=== PATIENT | female | born 1955 | race Caucasian/White ===

== ENCOUNTER 2018-09-10 16:06 | Inpatient (IN) | payer MEDICARE ==
[~2018-09-10] VITALS: Ht 149.9 cm; Wt 90.3 kg
[~2018-09-10 16:06] MED LIST: AMOXICILLIN250 MG PO; BACTRIM DS TAB1 EACH PO; BUSPIRONE HCL10 MG PO; GABAPENTIN600 MG PO; GLIMEPIRIDE4 MG PO; LEVEMIR100 UNIT/1; LEVETIRACETAM500 MG PO; LEXAPRO10 MG PO; LISINOPRIL10 MG PO; MAGNESIUM500 MG PO; NORCO 10MG-325MG1 EA PO; PANTOPRAZOLE SO20 MG PO; PLAVIX75 MG PO; SINGULAIR10 MG PO; SUCRALFATE1 GM PO; VIIBRYD40 MG PO
--- OUTSIDE RECORDS SUMMARY | 2018-09-10 16:11 | XMS REPORT | Continuity of Care Document ---
Author Author [facility] Interface Address Unknown Phone Unavailable Problems Problem Status Onset Date Classification Date Reported Comments Source ACHALASIA Active 12/30/2017 [facility] Gastro-esophageal reflux disease without esophagitis 12/16/2017 03/09/2018 [facility] BDDC/ GERD K21.9 Active 11/29/2017 [facility] DDC-GERD Active 10/22/2017 [facility] K22.0=ACHALASIA OF CARDIA, R13.14DYSPHAG Active 10/29/2015 [facility] STROKE Active 10/09/2014 [facility] AMS,HYPERGLYCEMIA,LT BINDLE BRANCH BLOCK Active 10/08/2014 [facility] Final: 10/14/2014 [facility] Dysphagia, unspecified 02/23/2018 [facility] Essential hypertension 03/09/2018 [facility] Type 2 diabetes mellitus without complications 03/09/2018 [facility] Sleep apnea, unspecified 02/23/2018 [facility] Personal history of transient ischemic attack , and cerebral infarction without residual deficits 03/09/2018 [facility] [employer]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 02/23/2018 [facility] [employer] 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 02/23/2018 [facility] Acid reflux Resolved Problem 03/09/2018 [facility] Anxiety Active Problem 03/09/2018 [facility] CVA (<span ID="[id number]">Confirmed</span>) Active Problem 03/09/2018 [facility] DM , type 2, uncontrolled(<span ID="[id number]">Confirmed</span>) Active Problem 03/09/2018 [facility] Expressive-receptive aphasia Active Problem 03/09/2018 [facility] HLD (<span ID="[id number]">Confirmed</span>) Active Problem 03/09/2018 [facility] Hypertension Active Problem 03/09/2018 [facility] Morbid obesity Active Problem 03/09/2018 [facility] Motor apraxia Active Problem 03/09/2018 [facility] MRSA Active Problem 03/09/2018 [facility] Peripheral neuropathy Active Problem 03/09/2018 [facility] Seizures Active Problem 03/09/2018 [facility] Sleep apnea Active Problem 03/09/2018 [facility] TIA (<span [id number]">Confirmed</span>) Resolved Problem 03/09/2018 [facility] Total knee replacement Resolved Problem 03/09/2018 [facility] Unspecified osteoarthritis, unspecified site 03/09/2018 [facility] Unspecified convulsions 03/09/2018 [facility] ALTERED MENTAL STATUS Active [facility] CVA Active [facility] CVA Active [facility] [place] ACHALASIA OF CARDIA Active [facility] DYSPHAGIA, PHARYNGOESOPHAGEAL PHASE Active [facility] Medications Medication Details Route Status Patient Instructions Ordering Provider Order Date Source Docusate Sodium 100 MG Oral Capsule 100 mg=1 cap, PO, BID, # 60 cap, 0 Refill(s) Active 01/14/2018 [facility] Acetaminophen 325 MG Oral Tablet [Tylenol] 325 mg=1 tab, PO, Q4H, PRN Pain Score 6-10, PRN pain, X 7 day, # 42 tab, 0 Refill(s) Active 01/14/2018 [facility] Melatonin 3 MG Extended Release Tablet 3 mg=1 tab, PO, Bedtime, PRN for insomnia Active 01/14/2018 [facility] Acetaminophen 325 MG Oral Tablet [Tylenol] 325 mg=1 tab, PO, Daily, PRN pain Inactive 01/14/2018 [facility] Vitamin D2 50,000 intl units oral capsule 50,000 IntlUnit=1 cap, PO, qWeek, (every Wednesday of the week) Active 01/14/2018 [facility] atorvastatin 40 mg oral tablet 40 mg=1 tab, PO, Bedtime, # 90 tab, 0 Refill(s) Active 01/14/2018 [facility] Levetiracetam 500 MG Oral Tablet 500 mg=1 tab, PO, BID, # 60 tab, 0 Refill(s) Active 01/14/2018 [facility] gabapentin 600 MG Oral Tablet 600 mg=1 tab, PO, TID, # 90 tab, 0 Refill(s) Active 01/14/2018 [facility] Enoxaparin 40 mg, 0.4 mL, Route: SUB-Q, Drug form: INJ, [id number], Dosing Weight 88.636, kg, Start date: 01/14/18 9:00:00 CDT, Stop date: 02/11/18 9:00:00 CDTNotes: (Same as: Lovenox) Inactive 01/14/2018 [facility] Lisinopril 5 mg, 1 tab, Route: PO, Drug form: TAB, Daily, Dosing Weight 88.636, kg, Priority: NOW, Start date: 01/14/18 8:12:00 CDT, Duration: 30 day, Stop date: 02/12/18 9:00:00 CDTNotes: (Same as: Maria De Jesus Hurt estrclinton) Inactive 01/14/2018 [facility] Calcium Gluconate 1,000 mg, 10 mL, Route: IVPB, ONCE, Dosing Weight 88.636, kg, Start date: 01/14/18 6:02:00 CDT, Stop date: 01/14/18 6:02:00 CDTNotes: WASTE: F/P - Sink; E - Municipal Trash Bin Inactive 01/14/2018 [facility] Magnesium Sulfate 2 gm, 50 mL, Route: IVPB, Drug form: INJ, ONCE, Dosing Weight 88.636, kg, Total dose=2 gm, Start date: 01/14/18 5:55:00 CDT, Stop date: 01/14/18 5:55:00 CDTNotes: WASTE: F/P - Sink; E - Municipal Trash Bin Inactive 01/14/2018 [facility] Albuterol 0.833 MG/ML / Ipratropium [place] 0.167 MG/ML Inhalant Solution [DuoNeb] 3 ml, Route: NEB, Drug Form: SOLN, Dosing Weight 88.636, kg, PRN, PRN Respiratory Protocol, Start date: 01/13/18 20:34:00 CDT, Duration: 30 day, Stop date: 02/12/18 20:33:00 CDTNotes: (Same as: Duoneb) No Longer Active 01/14/2018 [facility] atorvastatin 40 mg, PO, Bedtime, 0 Refill(s) No Longer Active 01/14/2018 [facility] magnesium oxide 500 mg oral tablet 500 mg=1 tab, PO, BID, 0 Refill(s) Active 01/14/2018 [facility] lisinopril 20 mg oral tablet 20 mg=1 tab, PO, Daily, 0 Refill(s) Active 01/14/2018 [facility] escitalopram 10 mg oral tablet 10 mg=1 tab, PO, Bedtime, 0 Refill(s) Active 01/14/2018 [facility] insulin detemir 100 UNT/ML Injectable Solution [Levemir] 100 unit, SUB-Q, Bedtime, 0 Refill(s) Active 01/14/2018 [facility] Ergocalciferol PO, once a week, 0 Refill(s) No Longer Active 01/14/2018 [facility] gabapentin 600 MG Oral Tablet 600 mg=1 tab, PO, Bedtime, 2 tabs, 0 Refill(s) No Longer Active 01/14/2018 [facility] meloxicam 15 mg oral tablet 15 mg=1 tab, PO, Daily, 0 Refill(s) No Longer Active 01/14/2018 [facility] glimepiride 4 mg oral tablet 4 mg=1 tab, PO, Daily, 0 Refill(s) Active 01/14/2018 [facility] Ofirmev 1,000 mg, 100 mL, Route: IV, Drug form: INJ, Q6H, Dosing Weight 88.636, kg, for > or=50 kg, Start date: 01/13/18 18:00:00 CDT, Duration: 30 day, Stop date: 02/12/18 12:00:00 CDTNotes: Infuse over 15 minutes Do not exceed 4gm/day of acetaminophen MEDICATION WASTE Product Size: 1000 mg Product Wasted: ___ mg No Longer Active 01/13/2018 [facility] Fluconazole 400 mg, 200 mL, Route: IVPB, Drug form: INJ, [id number], Dosing Weight 88.636, kg, Priority: NOW, Start date: 01/13/18 16:58:00 CDT, Duration: 1 day, Stop date: 01/13/18 16:58:00 CDT, ABX Indication: Sofia rgical ProphylaxisNotes: (Same as: Diflucan) Inactive 01/13/2018 [facility] Insulin regular 5 unit, Route: IV, ONCE, Dosing Weight 88.636, kg, Start date: 01/13/18 15:13:00 CDT, Stop date: 01/13/18 15:13:00 CDT Inactive 01/13/2018 [facility] Insulin regular 5 unit, Route: IV, ONCE, Dosing Weight 88.636, kg, Start date: 01/13/18 14:38:00 CDT, Stop date: 01/13/18 14:38:00 CDT Inactive 01/13/2018 [facility] ondansetron (ANES) Route: IV, Drug form: INJ, ONCE, Stop date: 01/13/18 14:10:00 CDT Inactive 01/13/2018 [facility] ketOROLAC (ANES) IV, ONCE Inactive 01/13/2018 [facility] sugammadex (ANES) Route: IV, Drug form: SOLN, ONCE, Stop date: 01/13/18 14:10:00 CDT Inactive 01/13/2018 [facility] furosemide (ANES) Route: IV, Drug form: INJ, ONCE, Stop date: 01/13/18 14:10:00 CDT Inactive 01/13/2018 [facility] NovoLIN R (ANES) Route: SUB-Q, Drug form: INJ, ONCE, Stop date: 01/13/18 14:06:00 CDT Inactive 01/13/2018 [facility] Enoxaparin 40 mg, Route: SUB-Q, Drug form: INJ, [id number], Dosing Weight 88.636, kg, Start date: 01/13/18 14:00:00 CDT, Stop date: 02/11/18 14:00:00 CDT Inactive 01/13/2018 [facility] Insulin regular 2 unit, 0.02 mL, Route: SUB-Q, Drug form: SOLN, Sliding Scale, Dosing Weight 88.636, kg, PRN Blood Glucose Results, Start date: 01/13/18 13:59:00 CDT, Duration: 30 day, Stop date: 02/12/18 13:58:00 C DTNotes: (Same as: Humulin R) Roll in palms of hands gently; Do not shake vigorously. "single patient use only" (Restricted to patients requiring a dose > 60 units) WASTE: F/P - Black; E - Municipal Trash Bin Stable for 28 days at room temperature Expires in days from Date No Longer Active 01/13/2018 [facility] Dextrose 50% Syringe 12.5 gm, 25 mL, Route: IVP, Drug Form: INJ, Dosing Weight 88.636, kg, PRN, PRN Blood Glucose Results, Start date: 01/13/18 13:59:00 CDT, Duration: 30 day, Stop date: 02/12/18 13:58:00 CDT No Longer Active 01/13/2018 [facility] Glucagon 1 mg, Route: IM, Drug form: PDR/INJ, PRN, Dosing Weight 88.636, kg, PRN Blood Glucose Results, Start date: 01/13/18 13:59:00 CDT, Duration: 30 day, Stop date: 02/12/18 13:58:00 CDT No Longer Active 01/13/2018 [facility] sugammadex 500 mg, 5 mL, Route: IV, Drug form: SOLN, ONCE, Start date: 01/13/18 13:52:00 CDT, Stop date: 01/13/18 13:52:00 CDTNotes: (Same as: Bridion) No Longer Active 01/13/2018 [facility] hydromorphone (ANES) Route: IV, Drug form: INJ, ONCE, Stop date: 01/13/18 13:36:00 CDT Inactive 01/13/2018 [facility] Lactated Ringers IV 1,000 mL 1,000 mL, Rate: 75 ml/hr, Infuse over: 13.3 hr, Route: IV, Dosing Weight 88.636 kg, Total Volume: 1,000, Start date: 01/13/18 13:12:00 CDT, Duration: 30 day, Stop date: 02/12/18 13:11:00 CDT, 1.96, m2 No Longer Active 01/13/2018 [facility] Dilaudid 0.5 mg, 0.25 mL, Route: IVP, Drug form: INJ, Q8H, Dosing Weight 88.636, kg, PRN Pain Score 7-10, Start date: 01/13/18 13:10:00 CDT, Duration: 30 day, Stop date: 02/12/18 13:09:00 CDTNotes: Same as Dilaudid No Longer Active 01/13/2018 [facility] fentaNYL (ANES) Route: IV, Drug form: INJ, ONCE, Stop date: 01/13/18 13:06:00 CDT Inactive 01/13/2018 [facility] ketAMINE (ANES) Route: IV, Drug form: INJ, ONCE, Stop date: 01/13/18 13:06:00 CDT Inactive 01/13/2018 [facility] phenylephrine (ANES) Route: IV, Drug form: INJ, ONCE, Stop date: 01/13/18 13:06:00 CDT Inactive 01/13/2018 [facility] Ondansetron 4 mg, 2 mL, Route: IVP, Drug form: INJ, Q6H, Dosing Weight 88.636, kg, PRN Nausea & Vomiting, Start date: 01/13/18 13:03:00 CDT, Duration: 30 day, Stop date: 02/12/18 13:02:00 CDTNotes: (Same as: Zofran) MEDICATION WASTE Product Size: 4 mg Product Wasted: ___ mg No Longer Active 01/13/2018 [facility] ceFAZolin (ANES) Route: IV, Drug form: INJ, ONCE, Stop date: 01/13/18 12:09:00 CDT Inactive 01/13/2018 [facility] sodium bicarbonate (ANES) Route: IV, Drug form: INJ, ONCE, Stop date: 01/13/18 11:53:00 CDT Inactive 01/13/2018 [facility] rocuronium (ANES) Route: IV, Drug form: INJ, ONCE, Stop date: 01/13/18 11:28:00 CDT Inactive 01/13/2018 [facility] propofol (ANES) Route: IV, Drug form: INJ, ONCE, Stop date: 01/13/18 11:28:00 CDT Inactive 01/13/2018 [facility] EPINEPHrine (ANES) 1 mg Route: IV, Drug form: INJ, Start date: 01/13/18 11:05:00 CDT, Stop date: 01/13/18 12:05:00 CDT Inactive 01/13/2018 [facility] albuterol (ANES) Route: INHALATION, Drug form: AERO/A, ONCE, Stop date: 01/13/18 10:46:00 CDT Inactive 01/13/2018 [facility] famotidine (ANES) Route: IV, Drug form: INJ, ONCE, Stop date: 01/13/18 10:38:00 CDT Inactive 01/13/2018 [facility] norepinephrine (ANES) Route: IV, Drug form: INJ, ONCE, Stop date: 01/13/18 10:38:00 CDT Inactive 01/13/2018 [facility] glycopyrrolate ([facility]) Route: IV, Drug form: INJ, ONCE, Stop date: 01/13/18 10:38:00 CDT Inactive 01/13/2018 [facility] acetaminophen (ANES) Route: IV, Drug form: INJ, ONCE, Stop date: 01/13/18 10:18:00 CDT Inactive 01/13/2018 [facility] dexamethasone (ANES) Route: IV, Drug form: INJ, ONCE, Stop date: 01/13/18 10:13:00 CDT Inactive 01/13/2018 [facility] fentaNYL (ANES) Route: IV, Drug form: INJ, ONCE, Stop date: 01/13/18 10:03:00 CDT Inactive 01/13/2018 [facility] succinylcholine (ANES) Route: IV, Drug form: INJ, ONCE, Stop date: 01/13/18 10:03:00 CDT Inactive 01/13/2018 [facility] lidocaine (ANES) Route: IV, Drug form: INJ, ONCE, Stop date: 01/13/18 10:03:00 CDT Inactive 01/13/2018 [facility] propofol (ANES) Route: IV, Drug form: INJ, ONCE, Stop date: 01/13/18 10:03:00 CDT Inactive 01/13/2018 [facility] phenylephrine (ANES) Route: IV, Drug form: INJ, ONCE, Stop date: 01/13/18 9:58:00 CDT Inactive 01/13/2018 [facility] rocuronium (ANES) Route: IV, Drug form: INJ, ONCE, Stop date: 01/13/18 9:48:00 CDT Inactive 01/13/2018 [facility] Oxycodone 5 mg, 1 tab, Route: PO, Drug form: TAB, Q4H, Dosing Weight 88.636, kg, PRN Pain Score 4-6, Start date: 01/13/18 9:46:00 CDT, Duration: 30 day, Stop date: 02/12/18 9:45:00 CDTNotes: (Same as: Roxicodone) Inactive 01/13/2018 [facility] Naloxone 0.4 mg, 1 mL, Route: IVP, Drug form: INJ, Q2MIN, Dosing Weight 88.636, kg, PRN Narcotic Reversal, Start date: 01/13/18 9:46:00 CDT, Duration: 8 doses or times, Stop date: 01/14/18 0:00:00 CDTNotes: Same as Narcan Inactive 01/13/2018 [facility] Flumazenil 0.2 mg, 2 mL, Route: IVP, Drug form: INJ, PRN, Dosing Weight 88.636, kg, PRN Benzodiazepine Reversal, Initial dose, Start date: 01/13/18 9:46:00 CDT, Duration: 30 day, Stop date: 02/12/18 9:45:00 CDT Notes: (Same as: Romazicon) Inactive 01/13/2018 [facility] Hydromorphone 0.5 mg, 0.25 mL, Route: IVP, Drug form: INJ, Q5Min, Dosing Weight 88.636, kg, PRN Pain Score 7-10, Start date: 01/13/18 9:46:00 CDT, Duration: 4 doses or times, Stop date: 01/14/18 0:00:00 CDTNotes: Same as Dilaudid Inactive 01/13/2018 [facility] Hydralazine 10 mg, 0.5 mL, Route: IVP, Drug form: INJ, Q20Min, Dosing Weight 88.636, kg, PRN Elevated BP, Start date: 01/13/18 9:46:00 CDT, Duration: 2 doses or times, Stop date: 01/14/18 0:00:00 CDTNotes: (Same as: Apresoline) Push over 5 minutes Inactive 01/13/2018 [facility] Ondansetron 4 mg, 2 mL, Route: IVP, Drug form: INJ, ONCE, Dosing Weight 88.636, kg, PRN Nausea & Vomiting, Start date: 01/13/18 9:46:00 CDTNotes: (Same as: Zofran) MEDICATION WASTE Product Size: 4 mg Product Wasted: ___ mg Inactive 01/13/2018 [facility] Promethazine 6.25 mg, 0.25 mL, Route: IVPB, Drug form: INJ, ONCE, Dosing Weight 88.636, kg, PRN Nausea & Vomiting, Start date: 01/13/18 9:46:00 CDTNotes: Do not give IV push. (Same as: Phenergan) Inactive 01/13/2018 [facility] ceFAZolin (ANES) Route: IV, Drug form: INJ, ONCE, Stop date: 01/13/18 9:38:00 CDT Inactive 01/13/2018 [facility] ketAMINE (ANES) 100 mg Route: IV, Drug form: INJ, Start date: 01/13/18 9:05:00 CDT, Stop date: 01/13/18 10:05:00 CDT Inactive 01/13/2018 [facility] dexmedetomidine (ANES) 200 microgram Route: IV, Drug form: INJ, Start date: 01/13/18 9:05:00 CDT, Stop date: 01/13/18 10:05:00 CDT Inactive 01/13/2018 [facility] Lactated Ringers Injection IV (ANES) 1000 mL Route: IV, Total Volume: 1,000, Start date: 01/13/18 8:46:00 CDT, Stop date: 01/13/18 9:46:00 CDT Inactive 01/13/2018 [facility] Ofirmev 1,000 mg, 100 mL, Route: IV, Drug form: INJ, PRE OP, Start date: 01/13/18 0:00:00 CDT, Duration: 1 day, Stop date: 01/13/18 23:59:00 CDTNotes: Infuse over 15 minutes Do not exceed 4gm/day of acetaminop hen MEDICATION WASTE Product Size: 1000 mg Product Wasted: ___ mg No Longer Active 01/13/2018 [facility] scopolamine 1 patch, Route: TOP, Drug form: ERFILM, PRE OP, Start date: 01/13/18 0:00:00 CDT, Duration: 1 day, Stop date: 01/13/18 23:59:00 CDTNotes: Change patch every 72 hours (Same as: Transderm-Scop) Inactive 01/13/2018 [facility] heparin 5,000 unit, 1 mL, Route: SUB-Q, Drug form: INJ, PRE OP, Start date: 01/13/18 0:00:00 CDT, Duration: 1 day, Stop date: 01/13/18 23:59:00 CDTNotes: porcine heparin Inactive 01/13/2018 [facility] ceFAZolin + sterile water 20 mL 2 gm, Route: IV, PRE OP, Start date: 01/13/18 0:00:00 CDT, Duration: 1 day, Stop date: 01/13/18 23:59:00 CDT, ABX Indication: Surgical ProphylaxisNotes: (Same As: Margaret Paynezoteodora) MEDICATION WASTE Product Size: 1000 mg Product Wasted: ___ mg No Longer Active 01/13/2018 [facility] glimepiride PO, Daily, 0 Refill(s) No Longer Active 01/05/2018 [facility] lisinopril 20 mg oral tablet 20 mg=1 tab, PO, Daily, 0 Refill(s) No Longer Active 01/05/2018 [facility] lisinopril 20 mg oral tablet 20 mg=1 tab, PO, Daily, # 30 tab, 0 Refill(s) Active 10/19/2014 [facility] Levetiracetam 500 MG Oral Tablet 500 mg=1 tab, PO, BID, # 60 tab, 0 Refill(s) Active 10/19/2014 [facility] glimepiride 4 mg oral tablet 4 mg=1 tab, PO, Daily, # 30 tab, 0 Refill(s) Active 10/19/2014 [facility] gabapentin 600 MG Oral Tablet 600 mg=1 tab, PO, BID, # 60 tab, 0 Refill(s) Active 10/19/2014 [facility] escitalopram 10 mg oral tablet 10 mg=1 tab, PO, Daily, # 30 tab, 0 Refill(s) Active 10/19/2014 [facility] clopidogrel 75 mg oral tablet 75 mg=1 tab, PO, Daily, # 30 tab, 0 Refill(s) Active 10/19/2014 [facility] atorvastatin 40 mg oral tablet 40 mg=1 tab, PO, Bedtime, # 30 tab, 0 Refill(s) Active 10/19/2014 [facility] ergocalciferol 50,000 intl units oral capsule 50,000 IntlUnit=1 cap, PO, qWeek, # 4 caplet, 0 Refill(s) Active 10/19/2014 [facility] 3 ML insulin detemir 100 UNT/ML Prefilled Syringe [Levemir] 15 unit, SUB-Q, Bedtime, rotate injection sites, # 2 pen(s), 0 Refill(s)Special Instructions: rotate injection sites Active 10/19/2014 [facility] magnesium oxide 500 mg oral tablet 500 mg=1 tab, PO, BID, # 60 tab, 0 Refill(s) Active 10/19/2014 [facility] Speech Therapy See Instructions, MISC, ONCALL, Evaluate and Treat 2-3 times per week for 4-6 weeks, # 1 ea, 0 Refill(s)Special Instructions: Evaluate and Treat 2-3 times per week for 4-6 weeks Active 10/18/2014 [facility] Occupational Therapy See Instructions, MISC, ONCALL, Evaluate and Treat 2-3 times per week for2-4 weeks, # 1 unit, 0 Refill(s)Special Instructions: Evaluate and Treat 2-3 times per week for2-4 weeks Active 10/18/2014 [facility] Physical Therapy See Instructions, MISC, ONCALL, Evaluate and Treat 2-3 times per week for 4-6 weeks, # 1 ea, 0 Refill(s)Special Instructions: Evaluate and Treat 2-3 times per week for 4-6 weeks Active 10/18/2014 [facility] Levemir 15 unit, 0.15 mL, Route: SUB-Q, Drug form: INJ, Daily, Dosing Weight 95.318, kg, Start date: 10/16/14 9:00:00, Duration: 30 day, Stop date: 11/14/14 9:00:00Notes: Same as Levemir Do not hold insulin wit hout contacting prescriber "single patient use only" No Longer Active 10/16/2014 [facility] Vitamin D 50,000 IntlUnit, 1 cap, Route: PO, Drug form: CAP, qWeek, Dosing Weight 95.318, kg, Start date: 10/15/14 22:00:00, Duration: 5 doses or times, Stop date: 11/12/14 9:00:00Notes: (Same as: Vitamin D) "Do Not Crush" No Longer Active 10/16/2014 [facility] Insulin, Aspart, Human 1 unit, 0.01 mL, Route: SUB-Q, Drug form: SOLN, Bedtime, Dosing Weight 95.318, kg, PRN Blood Glucose Results, Start date: 10/15/14 21:18:00, Duration: 30 day, Stop date: 11/14/14 21:17:00Notes: Roll in palms of hands gently; Do not shake vigorously. (Same as: NovoLOG) "single patient use only" Stable for 28 days at room temperature. Expires in days from Date No Longer Active 10/16/2014 [facility] Tums 1,000 mg, 2 tab, Route: CHEW, Drug form: CHEWTAB, Q4H, Dosing Weight 95.318, kg, PRN Indigestion, Start date: 10/15/14 12:43:00, Duration: 30 day, Stop date: 11/14/14 12:42:00Notes: (Same As: Tums) Calcium Carbonate 500 us=234 mg elemental calcium Dose= mg calcium carbonate ( mg elemental calcium) No Longer Active 10/15/2014 [facility] Insulin, Aspart, Human 2 unit, 0.02 mL, Route: SUB-Q, Drug form: SOLN, TID-Before Meals, Dosing Weight 95.318, kg, PRN Blood Glucose Results, Start date: 10/14/14 11:44:00, Duration: 30 day, Stop date: 11/13/14 11:43:00Notes: Roll in palms of hands gently; Do not shake vigorously. (Same as: NovoLOG) "single patient use only" Stable for 28 days at room temperature. Expires in days from Date No Longer Active 10/14/2014 [facility] Glucagon 1 mg, Route: IM, Drug form: PDR/INJ, PRN, Dosing Weight 95.318, kg, PRN Blood Glucose Results, Start date: 10/14/14 11:44:00, Duration: 30 day, Stop date: 11/13/14 12:43:00 No Longer Active 10/14/2014 [facility] Dextrose 50% Syringe 12.5 gm, 25 mL, Route: IVP, Drug Form: INJ, Dosing Weight 95.318, kg, PRN, PRN Blood Glucose Results, Start date: 10/14/14 11:44:00, Duration: 30 day, Stop date: 11/13/14 12:43:00 No Longer Active 10/14/2014 [facility] Magnesium Oxide 500 MG Oral Tablet 500 mg, 2 tab, Route: PO, Drug form: TAB, BID, Dosing Weight 95.318, kg, Start date: 10/14/14 9:00:00, Duration: 30 day, Stop date: 11/12/14 17:00:00 No Longer Active 10/14/2014 [facility] pantoprazole 40 mg, 1 tab, Route: PO, Drug form: ECTAB, Before Dinner, Dosing Weight 95.318, kg, Start date: 10/13/14 16:30:00, Duration: 30 day, Stop date: 11/11/14 16:30:00Notes: Tablet should not be chewed or crushed. (Same as: Protonix) No Longer Active 10/13/2014 [facility] Magnesium Sulfate 2 gm, 50 mL, Route: IVPB, Drug form: INJ, Q2H, Dosing Weight 95.318, kg, Total dose=4 gm, Start date: 10/13/14 10:00:00, Duration: 2 doses or times, Stop date: 10/13/14 12:00:00 Inactive 10/13/2014 [facility] Lisinopril 20 mg, 1 tab, Route: PO, Drug form: TAB, Daily, Dosing Weight 95.318, kg, Start date: 10/13/14 9:00:00, Duration: 30 day, Stop date: 11/11/14 9:00:00Notes: (Same as: Prinivil, Zestril) No Longer Active 10/13/2014 [facility] glimepiride 4 mg, 1 tab, Route: PO, Drug form: TAB, Daily, Dosing Weight 95.318, kg, Start date: 10/13/14 9:00:00, Duration: 30 day, Stop date: 11/11/14 9:00:00Notes: (Same as: Amaryl) No Longer Active 10/13/2014 [facility] Escitalopram 10 mg, 1 tab, Route: PO, Drug form: TAB, Daily, Dosing Weight 95.318, kg, Start date: 10/13/14 9:00:00, Duration: 30 day, Stop date: 11/11/14 9:00:00Notes: (Same as: Lexapro) No Longer Active 10/13/2014 [facility] clopidogrel 75 mg, 1 tab, Route: PO, Drug form: TAB, Daily, Dosing Weight 95.318, kg, Start date: 10/13/14 9:00:00, Duration: 30 day, Stop date: 11/11/14 9:00:00Notes: (Same As: Plavix) No Longer Active 10/13/2014 [facility] Levetiracetam 500 MG Oral Tablet 500 mg, 1 tab, Route: PO, Drug form: TAB, BID, Dosing Weight 95.318, kg, Start date: 10/12/14 21:00:00, Duration: 30 day, Stop date: 11/11/14 9:00:00Notes: (Same as:Keppra) No Longer Active 10/13/2014 [facility] gabapentin 600 MG Oral Tablet 600 mg, 2 cap, Route: PO, Drug form: CAP, BID, Dosing Weight 95.318, kg, Start date: 10/12/14 21:00:00, Duration: 30 day, Stop date: 11/11/14 9:00:00Notes: (Same as: Neurontin) No Longer Active 10/13/2014 [facility] atorvastatin 40 mg, 1 tab, Route: PO, Drug form: TAB, Bedtime, Dosing Weight 95.318, kg, Start date: 10/12/14 21:00:00, Duration: 30 day, Stop date: 11/10/14 21:00:00Notes: (Same as: Lipitor) No Longer Active 10/13/2014 [facility] Alprazolam 0.25 MG Oral Tablet [Xanax] 0.25 mg, 1 tab, Route: PO, Drug form: TAB, Q6H, Dosing Weight 95.318, kg, PRN as needed for anxiety, Start date: 10/12/14 17:00:00, Stop date: 11/11/14 16:59:00Notes: With food or milk (Same as: Xanax) No Longer Active 10/12/2014 [facility] Acetaminophen 325 MG Oral Tablet 650 mg, 2 tab, Route: PO, Drug form: TAB, Q6H, Dosing Weight 95.318, kg, PRN Pain 1-3/Temp > 100.4 F, Start date: 10/12/14 16:59:00, Stop date: 11/11/14 16:58:00Notes: Do not exceed 4 gm/day. (Same as: Tylenol) No Longer Active 10/12/2014 [facility] Temazepam 7.5 mg, 1 cap, Route: PO, Drug form: CAP, Bedtime, Dosing Weight 95.318, kg, PRN Insomnia, Start date: 10/12/14 16:56:00, Stop date: 11/11/14 16:55:00Notes: (Same As: Restoril) No Longer Active 10/12/2014 [facility] Nitroglycerin 0.4 MG Sublingual Tablet 0.4 mg, 1 tab, Route: SL, Drug form: TAB, Q5Min, Dosing Weight 95.318, kg, PRN Other -See Comment, chest pain, Start date: 10/12/14 16:55:00, Stop date: 11/11/14 17:54:00Notes: (Same as:Nitroquick, Nitrostat) "Do Not Crush" Sublingual tablet No Longer Active 10/12/2014 [facility] Trazodone 50 mg, 1 tab, Route: PO, Drug form: TAB, Bedtime, Dosing Weight 95.318, kg, PRN Insomnia, Start date: 10/12/14 13:53:00, Duration: 30 day, Stop date: 11/11/14 13:52:00Notes: (Same As: Desyrel) No Longer Active 10/12/2014 [facility] Acetaminophen 650 mg, 2 tab, Route: PO, Drug form: TAB, Q4H, Dosing Weight 95.318, kg, PRN Pain Score 1-3, Start date: 10/12/14 13:53:00, Duration: 30 day, Stop date: 11/11/14 13:52:00Notes: Do not exceed 4 gm/day. (Same as: Tylenol) Inactive 10/12/2014 [facility] pantoprazole 40 mg oral enteric coated tablet 40 mg=1 tab, PO, Before Dinner, # 30 tab, 0 Refill(s) On Hold 10/12/2014 [facility] Nitroglycerin 0.4 MG Sublingual Tablet 0.4 mg=1 tab, SL, Q5Min, Chest Pain, # 15 tab, 0 Refill(s) On Hold 10/12/2014 [facility] lisinopril 20 mg oral tablet 20 mg=1 tab, PO, Daily, # 30 tab, 0 Refill(s) On Hold 10/12/2014 [facility] Levetiracetam 500 MG Oral Tablet 500 mg=1 tab, PO, BID, # 60 tab, 0 Refill(s) On Hold 10/12/2014 [facility] glimepiride 4 mg oral tablet 4 mg=1 tab, PO, Daily, # 30 tab, 0 Refill(s) On Hold 10/12/2014 [facility] gabapentin 600 MG Oral Tablet 600 mg=1 tab, PO, BID, # 60 tab, 0 Refill(s) On Hold 10/12/2014 [facility] escitalopram 10 mg oral tablet 10 mg=1 tab, PO, Daily, # 30 tab, 0 Refill(s) On Hold 10/12/2014 [facility] clopidogrel 75 mg oral tablet 75 mg=1 tab, PO, Daily, # 30 tab, 0 Refill(s) On Hold 10/12/2014 [facility] atorvastatin 40 mg oral tablet 40 mg=1 tab, PO, Bedtime, # 30 tab, 0 Refill(s) On Hold 10/12/2014 [facility] Alprazolam 0.25 MG Oral Tablet [Xanax] 0.25 mg=1 tab, PO, Q6H, Anxiety, # 10 tab, 0 Refill(s) On Hold 10/12/2014 [facility] Acetaminophen 325 MG Oral Tablet 650 mg=2 tab, PO, Q6H, Pain Score 1-3, # 24 tab, 0 Refill(s) On Hold 10/12/2014 [facility] temazepam 7.5 mg oral capsule 7.5 mg=1 cap, PO, Bedtime, Sleep, 0 Refill(s) On Hold 10/12/2014 [facility] pantoprazole 40 mg oral enteric coated tablet 40 mg=1 tab, PO, Before Dinner, 0 Refill(s) Inactive 10/12/2014 [facility] Nitroglycerin 0.4 MG Sublingual Tablet 0.4 mg=1 tab, SL, Q5Min, Chest Pain, 0 Refill(s) Inactive 10/12/2014 [facility] atorvastatin 40 mg oral tablet 40 mg=1 tab, PO, Bedtime, 0 Refill(s) Inactive 10/12/2014 [facility] Alprazolam 0.25 MG Oral Tablet [Xanax] 0.25 mg=1 tab, PO, Q6H, Anxiety, 0 Refill(s) Inactive 10/12/2014 [facility] Acetaminophen 325 MG Oral Tablet 650 mg=2 tab, PO, Q6H, Pain Score 1-3, 0 Refill(s) Inactive 10/12/2014 [facility] Protonix 40 mg, 1 tab, Route: PO, Drug form: ECTAB, Before Dinner, Dosing Weight 95.318, kg, Start date: 10/11/14 16:30:00, Duration: 30 day, Stop date: 11/09/14 16:30:00Notes: Tablet should not be chewed or crushed. (Same as: Protonix) No Longer Active 10/11/2014 [facility] Zofran 4 mg, 2 mL, Route: IV, Drug form: INJ, Q8H, Dosing Weight 95.318, kg, PRN Nausea, Start date: 10/11/14 11:09:00, Duration: 30 day, Stop date: 11/10/14 11:08:00Notes: (Same as: Zofran) No Longer Active 10/11/2014 [facility] Temazepam 7.5 mg, 1 cap, Route: PO, Drug form: CAP, Bedtime, Dosing Weight 95.318, kg, PRN Sleep, Start date: 10/11/14 10:29:00, Duration: 30 day, Stop date: 11/10/14 10:28:00Notes: (Same As: Restoril) No Longer Active 10/11/2014 [facility] Tylenol 650 mg, 2 tab, Route: PO, Drug form: TAB, Q6H, Dosing Weight 95.318, kg, PRN Pain Score 1-3, Start date: 10/11/14 10:29:00, Duration: 30 day, Stop date: 11/10/14 10:28:00Notes: Do not exceed 4 gm/day. (Same as: Tylenol) No Longer Active 10/11/2014 [facility] Escitalopram 10 mg, 1 tab, Route: PO, Drug form: TAB, Bedtime, Dosing Weight 95.318, kg, Start date: 10/10/14 21:00:00, Duration: 30 day, Stop date: 11/08/14 21:00:00Notes: (Same as: Lexapro) No Longer Active 10/11/2014 [facility] atorvastatin 20 mg, Route: PO, Drug form: TAB, Bedtime, Dosing Weight 95.318, kg, Start date: 10/09/14 21:00:00, Duration: 30 day, Stop date: 11/07/14 21:00:00 Inactive 10/10/2014 [facility] Alprazolam 0.25 MG Oral Tablet [Xanax] 0.25 mg, 1 tab, Route: PO, Drug form: TAB, Q6H, Dosing Weight 95.318, kg, PRN Anxiety, Start date: 10/09/14 18:04:00, Duration: 30 day, Stop date: 11/08/14 18:03:00Notes: With food or milk (Same as: Xanax) No Longer Active 10/10/2014 [facility] Lisinopril 20 mg, 1 tab, Route: PO, Drug form: TAB, Daily, Dosing Weight 95.318, kg, Start date: 10/09/14 9:00:00, Duration: 30 day, Stop date: 11/07/14 9:00:00Notes: (Same as: Prinivil, Zestril) No Longer Active 10/09/2014 [facility] Levetiracetam 500 MG Oral Tablet 500 mg, 1 tab, Route: PO, Drug form: TAB, BID, Dosing Weight 95.318, kg, Start date: 10/09/14 9:00:00, Duration: 30 day, Stop date: 11/07/14 21:00:00Notes: (Same as:Keppra) No Longer Active 10/09/2014 [facility] glimepiride 4 mg, 1 tab, Route: PO, Drug form: TAB, Daily, Dosing Weight 95.318, kg, Start date: 10/09/14 9:00:00, Duration: 30 day, Stop date: 11/07/14 9:00:00Notes: (Same as: Amaryl) No Longer Active 10/09/2014 [facility] gabapentin 600 MG Oral Tablet 600 mg, 2 cap, Route: PO, Drug form: CAP, BID, Dosing Weight 95.318, kg, Start date: 10/09/14 9:00:00, Duration: 30 day, Stop date: 11/07/14 17:00:00Notes: (Same as: Neurontin) No Longer Active 10/09/2014 [facility] Escitalopram 10 mg, 1 tab, Route: PO, Drug form: TAB, Daily, Dosing Weight 95.318, kg, Start date: 10/09/14 9:00:00, Duration: 30 day, Stop date: 11/07/14 9:00:00Notes: (Same as: Lexapro) Inactive 10/09/2014 [facility] clopidogrel 75 mg, 1 tab, Route: PO, Drug form: TAB, Daily, Dosing Weight 95.318, kg, Start date: 10/09/14 9:00:00, Duration: 30 day, Stop date: 11/07/14 9:00:00Notes: (Same As: Plavix) No Longer Active 10/09/2014 [facility] Saline Flush 0.9% 10 ml, Route: IVP, Drug Form: INJ, Dosing Weight 95.318, kg, Q12H, Start date: 10/09/14 9:00:00, Duration: 30 day, Stop date: 11/07/14 21:00:00Notes: (Same as: BD Posiflush) No Longer Active 10/09/2014 [facility] Aspirin 325 MG Enteric Coated Tablet 325 mg, 1 tab, Route: PO, Drug form: ECTAB, Daily, Dosing Weight 95.318, kg, Start date: 10/09/14 2:54:00, Duration: 30 day, Stop date: 11/07/14 9:00:00Notes: (Do Not Crush) Do not crush or chew. No Longer Active 10/09/2014 [facility] Ativan 1 mg, 0.5 mL, Route: IVP, Drug form: INJ, ONCE, Dosing Weight 95.318, kg, PRN Anxiety, Start date: 10/09/14 2:46:00Notes: (Same as: Ativan) Inactive 10/09/2014 [facility] Saline Flush 0.9% 10 ml, Route: IVP, Drug Form: INJ, Dosing Weight 95.318, kg, PRN, PRN Line Flush, Start date: 10/09/14 2:40:00, Duration: 30 day, Stop date: 11/08/14 2:39:00Notes: (Same as: BD Posiflush) No Longer Active 10/09/2014 [facility] Labetalol 10 mg, 2 mL, Route: IVP, Drug form: INJ, Q10Min, Dosing Weight 95.318, kg, PRN Hypertension, Start date: 10/09/14 2:40:00, Duration: 30 day, Stop date: 11/08/14 2:39:00, For SBP > 180mmHg and/or DBP > 105mmHgNotes: (Same as: Normodyne, Trandate) Push over 2 minutes Give bolus over 2-3 minutes. No Longer Active 10/09/2014 [facility] Nitroglycerin 0.4 MG Sublingual Tablet 0.4 mg, 1 tab, Route: SL, Drug form: TAB, Q5Min, Dosing Weight 95.318, kg, PRN Chest Pain, Start date: 10/09/14 2:39:00, Duration: 30 day, Stop date: 11/08/14 2:38:00Notes: (Same as:Nitroquick, Nitrostat) "Do Not Crush" Sublingual tablet No Longer Active 10/09/2014 [facility] Atropine 0.5 mg, 5 mL, Route: IVP, Drug form: INJ, PRN, Dosing Weight 95.318, kg, PRN Bradycardia, Start date: 10/09/14 2:39:00, Duration: 30 day, Stop date: 11/08/14 2:38:00 No Longer Active 10/09/2014 [facility] Insulin, Aspart, Human 1 unit, 0.01 mL, Route: SUB-Q, Drug form: SOLN, Bedtime, Dosing Weight 95.318, kg, PRN Blood Glucose Results, Start date: 10/09/14 2:35:00, Duration: 30 day, Stop date: 11/08/14 2:34:00Notes: Roll in palms of hands gently; Do not shake vigorously. (Same as: NovoLOG) "single patient use only" Stable for 28 days at room temperature. Expires in days from Date No Longer Active 10/09/2014 [facility] Glucagon 1 mg, Route: IM, Drug form: PDR/INJ, PRN, Dosing Weight 95.318, kg, PRN Blood Glucose Results, Start date: 10/09/14 2:35:00, Duration: 30 day, Stop date: 11/08/14 2:34:00 No Longer Active 10/09/2014 [facility] Dextrose 50% Syringe 25 gm, 50 mL, Route: IVP, Drug Form: INJ, Dosing Weight 95.318, kg, PRN, PRN Blood Glucose Results, Start date: 10/09/14 2:35:00, Duration: 30 day, Stop date: 11/08/14 2:34:00 No Longer Active 10/09/2014 [facility] glimepiride 4 mg oral tablet 4 mg=1 tab, PO, Daily, # 90 tab, 0 Refill(s) No Longer Active 10/09/2014 [facility] escitalopram 10 mg oral tablet 10 mg=1 tab, PO, Daily, # 90 tab, 0 Refill(s) No Longer Active 10/09/2014 [facility] Levetiracetam 500 MG Oral Tablet 500 mg=1 tab, PO, BID, # 120 tab, 0 Refill(s) No Longer Active 10/09/2014 [facility] lisinopril 20 mg oral tablet 20 mg=1 tab, PO, Daily, # 90 tab, 0 Refill(s) No Longer Active 10/09/2014 [facility] clopidogrel 75 mg oral tablet 75 mg=1 tab, PO, Daily, # 90 tab, 0 Refill(s) No Longer Active 10/09/2014 [facility] gabapentin 600 MG Oral Tablet 600 mg=1 tab, PO, BID, # 90 tab, 0 Refill(s) No Longer Active 10/09/2014 [facility] Allergies, Adverse Reactions, Alerts Substance Category Reaction Severity Reaction type Status Date Reported Comments Source iodine topical Assertion Drug allergy Active [facility] Immunizations Immunization Date Given Site Status Last Updated Comments Source Results Order Name Results Value Reference Range Date Interpretation Comments Source Chest 2 views DX Chest 2 views DX EXAM: XR CHEST 2 VIEWS DATE: 01/14/2018 5:00 AM CDT INDICATION: - followup COMPARISON: 01/13/2018 TECHNIQUE: AP and lateral chest radiographs IMPRESSION: 1. Bibasilar subsegmental platelike atelectatic changes. Otherwise, lungs are clear. Costophrenic recesses are sharp. 2. Cardiomediastinal silhouette within normal limits. 3. Multiple multiple small radiopaque bodies are seen related to the posterior cardiac shadow which may represent coiling material or occlusion device. 4. No acute osseous abnormalities. 01/14/2018 - - Read by: Efrem Dalton MD Dictated Date/time: 01/14/18 10:00 Electronically Signed by: Efrem Dalton MD 01/14/18 10:04 FINAL REPORT [facility] BLOOD BANK RESULTS Antibody Scrn Negative (01/14/18 3:59 AM) 01/14/2018 [facility] BLOOD BANK RESULTS ABO/Rh A NEG 01/14/2018 [facility] CHEM PANEL Lipase Lvl 76 unit/L 73 - 393 01/14/2018 [facility] CHEM PANEL Alk Phos 73 unit/L 39 - 136 01/14/2018 [facility] CHEM PANEL Bili Direct 0.1 mg/dL 0.0 - 0.3 01/14/2018 [facility] CHEM PANEL Bili Total 0.5 mg/dL 0.2 - 1.3 01/14/2018 [facility] CHEM PANEL ALT 24 unit/L 0 - 65 01/14/2018 [facility] CHEM PANEL Bili Indirect 0.4 mg/dL 0.0 - 1.0 01/14/2018 [facility] CHEM PANEL AST 5 unit/L 0 - 37 01/14/2018 [facility] CHEM PANEL Albumin Lvl 2.6 g/dL 3.5 - 5.0 01/14/2018 [facility] CHEM PANEL Total Protein 7.5 g/dL 6.4 - 8.4 01/14/2018 [facility] CHEM PANEL A/G Ratio 0.5 0.7 - 1.6 01/14/2018 [facility] CHEM PANEL Globulin 4.9 g/dL 2.7 - 4.2 01/14/2018 [facility] CHEM PANEL Phosphorus 4.1 mg/dL 2.5 - 4.5 01/14/2018 [facility] CHEM PANEL Magnesium Lvl 1.6 mg/dL 1.8 - 2.4 01/14/2018 [facility] ELECTROLYTES AGAP 17.4 meq/L 10.0 - 20.0 01/14/2018 [facility] ELECTROLYTES eGFR 46 mL/min/1.73m2 01/14/2018 Result Comment: The eGFR is calculated using the CKD-EPI formula. In most young, healthy individuals the eGFR will be >90 mL/min/1.73m2. The eGFR declines with age. An eGFR of 60-89 may be normal in some populations, particularly the elderly, for whom the CKD-EPI formula has not been extensively validated. Use of the eGFR is not recommended in the following populations: Individuals with unstable creatinine concentrations, including patients and those with serious co-morbid conditions. Patients with extremes in muscle mass or diet. The data above are obtained from the National Kid[employer] Disease Education Program (NKDEP) which additionally recommends that when the eGFR is used in patients with extremes of body mass index for purposes of drug dosing, the eGFR should be multiplied by the estimated BMI. [facility] ELECTROLYTES Calcium Lvl 8.6 mg/dL 8.5 - 10.5 01/14/2018 [facility] ELECTROLYTES Potassium Lvl 5.4 meq/L 3.5 - 5.1 01/14/2018 [facility] ELECTROLYTES Creatinine Lvl 1.25 mg/dL 0.50 - 1.40 01/14/2018 [facility] ELECTROLYTES CO2 19 meq/L 24 - 32 01/14/2018 [facility] ELECTROLYTES Chloride Lvl 105 meq/L 95 - 109 01/14/2018 [facility] ELECTROLYTES BUN 32 mg/dL 7 - 22 01/14/2018 [facility] ELECTROLYTES Glucose Lvl 140 mg/dL 70 - 99 01/14/2018 [facility] ELECTROLYTES Sodium Lvl 136 meq/L 135 - 145 01/14/2018 [facility] HEMATOLOGY RDW 15.0 % 11.5 - 14.5 01/14/2018 [facility] HEMATOLOGY MCH 27.5 pg 27.0 - 31.0 01/14/2018 [facility] HEMATOLOGY Platelet 177 K/CMM 133 - 450 01/14/2018 [facility] HEMATOLOGY MCHC 32.6 g/dL 32.0 - 36.0 01/14/2018 [facility] HEMATOLOGY MPV 8.6 fL 7.4 - 10.4 01/14/2018 [facility] HEMATOLOGY Hgb 11.4 g/dL 12.0 - 16.0 01/14/2018 [facility] HEMATOLOGY Hct 35.0 % 36.0 - 48.0 01/14/2018 [facility] HEMATOLOGY RBC 4.15 M/CMM 4.20 - 5.40 01/14/2018 [facility] HEMATOLOGY MCV 84.3 fL 80.0 - 98.0 01/14/2018 [facility] HEMATOLOGY WBC 12.5 K/CMM 3.7 - 10.4 01/14/2018 [facility] HEMATOLOGY Segs 83.2 % 45.0 - 75.0 01/14/2018 [facility] HEMATOLOGY Lymphocytes 11.4 % 20.0 - 40.0 01/14/2018 [facility] HEMATOLOGY Basophils 0.3 % 0.0 - 1.0 01/14/2018 [facility] HEMATOLOGY Monocytes 5.1 % 2.0 - 12.0 01/14/2018 [facility] HEMATOLOGY Lymphocytes # 1.4 K/CMM 1.0 - 5.5 01/14/2018 [facility] HEMATOLOGY Monocytes # 0.6 K/CMM 0.0 - 0.8 01/14/2018 [facility] HEMATOLOGY Segs-Bands # 10.4 K/CMM 1.5 - 8.1 01/14/2018 [facility] PARATHYROID PROFILE Ca Norm WB 1.00 mMol/L 1.05 - 1.25 01/14/2018 [facility] PARATHYROID PROFILE Ca Ion WB 1.02 mMol/L 1.05 - 1.25 01/14/2018 [facility] Esophagram w Water Soluble Contrast DX Esophagram w Water Soluble Contrast DX EXAM: FLUOROSCOPY WATER-SOLUBLE CONTRAST ESOPHAGRAM DATE: 01/14/2018 0839 hours INDICATION: Status post endoscopic myotomy for achalasia. ADDITIONAL INFORMATION: None. COMPARISON: None. TECHNIQUE: Esophagram was performed using water-soluble contrast (Omni 350) technique. FLUOROSCOPY TIME: 1 minute 34 seconds. Skin dose: 101 mGy. DISCUSSION: Preliminary radiograph: Bibasilar subsegmental atelectasis. No definite pleural effusion or pneumothorax. Swallowing: Unremarkable as the water-soluble contrast flows into the stomach without significant delay, obstruction, leak or evidence of stricture. Esophagus: Motility: Mildly dilated corkscrew appearance of distal esophagus during swallowing, suggesting presbyesophagus. Primary and secondary contractions visualized at the proximal to mid esophagus. Anatomy: No filling defects, mucosal irregularities, obstructions or extrinsic compressions identified. Hiatal hernia: None. Gastroesophageal reflux: None. IMPRESSION: 1. Status post endoscopy myotomy for achalasia with no evidence of obstruction, leak or stricture. 2. Presbyesophagus. 3. Bibasilar subsegmental atelectasis of the lung. 01/14/2018 - - This report was dictated by a Underwater Hunter/Fellow. I have personally reviewed the images as well as the Resident's interpretation and agree with the findings. Read by: Donny Leyva DO Resident: Donny Leyva DO Dictated Date/time: 01/14/18 09:44 Electronically Signed by: Royal Cordova MD 01/14/18 14:43 FINAL REPORT [facility] Chest 1view DX Chest 1view DX EXAM: XR CHEST 1 VIEW DATE: 01/13/2018 2:33 PM CDT INDICATION: - IN PACU COMPARISON: 01/13/2018 TECHNIQUE: AP chest FINDINGS: Lines, tubes and hardware: Interval removal of the endotracheal tube is noted. Lungs and pleura: The lung volumes are diminished. Streaky opacities in both lung bases likely represent subsegmental atelectasis. Underlying consolidation cannot be excluded. No definite pleural effusion or pneumothorax is seen. Heart and mediastinum: The cardiomediastinal silhouette is unchanged. Bones: The osseous structures are unchanged. IMPRESSION: 1. Interval removal of the endotracheal tube. 2. Diminished lung volumes with bibasilar streaky opacities, likely representing subsegmental atelectasis. Underlying consolidation cannot be excluded. 01/13/2018 - - Read by: Sung Lazaro MD Dictated Date/time: 01/13/18 17:16 Electronically Signed by: Sung Lazaro MD 01/13/18 17:17 FINAL REPORT [facility] Chest 1view DX Chest 1view DX EXAM: XR CHEST 1 VIEW DATE: 01/13/2018 11:19 AM CDT INDICATION: - SOB COMPARISON: None. TECHNIQUE: AP chest, supine FINDINGS: Pneumoperitoneum is present. The patient is intubated and the ET tube terminates 1.7 cm above the vincent. Lung volumes are diminished and there are patchy opacities throughout the left lung and in the right lung base. These opacities may represent any comminution of subsegmental atelectasis and pneumonia. There also appears to be a small left-sided pneumothorax. Cardiomediastinal silhouette appears enlarged however this may partly be due to low lung volumes. Degenerative changes are seen throughout the visualized spine. IMPRESSION: 1. Pneumoperitoneum. 2. Small left-sided pneumothorax. 3. Opacities throughout the left lung and in the base of the right lung. The primary team was already aware of the findings and had taken the patient to the operating room. 01/13/2018 - - Read by: Joseph Alvarado MD Dictated Date/time: 01/13/18 11:44 Electronically Signed by: Joseph Alvarado MD 01/13/18 12:00 FINAL REPORT [facility] ELECTROLYTES AGAP 13.6 meq/L 10.0 - 20.0 01/05/2018 [facility] ELECTROLYTES eGFR 93 mL/min/1.73m2 01/05/2018 Result Comment: The eGFR is calculated using the CKD-EPI formula. In most young, healthy individuals the eGFR will be >90 mL/min/1.73m2. The eGFR declines with age. An eGFR of 60-89 may be normal in some populations, particularly the elderly, for whom the CKD-EPI formula has not been extensively validated. Use of the eGFR is not recommended in the following populations: Individuals with unstable creatinine concentrations, including patients and those with serious co-morbid conditions. Patients with extremes in muscle mass or diet. The data above are obtained from the National Kidney Disease Education Program (NKDEP) which additionally recommends that when the eGFR is used in patients with extremes of body mass index for purposes of drug dosing, the eGFR should be multiplied by the estimated BMI. [facility] ELECTROLYTES BUN 22 mg/dL 7 - 22 01/05/2018 [facility] ELECTROLYTES Creatinine Lvl 0.69 mg/dL 0.50 - 1.40 01/05/2018 [facility] ELECTROLYTES CO2 27 meq/L 24 - 32 01/05/2018 [facility] ELECTROLYTES Calcium Lvl 8.7 mg/dL 8.5 - 10.5 01/05/2018 [facility] ELECTROLYTES Potassium Lvl 5.6 meq/L 3.5 - 5.1 01/05/2018 [facility] ELECTROLYTES Chloride Lvl 108 meq/L 95 - 109 01/05/2018 [facility] ELECTROLYTES Sodium Lvl 143 meq/L 135 - 145 01/05/2018 [facility] ELECTROLYTES Glucose Lvl 73 mg/dL 70 - 99 01/05/2018 [facility] HEMATOLOGY MPV 8.8 fL 7.4 - 10.4 01/05/2018 [facility] HEMATOLOGY RDW 14.6 % 11.5 - 14.5 01/05/2018 [facility] HEMATOLOGY Platelet 222 K/CMM 133 - 450 01/05/2018 [facility] HEMATOLOGY Hct 38.4 % 36.0 - 48.0 01/05/2018 [facility] HEMATOLOGY Hgb 12.5 g/dL 12.0 - 16.0 01/05/2018 [facility] HEMATOLOGY MCV 83.8 fL 80.0 - 98.0 01/05/2018 [facility] HEMATOLOGY MCH 27.2 pg 27.0 - 31.0 01/05/2018 [facility] HEMATOLOGY MCHC 32.5 g/dL 32.0 - 36.0 01/05/2018 [facility] HEMATOLOGY RBC 4.58 M/CMM 4.20 - 5.40 01/05/2018 [facility] HEMATOLOGY WBC 11.9 K/CMM 3.7 - 10.4 01/05/2018 [facility] HEMATOLOGY Basophils # 0.1 K/CMM 0.0 - 0.2 01/05/2018 [facility] HEMATOLOGY Eosinophils # 0.2 K/CMM 0.0 - 0.5 01/05/2018 [facility] HEMATOLOGY Basophils 0.7 % 0.0 - 1.0 01/05/2018 [facility] HEMATOLOGY Segs-Bands # 8.6 K/CMM 1.5 - 8.1 01/05/2018 [facility] HEMATOLOGY Eosinophils 1.7 % 0.0 - 4.0 01/05/2018 [facility] HEMATOLOGY Lymphocytes 19.0 % 20.0 - 40.0 01/05/2018 [facility] HEMATOLOGY Monocytes 6.4 % 2.0 - 12.0 01/05/2018 [facility] HEMATOLOGY Segs 72.2 % 45.0 - 75.0 01/05/2018 [facility] HEMATOLOGY Lymphocytes # 2.3 K/CMM 1.0 - 5.5 01/05/2018 [facility] HEMATOLOGY Monocytes # 0.8 K/CMM 0.0 - 0.8 01/05/2018 [facility] SPECIAL CHEMISTRY Hgb A1C 7.1 % <=5.6 % 01/05/2018 [facility] CHEM PANEL Vitamin D, 25-OH, Total 18 ng/mL 30 - 100 10/13/2014 3Interpretive Data: Reference range is based on recommendations in the Endocrine Society Clinical Practice Guideline (J Clin Endocrinol Metab 2011;96:8184-7977) [facility] CHEM PANEL Magnesium Lvl 1.6 mg/dL 1.8 - 2.4 10/13/2014 [facility] CHEM PANEL Phosphorus 3.8 mg/dL 2.5 - 4.5 10/13/2014 [facility] CHEM PANEL Albumin Lvl 3.1 g/dL 3.5 - 5.0 10/13/2014 [facility] CHEM PANEL eGFR 61 mL/min/1.73m2 10/13/2014 1Result Comment: The eGFR is calculated using the CKD-EPI formula. In most young, healthy individuals the eGFR will be >90 mL/min/1.73m2. The eGFR declines with age. An eGFR of 60-89 may be normal in some populations, particularly the elderly, for whom the CKD-EPI formula has not been extensively validated. Use of the eGFR is not recommended in the following populations: Individuals with unstable creatinine concentrations, including patients and those with serious co-morbid conditions. Patients with extremes in muscle mass or diet. The data above are obtained from the National Kidney Disease Education Program (NKDEP) which additionally recommends that when the eGFR is used in patients with extremes of body mass index for purposes of drug dosing, the eGFR should be multiplied by the estimated BMI. [facility] CHEM PANEL BUN 22 mg/dL 7 - 22 10/13/2014 [facility] CHEM PANEL Glucose Lvl 149 mg/dL 70 - 99 10/13/2014 2Interpretive Data: Adult reference range values reflect the clinical guidelines of the [place] [employer]. [facility] CHEM PANEL CO2 24 meq/L 24 - 32 10/13/2014 [facility] CHEM PANEL Creatinine Lvl 1.0 mg/dL 0.5 - 1.4 10/13/2014 [facility] CHEM PANEL Calcium Lvl 8.8 mg/dL 8.5 - 10.5 10/13/2014 [facility] CHEM PANEL Chloride Lvl 105 meq/L 95 - 109 10/13/2014 [facility] CHEM PANEL Potassium Lvl 3.9 meq/L 3.5 - 5.1 10/13/2014 [facility] CHEM PANEL Sodium Lvl 137 meq/L 135 - 145 10/13/2014 [facility] CHEM PANEL AGAP 11.9 meq/L 10.0 - 20.0 10/13/2014 [facility] HEMATOLOGY Monocytes # 0.8 K/CMM 0.0 - 0.8 10/13/2014 [facility] HEMATOLOGY Eosinophils # 0.1 K/CMM 0.0 - 0.5 10/13/2014 [facility] HEMATOLOGY Lymphocytes # 2.5 K/CMM 1.0 - 5.5 10/13/2014 [facility] HEMATOLOGY Segs 50.5 % 45.0 - 75.0 10/13/2014 [facility] HEMATOLOGY Segs-Bands # 3.5 K/CMM 1.5 - 8.1 10/13/2014 [facility] HEMATOLOGY Basophils 0.6 % 0.0 - 1.0 10/13/2014 [facility] HEMATOLOGY Eosinophils 2.1 % 0.0 - 4.0 10/13/2014 [facility] HEMATOLOGY Monocytes 11.2 % 2.0 - 12.0 10/13/2014 [facility] HEMATOLOGY Lymphocytes 35.6 % 20.0 - 40.0 10/13/2014 [facility] HEMATOLOGY PTT 25.7 s 22.9 - 35.8 10/13/2014 5Interpretive Data: Heparin Therapeutic Range: 57 - 92 Seconds [facility] PT 13.6 s 12.0 - 14.7 10/13/2014 [facility] INR 1.04 0.85 - 1.17 10/13/2014 4Interpretive Data: RECOMMENDED RANGES FOR PROTIME INR: 2.0-3.0 for most medical and surgical thromboembolic states. 2.5-3.5 for artificial heart valves and recurrent embolism. INR SHOULD BE USED ONLY FOR PATIENTS ON STABLE ANTICOAGULANT THERAPY. [facility] MCV 90.8 fL 80.0 - 98.0 10/13/2014 [facility] RBC 4.59 M/CMM 4.20 - 5.40 10/13/2014 [facility] Hct 41.7 % 36.0 - 48.0 10/13/2014 [facility] WBC 7.0 K/CMM 3.7 - 10.4 10/13/2014 [facility] Hgb 14.6 g/dL 12.0 - 16.0 10/13/2014 [facility] MCHC 34.9 g/dL 32.0 - 36.0 10/13/2014 [facility] Platelet 210 K/CMM 133 - 450 10/13/2014 [facility] MPV 8.6 fL 7.4 - 10.4 10/13/2014 [facility] MCH 31.7 pg 27.0 - 31.0 10/13/2014 [facility] RDW 13.0 % 11.5 - 14.5 10/13/2014 [facility] IMMUNOLOGY Prealbumin 16.0 mg/dL 18.0 - 45.0 10/13/2014 [facility] SPECIAL CHEMISTRY Hgb A1C 10.9 % <=5.6 % 10/13/2014 [facility] THYROID PANEL T4 Free 1.58 ng/dL 0.76 - 1.46 10/13/2014 [facility] THYROID PANEL TSH 0.981 uIU/mL 0.360 - 3.740 10/13/2014 [facility] ELECTROLYTES Chloride Lvl 102 meq/L 95 - 109 10/11/2014 [facility] ELECTROLYTES Sodium Lvl 137 meq/L 135 - 145 10/11/2014 [facility] ELECTROLYTES Potassium Lvl 3.8 meq/L 3.5 - 5.1 10/11/2014 [facility] ELECTROLYTES eGFR 70 mL/min/1.73m2 10/11/2014 1Result Comment: The eGFR is calculated using the CKD-EPI formula. In most young, healthy individuals the eGFR will be >90 mL/min/1.73m2. The eGFR declines with age. An eGFR of 60-89 may be normal in some populations, particularly the elderly, for whom the CKD-EPI formula has not been extensively validated. Use of the eGFR is not recommended in the following populations: Individuals with unstable creatinine concentrations, including patients and those with serious co-morbid conditions. Patients with extremes in muscle mass or diet. The data above are obtained from the National Kidney Disease Education Program (NKDEP) which additionally recommends that when the eGFR is used in patients with extremes of body mass index for purposes of drug dosing, the eGFR should be multiplied by the estimated BMI. [facility] ELECTROLYTES Glucose Lvl 144 mg/dL 70 - 99 10/11/2014 4Interpretive Data: Adult reference range values reflect the clinical guidelines of the [place] [employer]. [facility] ELECTROLYTES Creatinine Lvl 0.9 mg/dL 0.5 - 1.4 10/11/2014 [facility] ELECTROLYTES BUN 19 mg/dL 7 - 22 10/11/2014 [facility] ELECTROLYTES Calcium Lvl 8.7 mg/dL 8.5 - 10.5 10/11/2014 [facility] ELECTROLYTES CO2 28 meq/L 24 - 32 10/11/2014 [facility] ELECTROLYTES AGAP 10.8 meq/L 10.0 - 20.0 10/11/2014 [facility] WBC 6.8 K/CMM 3.7 - 10.4 10/11/2014 [facility] RBC 4.54 M/CMM 4.20 - 5.40 10/11/2014 [facility] Hgb 14.4 g/dL 12.0 - 16.0 10/11/2014 [facility] Hct 41.6 % 36.0 - 48.0 10/11/2014 [facility] MCH 31.7 pg 27.0 - 31.0 10/11/2014 [facility] MCHC 34.5 g/dL 32.0 - 36.0 10/11/2014 [facility] RDW 13.1 % 11.5 - 14.5 10/11/2014 [facility] Platelet 188 K/CMM 133 - 450 10/11/2014 [facility] MPV 8.1 fL 7.4 - 10.4 10/11/2014 [facility] MCV 91.7 fL 80.0 - 98.0 10/11/2014 [facility] HEMATOLOGY Segs-Bands # 3.9 K/CMM 1.5 - 8.1 10/11/2014 [facility] HEMATOLOGY Lymphocytes # 1.9 K/CMM 1.0 - 5.5 10/11/2014 [facility] HEMATOLOGY Lymphocytes 27.6 % 20.0 - 40.0 10/11/2014 [facility] HEMATOLOGY Eosinophils 2.1 % 0.0 - 4.0 10/11/2014 [facility] HEMATOLOGY Monocytes 11.4 % 2.0 - 12.0 10/11/2014 [facility] HEMATOLOGY Basophils 0.9 % 0.0 - 1.0 10/11/2014 [facility] HEMATOLOGY Segs 58.0 % 45.0 - 75.0 10/11/2014 [facility] HEMATOLOGY Monocytes # 0.8 K/CMM 0.0 - 0.8 10/11/2014 [facility] HEMATOLOGY Eosinophils # 0.1 K/CMM 0.0 - 0.5 10/11/2014 [facility] HEMATOLOGY Basophils # 0.1 K/CMM 0.0 - 0.2 10/11/2014 [facility] CHEM PANEL eGFR 80 mL/min/1.73m2 10/10/2014 2Result Comment: The eGFR is calculated using the CKD-EPI formula. In most young, healthy individuals the eGFR will be >90 mL/min/1.73m2. The eGFR declines with age. An eGFR of 60-89 may be normal in some populations, particularly the elderly, for whom the CKD-EPI formula has not been extensively validated. Use of the eGFR is not recommended in the following populations: Individuals with unstable creatinine concentrations, including patients and those with serious co-morbid conditions. Patients with extremes in muscle mass or diet. The data above are obtained from the National Kidney Disease Education Program (NKDEP) which additionally recommends that when the eGFR is used in patients with extremes of body mass index for purposes of drug dosing, the eGFR should be multiplied by the estimated BMI. [facility] CHEM PANEL Total Protein 6.5 g/dL 6.4 - 8.4 10/10/2014 [facility] CHEM PANEL B/C Ratio 16 6 - 25 10/10/2014 [facility] CHEM PANEL Globulin 3.5 g/dL 2.0 - 4.0 10/10/2014 [facility] CHEM PANEL Albumin Lvl 3.0 g/dL 3.5 - 5.0 10/10/2014 [facility] CHEM PANEL Bili Total 1.1 mg/dL 0.2 - 1.3 10/10/2014 [facility] CHEM PANEL AST 41 unit/L 0 - 37 10/10/2014 [facility] CHEM PANEL Alk Phos 63 unit/L 39 - 136 10/10/2014 [facility] CHEM PANEL A/G Ratio 0.9 0.7 - 1.6 10/10/2014 [facility] CHEM PANEL ALT 41 unit/L 0 - 65 10/10/2014 [facility] CHEM PANEL Calcium Lvl 8.4 mg/dL 8.5 - 10.5 10/10/2014 [facility] CHEM PANEL AGAP 14.9 meq/L 10.0 - 20.0 10/10/2014 [facility] CHEM PANEL BUN 13 mg/dL 7 - 22 10/10/2014 [facility] CHEM PANEL Creatinine Lvl 0.8 mg/dL 0.5 - 1.4 10/10/2014 [facility] CHEM PANEL CO2 21 meq/L 24 - 32 10/10/2014 [facility] CHEM PANEL Glucose Lvl 166 mg/dL 70 - 99 10/10/2014 5Interpretive Data: Adult reference range values reflect the clinical guidelines of the [place] [employer]. [facility] CHEM PANEL Sodium Lvl 135 meq/L 135 - 145 10/10/2014 [facility] CHEM PANEL Chloride Lvl 103 meq/L 95 - 109 10/10/2014 [facility] CHEM PANEL Potassium Lvl 3.9 meq/L 3.5 - 5.1 10/10/2014 [facility] HEMATOLOGY Platelet 176 K/CMM 133 - 450 10/10/2014 [facility] HEMATOLOGY MPV 8.3 fL 7.4 - 10.4 10/10/2014 [facility] Hgb 13.4 g/dL 12.0 - 16.0 10/10/2014 [facility] HEMATOLOGY MCV 91.4 fL 80.0 - 98.0 10/10/2014 [facility] HEMATOLOGY Hct 39.4 % 36.0 - 48.0 10/10/2014 [facility] MCH 31.2 pg 27.0 - 31.0 10/10/2014 [facility] MCHC 34.1 g/dL 32.0 - 36.0 10/10/2014 [facility] RDW 13.2 % 11.5 - 14.5 10/10/2014 [facility] WBC 9.0 K/CMM 3.7 - 10.4 10/10/2014 [facility] RBC 4.31 M/CMM 4.20 - 5.40 10/10/2014 [facility] HEMATOLOGY Lymphocytes 22.4 % 20.0 - 40.0 10/10/2014 [facility] HEMATOLOGY Segs 67.0 % 45.0 - 75.0 10/10/2014 [facility] HEMATOLOGY Lymphocytes # 2.0 K/CMM 1.0 - 5.5 10/10/2014 [facility] HEMATOLOGY Basophils 0.6 % 0.0 - 1.0 10/10/2014 [facility] HEMATOLOGY Segs-Bands # 6.1 K/CMM 1.5 - 8.1 10/10/2014 [facility] HEMATOLOGY Eosinophils 0.8 % 0.0 - 4.0 10/10/2014 [facility] HEMATOLOGY Monocytes 9.2 % 2.0 - 12.0 10/10/2014 [facility] HEMATOLOGY Basophils # 0.1 K/CMM 0.0 - 0.2 10/10/2014 [facility] HEMATOLOGY Eosinophils # 0.1 K/CMM 0.0 - 0.5 10/10/2014 [facility] Monocytes # 0.8 K/CMM 0.0 - 0.8 10/10/2014 [facility] CHEM PANEL BUN 15 mg/dL 7 - 22 10/09/2014 [facility] CHEM PANEL eGFR 70 mL/min/1.73m2 10/09/2014 3Result Comment: The eGFR is calculated using the CKD-EPI formula. In most young, healthy individuals the eGFR will be >90 mL/min/1.73m2. The eGFR declines with age. An eGFR of 60-89 may be normal in some populations, particularly the elderly, for whom the CKD-EPI formula has not been extensively validated. Use of the eGFR is not recommended in the following populations: Individuals with unstable creatinine concentrations, including patients and those with serious co-morbid conditions. Patients with extremes in muscle mass or diet. The data above are obtained from the National Kidney Disease Education Program (NKDEP) which additionally recommends that when the eGFR is used in patients with extremes of body mass index for purposes of drug dosing, the eGFR should be multiplied by the estimated BMI. [facility] CHEM PANEL Potassium Lvl 3.9 meq/L 3.5 - 5.1 10/09/2014 [facility] CHEM PANEL Sodium Lvl 136 meq/L 135 - 145 10/09/2014 [facility] CHEM PANEL Creatinine Lvl 0.9 mg/dL 0.5 - 1.4 10/09/2014 [facility] CHEM PANEL CO2 23 meq/L 24 - 32 10/09/2014 [facility] CHEM PANEL Chloride Lvl 105 meq/L 95 - 109 10/09/2014 [facility] CHEM PANEL Calcium Lvl 8.8 mg/dL 8.5 - 10.5 10/09/2014 [facility] CHEM PANEL Glucose Lvl 242 mg/dL 70 - 99 10/09/2014 6Interpretive Data: Adult reference range values reflect the clinical guidelines of the [place] [employer]. [facility] CHEM PANEL AGAP 11.9 meq/L 10.0 - 20.0 10/09/2014 [facility] HEMATOLOGY Monocytes # 0.7 K/CMM 0.0 - 0.8 10/09/2014 [facility] HEMATOLOGY Basophils # 0.1 K/CMM 0.0 - 0.2 10/09/2014 [facility] Basophils 0.9 % 0.0 - 1.0 10/09/2014 [facility] Lymphocytes # 2.0 K/CMM 1.0 - 5.5 10/09/2014 [facility] Segs-Bands # 4.7 K/CMM 1.5 - 8.1 10/09/2014 [facility] Lymphocytes 26.1 % 20.0 - 40.0 10/09/2014 [facility] Segs 63.1 % 45.0 - 75.0 10/09/2014 [facility] Monocytes 9.3 % 2.0 - 12.0 10/09/2014 [facility] Eosinophils 0.6 % 0.0 - 4.0 10/09/2014 [facility] Platelet 198 K/CMM 133 - 450 10/09/2014 [facility] MPV 8.3 fL 7.4 - 10.4 10/09/2014 [facility] RDW 13.1 % 11.5 - 14.5 10/09/2014 [facility] MCHC 34.1 g/dL 32.0 - 36.0 10/09/2014 [facility] MCH 31.1 pg 27.0 - 31.0 10/09/2014 [facility] Hct 39.3 % 36.0 - 48.0 10/09/2014 [facility] MCV 91.4 fL 80.0 - 98.0 10/09/2014 [facility] RBC 4.30 M/CMM 4.20 - 5.40 10/09/2014 [facility] HEMATOLOGY Hgb 13.4 g/dL 12.0 - 16.0 10/09/2014 [facility] HEMATOLOGY WBC 7.5 K/CMM 3.7 - 10.4 10/09/2014 [facility] LIPIDS VLDL 24 10/09/2014 [facility] LIPIDS LDL (Calculated) 141 mg/dL <=99 mg/dL 10/09/2014 [facility] LIPIDS Chol 209 mg/dL <=199 mg/dL 10/09/2014 [facility] LIPIDS Trig 122 mg/dL <=149 mg/dL 10/09/2014 [facility] LIPIDS HDL 44 mg/dL >=61 mg/dL 10/09/2014 [facility] LIPIDS CHD Risk 4.75 3.90 - 5.80 10/09/2014 [facility] SPECIAL CHEMISTRY Hgb A1C 11.3 % <=5.6 % 10/09/2014 [facility] BACTERIAL - SEROLOGY MRSA by PCR Negative 7 (10/09/14 4:39 AM) 10/09/2014 7Interpretive Data: Interpretive Data: The [employer] Light[employer] MRSA assay is a qualitative test for the direct detection of nasal colonization with methicillin-resistant Staphylococcus aureus (MRSA) to aid in the prevention and control of MRSA infections in healthcare settings. A positive result does not indicate an infection or require treatment. A negative result does not exclude colonization or infection. The polymerase chain reaction (PCR) assay detects a proprietary sequence indicative of the integration of the SCCmec cassette into the Staphylococcus aureus chromosome, indicating the presence of MRSA DNA. The assay utilizes FDA cleared IVD reagents. Performance characteristics have been verified by the [facility] within the [facility]. The [facility] Laboratory is authorized under the Clinical Laboratory Improvement Amendment of 1988 (CLIA-88) to perform high complexity testing. [facility] URINE AND STOOL UA RBC 1 /HPF 0 - 2 10/09/2014 [facility] URINE AND STOOL UA WBC 4 /HPF 0 - 5 10/09/2014 [facility] URINE AND STOOL UA Sq Epi Occasional /LPF Few /LPF 10/09/2014 [facility] URINE AND STOOL UA Glucose 500 mg/dL Negative mg/dL 10/09/2014 [facility] URINE AND STOOL UA Blood Negative (10/09/14 4:39 AM) Negative 10/09/2014 [facility] URINE AND STOOL UA Ketones 15 *ABN* (10/09/14 4:39 AM) Negative 10/09/2014 [facility] URINE AND STOOL UA Protein Trace *ABN* (10/09/14 4:39 AM) Negative 10/09/2014 [facility] URINE AND STOOL UA Bili Negative *NA* (10/09/14 4:39 AM) Negative 10/09/2014 [facility] URINE AND STOOL UA pH 7.0 5.0 - 8.0 10/09/2014 [facility] URINE AND STOOL UA Leuk Est Negative (10/09/14 4:39 AM) Negative 10/09/2014 [facility] URINE AND STOOL UA Urobilinogen 1.0 EU/dL 0.1 - 1.0 10/09/2014 [facility] URINE AND STOOL UA Nitrite Negative (10/09/14 4:39 AM) Negative 10/09/2014 [facility] URINE AND STOOL UA Spec Grav 1.020 <=1.030 10/09/2014 [facility] URINE AND STOOL UA Turbidity Clear (10/09/14 4:39 AM) Clear 10/09/2014 [facility] URINE AND STOOL UA Color Yellow *NA* (10/09/14 4:39 AM) Yellow 10/09/2014 [facility] Vital Signs Vital Sign Value Date Comments Source Systolic (mm Hg) 156 01/14/2018 [facility] Diastolic (mm Hg) 64 01/14/2018 [facility] Respitory Rate 20 01/14/2018 [facility] Heart Rate 54 01/14/2018 [facility] Temperature Oral (F) 98.2 F 01/14/2018 [facility] Systolic (mm Hg) 173 01/14/2018 [facility] Diastolic (mm Hg) 66 01/14/2018 [facility] Respitory Rate 20 01/14/2018 [facility] Heart Rate 50 01/14/2018 [facility] Temperature Oral (F) 97.8 F 01/14/2018 [facility] Heart Rate 59 01/14/2018 [facility] Temperature Oral (F) 97.8 F 01/14/2018 [facility] Respitory Rate 20 01/14/2018 [facility] Systolic (mm Hg) 197 01/14/2018 [facility] Diastolic (mm Hg) 96 01/14/2018 [facility] BMI Calculated 39.47 01/13/2018 [facility] Weight 88.636 01/13/2018 [facility] Height 149.86 cm 01/13/2018 [facility] BMI Calculated 40.07 01/05/2018 [facility] Weight 90 01/05/2018 [facility] Height 149.86 cm 01/05/2018 [facility] Temperature Oral (F) 97.8 F 10/19/2014 [facility] Respitory Rate 16 10/19/2014 [facility] Diastolic (mm Hg) 74 10/19/2014 [facility] Systolic (mm Hg) 129 10/19/2014 [facility] Heart Rate 67 10/19/2014 [facility] Diastolic (mm Hg) 61 10/19/2014 [facility] Respitory Rate 18 10/19/2014 [facility] Systolic (mm Hg) 101 10/19/2014 [facility] Heart Rate 76 10/19/2014 [facility] Temperature Oral (F) 97.5 F 10/19/2014 [facility] Diastolic (mm Hg) 77 10/18/2014 [facility] Systolic (mm Hg) 123 10/18/2014 [facility] Respitory Rate 18 10/18/2014 [facility] Heart Rate 81 10/18/2014 [facility] Temperature Oral (F) 97.5 F 10/18/2014 [facility] Weight 95.318 10/12/2014 [facility] BMI Calculated 41.04 10/12/2014 [facility] Height 152.4 cm 10/12/2014 [facility] Height 152.4 cm 10/12/2014 [facility] BMI Calculated 41.04 10/12/2014 [facility] Weight 95.318 10/12/2014 [facility] Temperature Oral (F) 97.8 F 10/12/2014 [facility] Systolic (mm Hg) 123 10/12/2014 [facility] Respitory Rate 14 10/12/2014 [facility] Heart Rate 92 10/12/2014 [facility] Diastolic (mm Hg) 71 10/12/2014 [facility] Heart Rate 83 10/12/2014 [facility] Respitory Rate 16 10/12/2014 [facility] Temperature Oral (F) 97.6 F 10/12/2014 [facility] Systolic (mm Hg) 123 10/12/2014 [facility] Diastolic (mm Hg) 84 10/12/2014 [facility] Systolic (mm Hg) 128 10/12/2014 [facility] Diastolic (mm Hg) 75 10/12/2014 [facility] Respitory Rate 18 10/12/2014 [facility] Heart Rate 82 10/12/2014 [facility] Temperature Oral (F) 98.5 F 10/12/2014 [facility] Weight 95.318 10/09/2014 [facility] BMI Calculated 41.04 10/09/2014 [facility] Height 152.4 cm 10/09/2014 [facility] Encounters Location Location Details Encounter Type Encounter Number Reason For Visit Attending Provider ADM Date DC Date Status Source [facility] Inpatient [id number] Preston Aguilar 10/09/2014 10/12/2014 [facility] Inpatient Rehab [id number] Hollis Martel Jr 10/12/2014 10/19/2014 [facility] Bed[facility] Outpatient [id number] Derrell Botello 11/17/2017 11/17/2017 [facility] Bedded Outpatient [id number] Derrell Botello 12/01/2017 12/01/2017 [facility] Observation [id number] Maria Del Rosario Linder 01/13/2018 01/14/2018 [facility] Procedures Procedure Code Date Perfomer Comments Source Myotomy<sup>1</sup> [id number] 01/13/2018 Laparoscopic Endoscopic Myotomy and EGD [facility] Total knee replacement [id number] [facility] Caesarean section [id number] [facility] Total knee replacement [id number] [facility]
--- OUTSIDE RECORDS SUMMARY | 2018-09-10 16:11 | XMS REPORT | Summary of Care ---
Author Organization Unknown Address Unknown Phone Unavailable Encounter HQ Felixr_benson(CHRISTIN) [id number] Date(s): 10/09/14 - 10/12/14 [facility] [id number] [address] Final: Discharge Disposition: DC/DISC TO REHAB Physician Attending: Preston Sheikh MD Physician Admitting: Preston Sheikh MD Physician_Referring: Preston Sheikh MD Reason for Visit AMS,HYPERGLYCEMIA,LT BINDLE BRANCH BLOCK,POSSIBLE CVA Vital Signs 1 2 3 Most recent to oldest [Reference Range]: 152.4 cm (10/08/14 11:51 PM) Height 97.8 DegF (10/12/14 11:59 AM) 97.6 DegF (10/12/14 8:06 AM) 98.5 DegF (10/12/14 4:25 AM) Temperature Oral [96.4-99.1 DegF] 123 mmHg (10/12/14 11:59 AM) 123 mmHg (10/12/14 8:06 AM) 128 mmHg (10/12/14 4:25 AM) Systolic Blood Pressure [90-140 mmHg] 71 mmHg (10/12/14 11:59 AM) 84 mmHg (10/12/14 8:06 AM) 75 mmHg (10/12/14 4:25 AM) Diastolic Blood Pressure [60-90 mmHg] 14 BRMIN (10/12/14 11:59 AM) 16 BRMIN (10/12/14 8:06 AM) 18 BRMIN (10/12/14 4:25 AM) Respiratory Rate [14-20 BRMIN] 92 bpm (10/12/14 11:59 AM) 83 bpm (10/12/14 8:06 AM) 82 bpm (10/12/14 4:25 AM) Peripheral Pulse Rate [60-100 bpm] 95.318 kg (10/08/14 11:51 PM) Weight 41.04 m2 (10/08/14 11:51 PM) Body Mass Index Problem List Condition Effective Dates Status Health Status Informant Acid Resolved reflux(Confirmed) Anxiety(Confirmed) Active CVA (cerebral Active infarction)(Confirme d) DM (diabetes Active mellitus), type 2, uncontrolled(Confirm ed) Expressive-receptive Active aphasia(Confirmed) HLD Active (hyperlipidemia)(Con firmed) Hypertension(Confirm Active ed) Morbid Active obesity(Confirmed) Motor Active apraxia(Confirmed) MRSA(Confirmed) Active Peripheral Active neuropathy(Confirmed ) Seizures(Confirmed) Active Sleep Active apnea(Confirmed) TIA (transient Resolved ischemic attack)(Confirmed) Total knee Resolved replacement(Confirme d) Allergies, Adverse Reactions, Alerts Substance Reaction Severity Status iodine topical Active Medications acetaminophen 325 mg oral tablet 650 mg=2 tab, PO, Q6H, Pain Score 1-3, 0 Refill(s) Start Date: 10/12/14 Stop Date: 10/12/14 Status: Deleted acetaminophen 325 mg oral tablet 650 mg=2 tab, PO, Q6H, Pain Score 1-3, # 24 tab, 0 Refill(s) Start Date: 10/12/14 Status: Suspended aspirin 325 mg tablet, enteric coated 325 mg, 1 tab, Route: PO, Drug form: ECTAB, Daily, Dosing Weight 95.318, kg, Sta rt date: 10/09/14 2:54:00, Duration: 30 day, Stop date: 11/07/14 9:00:00 Notes: (Do Not Crush) Do not crush or chew. Start Date: 10/09/14 Stop Date: 10/10/14 Status: Discontinued Ativan 1 mg, 0.5 mL, Route: IVP, Drug form: INJ, ONCE, Dosing Weight 95.318, kg, PRN An xiety, Start date: 10/09/14 2:46:00 Notes: (Same as: Ativan) Start Date: 10/09/14 Stop Date: 10/09/14 Status: Completed atorvastatin 20 mg, Route: PO, Drug form: TAB, Bedtime, Dosing Weight 95.318, kg, Start date: 10/09/14 21:00:00, Duration: 30 day, Stop date: 11/07/14 21:00:00 Start Date: 10/09/14 Stop Date: 10/09/14 Status: Deleted atorvastatin 40 mg, 1 tab, Route: PO, Drug form: TAB, Bedtime, Dosing Weight 95.318, kg, Star t date: 10/09/14 21:00:00, Duration: 30 day, Stop date: 11/07/14 21:00:00 Notes: (Same as: Lipitor) Start Date: 10/09/14 Stop Date: 10/12/14 Status: Discontinued atorvastatin 40 mg oral tablet 40 mg=1 tab, PO, Bedtime, 0 Refill(s) Start Date: 10/12/14 Stop Date: 10/12/14 Status: Deleted atorvastatin 40 mg oral tablet 40 mg=1 tab, PO, Bedtime, # 30 tab, 0 Refill(s) Start Date: 10/12/14 Status: Suspended atropine 0.5 mg, 5 mL, Route: IVP, Drug form: INJ, PRN, Dosing Weight 95.318, kg, PRN Bra dycardia, Start date: 10/09/14 2:39:00, Duration: 30 day, Stop date: 11/08/14 2: 38:00 Start Date: 10/09/14 Stop Date: 10/12/14 Status: Discontinued clopidogrel 75 mg, 1 tab, Route: PO, Drug form: TAB, Daily, Dosing Weight 95.318, kg, Start date: 10/09/14 9:00:00, Duration: 30 day, Stop date: 11/07/14 9:00:00 Notes: (Same As: Plavix) Start Date: 10/09/14 Stop Date: 10/12/14 Status: Discontinued clopidogrel 75 mg oral tablet 75 mg=1 tab, PO, Daily, # 90 tab, 0 Refill(s) Start Date: 10/09/14 Stop Date: 10/12/14 Status: Discontinued clopidogrel 75 mg oral tablet 75 mg=1 tab, PO, Daily, # 30 tab, 0 Refill(s) Start Date: 10/12/14 Status: Suspended Dextrose 50% Syringe 25 gm, 50 mL, Route: IVP, Drug Form: INJ, Dosing Weight 95.318, kg, PRN, PRN Blo od Glucose Results, Start date: 10/09/14 2:35:00, Duration: 30 day, Stop date: 0 11/08/14 2:34:00 Start Date: 10/09/14 Stop Date: 10/12/14 Status: Discontinued Dextrose 50% Syringe 12.5 gm, 25 mL, Route: IVP, Drug Form: INJ, Dosing Weight 95.318, kg, PRN, PRN B lood Glucose Results, Start date: 10/09/14 2:35:00, Duration: 30 day, Stop date: 11/08/14 2:34:00 Start Date: 10/09/14 Stop Date: 10/12/14 Status: Discontinued escitalopram 10 mg, 1 tab, Route: PO, Drug form: TAB, Daily, Dosing Weight 95.318, kg, Start date: 10/09/14 9:00:00, Duration: 30 day, Stop date: 11/07/14 9:00:00 Notes: (Same as: Lexapro) Start Date: 10/09/14 Stop Date: 10/09/14 Status: Discontinued escitalopram 10 mg, 1 tab, Route: PO, Drug form: TAB, Bedtime, Dosing Weight 95.318, kg, Star t date: 10/10/14 21:00:00, Duration: 30 day, Stop date: 11/08/14 21:00:00 Notes: (Same as: Lexapro) Start Date: 10/10/14 Stop Date: 10/12/14 Status: Discontinued escitalopram 10 mg oral tablet 10 mg=1 tab, PO, Daily, # 90 tab, 0 Refill(s) Start Date: 10/09/14 Stop Date: 10/12/14 Status: Discontinued escitalopram 10 mg oral tablet 10 mg=1 tab, PO, Daily, # 30 tab, 0 Refill(s) Start Date: 10/12/14 Status: Suspended gabapentin 600 mg oral tablet 600 mg=1 tab, PO, BID, # 90 tab, 0 Refill(s) Start Date: 10/09/14 Stop Date: 10/12/14 Status: Discontinued gabapentin 600 mg oral tablet 600 mg=1 tab, PO, BID, # 60 tab, 0 Refill(s) Start Date: 10/12/14 Status: Suspended gabapentin 600 mg oral tablet 600 mg, 2 cap, Route: PO, Drug form: CAP, BID, Dosing Weight 95.318, kg, Start d ate: 10/09/14 9:00:00, Duration: 30 day, Stop date: 11/07/14 17:00:00 Notes: (Same as: Neurontin) Start Date: 10/09/14 Stop Date: 10/12/14 Status: Discontinued glimepiride 4 mg, 1 tab, Route: PO, Drug form: TAB, Daily, Dosing Weight 95.318, kg, Start d ate: 10/09/14 9:00:00, Duration: 30 day, Stop date: 11/07/14 9:00:00 Notes: (Same as: Amaryl) Start Date: 10/09/14 Stop Date: 10/12/14 Status: Discontinued glimepiride 4 mg oral tablet 4 mg=1 tab, PO, Daily, # 90 tab, 0 Refill(s) Start Date: 10/09/14 Stop Date: 10/12/14 Status: Discontinued glimepiride 4 mg oral tablet 4 mg=1 tab, PO, Daily, # 30 tab, 0 Refill(s) Start Date: 10/12/14 Status: Suspended glucagon 1 mg, Route: IM, Drug form: PDR/INJ, PRN, Dosing Weight 95.318, kg, PRN Blood Gl ucose Results, Start date: 10/09/14 2:35:00, Duration: 30 day, Stop date: 2:34:00 Start Date: 10/09/14 Stop Date: 10/12/14 Status: Discontinued insulin aspart 1 unit, 0.01 mL, Route: SUB-Q, Drug form: SOLN, Bedtime, Dosing Weight 95.318, k g, PRN Blood Glucose Results, Start date: 10/09/14 2:35:00, Duration: 30 day, St op date: 11/08/14 2:34:00 Notes: Roll in palms of hands gently; Do not shake vigorously. (Same as: NovoLO G)"single patient use only" Stable for 28 days at room temperature.Expires in _ ____ days from Date Start Date: 10/09/14 Stop Date: 10/12/14 Status: Discontinued insulin aspart 2 unit, 0.02 mL, Route: SUB-Q, Drug form: SOLN, Bedtime, Dosing Weight 95.318, k g, PRN Blood Glucose Results, Start date: 10/09/14 2:35:00, Duration: 30 day, St op date: 11/08/14 2:34:00 Notes: Roll in palms of hands gently; Do not shake vigorously. (Same as: NovoLO G)"single patient use only" Stable for 28 days at room temperature.Expires in _ ____ days from Date Start Date: 10/09/14 Stop Date: 10/12/14 Status: Discontinued insulin aspart 3 unit, 0.03 mL, Route: SUB-Q, Drug form: SOLN, Bedtime, Dosing Weight 95.318, k g, PRN Blood Glucose Results, Start date: 10/09/14 2:35:00, Duration: 30 day, St op date: 11/08/14 2:34:00 Notes: Roll in palms of hands gently; Do not shake vigorously. (Same as: NovoLO G)"single patient use only" Stable for 28 days at room temperature.Expires in _ ____ days from Date Start Date: 10/09/14 Stop Date: 10/12/14 Status: Discontinued insulin aspart 4 unit, 0.04 mL, Route: SUB-Q, Drug form: SOLN, Bedtime, Dosing Weight 95.318, k g, PRN Blood Glucose Results, Start date: 10/09/14 2:35:00, Duration: 30 day, St op date: 11/08/14 2:34:00 Notes: Roll in palms of hands gently; Do not shake vigorously. (Same as: NovoLO G)"single patient use only" Stable for 28 days at room temperature.Expires in _ ____ days from Date Start Date: 10/09/14 Stop Date: 10/12/14 Status: Discontinued insulin aspart 1 unit, 0.01 mL, Route: SUB-Q, Drug form: SOLN, TID-Before Meals, Dosing Weight 95.318, kg, PRN Blood Glucose Results, Start date: 10/09/14 2:35:00, Duration: 3 0 day, Stop date: 11/08/14 2:34:00 Notes: Roll in palms of hands gently; Do not shake vigorously. (Same as: NovoLO G)"single patient use only" Stable for 28 days at room temperature.Expires in _ ____ days from Date Start Date: 10/09/14 Stop Date: 10/12/14 Status: Discontinued insulin aspart 2 unit, 0.02 mL, Route: SUB-Q, Drug form: SOLN, TID-Before Meals, Dosing Weight 95.318, kg, PRN Blood Glucose Results, Start date: 10/09/14 2:35:00, Duration: 3 0 day, Stop date: 11/08/14 2:34:00 Notes: Roll in palms of hands gently; Do not shake vigorously. (Same as: NovoLO G)"single patient use only" Stable for 28 days at room temperature.Expires in _ ____ days from Date Start Date: 10/09/14 Stop Date: 10/12/14 Status: Discontinued insulin aspart 5 unit, 0.05 mL, Route: SUB-Q, Drug form: SOLN, TID-Before Meals, Dosing Weight 95.318, kg, PRN Blood Glucose Results, Start date: 10/09/14 2:35:00, Duration: 3 0 day, Stop date: 11/08/14 2:34:00 Notes: Roll in palms of hands gently; Do not shake vigorously. (Same as: NovoLO G)"single patient use only" Stable for 28 days at room temperature.Expires in _ ____ days from Date Start Date: 10/09/14 Stop Date: 10/12/14 Status: Discontinued insulin aspart 4 unit, 0.04 mL, Route: SUB-Q, Drug form: SOLN, TID-Before Meals, Dosing Weight 95.318, kg, PRN Blood Glucose Results, Start date: 10/09/14 2:35:00, Duration: 3 0 day, Stop date: 11/08/14 2:34:00 Notes: Roll in palms of hands gently; Do not shake vigorously. (Same as: NovoLO G)"single patient use only" Stable for 28 days at room temperature.Expires in _ ____ days from Date Start Date: 10/09/14 Stop Date: 10/12/14 Status: Discontinued insulin aspart 3 unit, 0.03 mL, Route: SUB-Q, Drug form: SOLN, TID-Before Meals, Dosing Weight 95.318, kg, PRN Blood Glucose Results, Start date: 10/09/14 2:35:00, Duration: 3 0 day, Stop date: 11/08/14 2:34:00 Notes: Roll in palms of hands gently; Do not shake vigorously. (Same as: NovoLO G)"single patient use only" Stable for 28 days at room temperature.Expires in _ ____ days from Date Start Date: 10/09/14 Stop Date: 10/12/14 Status: Discontinued labetalol 10 mg, 2 mL, Route: IVP, Drug form: INJ, Q10Min, Dosing Weight 95.318, kg, PRN H ypertension, Start date: 10/09/14 2:40:00, Duration: 30 day, Stop date: 11/08/14 2:39:00, For SBP > 180mmHg and/or DBP > 105mmHg Notes: (Same as: Normodyne, Trandate)Push over 2 minutes Give bolus over 2-3 mi nutes. Start Date: 10/09/14 Stop Date: 10/12/14 Status: Discontinued levETIRAcetam 500 mg oral tablet 500 mg=1 tab, PO, BID, # 120 tab, 0 Refill(s) Start Date: 10/09/14 Stop Date: 10/12/14 Status: Discontinued levETIRAcetam 500 mg oral tablet 500 mg=1 tab, PO, BID, # 60 tab, 0 Refill(s) Start Date: 10/12/14 Status: Suspended levETIRAcetam 500 mg oral tablet 500 mg, 1 tab, Route: PO, Drug form: TAB, BID, Dosing Weight 95.318, kg, Start d ate: 10/09/14 9:00:00, Duration: 30 day, Stop date: 11/07/14 21:00:00 Notes: (Same as:Keppra) Start Date: 10/09/14 Stop Date: 10/12/14 Status: Discontinued lisinopril 20 mg, 1 tab, Route: PO, Drug form: TAB, Daily, Dosing Weight 95.318, kg, Start date: 10/09/14 9:00:00, Duration: 30 day, Stop date: 11/07/14 9:00:00 Notes: (Same as: Prinivil, Zestril) Start Date: 10/09/14 Stop Date: 10/12/14 Status: Discontinued lisinopril 20 mg oral tablet 20 mg=1 tab, PO, Daily, # 90 tab, 0 Refill(s) Start Date: 10/09/14 Stop Date: 10/12/14 Status: Discontinued lisinopril 20 mg oral tablet 20 mg=1 tab, PO, Daily, # 30 tab, 0 Refill(s) Start Date: 10/12/14 Status: Suspended nitroglycerin 0.4 mg sublingual tablet 0.4 mg, 1 tab, Route: SL, Drug form: TAB, Q5Min, Dosing Weight 95.318, kg, PRN C hest Pain, Start date: 10/09/14 2:39:00, Duration: 30 day, Stop date: 11/08/14 2 :38:00 Notes: (Same as:Nitroquick, Nitrostat)"Do Not Crush" Sublingual tablet Start Date: 10/09/14 Stop Date: 10/12/14 Status: Discontinued nitroglycerin 0.4 mg sublingual tablet 0.4 mg=1 tab, SL, Q5Min, Chest Pain, 0 Refill(s) Start Date: 10/12/14 Stop Date: 10/12/14 Status: Deleted nitroglycerin 0.4 mg sublingual tablet 0.4 mg=1 tab, SL, Q5Min, Chest Pain, # 15 tab, 0 Refill(s) Start Date: 10/12/14 Status: Suspended pantoprazole 40 mg oral enteric coated tablet 40 mg=1 tab, PO, Before Dinner, 0 Refill(s) Start Date: 10/12/14 Stop Date: 10/12/14 Status: Deleted pantoprazole 40 mg oral enteric coated tablet 40 mg=1 tab, PO, Before Dinner, # 30 tab, 0 Refill(s) Start Date: 10/12/14 Status: Suspended Protonix 40 mg, 1 tab, Route: PO, Drug form: ECTAB, Before Dinner, Dosing Weight 95.318, kg, Start date: 10/11/14 16:30:00, Duration: 30 day, Stop date: 11/09/14 16:30:0 0 Notes: Tablet should not be chewed or crushed.(Same as: Protonix) Start Date: 10/11/14 Stop Date: 10/12/14 Status: Discontinued Saline Flush 0.9% 10 ml, Route: IVP, Drug Form: INJ, Dosing Weight 95.318, kg, PRN, PRN Line Flush , Start date: 10/09/14 2:40:00, Duration: 30 day, Stop date: 11/08/14 2:39:00 Notes: (Same as: BD Posiflush) Start Date: 10/09/14 Stop Date: 10/12/14 Status: Discontinued Saline Flush 0.9% 10 ml, Route: IVP, Drug Form: INJ, Dosing Weight 95.318, kg, Q12H, Start date: 0 10/09/14 9:00:00, Duration: 30 day, Stop date: 11/07/14 21:00:00 Notes: (Same as: BD Posiflush) Start Date: 10/09/14 Stop Date: 10/12/14 Status: Discontinued temazepam 7.5 mg, 1 cap, Route: PO, Drug form: CAP, Bedtime, Dosing Weight 95.318, kg, PRN Sleep, Start date: 10/11/14 10:29:00, Duration: 30 day, Stop date: 11/10/14 10: 28:00 Notes: (Same As: Restoril) Start Date: 10/11/14 Stop Date: 10/12/14 Status: Discontinued temazepam 7.5 mg oral capsule 7.5 mg=1 cap, PO, Bedtime, Sleep, 0 Refill(s) Start Date: 10/12/14 Status: Suspended Tylenol 650 mg, 2 tab, Route: PO, Drug form: TAB, Q6H, Dosing Weight 95.318, kg, PRN Sal n Score 1-3, Start date: 10/11/14 10:29:00, Duration: 30 day, Stop date: 5 10:28:00 Notes: Do not exceed 4 gm/day. (Same as: Tylenol) Start Date: 10/11/14 Stop Date: 10/12/14 Status: Discontinued Xanax 0.25 mg oral tablet 0.25 mg=1 tab, PO, Q6H, Anxiety, 0 Refill(s) Start Date: 10/12/14 Stop Date: 10/12/14 Status: Deleted Xanax 0.25 mg oral tablet 0.25 mg, 1 tab, Route: PO, Drug form: TAB, Q6H, Dosing Weight 95.318, kg, PRN An xiety, Start date: 10/09/14 18:04:00, Duration: 30 day, Stop date: 11/08/14 18:0 3:00 Notes: With food or milk(Same as: Xanax) Start Date: 10/09/14 Stop Date: 10/12/14 Status: Discontinued Xanax 0.25 mg oral tablet 0.25 mg=1 tab, PO, Q6H, Anxiety, # 10 tab, 0 Refill(s) Start Date: 10/12/14 Status: Suspended Zofran 4 mg, 2 mL, Route: IV, Drug form: INJ, Q8H, Dosing Weight 95.318, kg, PRN Nausea , Start date: 10/11/14 11:09:00, Duration: 30 day, Stop date: 11/10/14 11:08:00 Notes: (Same as: Zofran) Start Date: 10/11/14 Stop Date: 10/12/14 Status: Discontinued Results ELECTROLYTES 1 2 3 Most recent to oldest [Reference Range]: 137 mEq/L (10/11/14 5:50 AM) 135 mEq/L (10/10/14 6:26 AM) 136 mEq/L (10/09/14 6:28 AM) Sodium Lvl [135-145 mEq/L] 3.8 mEq/L (10/11/14 5:50 AM) 3.9 mEq/L (10/10/14 6:26 AM) 3.9 mEq/L (10/09/14 6:28 AM) Potassium Lvl [3.5-5.1 mEq/L] 102 mEq/L (10/11/14 5:50 AM) 103 mEq/L (10/10/14 6:26 AM) 105 mEq/L (10/09/14:28 AM) Chloride Lvl [95-109 mEq/L] 28 mEq/L (10/11/14 5:50 AM) 21 mEq/L *LOW* (10/10/14 6:26 AM) 23 mEq/L *LOW* (10/09/14:28 AM) CO2 [24-32 mEq/L] 10.8 mEq/L (10/11/14 5:50 AM) 14.9 mEq/L (10/10/14 6:26 AM) 11.9 mEq/L (10/09/14:28 AM) AGAP [10.0-20.0 mEq/L] CHEM PANEL 1 2 3 Most recent to oldest [Reference Range]: 0.9 mg/dL (10/11/14 5:50 AM) 0.8 mg/dL (10/10/14 6:26 AM) 0.9 mg/dL (10/09/14:28 AM) Creatinine Lvl [0.5-1.4 mg/dL] 70 mL/min/1.73m2 1 *NA* (10/11/14 5:50 AM) 80 mL/min/1.73m2 2 *NA* (10/10/14:26 AM) 70 mL/min/1.73m2 3 *NA* (10/09/14 6:28 AM) eGFR 19 mg/dL (10/11/14 5:50 AM) 13 mg/dL (10/10/14 6:26 AM) 15 mg/dL (10/09/14 6:28 AM) BUN [7-22 mg/dL] 16 (10/10/14 6:26 AM) B/C Ratio [6-25] 144 mg/dL 4 *HI* (10/11/14 5:50 AM) 166 mg/dL 5 *HI* (10/10/14 6:26 AM) 242 mg/dL 6 *HI* (10/09/14 6:28 AM) Glucose Lvl [70-99 mg/dL] 6.5 g/dL (10/10/14 6:26 AM) Total Protein [6.4-8.4 g/dL] 3.0 g/dL *LOW* (10/10/14 6:26 AM) Albumin Lvl [3.5-5.0 g/dL] 3.5 g/dL (10/10/14 6:26 AM) Globulin [2.0-4.0 g/dL] 0.9 (10/10/14 6:26 AM) A/G Ratio [0.7-1.6] 8.7 mg/dL (10/11/14 5:50 AM) 8.4 mg/dL *LOW* (10/10/14 6:26 AM) 8.8 mg/dL (10/09/14 6:28 AM) Calcium Lvl [8.5-10.5 mg/dL] 41 unit/L (10/10/14 6:26 AM) ALT [0-65 unit/L] 41 unit/L *HI* (10/10/14 6:26 AM) AST [0-37 unit/L] 63 unit/L (10/10/14 6:26 AM) Alk Phos [39-136 unit/L] 1.1 mg/dL (10/10/14 6:26 AM) Bili Total [0.2-1.3 mg/dL] 1Result Comment: The eGFR is calculated using [...] from the National [employer] Education Program ( NK[employer]) which additionally recommends that when the eGFR is used in patients with extremes of body mass index for purposes of drug dosing, the eGFR should be mul tiplied by the estimated BMI. 2Result Comment: The eGFR is calculated using [...] from the National [employer] Education Program ( NKDEP) which additionally recommends that when the eGFR is used in patients with extremes of body mass index for purposes of drug dosing, the eGFR should be mul tiplied by the estimated BMI. 3Result Comment: The eGFR is calculated using [...] from the National [employer] Education Program ( NKDEP) which additionally recommends that when the eGFR is used in patients with extremes of body mass index for purposes of drug dosing, the eGFR should be mul tiplied by the estimated BMI. 4Interpretive Data: Adult reference range values reflect the clinical guidelines of the [place] [employer]. 5Interpretive Data: Adult reference range values reflect the clinical guidelines of the [place] [employer]. 6Interpretive Data: Adult reference range values reflect the clinical guidelines of the [place] [employer]. LIPIDS 1 2 3 Most recent to oldest [Reference Range]: 4.75 (10/09/14 6:28 AM) CHD Risk [3.90-5.80] 209 mg/dL *HI* (10/09/14 6:28 AM) Chol [<=199 mg/dL] 122 mg/dL (10/09/14 6:28 AM) Trig [<=149 mg/dL] 44 mg/dL *LOW* (10/09/14 6:28 AM) HDL [>=61 mg/dL] 141 mg/dL *HI* (10/09/14 6:28 AM) LDL (Calculated) [<=99 mg/dL] 24 *NA* (10/09/14 6:28 AM) VLDL SPECIAL CHEMISTRY 1 2 3 Most recent to oldest [Reference Range]: 11.3 % *HI* (10/09/14 6:28 AM) Hgb A1C [<=5.6 %] URINE AND STOOL 1 2 3 Most recent to oldest [Reference Range]: Clear (10/09/14 4:39 AM) UA Turbidity [Clear] Yellow *NA* (10/09/14 4:39 AM) UA Color [Yellow] 7.0 (10/09/14 4:39 AM) UA pH [5.0-8.0] 1.020 (10/09/14 4:39 AM) UA Spec Grav [<=1.030] 500 mg/dL *ABN* (10/09/14 4:39 AM) UA Glucose [Negative mg/dL] Negative (10/09/14 4:39 AM) UA Blood [Negative] 15 *ABN* (10/09/14 4:39 AM) UA Ketones [Negative] Trace *ABN* (10/09/14 4:39 AM) UA Protein [Negative] 1.0 EU/dL (10/09/14 4:39 AM) UA Urobilinogen [0.1-1.0 EU/dL] Negative *NA* (10/09/14 4:39 AM) UA Bili [Negative] Negative (10/09/14 4:39 AM) UA Leuk Est [Negative] Negative (10/09/14 4:39 AM) UA Nitrite [Negative] 4 /HPF (10/09/14 4:39 AM) UA WBC [0-5 /HPF] 1 /HPF (10/09/14 4:39 AM) UA RBC [0-2 /HPF] Occasional /LPF *NA* (10/09/14 4:39 AM) UA Sq Epi [Few /LPF] HEMATOLOGY 1 2 3 Most recent to oldest [Reference Range]: 6.8 K/CMM (10/11/14 5:50 AM) 9.0 K/CMM (10/10/14 6:26 AM) 7.5 K/CMM (10/09/14 6:28 AM) WBC [3.7-10.4 K/CMM] 4.54 M/CMM (10/11/14 5:50 AM) 4.31 M/CMM (10/10/14 6:26 AM) 4.30 M/CMM (10/09/14:28 AM) RBC [4.20-5.40 M/CMM] 14.4 g/dL (10/11/14:50 AM) 13.4 g/dL (10/10/14:26 AM) 13.4 g/dL (10/09/14:28 AM) Hgb [12.0-16.0 g/dL] 41.6 % (10/11/14:50 AM) 39.4 % (10/10/14:26 AM) 39.3 % (10/09/14:28 AM) Hct [36.0-48.0 %] 91.7 fL (10/11/14:50 AM) 91.4 fL (10/10/14:26 AM) 91.4 fL (10/09/14:28 AM) MCV [80.0-98.0 fL] 31.7 pg *HI* (10/11/14:50 AM) 31.2 pg *HI* (10/10/14:26 AM) 31.1 pg *HI* (10/09/14:28 AM) MCH [27.0-31.0 pg] 34.5 g/dL (10/11/14:50 AM) 34.1 g/dL (10/10/14:26 AM) 34.1 g/dL (10/09/14:28 AM) MCHC [32.0-36.0 g/dL] 13.1 % (10/11/14:50 AM) 13.2 % (10/10/14:26 AM) 13.1 % (10/09/14:28 AM) RDW [11.5-14.5 %] 188 K/CMM (10/11/14:50 AM) 176 K/CMM (10/10/14:26 AM) 198 K/CMM (10/09/14:28 AM) Platelet [133-450 K/CMM] 8.1 fL (10/11/14 5:50 AM) 8.3 fL (10/10/14 6:26 AM) 8.3 fL (2/3/15 6:28 AM) MPV [7.4-10.4 fL] 58.0 % (10/11/14 5:50 AM) 67.0 % (10/10/14:26 AM) 63.1 % (10/09/14:28 AM) Segs [45.0-75.0 %] 27.6 % (10/11/14 5:50 AM) 22.4 % (10/10/14:26 AM) 26.1 % (10/09/14:28 AM) Lymphocytes [20.0-40.0 %] 11.4 % (10/11/14 5:50 AM) 9.2 % (10/10/14 6:26 AM) 9.3 % (10/09/14:28 AM) Monocytes [2.0-12.0 %] 2.1 % (10/11/14 5:50 AM) 0.8 % (10/10/14 6:26 AM) 0.6 % (10/09/14:28 AM) Eosinophils [0.0-4.0 %] 0.9 % (10/11/14 5:50 AM) 0.6 % (10/10/14 6:26 AM) 0.9 % (10/09/14:28 AM) Basophils [0.0-1.0 %] 3.9 K/CMM (10/11/14 5:50 AM) 6.1 K/CMM (10/10/14 6:26 AM) 4.7 K/CMM (10/09/14:28 AM) Segs-Bands # [1.5-8.1 K/CMM] 1.9 K/CMM (10/11/14 5:50 AM) 2.0 K/CMM (10/10/14 6:26 AM) 2.0 K/CMM (10/09/14:28 AM) Lymphocytes # [1.0-5.5 K/CMM] 0.8 K/CMM (10/11/14 5:50 AM) 0.8 K/CMM (10/10/14 6:26 AM) 0.7 K/CMM (10/09/14 6:28 AM) Monocytes # [0.0-0.8 K/CMM] 0.1 K/CMM (10/11/14 5:50 AM) 0.1 K/CMM (10/10/14 6:26 AM) Eosinophils # [0.0-0.5 K/CMM] 0.1 K/CMM (10/11/14 5:50 AM) 0.1 K/CMM (10/10/14 6:26 AM) 0.1 K/CMM (10/09/14 6:28 AM) Basophils # [0.0-0.2 K/CMM] BACTERIAL - SEROLOGY 1 2 3 Most recent to oldest [Reference Range]: Negative 7 (10/09/14 4:39 AM) MRSA by PCR 7Interpretive Data: Interpretive Data: The [employer] LightCycler [...] reaction (PCR) assay detects a proprietary sequence indicat segun of the integration of the SCCmec cassette into the Staphylococcus aureus chr omosome, indicating the presence of MRSA DNA. The assay utilizes FDA cleared IV D reagents. Performance characteristics have been verified by the [facility] within the [facility]. The [facility] is authorized under the Clinical Laboratory Improvement Amendment of 1 988 (CLIA-88) to perform high complexity testing. Medications Administered During Your Visit No data available for this section Immunizations No data available for this section Procedures Procedure Type Body Site Date of Procedure Related Diagnosis Total knee replacement Social History Social History Type Response Alcohol Use: Never Smoking Status Never smoker, Exposure to Tobacco Smoke None, Cigarette Smoking Last 365 Days No, Reg Smoking Cessation Counseling No Assessment and Plan Extracted from: Title: Clinical Document Author: Baudilio Lomax MD Date: 10/12/14 Progress Note - Daily [facility] Completed: Oct, 09:35 by Baudilio Lomax MD RM: 246 - 1P, SE [id number], [id number] (: 1955) F Attending: Preston Sheikh MDPhone: Service: Internal Medicine Reason for Admission: AMS,HYPERGLYCEMIA,LT BINDLE BRANCH BLOCK,POSSIBLE CVA Working DRG: Intracranial hemorrhage or cerebral infarction w CC Code status: Full Code [Ordered]Current diet: Isolation: None Documented Allergies: iodine topical SUBJECTIVE Feels good overall other than some emotional lability which is improving. No weakness or numbness, chest pain, shortness of breath, headache, vision change, nausea, fever. OBJECTIVE 24hr Labs 10/12 0645 Glucose LCG818 H 10/11 2115 Glucose MOM856 H 10/11 1556 Glucose LMC587 H 10/11 1103 Glucose OHH131 H [place] still necessary (Yes/No): Line still necessary (Yes/No): VitalsTmp(F)[id number] 10/12 08:[id number]--- 10/12 04:[id number]/7518------ 10/12 00:0098.890109/7016------ 10/11 20:[id number]------ 10/11 15:4397.524796/[id number]--- 24 Hr Tmax: 98.5F (36.94c) at 10/12 04:25Vital Signs are the last 5 in the past 48 hours. DateWt(kg)Wt(lb)Ht(cm)Ht(in)Method 10/08 (initial) 95.32 209.70Measured 52.40 60.00Stated I&ORecordInOutBal 10/523hr Tot 12 0 12 10/423hr Tot 920 0 920 Medications (29) Active Scheduled Meds (9): 10/09/14 atorvastatin 40 mg PO Bedtime 10/09/14 clopidogrel 75 mg PO Daily 10/10/14 escitalopram 10 mg PO Bedtime 10/09/14 gabapentin (gabapentin 600 mg oral tablet) 600 mg PO BID 10/09/14 glimepiride 4 mg PO Daily 10/09/14 levETIRAcetam (levETIRAcetam 500 mg oral tablet) 500 mg PO BID 10/09/14 lisinopril 20 mg PO Daily 10/11/14 pantoprazole (Protonix) 40 mg PO Before Dinner 10/09/14 sodium chloride (Saline Flush 0.9%) 10 ml IVP Q12H Unscheduled Meds: None PRN Meds (20): 10/09/14 ALPRAZolam (Xanax 0.25 mg oral tablet) 0.25 mg PO Q6H 10/09/14 Dextrose 50% in Water IV (Dextrose 50% Syringe) 12.5 gm IVP PRN 10/09/14 Dextrose 50% in Water IV (Dextrose 50% Syringe) 25 gm IVP PRN 10/11/14 acetaminophen (Tylenol) 650 mg PO Q6H 10/09/14 atropine 0.5 mg IVP PRN 10/09/14 glucagon 1 mg IM PRN 10/09/14 insulin aspart 1 unit SUB-Q TID-Before Meals 10/09/14 insulin aspart 2 unit SUB-Q TID-Before Meals 10/09/14 insulin aspart 3 unit SUB-Q TID-Before Meals 10/09/14 insulin aspart 4 unit SUB-Q TID-Before Meals 10/09/14 insulin aspart 5 unit SUB-Q TID-Before Meals 10/09/14 insulin aspart 1 unit SUB-Q Bedtime 10/09/14 insulin aspart 2 unit SUB-Q Bedtime 10/09/14 insulin aspart 3 unit SUB-Q Bedtime 10/09/14 insulin aspart 4 unit SUB-Q Bedtime 10/09/14 labetalol 10 mg IVP Q10Min 10/09/14 nitroglycerin (nitroglycerin 0.4 mg sublingual tablet) 0.4 mg SL Q5Min 10/11/14 ondansetron (Zofran) 4 mg IV Q8H 10/09/14 sodium chloride (Saline Flush 0.9%) 10 ml IVP PRN 10/11/14 temazepam 7.5 mg PO Bedtime One Time Meds: None Continuous Infusions: None EXAM GEN - NAD HEENT - NC/AT. MMM. OP clear Ext - no c/c/e Skin - no rash Neuro: Mental status: Alert and oriented x to person, place. Intact naming and repetition. Follows all commands CN: PERRl, EOMI, no droop, facial sensation normal, tongue midline Motor: 5/5throughout Sensory: intact to LTx4 Cerebellar: intact ftn, hts Abnormal movements: none Gait -slow, normal base, normal strides Assessment 1. Acute stroke, right frontal 2. Encephalopathy from stroke - improving - some pseudobulbar affect from stroke 3. Diabetes mellitus, uncontrolled. 4. Dyslipidemia. 5. Hypertension. 6. History of seizures. 7. Peripheral neuropathy due to diabetes. PLAN: -continue plavix and statin. -tele - no arrhythmias so far -PT/OT/rehab -DVT prophylaxis with SCDs. -Continue gabapentin for treatment of peripheral neuropathy. -Continue levetiracetam for seizure prophylaxis. Extracted from: Title: Clinical Document Author: Nadja De La Vega Date: 10/09/14 Ivon PERERA History and Physical Attending: Preston Sheikh MDPhone: Service: Internal Medicine Code status: None Specified=FULL CODE Reason for Admission: AMS,HYPERGLYCEMIA,LT BINDLE BRANCH BLOCK,POSSIBLE CVA Working DRG: None Documented Isolation: None Documented Consulting Physicians: (none on file) Allergies: iodine topical HPI: 59yo F transferred from [facility] ER in [facility] for AMS r/o CVA. Hx from pt limited due to dysphasia therefore hx obtained from records an d from family (daughter and ). Per family, pt lifted multiple bottles of water then started resting in bed; when asked if she was in pain, she answered "I don't know." As the day went on, realized that she gave the same answer to different questions however had no other changes to behavior therefore he was not alarmed by it. Yesterday, daughter noticed that pt had slurred speech which was new, and was also having difficulty expressing herself. Earlier in the day, pt picked up her grandson but was unable to tell her daugter her location which daughter states is a new change. Family deny any other changes noticed in pt, including ambulatory difficulties, fever/chills, vomiting, chest pain, SOB, etc. Pt currently is able to deny any symptoms at this time, other than inability to verbalize her thoughts. Family states that pt [facility] in February or March of 2014. Review of Systems: All other systems reviewed by myself and are negative. Past Medical History: CVA TIA (transient ischemic attack) Acid reflux Seizure disorder Neuropathy DM MRSA skin abscesses Surgical History: Total knee replacement Teeth removal Family History: Sister: Stomach cancer Social History: Alcohol Details: Never Tobacco Details: Use: Never smoker. Medications: See medication reconciliation list. VitalsTmp(F)[id number] 10/09 00:[id number]--- 24 Hr Tmax: 98.0F (36.67c) at 10/09 00:00Vital Signs are the last 5 in the past 48 hours. Physical Exam: CONSTITUTIONAL: no acute distress EYES: EOMI, nml conjuctiva ENT AND MOUTH: moist mucous membranes CARDIOVASCULAR: +S1, S2; nml rate, regular rhythm, no murmus, +strong pulses B/L GASTROINTESTINAL: +BS, soft, nontender, no guarding, no rebound MUSCULOSKELETAL: no scoliosis NEUROLOGIC: awake, alert and oriented, RLE drift, CN 2-12 grossly intact, 5/5 B/L UE & LE muscle strength, no sensory deficit INTEGUMENTARY: no rash PSYCHIATRY: no hallucinations GENITOURINARY: rectal deferred RESPIRATORY: clear to ascultation B/L HEMATOLOGIC/LYMPHATIC: no petechiae, no edema 24hr Labs 10/08 2352 Glucose [id number] H Imaging: Outside CXR - unremarakable Outside CT Brain - unremarkable EKG: Outside EKG performed at 19:08 NSR at 67, nml MO, incr QRS, nml QTc, L axis, LBBB (no old EKG available at this time) good tracing Independently viewed by me Interp contemporaneously by me Assessment and Plan: 59yo F with AMS, r/o acute CVA: 1. NEURO - neuro consult placed to neuro credit and collections analyst, daily ASA ordered, neuro checks. MRI brain and carotid U/S ordered. Form completed to obtain medical records from [facility] 2. CARDIO - stable, check cardiac enzymes 3. PULM - stable 4. HEME - stable, DVT prophylaxis 5. GI - stable 6. RENAL - stable 7. ID - stable 8. ENDO - stable Above plan pending eval by primary attending physician.
--- OUTSIDE RECORDS SUMMARY | 2018-09-10 16:12 | XMS REPORT ---
Author Author [facility] Address Unknown Phone Unavailable Care Team Providers Care Coating Machine Feeder Name Role Phone Unavailable Unavailable Problems This patient has no known problems. Allergies, Adverse Reactions, Alerts This patient has no known allergies or adverse reactions. Medications This patient has no known medications.
--- OUTSIDE RECORDS SUMMARY | 2018-09-10 16:12 | XMS REPORT | Summary of Care ---
Author Organization Unknown Address Unknown Phone Unavailable Encounter HQ Jorge(CHRISTIN) [id number] Date(s): 10/12/14 - 10/19/14 [facility] Discharge Disposition: Home Physician Attending: Hollis Cook MD Physician Admitting: Hollis Cook MD Reason for Visit STROKE Vital Signs 1 2 3 Most recent to oldest [Reference Range]: 152.4 cm (10/12/14 1:57 PM) 152.4 cm (10/12/14 1:53 PM) Height 97.8 DegF (10/19/14 8:04 AM) 97.5 DegF (10/18/14 8:00 PM) 97.5 DegF (10/18/14 4:00 PM) Temperature Oral [96.4-99.1 DegF] 129 mmHg (10/19/14 8:04 AM) 101 mmHg (10/18/14 8:00 PM) 123 mmHg (10/18/14 4:00 PM) Systolic Blood Pressure [90-140 mmHg] 74 mmHg (10/19/14 8:04 AM) 61 mmHg (10/18/14 8:00 PM) 77 mmHg (10/18/14 4:00 PM) Diastolic Blood Pressure [60-90 mmHg] 16 BRMIN (10/19/14 8:04 AM) 18 BRMIN (10/18/14 8:00 PM) 18 BRMIN (10/18/14 4:00 PM) Respiratory Rate [14-20 BRMIN] 67 bpm (10/19/14 8:04 AM) 76 bpm (10/18/14 8:00 PM) 81 bpm (10/18/14 4:00 PM) Peripheral Pulse Rate [60-100 bpm] 95.318 kg (10/12/14 1:57 PM) 95.318 kg (10/12/14 1:53 PM) Weight 41.04 m2 (10/12/14 1:57 PM) 41.04 m2 (10/12/14 1:53 PM) Body Mass Index Problem List Condition [...] Severity Status iodine topical Active Medications acetaminophen 650 mg, 2 tab, Route: PO, Drug form: TAB, Q4H, Dosing Weight 95.318, kg, PRN Sal n Score 1-3, Start date: 10/12/14 13:53:00, Duration: 30 day, Stop date: 5 13:52:00 Notes: Do not exceed 4 gm/day. (Same as: Tylenol) Start Date: 10/12/14 Stop Date: 10/12/14 Status: Discontinued acetaminophen 325 mg oral tablet 650 mg, 2 tab, Route: PO, Drug form: TAB, Q6H, Dosing Weight 95.318, kg, PRN Sal n 1-3/Temp > 100.4 F, Start date: 10/12/14 16:59:00, Stop date: 11/11/14 16:58:00 Notes: Do not exceed 4 gm/day. (Same as: Tylenol) Start Date: 10/12/14 Stop Date: 10/19/14 Status: Discontinued atorvastatin 40 mg, 1 tab, Route: PO, Drug form: TAB, Bedtime, Dosing Weight 95.318, kg, Star t date: 10/12/14 21:00:00, Duration: 30 day, Stop date: 11/10/14 21:00:00 Notes: (Same as: Lipitor) Start Date: 10/12/14 Stop Date: 10/19/14 Status: Discontinued atorvastatin 40 mg oral tablet 40 mg=1 tab, PO, Bedtime, # 30 tab, 0 Refill(s) Start Date: 10/19/14 Status: Ordered clopidogrel 75 mg, 1 tab, Route: PO, Drug form: TAB, Daily, Dosing Weight 95.318, kg, Start date: 10/13/14 9:00:00, Duration: 30 day, Stop date: 11/11/14 9:00:00 Notes: (Same As: Plavix) Start Date: 10/13/14 Stop Date: 10/19/14 Status: Discontinued clopidogrel 75 mg oral tablet 75 mg=1 tab, PO, Daily, # 30 tab, 0 Refill(s) Start Date: 10/19/14 Status: Ordered Dextrose 50% Syringe 12.5 gm, 25 mL, Route: IVP, Drug Form: INJ, Dosing Weight 95.318, kg, PRN, PRN B lood Glucose Results, Start date: 10/14/14 11:44:00, Duration: 30 day, Stop date : 11/13/14 12:43:00 Start Date: 10/14/14 Stop Date: 10/19/14 Status: Discontinued Dextrose 50% Syringe 25 gm, 50 mL, Route: IVP, Drug Form: INJ, Dosing Weight 95.318, kg, PRN, PRN Blo od Glucose Results, Start date: 10/14/14 11:44:00, Duration: 30 day, Stop date: 11/13/14 12:43:00 Start Date: 10/14/14 Stop Date: 10/19/14 Status: Discontinued ergocalciferol 50,000 intl units oral capsule 50,000 IntlUnit=1 cap, PO, qWeek, # 4 caplet, 0 Refill(s) Start Date: 10/19/14 Status: Ordered escitalopram 10 mg, 1 tab, Route: PO, Drug form: TAB, Daily, Dosing Weight 95.318, kg, Start date: 10/13/14 9:00:00, Duration: 30 day, Stop date: 11/11/14 9:00:00 Notes: (Same as: Lexapro) Start Date: 10/13/14 Stop Date: 10/19/14 Status: Discontinued escitalopram 10 mg oral tablet 10 mg=1 tab, PO, Daily, # 30 tab, 0 Refill(s) Start Date: 10/19/14 Status: Ordered gabapentin 300 mg oral capsule 600 mg, 2 cap, Route: PO, Drug form: CAP, BID, Dosing Weight 95.318, kg, Start d ate: 10/12/14 21:00:00, Duration: 30 day, Stop date: 11/11/14 9:00:00 Notes: (Same as: Neurontin) Start Date: 10/12/14 Stop Date: 10/19/14 Status: Discontinued gabapentin 600 mg oral tablet 600 mg=1 tab, PO, BID, # 60 tab, 0 Refill(s) Start Date: 10/19/14 Status: Ordered glimepiride 4 mg, 1 tab, Route: PO, Drug form: TAB, Daily, Dosing Weight 95.318, kg, Start d ate: 10/13/14 9:00:00, Duration: 30 day, Stop date: 11/11/14 9:00:00 Notes: (Same as: Amaryl) Start Date: 10/13/14 Stop Date: 10/19/14 Status: Discontinued glimepiride 4 mg oral tablet 4 mg=1 tab, PO, Daily, # 30 tab, 0 Refill(s) Start Date: 10/19/14 Status: Ordered glucagon 1 mg, Route: IM, Drug form: PDR/INJ, PRN, Dosing Weight 95.318, kg, PRN Blood Gl ucose Results, Start date: 10/14/14 11:44:00, Duration: 30 day, Stop date: 11/13 12:43:00 Start Date: 10/14/14 Stop Date: 10/19/14 Status: Discontinued insulin aspart 2 unit, 0.02 mL, Route: SUB-Q, Drug form: SOLN, TID-Before Meals, Dosing Weight 95.318, kg, PRN Blood Glucose Results, Start date: 10/14/14 11:44:00, Duration: 30 day, Stop date: 11/13/14 11:43:00 Notes: Roll in palms of hands gently; Do not shake vigorously. (Same as: NovoLO G)"single patient use only" Stable for 28 days at room temperature.Expires in _ ____ days from Date Start Date: 10/14/14 Stop Date: 10/19/14 Status: Discontinued insulin aspart 1 unit, 0.01 mL, Route: SUB-Q, Drug form: SOLN, TID-Before Meals, Dosing Weight 95.318, kg, PRN Blood Glucose Results, Start date: 10/14/14 11:44:00, Duration: 30 day, Stop date: 11/13/14 11:43:00 Notes: Roll in palms of hands gently; Do not shake vigorously. (Same as: NovoLO G)"single patient use only" Stable for 28 days at room temperature.Expires in _ ____ days from Date Start Date: 10/14/14 Stop Date: 10/19/14 Status: Discontinued insulin aspart 3 unit, 0.03 mL, Route: SUB-Q, Drug form: SOLN, TID-Before Meals, Dosing Weight 95.318, kg, PRN Blood Glucose Results, Start date: 10/14/14 11:44:00, Duration: 30 day, Stop date: 11/13/14 11:43:00 Notes: Roll in palms of hands gently; Do not shake vigorously. (Same as: NovoLO G)"single patient use only" Stable for 28 days at room temperature.Expires in _ ____ days from Date Start Date: 10/14/14 Stop Date: 10/19/14 Status: Discontinued insulin aspart 5 unit, 0.05 mL, Route: SUB-Q, Drug form: SOLN, TID-Before Meals, Dosing Weight 95.318, kg, PRN Blood Glucose Results, Start date: 10/14/14 11:44:00, Duration: 30 day, Stop date: 11/13/14 11:43:00 Notes: Roll in palms of hands gently; Do not shake vigorously. (Same as: NovoLO G)"single patient use only" Stable for 28 days at room temperature.Expires in _ ____ days from Date Start Date: 10/14/14 Stop Date: 10/19/14 Status: Discontinued insulin aspart 4 unit, 0.04 mL, Route: SUB-Q, Drug form: SOLN, TID-Before Meals, Dosing Weight 95.318, kg, PRN Blood Glucose Results, Start date: 10/14/14 11:44:00, Duration: 30 day, Stop date: 11/13/14 11:43:00 Notes: Roll in palms of hands gently; Do not shake vigorously. (Same as: NovoLO G)"single patient use only" Stable for 28 days at room temperature.Expires in _ ____ days from Date Start Date: 10/14/14 Stop Date: 10/19/14 Status: Discontinued insulin aspart 1 unit, 0.01 mL, Route: SUB-Q, Drug form: SOLN, Bedtime, Dosing Weight 95.318, k g, PRN Blood Glucose Results, Start date: 10/15/14 21:18:00, Duration: 30 day, S top date: 11/14/14 21:17:00 Notes: Roll in palms of hands gently; Do not shake vigorously. (Same as: NovoLO G)"single patient use only" Stable for 28 days at room temperature.Expires in _ ____ days from Date Start Date: 10/15/14 Stop Date: 10/19/14 Status: Discontinued insulin aspart 2 unit, 0.02 mL, Route: SUB-Q, Drug form: SOLN, Bedtime, Dosing Weight 95.318, k g, PRN Blood Glucose Results, Start date: 10/15/14 21:18:00, Duration: 30 day, S top date: 11/14/14 21:17:00 Notes: Roll in palms of hands gently; Do not shake vigorously. (Same as: NovoLO G)"single patient use only" Stable for 28 days at room temperature.Expires in _ ____ days from Date Start Date: 10/15/14 Stop Date: 10/19/14 Status: Discontinued insulin aspart 3 unit, 0.03 mL, Route: SUB-Q, Drug form: SOLN, Bedtime, Dosing Weight 95.318, k g, PRN Blood Glucose Results, Start date: 10/15/14 21:18:00, Duration: 30 day, S top date: 11/14/14 21:17:00 Notes: Roll in palms of hands gently; Do not shake vigorously. (Same as: NovoLO G)"single patient use only" Stable for 28 days at room temperature.Expires in _ ____ days from Date Start Date: 10/15/14 Stop Date: 10/19/14 Status: Discontinued insulin aspart 4 unit, 0.04 mL, Route: SUB-Q, Drug form: SOLN, Bedtime, Dosing Weight 95.318, k g, PRN Blood Glucose Results, Start date: 10/15/14 21:18:00, Duration: 30 day, S top date: 11/14/14 21:17:00 Notes: Roll in palms of hands gently; Do not shake vigorously. (Same as: NovoBARRY G)"single patient use only" Stable for 28 days at room temperature.Expires in _ ____ days from Date Start Date: 10/15/14 Stop Date: 10/19/14 Status: Discontinued Levemir 15 unit, 0.15 mL, Route: SUB-Q, Drug form: INJ, Daily, Dosing Weight 95.318, kg, Start date: 10/16/14 9:00:00, Duration: 30 day, Stop date: 11/14/14 9:00:00 Notes: Same as LevemirDo not hold insulin without contacting prescriber "single patient use only" Start Date: 10/16/14 Stop Date: 10/19/14 Status: Discontinued Levemir FlexPen 100 units/mL subcutaneous solution 15 unit, SUB-Q, Bedtime, rotate injection sites, # 2 pen(s), 0 Refill(s) Special Instructions: rotate injection sites Start Date: 10/19/14 Status: Ordered levETIRAcetam 500 mg oral tablet 500 mg=1 tab, PO, BID, # 60 tab, 0 Refill(s) Start Date: 10/19/14 Status: Ordered levETIRAcetam 500 mg oral tablet 500 mg, 1 tab, Route: PO, Drug form: TAB, BID, Dosing Weight 95.318, kg, Start d ate: 10/12/14 21:00:00, Duration: 30 day, Stop date: 11/11/14 9:00:00 Notes: (Same as:Anabel) Start Date: 10/12/14 Stop Date: 10/19/14 Status: Discontinued lisinopril 20 mg, 1 tab, Route: PO, Drug form: TAB, Daily, Dosing Weight 95.318, kg, Start date: 10/13/14 9:00:00, Duration: 30 day, Stop date: 11/11/14 9:00:00 Notes: (Same as: Prinivil, Zestril) Start Date: 10/13/14 Stop Date: 10/19/14 Status: Discontinued lisinopril 20 mg oral tablet 20 mg=1 tab, PO, Daily, # 30 tab, 0 Refill(s) Start Date: 10/19/14 Status: Ordered magnesium oxide 500 mg oral tablet 500 mg=1 tab, PO, BID, # 60 tab, 0 Refill(s) Start Date: 10/19/14 Status: Ordered magnesium oxide base 500 mg oral tablet 500 mg, 2 tab, Route: PO, Drug form: TAB, BID, Dosing Weight 95.318, kg, Start d ate: 10/14/14 9:00:00, Duration: 30 day, Stop date: 11/12/14 17:00:00 Start Date: 10/14/14 Stop Date: 10/19/14 Status: Discontinued magnesium sulfate 2 gm, 50 mL, Route: IVPB, Drug form: INJ, Q2H, Dosing Weight 95.318, kg, Total d ose=4 gm, Start date: 10/13/14 10:00:00, Duration: 2 doses or times, Stop date: 10/13/14 12:00:00 Start Date: 10/13/14 Stop Date: 10/13/14 Status: Completed nitroglycerin 0.4 mg sublingual tablet 0.4 mg, 1 tab, Route: SL, Drug form: TAB, Q5Min, Dosing Weight 95.318, kg, PRN O ther -See Comment, chest pain, Start date: 10/12/14 16:55:00, Stop date: 5 17:54:00 Notes: (Same as:Nitroquick, Nitrostat)"Do Not Crush" Sublingual tablet Start Date: 10/12/14 Stop Date: 10/19/14 Status: Discontinued Occupational Therapy See Instructions, MISC, ONCALL, Evaluate and Treat 2-3 times per week for2-4 wee ks, # 1 unit, 0 Refill(s) Special Instructions: Evaluate and Treat 2-3 times per week for2-4 weeks Start Date: 10/18/14 Status: Ordered pantoprazole 40 mg, 1 tab, Route: PO, Drug form: ECTAB, Before Dinner, Dosing Weight 95.318, kg, Start date: 10/13/14 16:30:00, Duration: 30 day, Stop date: 11/11/14 16:30:0 0 Notes: Tablet should not be chewed or crushed.(Same as: Protonix) Start Date: 10/13/14 Stop Date: 10/19/14 Status: Discontinued Physical Therapy See Instructions, MISC, ONCALL, Evaluate and Treat 2-3 times per week for 4-6 we eks, # 1 ea, 0 Refill(s) Special Instructions: Evaluate and Treat 2-3 times per week for 4-6 weeks Start Date: 10/18/14 Status: Ordered Speech Therapy See Instructions, MISC, ONCALL, Evaluate and Treat 2-3 times per week for 4-6 we eks, # 1 ea, 0 Refill(s) Special Instructions: Evaluate and Treat 2-3 times per week for 4-6 weeks Start Date: 10/18/14 Status: Ordered temazepam 7.5 mg, 1 cap, Route: PO, Drug form: CAP, Bedtime, Dosing Weight 95.318, kg, PRN Insomnia, Start date: 10/12/14 16:56:00, Stop date: 11/11/14 16:55:00 Notes: (Same As: Restoril) Start Date: 10/12/14 Stop Date: 10/19/14 Status: Discontinued trazodone 50 mg, 1 tab, Route: PO, Drug form: TAB, Bedtime, Dosing Weight 95.318, kg, PRN Insomnia, Start date: 10/12/14 13:53:00, Duration: 30 day, Stop date: 11/11/14 1 3:52:00 Notes: (Same As: Desyrel) Start Date: 10/12/14 Stop Date: 10/19/14 Status: Discontinued Tums 1,000 mg, 2 tab, Route: CHEW, Drug form: CHEWTAB, Q4H, Dosing Weight 95.318, kg, PRN Indigestion, Start date: 10/15/14 12:43:00, Duration: 30 day, Stop date: 12:42:00 Notes: (Same As: Tums)Calcium Carbonate 500 ig=845 mg elemental calcium Dose=_ mg calcium carbonate ( mg elemental calcium) Start Date: 10/15/14 Stop Date: 10/19/14 Status: Discontinued Vitamin D 50,000 IntlUnit, 1 cap, Route: PO, Drug form: CAP, qWeek, Dosing Weight 95.318, kg, Start date: 10/15/14 22:00:00, Duration: 5 doses or times, Stop date: 9:00:00 Notes: (Same as: Vitamin D) "Do Not Crush" Start Date: 10/15/14 Stop Date: 10/19/14 Status: Discontinued Xanax 0.25 mg oral tablet 0.25 mg, 1 tab, Route: PO, Drug form: TAB, Q6H, Dosing Weight 95.318, kg, PRN as needed for anxiety, Start date: 10/12/14 17:00:00, Stop date: 11/11/14 16:59:00 Notes: With food or milk(Same as: Xanax) Start Date: 10/12/14 Stop Date: 10/19/14 Status: Discontinued Results ELECTROLYTES Most recent to 1 oldest [Reference Range]: Sodium Lvl [135-145 137 mEq/L mEq/L] (10/13/14 5:15 AM) Potassium Lvl 3.9 mEq/L [3.5-5.1 mEq/L] (10/13/14 5:15 AM) Chloride Lvl [95-109 105 mEq/L mEq/L] (10/13/14 5:15 AM) CO2 [24-32 mEq/L] 24 mEq/L (10/13/14 5:15 AM) AGAP [10.0-20.0 11.9 mEq/L mEq/L] (10/13/14 5:15 AM) CHEM PANEL Most recent to 1 oldest [Reference Range]: Creatinine Lvl 1.0 mg/dL [0.5-1.4 mg/dL] (10/13/14 5:15 AM) eGFR 61 mL/min/1.73m2 1 *NA* (10/13/14:15 AM) BUN [7-22 mg/dL] 22 mg/dL (10/13/14 5:15 AM) Glucose Lvl [70-99 149 mg/dL 2 mg/dL] *HI* (10/13/14:15 AM) Albumin Lvl [3.5-5.0 3.1 g/dL g/dL] *LOW* (10/13/14:15 AM) Calcium Lvl 8.8 mg/dL [8.5-10.5 mg/dL] (10/13/14:15 AM) Phosphorus [2.5-4.5 3.8 mg/dL mg/dL] (10/13/14 5:15 AM) Magnesium Lvl 1.6 mg/dL [1.8-2.4 mg/dL] *LOW* (10/13/14:15 AM) Vitamin D, 25-OH, 18 ng/mL 3 Total [30-100 ng/mL] *LOW* (10/13/14 5:15 AM) 1Result Comment: The eGFR is calculated using [...] be mul tiplied by the estimated BMI. 2Interpretive Data: Adult reference range values reflect the clinical guidelines of the [place] [employer]. 3Interpretive Data: Reference range is based on recommendations in the Endocrine Society Clinical Practice Guideline (J Clin Endocrinol Metab 2011;96:2632-6458) SPECIAL CHEMISTRY Most recent to 1 oldest [Reference Range]: Hgb A1C [<=5.6 %] 10.9 % *HI* (10/13/14 5:15 AM) THYROID PANEL Most recent to 1 oldest [Reference Range]: T4 Free [0.76-1.46 1.58 ng/dL ng/dL] *HI* (10/13/14 5:15 AM) TSH [0.360-3.740 0.981 uIU/mL uIU/mL] (10/13/14:15 AM) IMMUNOLOGY Most recent to 1 oldest [Reference Range]: Prealbumin 16.0 mg/dL [18.0-45.0 mg/dL] *LOW* (10/13/14:15 AM) HEMATOLOGY Most recent to 1 oldest [Reference Range]: WBC [3.7-10.4 K/CMM] 7.0 K/CMM (10/13/14 5:15 AM) RBC [4.20-5.40 4.59 M/CMM M/CMM] (10/13/14 5:15 AM) Hgb [12.0-16.0 g/dL] 14.6 g/dL (10/13/14 5:15 AM) Hct [36.0-48.0 %] 41.7 % (10/13/14 5:15 AM) MCV [80.0-98.0 fL] 90.8 fL (10/13/14 5:15 AM) MCH [27.0-31.0 pg] 31.7 pg *HI* (10/13/14:15 AM) MCHC [32.0-36.0 34.9 g/dL g/dL] (10/13/14 5:15 AM) RDW [11.5-14.5 %] 13.0 % (10/13/14 5:15 AM) Platelet [133-450 210 K/CMM K/CMM] (10/13/14 5:15 AM) MPV [7.4-10.4 fL] 8.6 fL (10/13/14 5:15 AM) Segs [45.0-75.0 %] 50.5 % (10/13/14 5:15 AM) Lymphocytes 35.6 % [20.0-40.0 %] (10/13/14 5:15 AM) Monocytes [2.0-12.0 11.2 % %] (10/13/14 5:15 AM) Eosinophils [0.0-4.0 2.1 % %] (10/13/14 5:15 AM) Basophils [0.0-1.0 0.6 % %] (10/13/14 5:15 AM) Segs-Bands # 3.5 K/CMM [1.5-8.1 K/CMM] (10/13/14 5:15 AM) Lymphocytes # 2.5 K/CMM [1.0-5.5 K/CMM] (10/13/14 5:15 AM) Monocytes # [0.0-0.8 0.8 K/CMM K/CMM] (10/13/14 5:15 AM) Eosinophils # 0.1 K/CMM [0.0-0.5 K/CMM] (10/13/14 5:15 AM) PT [12.0-14.7 13.6 seconds seconds] (10/13/14 5:15 AM) INR [0.85-1.17] 1.04 4 (10/13/14 5:15 AM) PTT [22.9-35.8 25.7 seconds 5 seconds] (10/13/14 5:15 AM) 4Interpretive Data: RECOMMENDED RANGES FOR PROTIME INR: 2.0-3.0 for most medical and surgical thromboembolic states. 2.5-3.5 for artificial heart valves and recurrent embolism. INR SHOULD BE USED ONLY FOR PATIENTS ON STABLE ANTICOAGULANT THERAPY. 5Interpretive Data: Heparin Therapeutic Range: 57 - 92 Seconds Medications Administered During Your Visit No data available for this section Immunizations No data available for this section Social History Social History Type Response Alcohol Use: Never Smoking Status Never smoker, Exposure to Tobacco Smoke None, Cigarette Smoking Last 365 Days No, Reg Smoking Cessation Counseling No Assessment and Plan Extracted from: Title: Clinical Document Author: Hollis Cook MD Date: 10/18/14 PHYSICAL MEDICINE AND REHABILITATION FOLLOW UP CHIEF COMPLAINT IDENTIFICATION: This is a 59 year-old lady with an acute right frontal ischemic CVA with previous right basal ganglia cerebrovascular accident. INTERVAL EVENTS AND SUBJECTIVE: All interval events reviewed. Denies fevers, chills, nausea, vomiting, shortness of breath, chest pain, palpitations, headaches, dizziness. Pain is not limiting therapies. No bowel or bladder complaints. Strength and sensation improving. Speech improving. Team meeting held and discussed with patient and her spouse. PHYSICAL EXAMINATION: Vitals and Temp: VitalsTmp(F)[id number] 10/18 [id number]--- 10/17 20:[id number]--- 10/17 16:[id number]--- 10/17 [id number]--- 24 Hr Tmax: 97.7F (36.50c) at 10/17 16:00Vital Signs are the last 5 in the past 48 hours. GENERAL: NAD seen in gym and in room.. PSYCH: Alert, oriented, pleasent. Becomes very fixated on multi-system complaints, but redirects easily. HEENT: Pupils equal, round, reactive to light. Extraocular muscles intact. Moist mucous membranes. CARDIOVASCULAR: 2+ bilateral upper extremity pulses, regular rate and rhythm. PULMONARY: Respirations unlabored, No accessory muscle usage. ABDOMEN: Obese, doughy, nontender, nondistended. : No [place]. SKIN: No breakdowns seen over the arms or feet. NEUROMUSCULOSKELETAL: No changes in strength, sensation, coordination or cranial nerve exam. Moving on mat approaching mod indep. Still disinhibited, occasionally inappropriate. Cannot grasp abstract concepts. LABORATORY DATA: Labs (Last four charted values) WBC 7.0(OCT 13) Hgb 14.6(OCT 13)13.4(OCT 09) Hct 41.7(OCT 13) Plt 210(OCT 13) Na 137(OCT 13) K 3.9(OCT 13) CO2 24(OCT 13) Cl 105(OCT 13) Cr 1.0(OCT 13) BUN 22(OCT 13) Glucose Random H 149(OCT 13) Mg L 1.6(OCT 13) Phos 3.8(OCT 13) Ca 8.8(OCT 13) PT 13.6(OCT 13) INR 1.04(OCT 13) PTT 25.7(OCT 13) DIAGNOSTIC IMAGING: No new imaging. ASSESSMENT AND PLAN: 1. Acute right frontal ischemic CVA: -Neuro exam stable. -Dr. Lomax available. - We will continue post-stroke medical risk reduction. -We are continuing daily stroke education. 2. Uncontrolled diabetes mellitus: -Glucose levels improving. -Cont. Levemir 15 units daily. -Continue SSI. - Sliding scale insulin is in place. Target blood levels are 150 to 200. 3. Leg cramping, chronic pain, spasm, headaches. -Stable. -May benefit from outpatient sleep study. -Avoiding anti-anxiolytics and narcotics. 4. Hypertension: It has come under much better control now that she is in a subacute stage of the stroke. We will closely monitor and adjust medications as needed. 5. Morbid obesity: Nutrition following. -Weight stable. 6. History of seizure disorder: No signs or symptoms of seizure during this episode. We will continue her Keppra. 7. Rehabilitation for deficits in her mobility, ADLs, IADLs secondary to weakness and incoordination, motor apraxia, aphasia, alterations in cognition related to the acute stroke, history of peripheral neuropathy, possible late effects of prior stroke: Weekly Interdisciplinary Team rounds done with multi-disciplinary involvement including PT, OT, MEDICAL SUPERVISOR, nutrition, nursing, social work, and rehab MD. I led the meeting. The patient continues to demonstrate measurable improvement, and continues to benefit from intensive inpatient rehabilitation. Pharmacy rounds held to discuss therapeutic appropriateness and duplication, appropriate dose, frequency, and route of administration, potential drug/drug and drug/food interactions, and adverse effects from medications with pharmacy services. Working on compliance, follow through of medical care. counseling of appropriateness fo PCP. Nursing: Continent of bowel and bladder. Working on other methods of pain and anxiety control. MEDICAL SUPERVISOR: poor insight into her deficits. Reading is poor. Can follow one step concrete directions. Difficulty with abstract concepts. Looks better. Nutrition: Previously only eating one meal per day. Now eating full meal. Working on diabetic education. OT: Very impulsive. Poor insight. Improving with following commands. Still with safety concerns. Met 6/8 goals. Coordination and strength now within normal ranges. working on safety and higher level balance. PT: Mod indep with bed mobility and transfers. walking 500 feet mod indep. Safety concerns. Supervision will be needed in home. Balance much improved. Did stairs with supervisioon level. Discussed with spouse that she does not have the capacity to understand the appropriate administration and dosing of her Xanax and narcotics. If she is to continue on them (with another provider's prescription) he will need to be the one to admin. the recommended dosing. ELOS: 10/19 to home with family. Eqpt: FWW, tub bench and shower bench. F/U: Outpatient MEDICAL SUPERVISOR, PT, and OT 36 minutes of clinical time was spent with the patient performing history, examination, interdisciplinary team rounds, pharmacy team rounds, coordination of care and education, with >50% spent on coordination of care and counseling.
--- OUTSIDE RECORDS SUMMARY | 2018-09-10 16:12 | XMS REPORT | Summary of Care ---
Author Author [facility] Organization [facility] Address Unknown Phone Unavailable Encounter ROBBIE Patel(CHRISTIN) [id number] Date(s): 01/13/18 - 01/14/18 [facility] [address] [employer] provided by [facility] [place] [address]- Discharge Disposition: Home or Self Care Attending Physician: Derrell Botello MD Admitting Physician: Maria Del Rosario Linder MD Referring Physician: Derrell Botello MD Vital Signs 1 2 3 Most recent to oldest [Reference Range]: 149.86 cm (01/13/18 8:09 AM) 149.86 cm (01/05/18 3:28 PM) Height 98.2 DegF (01/14/18 3:45 PM) 97.8 DegF (01/14/18 12:12 PM) 97.8 DegF (01/14/18 8:51 AM) Temperature Oral [96.4-99.1 DegF] 156/64 mmHg *HI* (01/14/18 3:45 PM) 173/66 mmHg *HI* (01/14/18 12:12 PM) 197/96 mmHg *HI* (01/14/18 8:51 AM) Blood Pressure [90-140/60-90 mmHg] 20 BRMIN (01/14/18 3:45 PM) 20 BRMIN (01/14/18 12:12 PM) 20 BRMIN (01/14/18 8:51 AM) Respiratory Rate [14-20 BRMIN] 54 bpm *LOW* (01/14/18 3:45 PM) 50 bpm *LOW* (01/14/18 12:12 PM) 59 bpm *LOW* (01/14/18 8:51 AM) Peripheral Pulse Rate [60-100 bpm] 88.636 kg (01/13/18 8:09 AM) 90 kg (01/05/18 3:28 PM) Weight 39.47 m2 (01/13/18 8:09 AM) 40.07 m2 (01/05/18 3:28 PM) Body Mass Index Problem List Condition [...] Severity Status iodine topical Active Medications acetaminophen (ANES) Route: IV, Drug form: INJ, ONCE, Stop date: 01/13/18 10:18:00 CDT Start Date: 01/13/18 Stop Date: 01/13/18 Status: Completed albuterol (ANES) Route: INHALATION, Drug form: AERO/A, ONCE, Stop date: 01/13/18 10:46:00 CDT Start Date: 01/13/18 Stop Date: 01/13/18 Status: Completed ANES flumazenil 0.2 mg, 2 mL, Route: IVP, Drug form: INJ, PRN, Dosing Weight 88.636, kg, PRN Elmer zodiazepine Reversal, Initial dose, Start date: 01/13/18 9:46:00 CDT, Duration: 30 day, Stop date: 02/12/18 9:45:00 CDT Notes: (Same as: Romazicon) Start Date: 01/13/18 Stop Date: 01/13/18 Status: Discontinued ANES hydrALAZINE 10 mg, 0.5 mL, Route: IVP, Drug form: INJ, Q20Min, Dosing Weight 88.636, kg, PRN Elevated BP, Start date: 01/13/18 9:46:00 CDT, Duration: 2 doses or times, Stop date: 01/14/18 0:00:00 CDT Notes: (Same as: Apresoline)Push over 5 minutes Start Date: 01/13/18 Stop Date: 01/13/18 Status: Discontinued ANES HYDROmorphone 0.5 mg, 0.25 mL, Route: IVP, Drug form: INJ, Q5Min, Dosing Weight 88.636, kg, MS N Pain Score 7-10, Start date: 01/13/18 9:46:00 CDT, Duration: 4 doses or times, Stop date: 01/14/18 0:00:00 CDT Notes: Same as Dilaudid Start Date: 01/13/18 Stop Date: 01/13/18 Status: Discontinued ANES naloxone 0.4 mg, 1 mL, Route: IVP, Drug form: INJ, Q2MIN, Dosing Weight 88.636, kg, PRN N arcotic Reversal, Start date: 01/13/18 9:46:00 CDT, Duration: 8 doses or times, Stop date: 01/14/18 0:00:00 CDT Notes: Same as Narcan Start Date: 01/13/18 Stop Date: 01/13/18 Status: Discontinued ANES ondansetron 4 mg, 2 mL, Route: IVP, Drug form: INJ, ONCE, Dosing Weight 88.636, kg, PRN Naus ea & Vomiting, Start date: 01/13/18 9:46:00 CDT Notes: (Same as: Sana) MEDICATION WASTE Product Size: 4 mgProduct Was lorne: ___ mg Start Date: 01/13/18 Stop Date: 01/13/18 Status: Discontinued ANES oxyCODONE 5 mg, 1 tab, Route: PO, Drug form: TAB, Q4H, Dosing Weight 88.636, kg, PRN Pain Score 4-6, Start date: 01/13/18 9:46:00 CDT, Duration: 30 day, Stop date: 9:45:00 CDT Notes: (Same as: Roxicodone) Start Date: 01/13/18 Stop Date: 01/13/18 Status: Discontinued ANES promethazine 6.25 mg, 0.25 mL, Route: IVPB, Drug form: INJ, ONCE, Dosing Weight 88.636, kg, P RN Nausea & Vomiting, Start date: 01/13/18 9:46:00 CDT Notes: Do not give IV push. (Same as: Phenergan) Start Date: 01/13/18 Stop Date: 01/13/18 Status: Discontinued atorvastatin 40 mg, PO, Bedtime, 0 Refill(s) Start Date: 01/13/18 Stop Date: 01/14/18 Status: Completed atorvastatin 40 mg oral tablet 40 mg=1 tab, PO, Bedtime, # 90 tab, 0 Refill(s) Start Date: 01/14/18 Status: Ordered calcium gluconate + Sodium Chloride 0.9% IV 50 mL 1,000 mg, 10 mL, Route: IVPB, ONCE, Dosing Weight 88.636, kg, Start date: 6:02:00 CDT, Stop date: 01/14/18 6:02:00 CDT Notes: WASTE: F/P - Sink; E - Municipal Trash Bin Start Date: 01/14/18 Stop Date: 01/14/18 Status: Completed ceFAZolin (ANES) Route: IV, Drug form: INJ, ONCE, Stop date: 01/13/18 9:38:00 CDT Start Date: 01/13/18 Stop Date: 01/13/18 Status: Completed ceFAZolin (ANES) Route: IV, Drug form: INJ, ONCE, Stop date: 01/13/18 12:09:00 CDT Start Date: 01/13/18 Stop Date: 01/13/18 Status: Completed ceFAZolin + sterile water 20 mL 2 gm, Route: IV, PRE OP, Start date: 01/13/18 0:00:00 CDT, Duration: 1 day, Stop date: 01/13/18 23:59:00 CDT, ABX Indication: Surgical Prophylaxis Notes: (Same As: AncefAdrianfzol) MEDICATION WASTE Product Size: 1000 mgP roduct Wasted: ___ mg Start Date: 01/13/18 Stop Date: 01/14/18 Status: Completed dexamethasone (ANES) Route: IV, Drug form: INJ, ONCE, Stop date: 01/13/18 10:13:00 CDT Start Date: 01/13/18 Stop Date: 01/13/18 Status: Completed dexmedetomidine (ANES) 200 microgram Route: IV, Drug form: INJ, Start date: 01/13/18 9:05:00 CDT, Stop date: 01/13/18 10:05:00 CDT Start Date: 01/13/18 Stop Date: 01/13/18 Status: Completed Dextrose 50% Syringe 12.5 gm, 25 mL, Route: IVP, Drug Form: INJ, Dosing Weight 88.636, kg, PRN, PRN B lood Glucose Results, Start date: 01/13/18 13:59:00 CDT, Duration: 30 day, Stop date: 02/12/18 13:58:00 CDT Start Date: 01/13/18 Stop Date: 01/14/18 Status: Discontinued Dextrose 50% Syringe 25 gm, 50 mL, Route: IVP, Drug Form: INJ, Dosing Weight 88.636, kg, PRN, PRN Blo od Glucose Results, Start date: 01/13/18 13:59:00 CDT, Duration: 30 day, Stop da te: 02/12/18 13:58:00 CDT Start Date: 01/13/18 Stop Date: 01/14/18 Status: Discontinued Dilaudid 0.5 mg, 0.25 mL, Route: IVP, Drug form: INJ, Q8H, Dosing Weight 88.636, kg, PRN Pain Score 7-10, Start date: 01/13/18 13:10:00 CDT, Duration: 30 day, Stop date: 02/12/18 13:09:00 CDT Notes: Same as Dilaudid Start Date: 01/13/18 Stop Date: 01/14/18 Status: Discontinued docusate sodium 100 mg oral capsule 100 mg=1 cap, PO, BID, # 60 cap, 0 Refill(s) Start Date: 01/14/18 Status: Ordered DuoNeb inhalation solution 3 ml, Route: NEB, Drug Form: SOLN, Dosing Weight 88.636, kg, PRN, PRN Respirator y Protocol, Start date: 01/13/18 20:34:00 CDT, Duration: 30 day, Stop date: 05/24 20:33:00 CDT Notes: (Same as: Duoneb) Start Date: 01/13/18 Stop Date: 01/14/18 Status: Discontinued enoxaparin 40 mg, Route: SUB-Q, Drug form: INJ, [id number], Dosing Weight 88.636, kg, Start d ate: 01/13/18 14:00:00 CDT, Stop date: 02/11/18 14:00:00 CDT Start Date: 01/13/18 Stop Date: 01/13/18 Status: Discontinued enoxaparin 40 mg, 0.4 mL, Route: SUB-Q, Drug form: INJ, [id number], Dosing Weight 88.636, kg, Start date: 01/14/18 9:00:00 CDT, Stop date: 02/11/18 9:00:00 CDT Notes: (Same as: Lovenox) Start Date: 01/14/18 Stop Date: 01/14/18 Status: Discontinued EPINEPHrine (ANES) 1 mg Route: IV, Drug form: INJ, Start date: 01/13/18 11:05:00 CDT, Stop date: 8 12:05:00 CDT Start Date: 01/13/18 Stop Date: 01/13/18 Status: Completed ergocalciferol PO, once a week, 0 Refill(s) Start Date: 01/13/18 Stop Date: 01/14/18 Status: Completed escitalopram 10 mg oral tablet 10 mg=1 tab, PO, Bedtime, 0 Refill(s) Start Date: 01/13/18 Status: Ordered famotidine (ANES) Route: IV, Drug form: INJ, ONCE, Stop date: 01/13/18 10:38:00 CDT Start Date: 01/13/18 Stop Date: 01/13/18 Status: Completed fentaNYL (ANES) Route: IV, Drug form: INJ, ONCE, Stop date: 01/13/18 13:06:00 CDT Start Date: 01/13/18 Stop Date: 01/13/18 Status: Completed fentaNYL (ANES) Route: IV, Drug form: INJ, ONCE, Stop date: 01/13/18 10:03:00 CDT Start Date: 01/13/18 Stop Date: 01/13/18 Status: Completed fluconazole 400 mg, 200 mL, Route: IVPB, Drug form: INJ, [id number], Dosing Weight 88.636, kg, Priority: NOW, Start date: 01/13/18 16:58:00 CDT, Duration: 1 day, Stop date: 16:58:00 CDT, ABX Indication: Surgical Prophylaxis Notes: (Same as: Diflucan) Start Date: 01/13/18 Stop Date: 01/13/18 Status: Completed furosemide (ANES) Route: IV, Drug form: INJ, ONCE, Stop date: 01/13/18 14:10:00 CDT Start Date: 01/13/18 Stop Date: 01/13/18 Status: Completed gabapentin 600 mg oral tablet 600 mg=1 tab, PO, Bedtime, 2 tabs, 0 Refill(s) Start Date: 01/13/18 Stop Date: 01/14/18 Status: Completed gabapentin 600 mg oral tablet 600 mg=1 tab, PO, TID, # 90 tab, 0 Refill(s) Start Date: 01/14/18 Status: Ordered glimepiride PO, Daily, 0 Refill(s) Start Date: 01/05/18 Stop Date: 01/13/18 Status: Discontinued glimepiride 4 mg oral tablet 4 mg=1 tab, PO, Daily, 0 Refill(s) Start Date: 01/13/18 Status: Ordered glucagon 1 mg, Route: IM, Drug form: PDR/INJ, PRN, Dosing Weight 88.636, kg, PRN Blood Gl ucose Results, Start date: 01/13/18 13:59:00 CDT, Duration: 30 day, Stop date: 0 02/12/18 13:58:00 CDT Start Date: 01/13/18 Stop Date: 01/14/18 Status: Discontinued glycopyrrolate (ANES) Route: IV, Drug form: INJ, ONCE, Stop date: 01/13/18 10:38:00 CDT Start Date: 01/13/18 Stop Date: 01/13/18 Status: Completed heparin 5,000 unit, 1 mL, Route: SUB-Q, Drug form: INJ, PRE OP, Start date: 01/13/18 0:0 0:00 CDT, Duration: 1 day, Stop date: 01/13/18 23:59:00 CDT Notes: porcine heparin Start Date: 01/13/18 Stop Date: 01/13/18 Status: Completed hydromorphone (ANES) Route: IV, Drug form: INJ, ONCE, Stop date: 01/13/18 13:36:00 CDT Start Date: 01/13/18 Stop Date: 01/13/18 Status: Completed Insulin regular 2 unit, 0.02 mL, Route: SUB-Q, Drug form: SOLN, Sliding Scale, Dosing Weight 88. 636, kg, PRN Blood Glucose Results, Start date: 01/13/18 13:59:00 CDT, Duration: 30 day, Stop date: 02/12/18 13:58:00 CDT Notes: (Same as: Humulin R) Roll in palms of hands gently; Do not shake vigorou sly. "single patient use only"(Restricted to patients requiring a dose > 60 units)WASTE: F/P - Black; E - Municipal Trash Bin Stable for 28 days at room temperatureExpires in days from Date Start Date: 01/13/18 Stop Date: 01/14/18 Status: Discontinued Insulin regular 4 unit, 0.04 mL, Route: SUB-Q, Drug form: SOLN, Sliding Scale, Dosing Weight 88. 636, kg, PRN Blood Glucose Results, Start date: 01/13/18 13:59:00 CDT, Duration: 30 day, Stop date: 02/12/18 13:58:00 CDT Notes: (Same as: Humulin R) Roll in palms of hands gently; Do not shake vigorou sly. "single patient use only"(Restricted to patients requiring a dose > 60 units)WASTE: F/P - Black; E - Municipal Trash Bin Stable for 28 days at room temperatureExpires in days from Date Start Date: 01/13/18 Stop Date: 01/14/18 Status: Discontinued Insulin regular 6 unit, 0.06 mL, Route: SUB-Q, Drug form: SOLN, Sliding Scale, Dosing Weight 88. 636, kg, PRN Blood Glucose Results, Start date: 01/13/18 13:59:00 CDT, Duration: 30 day, Stop date: 02/12/18 13:58:00 CDT Notes: (Same as: Humulin R) Roll in palms of hands gently; Do not shake vigorou sly. "single patient use only"(Restricted to patients requiring a dose > 60 units)WASTE: F/P - Black; E - Municipal Trash Bin Stable for 28 days at room temperatureExpires in days from Date Start Date: 01/13/18 Stop Date: 01/14/18 Status: Discontinued Insulin regular 8 unit, 0.08 mL, Route: SUB-Q, Drug form: SOLN, Sliding Scale, Dosing Weight 88. 636, kg, PRN Blood Glucose Results, Start date: 01/13/18 13:59:00 CDT, Duration: 30 day, Stop date: 02/12/18 13:58:00 CDT Notes: (Same as: Humulin R) Roll in palms of hands gently; Do not shake vigorou sly. "single patient use only"(Restricted to patients requiring a dose > 60 units)WASTE: F/P - Black; E - Municipal Trash Bin Stable for 28 days at room temperatureExpires in days from Date Start Date: 01/13/18 Stop Date: 01/14/18 Status: Discontinued Insulin regular 10 unit, 0.1 mL, Route: SUB-Q, Drug form: SOLN, Sliding Scale, Dosing Weight 88. 636, kg, PRN Blood Glucose Results, Start date: 01/13/18 13:59:00 CDT, Duration: 30 day, Stop date: 02/12/18 13:58:00 CDT Notes: (Same as: Humulin R) Roll in palms of hands gently; Do not shake vigorou sly. "single patient use only"(Restricted to patients requiring a dose > 60 units)WASTE: F/P - Black; E - Municipal Trash Bin Stable for 28 days at room temperatureExpires in days from Date Start Date: 01/13/18 Stop Date: 01/14/18 Status: Discontinued Insulin regular 5 unit, Route: IV, ONCE, Dosing Weight 88.636, kg, Start date: 01/13/18 14:38:00 CDT, Stop date: 01/13/18 14:38:00 CDT Start Date: 01/13/18 Stop Date: 01/13/18 Status: Completed Insulin regular 5 unit, Route: IV, ONCE, Dosing Weight 88.636, kg, Start date: 01/13/18 15:13:00 CDT, Stop date: 01/13/18 15:13:00 CDT Start Date: 01/13/18 Stop Date: 01/13/18 Status: Completed ketAMINE (ANES) Route: IV, Drug form: INJ, ONCE, Stop date: 01/13/18 13:06:00 CDT Start Date: 01/13/18 Stop Date: 01/13/18 Status: Completed ketAMINE (ANES) 100 mg Route: IV, Drug form: INJ, Start date: 01/13/18 9:05:00 CDT, Stop date: 01/13/18 10:05:00 CDT Start Date: 01/13/18 Stop Date: 01/13/18 Status: Completed ketOROLAC (ANES) IV, ONCE Start Date: 01/13/18 Stop Date: 01/13/18 Status: Completed Lactated Ringers Injection IV (ANES) 1000 mL Route: IV, Total Volume: 1,000, Start date: 01/13/18 8:46:00 CDT, Stop date: 06/23 9:46:00 CDT Start Date: 01/13/18 Stop Date: 01/13/18 Status: Completed Lactated Ringers IV 1,000 mL 1,000 mL, Rate: 75 ml/hr, Infuse over: 13.3 hr, Route: IV, Dosing Weight 88.636 kg, Total Volume: 1,000, Start date: 01/13/18 13:12:00 CDT, Duration: 30 day, St op date: 02/12/18 13:11:00 CDT, 1.96, m2 Start Date: 01/13/18 Stop Date: 01/14/18 Status: Discontinued Levemir 100 units/mL 100 unit, SUB-Q, Bedtime, 0 Refill(s) Start Date: 01/13/18 Status: Ordered levETIRAcetam 500 mg oral tablet 500 mg=1 tab, PO, BID, # 60 tab, 0 Refill(s) Start Date: 01/14/18 Status: Ordered lidocaine (ANES) Route: IV, Drug form: INJ, ONCE, Stop date: 01/13/18 10:03:00 CDT Start Date: 01/13/18 Stop Date: 01/13/18 Status: Completed lisinopril 5 mg, 1 tab, Route: PO, Drug form: TAB, Daily, Dosing Weight 88.636, kg, Priorit y: NOW, Start date: 01/14/18 8:12:00 CDT, Duration: 30 day, Stop date: 02/12/18 9:00:00 CDT Notes: (Same as: Heather Hurtril) Start Date: 01/14/18 Stop Date: 01/14/18 Status: Discontinued lisinopril 20 mg oral tablet 20 mg=1 tab, PO, Daily, 0 Refill(s) Start Date: 01/13/18 Status: Ordered lisinopril 20 mg oral tablet 20 mg=1 tab, PO, Daily, 0 Refill(s) Start Date: 01/05/18 Stop Date: 01/13/18 Status: Discontinued magnesium oxide 500 mg oral tablet 500 mg=1 tab, PO, BID, 0 Refill(s) Start Date: 01/13/18 Status: Ordered magnesium sulfate 2 gm, 50 mL, Route: IVPB, Drug form: INJ, ONCE, Dosing Weight 88.636, kg, Total dose=2 gm, Start date: 01/14/18 5:55:00 CDT, Stop date: 01/14/18 5:55:00 CDT Notes: WASTE: F/P - Sink; E - Municipal Trash Bin Start Date: 01/14/18 Stop Date: 01/14/18 Status: Completed melatonin 3 mg oral tablet 3 mg=1 tab, PO, Bedtime, PRN for insomnia Start Date: 01/14/18 Status: Ordered meloxicam 15 mg oral tablet 15 mg=1 tab, PO, Daily, 0 Refill(s) Start Date: 01/13/18 Stop Date: 01/14/18 Status: Discontinued norepinephrine (ANES) Route: IV, Drug form: INJ, ONCE, Stop date: 01/13/18 10:38:00 CDT Start Date: 01/13/18 Stop Date: 01/13/18 Status: Deleted NovoLIN R (ANES) Route: SUB-Q, Drug form: INJ, ONCE, Stop date: 01/13/18 14:06:00 CDT Start Date: 01/13/18 Stop Date: 01/13/18 Status: Completed Ofirmev 1,000 mg, 100 mL, Route: IV, Drug form: INJ, PRE OP, Start date: 01/13/18 0:00:0 0 CDT, Duration: 1 day, Stop date: 01/13/18 23:59:00 CDT Notes: Infuse over 15 minutesDo not exceed 4gm/day of acetaminophen MEDICAT ION WASTE Product Size: 1000 mgProduct Wasted: ___ mg Start Date: 01/13/18 Stop Date: 01/14/18 Status: Completed Ofirmev 1,000 mg, 100 mL, Route: IV, Drug form: INJ, Q6H, Dosing Weight 88.636, kg, for > or=50 kg, Start date: 01/13/18 18:00:00 CDT, Duration: 30 day, Stop date: 02/12/18 12:00:00 CDT Notes: Infuse over 15 minutesDo not exceed 4gm/day of acetaminophen MEDICAT ION WASTE Product Size: 1000 mgProduct Wasted: ___ mg Start Date: 01/13/18 Stop Date: 01/14/18 Status: Discontinued ondansetron 4 mg, 2 mL, Route: IVP, Drug form: INJ, Q6H, Dosing Weight 88.636, kg, PRN Nause a & Vomiting, Start date: 01/13/18 13:03:00 CDT, Duration: 30 day, Stop date: 02/12/18 13:02:00 CDT Notes: (Same as: Sana) MEDICATION WASTE Product Size: 4 mgProduct Was lorne: ___ mg Start Date: 01/13/18 Stop Date: 01/14/18 Status: Discontinued ondansetron (ANES) Route: IV, Drug form: INJ, ONCE, Stop date: 01/13/18 14:10:00 CDT Start Date: 01/13/18 Stop Date: 01/13/18 Status: Completed phenylephrine (ANES) Route: IV, Drug form: INJ, ONCE, Stop date: 01/13/18 13:06:00 CDT Start Date: 01/13/18 Stop Date: 01/13/18 Status: Completed phenylephrine (ANES) Route: IV, Drug form: INJ, ONCE, Stop date: 01/13/18 9:58:00 CDT Start Date: 01/13/18 Stop Date: 01/13/18 Status: Completed propofol (ANES) Route: IV, Drug form: INJ, ONCE, Stop date: 01/13/18 11:28:00 CDT Start Date: 01/13/18 Stop Date: 01/13/18 Status: Completed propofol (ANES) Route: IV, Drug form: INJ, ONCE, Stop date: 01/13/18 10:03:00 CDT Start Date: 01/13/18 Stop Date: 01/13/18 Status: Completed rocuronium (ANES) Route: IV, Drug form: INJ, ONCE, Stop date: 01/13/18 9:48:00 CDT Start Date: 01/13/18 Stop Date: 01/13/18 Status: Completed rocuronium (ANES) Route: IV, Drug form: INJ, ONCE, Stop date: 01/13/18 11:28:00 CDT Start Date: 01/13/18 Stop Date: 01/13/18 Status: Completed scopolamine 1 patch, Route: TOP, Drug form: ERFILM, PRE OP, Start date: 01/13/18 0:00:00 CDT , Duration: 1 day, Stop date: 01/13/18 23:59:00 CDT Notes: Change patch every 72 hours (Same as: Transderm-Scop) Start Date: 01/13/18 Stop Date: 01/13/18 Status: Completed sodium bicarbonate (ANES) Route: IV, Drug form: INJ, ONCE, Stop date: 01/13/18 11:53:00 CDT Start Date: 01/13/18 Stop Date: 01/13/18 Status: Completed succinylcholine (ANES) Route: IV, Drug form: INJ, ONCE, Stop date: 01/13/18 10:03:00 CDT Start Date: 01/13/18 Stop Date: 01/13/18 Status: Completed sugammadex 500 mg, 5 mL, Route: IV, Drug form: SOLN, ONCE, Start date: 01/13/18 13:52:00 CD T, Stop date: 01/13/18 13:52:00 CDT Notes: (Same as: Bridion) Start Date: 01/13/18 Stop Date: 01/14/18 Status: Completed sugammadex (ANES) Route: IV, Drug form: SOLN, ONCE, Stop date: 01/13/18 14:10:00 CDT Start Date: 01/13/18 Stop Date: 01/13/18 Status: Completed Tylenol 325 mg oral tablet 325 mg=1 tab, PO, Daily, PRN pain Start Date: 01/14/18 Stop Date: 01/14/18 Status: Discontinued Tylenol 325 mg oral tablet 325 mg=1 tab, PO, Q4H, PRN Pain Score 6-10, PRN pain, X 7 day, # 42 tab, 0 Refil l(s) Start Date: 01/14/18 Stop Date: 01/21/18 Status: Ordered Vitamin D2 50,000 intl units oral capsule 50,000 IntlUnit=1 cap, PO, qWeek, (every Wednesday of the week) Start Date: 01/14/18 Status: Ordered Results BLOOD BANK RESULTS Most recent to 1 2 oldest [Reference Range]: ABO/Rh A NEG *Unknown* (01/14/18 3:59 AM) Antibody Scrn Negative (01/14/18 3:59 AM) ELECTROLYTES Most recent to 1 2 oldest [Reference Range]: Sodium Lvl [135-145 136 mEq/L 143 mEq/L mEq/L] (01/14/18 3:59 AM) (01/05/18 12:15 PM) Potassium Lvl 5.4 mEq/L 5.6 mEq/L [3.5-5.1 mEq/L] *HI* *HI* (01/14/18 3:59 AM) (01/05/18 12:15 PM) Chloride Lvl [95-109 105 mEq/L 108 mEq/L mEq/L] (01/14/18 3:59 AM) (01/05/18 12:15 PM) CO2 [24-32 mEq/L] 19 mEq/L 27 mEq/L *LOW* (01/05/18 12:15 PM) (01/14/18 3:59 AM) AGAP [10.0-20.0 17.4 mEq/L 13.6 mEq/L mEq/L] (01/14/18 3:59 AM) (01/05/18 12:15 PM) CHEM PANEL Most recent to 1 2 oldest [Reference Range]: Creatinine Lvl 1.25 mg/dL 0.69 mg/dL [0.50-1.40 mg/dL] (01/14/18 3:59 AM) (01/05/18 12:15 PM) eGFR 46 mL/min/1.73m2 1 93 mL/min/1.73m2 2 *NA* *NA* (01/14/18 3:59 AM) (01/05/18 12:15 PM) BUN [7-22 mg/dL] 32 mg/dL 22 mg/dL *HI* (01/05/18 12:15 PM) (01/14/18 3:59 AM) Glucose Lvl [70-99 140 mg/dL 73 mg/dL mg/dL] *HI* (01/05/18 12:15 PM) (01/14/18 3:59 AM) Total Protein 7.5 g/dL [6.4-8.4 g/dL] (01/14/18 3:59 AM) Albumin Lvl [3.5-5.0 2.6 g/dL g/dL] *LOW* (01/14/18 3:59 AM) Globulin [2.7-4.2 4.9 g/dL g/dL] *HI* (01/14/18 3:59 AM) A/G Ratio [0.7-1.6] 0.5 *LOW* (01/14/18 3:59 AM) Calcium Lvl 8.6 mg/dL 8.7 mg/dL [8.5-10.5 mg/dL] (01/14/18 3:59 AM) (01/05/18 12:15 PM) Phosphorus [2.5-4.5 4.1 mg/dL mg/dL] (01/14/18 3:59 AM) Magnesium Lvl 1.6 mg/dL [1.8-2.4 mg/dL] *LOW* (01/14/18 3:59 AM) ALT [0-65 unit/L] 24 unit/L (01/14/18 3:59 AM) AST [0-37 unit/L] 5 unit/L (01/14/18 3:59 AM) Alk Phos [39-136 73 unit/L unit/L] (01/14/18 3:59 AM) Bili Total [0.2-1.3 0.5 mg/dL mg/dL] (01/14/18 3:59 AM) Bili Direct [0.0-0.3 0.1 mg/dL mg/dL] (01/14/18 3:59 AM) Bili Indirect 0.4 mg/dL [0.0-1.0 mg/dL] (01/14/18 3:59 AM) Lipase Lvl [73-393 76 unit/L unit/L] (01/14/18 3:59 AM) 1Result Comment: The eGFR is calculated [...] be mul tiplied by the estimated BMI. SPECIAL CHEMISTRY Most recent to 1 2 oldest [Reference Range]: Hgb A1C [<=5.6 %] 7.1 % *HI* (01/05/18 12:15 PM) PARATHYROID PROFILE Most recent to 1 2 oldest [Reference Range]: Ca Ion WB [1.05-1.25 1.02 mMol/L mMol/L] *LOW* (01/14/18 3:59 AM) Ca Norm WB 1.00 mMol/L [1.05-1.25 mMol/L] *LOW* (01/14/18 3:59 AM) HEMATOLOGY Most recent to 1 2 oldest [Reference Range]: WBC [3.7-10.4 K/CMM] 12.5 K/CMM 11.9 K/CMM *HI* *HI* (01/14/18 3:59 AM) (01/05/18 12:15 PM) RBC [4.20-5.40 4.15 M/CMM 4.58 M/CMM M/CMM] *LOW* (01/05/18 12:15 PM) (01/14/18 3:59 AM) Hgb [12.0-16.0 g/dL] 11.4 g/dL 12.5 g/dL *LOW* (01/05/18 12:15 PM) (01/14/18 3:59 AM) Hct [36.0-48.0 %] 35.0 % 38.4 % *LOW* (01/05/18 12:15 PM) (01/14/18 3:59 AM) MCV [80.0-98.0 fL] 84.3 fL 83.8 fL (01/14/18 3:59 AM) (01/05/18 12:15 PM) MCH [27.0-31.0 pg] 27.5 pg 27.2 pg (01/14/18 3:59 AM) (01/05/18 12:15 PM) MCHC [32.0-36.0 32.6 g/dL 32.5 g/dL g/dL] (01/14/18 3:59 AM) (01/05/18 12:15 PM) RDW [11.5-14.5 %] 15.0 % 14.6 % *HI* *HI* (01/14/18 3:59 AM) (01/05/18 12:15 PM) MPV [7.4-10.4 fL] 8.6 fL 8.8 fL (01/14/18 3:59 AM) (01/05/18 12:15 PM) Platelet [133-450 177 K/CMM 222 K/CMM K/CMM] (01/14/18 3:59 AM) (01/05/18 12:15 PM) Segs [45.0-75.0 %] 83.2 % 72.2 % *HI* (01/05/18 12:15 PM) (01/14/18 3:59 AM) Lymphocytes 11.4 % 19.0 % [20.0-40.0 %] *LOW* *LOW* (01/14/18 3:59 AM) (01/05/18 12:15 PM) Monocytes [2.0-12.0 5.1 % 6.4 % %] (01/14/18 3:59 AM) (01/05/18 12:15 PM) Eosinophils [0.0-4.0 1.7 % %] (01/05/18 12:15 PM) Basophils [0.0-1.0 0.3 % 0.7 % %] (01/14/18 3:59 AM) (01/05/18 12:15 PM) Segs-Bands # 10.4 K/CMM 8.6 K/CMM [1.5-8.1 K/CMM] *HI* *HI* (01/14/18 3:59 AM) (01/05/18 12:15 PM) Lymphocytes # 1.4 K/CMM 2.3 K/CMM [1.0-5.5 K/CMM] (01/14/18 3:59 AM) (01/05/18 12:15 PM) Monocytes # [0.0-0.8 0.6 K/CMM 0.8 K/CMM K/CMM] (01/14/18 3:59 AM) (01/05/18 12:15 PM) Eosinophils # 0.2 K/CMM [0.0-0.5 K/CMM] (01/05/18 12:15 PM) Basophils # [0.0-0.2 0.1 K/CMM K/CMM] (01/05/18 12:15 PM) Immunizations No data available for this section Procedures Procedure Date Related Diagnosis Body Site Status Myotomy1 01/13/18 Completed Caesarean section Completed Total knee replacement Completed 1Laparoscopic Endoscopic Myotomy and EGD Social History Social History Type Response Alcohol Never Smoking Status Never smoker; Ready to change: No; Concerns about tobacco use in household: No; Exposure to Tobacco Smoke None; Cigarette Smoking Last 365 Days Yes; Reg Smoking Cessation Counseling No entered on: 01/13/18 Assessment and Plan Extracted from: Title: Cardiology Consult Note Author: Donny Baires MD Date: 01/14/18 Ms Thomas is a 62 year old female with PMH significant for HTN, DMII on insulin, CVA in 2012 who was admitted for laparoscopic myomectomy for achalasia. Post-operatively, it was noted that her EKG was significant for LBBB and Cardiology was consulted. Per chart review, it appears that she has no changes in her EKG when compared to 2014, as her LBBB was present at the time. She currently denies any chest pain, denies history of CAD or CA, and does not have a family history significant for CA. With no acute changes on EKG and no chest pain, dyspnea, or other cardiac symptoms, she is at her baseline and is cleared for discharge. #Left Bundle Branch Block, Chronic #Hypertension #Diabetes mellitus type II, on insulin #History of CVA in 2013 Recommendations: - No signs of acute EKG changes at this time, same LBBB observed in 2015; cleared for discharge from Cardiology perpective. - She is to continue her home medications including statin and ACEi along with good glucose control for her diabetes - Follow-up with PCP outpatient for continued monitoring of lipids, blood sugar, and routine check-ups Patient seen and discussed with Cardiology attending Dr Molina. We will sign off at this time. Thank you for allowing us to participate in the care of this patient. Please page Cardiology with any future questions. Donny Baires MD Resident Physician | PGY-1 Department of Internal Medicine [facility] CARDIOLOGY STAFF I saw and examined the patient with cardiologyresident Dr. Baires, and I agree with findings, assessment and recommended plan of care. Thank you for the courtesy of this consult. Fortino Molina M.D.
--- OUTSIDE RECORDS SUMMARY | 2018-09-10 16:12 | XMS REPORT | Summary of Care ---
Author Author [facility] Organization [facility] Address Unknown Phone Unavailable Encounter HQ Jorge(FIN) [id number] Date(s): 12/01/17 - 12/01/17 [facility] [address] [place] [address]- Encounter Diagnosis Gastro-esophageal reflux disease without esophagitis (Final) - 12/15/17 Essential (primary) hypertension (Final) - Type 2 diabetes mellitus without complications (Final) - Unspecified osteoarthritis, unspecified site (Final) - Unspecified convulsions (Final) - Personal history of transient ischemic attack (TIA), and cerebral infarction wit hout residual deficits (Final) - Discharge Disposition: Home or Self Care Attending Physician: Derrell Botello MD Referring Physician: Derrell Botello MD Vital Signs No data available for this section Problem List Condition Effective Dates Status Health [...] Reaction Severity Status iodine topical Active Medications No data available for this section Results No data available for this section Immunizations [...] No entered on: 01/13/18 Assessment and Plan No data available for this section
--- OUTSIDE RECORDS SUMMARY | 2018-09-10 16:12 | XMS REPORT | Summary of Care ---
Author Author [facility] Organization [facility] Address Unknown Phone Unavailable Encounter ROBBIE Patel(CHRISTIN) [id number] Date(s): 01/13/18 - 01/14/18 [facility] [address] [employer] provided by [facility] [employer] [facility] [place] [address]- Discharge Disposition: Home or Self Care Attending [...] form: INJ, Q5Min, Dosing Weight 88.636, kg, MN N Pain Score 7-10, Start date: 01/13/18 [...] 40 mg, Route: SUB-Q, Drug form: INJ, [id number], Dosing Weight 88.636, kg, Start d ate: 01/13/18 14:00:00 CDT, Stop date: 02/11/18 14:00:00 CDT Start Date: 01/13/18 Stop Date: 01/13/18 Status: Discontinued enoxaparin 40 mg, 0.4 mL, Route: SUB-Q, Drug form: INJ, [id number], Dosing Weight 88.636, kg, Start date: 01/14/18 [...] 200 mL, Route: IVPB, Drug form: INJ, [id number], Dosing Weight 88.636, kg, Priority: NOW, Start [...] chest pain, denies history of CAD or [place], and does not have a family history significant for [place]. With no acute changes on EKG and [...] Physician | PGY-1 Department of Internal Medicine [facility] CARDIOLOGY STAFF I saw and examined the patient with cardiologyresident Dr. Baires, and I agree with findings, assessment and recommended plan of care. Thank you for the courtesy of this consult. Fortino Molina M.D.
--- OUTSIDE RECORDS SUMMARY | 2018-09-10 16:12 | XMS REPORT | Summary of Care ---
Author Author [facility] Organization [facility] Address Unknown Phone Unavailable Encounter HQ Jorge(CHRISTIN) [id number] Date(s): 11/17/17 - 11/17/17 [facility] [address] [place] [address]- [phone] Encounter Diagnosis Gastro-esophageal reflux disease without esophagitis (Final) - 11/24/17 Dysphagia, unspecified (Final) - Essential (primary) hypertension (Final) - Type 2 diabetes mellitus without complications (Final) - Sleep apnea, unspecified (Final) - Personal history of transient ischemic attack (TIA), and cerebral infarction wit hout residual deficits (Final) - snf (current) use of antithrombotics/antiplatelets (Final) - buttermaker continuous churn (current) use of insulin (Final) - Discharge Disposition: Home or Self [...]
--- OUTSIDE RECORDS SUMMARY | 2018-09-10 16:12 | XMS REPORT | Summary of Care ---
Author Author [facility] Address [address] [place] [address] Phone Unavailable Care Team Providers Care Passenger Car Upholsterer Apprentice Name Role Phone MORGAN BRAGA MD Unavailable Unavailable Unavailable Unavailable Functional Status Name Dates Details Functional status health issues are not documented Status: Name Dates Details Cognitive status health issues are not documented Status: Problems Name Dates Details Active medical history not documented Status: Medications Name Dates Details Medications not documented Allergies and Adverse Reactions Name Dates Details Allergy history not documented Status: Procedures Procedure Dates Details Procedures not documented Immunization Name Dates Details Immunizations not documented Social History Name Dates Details Unknown if ever smoked Vital Signs Date Test Result Details No Known Vitals to report Results Date Description Value Details Results not documented Plan of Care Name Dates Details Planned Observations Planned Goals not documented Instructions Name Dates Details Instructions not documented Encounters Appointment; Derrell Botello M.D. Encounter Diagnosis: Problem not documented On: 05-Oct-2017 13:00 Appointment; Derrell Botello M.D. Encounter Diagnosis: Problem not documented On: 10-Dec-2017 11:00
[2018-09-10 17:30] LABS: BASOPHILS # (AUTO) 0.1 (0.0-0.1); BASOPHILS % 0.5 % (0.0-1.0); EOSINOPHILS # (AUTO) 0.1 (0.0-0.4); EOSINOPHILS % 0.8 % (0.0-6.0); HEMATOCRIT 38.9 % (34.2-44.1); HEMOGLOBIN 12.6 g/dL (12.0-16.0); LYMPHOCYTES # (AUTO) 1.7 (1.0-3.2); LYMPHOCYTES % 15.9 % (18.0-39.1); MEAN CORPUSCULAR HEMOGLOBIN 27.7 pg (28-32); MEAN CORPUSCULAR HGB CONC 32.4 g/dL (31-35); MEAN CORPUSCULAR VOLUME 85.5 fL (81-99); MONOCYTES # (AUTO) 0.8 (0.2-0.8); NEUTROPHILS # (AUTO) 8.1 (2.1-6.9); NEUTROPHILS % 75.3 % (38.7-80.0); PLATELET COUNT 286 x10e3/uL (140-360); RED BLOOD COUNT 4.55 x10e6/uL (3.6-5.1); RED CELL DISTRIBUTION WIDTH 13.9 % (11.7-14.4)
[2018-09-10 17:45] LABS: ALBUMIN 3.4 g/dL (3.5-5.0); ALBUMIN/GLOBULIN RATIO 0.9 (0.8-2.0); ANION GAP 14.1 mmol/L (8-16); CREATININE, SERUM 1.03 mg/dL (0.57-1.11); POTASSIUM 5.1 mmol/L (3.5-5.1)
--- NOTE | 2018-09-10 17:54 | Diagnostic Imaging Report ---
Examination: CT head without contrast Clinical Indication: Slurred speech; right arm weakness. Technique: Transaxial noncontrast images from the skull base through the vertex were obtained. Sagittal and coronal reformatted images were done. Dose modulation, iterative reconstruction, and/or weight based adjustment of the mA/kV was utilized to reduce the radiation dose to as low as reasonably achievable. Comparison: Prior brain CT and MRI from 2014 are inaccessible at this time. However, the report is available for review. Findings: Scalp: No abnormalities. Bones: Intact. No fractures. No blastic or lytic lesions. Brain sulci: Mild volume loss for patient's age. Ventricles: No hydrocephalus. Extra-axial space: No abnormalities. Parenchyma: There are confluent areas of hypoattenuation in the periventricular and subcortical white matter, nonspecific. Cortical based encephalomalacia of the right middle and inferior frontal and lingual occipital gyri from prior vascular insult. Chronic lacunar infarct of the right caudate head. No masses, hemorrhage, or acute cortical based vascular insults. Suprasellar region: No abnormalities. Craniocervical junction: The foramen magnum is patent. No Chiari one malformation. Incidental findings: Atherosclerotic calcification of the cavernous and supraclinoid internal carotid arteries. Impression: 1. No acute intracranial abnormality. 2. Chronic changes, as above. Signed by: Dr. Briana Felder M.D. on 09/10/2018 5:50 PM
[2018-09-10 17:58] LABS: CREATINE KINASE MB 3.1 ng/mL (0-5.0)
--- NOTE | 2018-09-10 18:13 | Diagnostic Imaging Report ---
EXAMINATION: CHEST 2 VIEWS INDICATION: ^SLURRED SPEECH, R ARM WEAKNESS ^[id number] ^[id number] COMPARISON: None FINDINGS: PA and lateral views TUBES and LINES: None. LUNGS: The lungs are hyperinflated. There is discoid atelectasis in the base of the right lower lobe and in the left perihilar region. No confluent infiltrates. No pulmonary edema. PLEURA: No pleural effusion or pneumothorax. There is eventration of the right diaphragm. HEART AND MEDIASTINUM: Mild cardiomegaly and aortic ectasia. BONES AND SOFT TISSUES: The bones are diffusely demineralized. No focal osseous lesions. Soft tissues are unremarkable. UPPER ABDOMEN: No free air under the diaphragm. IMPRESSION: 1. Cardiomegaly without vascular congestion. 2. Pulmonary hyperinflation and subsegmental atelectasis. Signed by: Dr. Yaniv Parham MD on 09/10/2018 6:09 PM
[2018-09-10 18:35] LABS: CLARITY,URINE HAZY (CLEAR); COLOR,URINE YELLOW (YELLOW)
[2018-09-10 18:36] LABS: BILIRUBIN,URINE NEGATIVE (NEGATIVE); KETONES,URINE NEGATIVE (NEGATIVE); LEUKOCYTE ESTERASE ,URINE 1+ (NEGATIVE); NITRITE,URINE NEGATIVE (NEGATIVE); PROTEIN,URINE DIPSTICK 2+ (NEGATIVE); URINE UROBILINOGEN 0.2 mg/dL (0.2 - 1)
[2018-09-10 18:40] LABS: AMORPHOUS SEDIMENT,URINE FEW (FEW); BACTERIA,URINE FEW /HPF; EPITHELIAL CELLS,URINE FEW /LPF; HYALINE CASTS 0-1 (0-1); RBC,URINE 0-5 /HPF (0-5)
[2018-09-10] MEDS ORDERED: SODIUM CHLORIDE 0.9% 1000ML 1,000 ML IV SCH (20:00)
[2018-09-10] MEDS ORDERED: ASPIRIN 325 MG TAB PO ONE (20:00)
[2018-09-10] MEDS: SODIUM CHLORIDE 0.9% 1000ML 1,000 ML IV SCH ×3 (21:45→23:30)
[2018-09-10] MEDS ORDERED: DEXTROSE 50% SYRINGE 50 ML IV PRN (22:00)
[2018-09-10] MEDS ORDERED: NIFEDIPINE 10 MG CAP PO STA (22:24)
--- NOTE | 2018-09-10 22:43 | NUR ---
snack provided to patient
--- NOTE | 2018-09-10 23:22 | NUR ---
PT ARRIVING TO UNIT VIA WHEEL CHAIR, FAMILY AT SIDE, NO DISTRESS NOTED, IV INFUSING PER ORDER, TRAFFIC REPORTER NOTED, CALL LIGHT IN REACH, INSTRUCTED TO CALL WITH NEEDS, DENIES NEEDS AT THIS TIME
[2018-09-10 23:30] VITALS: BP 143/65
[2018-09-11] VITALS (13 sets, daily range): BP systolic 135–232; BP diastolic 65–94
[2018-09-11 05:12] LABS: BASOPHILS # (AUTO) 0.1 (0.0-0.1); BASOPHILS % 0.6 % (0.0-1.0); EOSINOPHILS # (AUTO) 0.1 (0.0-0.4); EOSINOPHILS % 0.8 % (0.0-6.0); HEMATOCRIT 37.2 % (34.2-44.1); HEMOGLOBIN 12.1 g/dL (12.0-16.0); LYMPHOCYTES # (AUTO) 1.8 (1.0-3.2); LYMPHOCYTES % 19.7 % (18.0-39.1); MEAN CORPUSCULAR HEMOGLOBIN 27.8 pg (28-32); MEAN CORPUSCULAR HGB CONC 32.5 g/dL (31-35); MEAN CORPUSCULAR VOLUME 85.3 fL (81-99); MONOCYTES # (AUTO) 0.7 (0.2-0.8); MONOCYTES % 7.3 % (4.4-11.3); NEUTROPHILS # (AUTO) 6.4 (2.1-6.9); PLATELET COUNT 252 x10e3/uL (140-360); RED BLOOD COUNT 4.36 x10e6/uL (3.6-5.1); RED CELL DISTRIBUTION WIDTH 13.7 % (11.7-14.4)
[2018-09-11] MEDS: CLONIDINE HCL 0.1 MG TAB PO PRN (05:20)
--- NOTE | 2018-09-11 05:32 | NUR ---
PRN GIVEN FOR ELEVATED B/P, NO DISTRESS NOTED, PT DENIES NEEDS, IV INFUSING PER ORDER, DAUGHTER AT BEDSIDE, CALL LIGHT IN REACH, PT BEING MONITORED, INSTRUCTED TO CALL WITH NEEDS
[2018-09-11 05:44] LABS: ANION GAP 11.2 mmol/L (8-16); BLOOD UREA NITROGEN 39 mg/dL (7-26); BUN/CREATININE RATIO 50 (6-25); CALCIUM 8.4 mg/dL (8.4-10.2); CARBON DIOXIDE 22 mmol/L (22-29); CHLORIDE 107 mmol/L (98-107); CHOL/HDL RATIO 2.6 (3.0-3.6); CHOLESTEROL 152 MD/DL (0-199); CREATININE, SERUM 0.78 mg/dL (0.57-1.11); EST GLOMERULAR FILTRATION RATE > 60 ML/MIN (60-); GLUCOSE 174 mg/dL (74-118); HDL CHOLESTEROL 59 MG/DL (40-60); LDL CHOLESTEROL 79 MG/DL (60-130); MAGNESIUM 1.8 MG/DL (1.3-2.1); POTASSIUM 5.2 mmol/L (3.5-5.1); SODIUM 135 mmol/L (136-145); TRIGLYCERIDES 70 MG/DL (0-149)
[2018-09-11 05:51] LABS: CREATINE KINASE MB 2.8 ng/mL (0-5.0)
[2018-09-11 05:53] LABS: INR 0.89; PROTHROMBIN TIME 12.9 seconds (11.9-14.5)
[2018-09-11 05:54] LABS: PARTIAL THROMBOPLASTIN TIME 24.3 seconds (23.8-35.5)
--- NOTE | 2018-09-11 06:45 | NUR ---
rounded with the manager shift nurse, patient aware of change. Patient in no distress, call austin within reach, and bed in lowest position.
[2018-09-11] MEDS: INSULIN REGULAR, HUMAN 100 UNIT/1 ML 3ML VIAL SQ SCH ×4 (08:07→21:43)
[2018-09-11] MEDS ORDERED: ASPIRIN 81 MG ENTERIC COATED PO SCH (09:00)
[2018-09-11] MEDS ORDERED: AMLODIPINE BESYLATE 5 MG TAB PO SCH (09:00)
--- NOTE | 2018-09-11 10:17 | History and Physical ---
The patient is in [facility] comes in with impaired speech, difficulty walking, facial droop, and weakness which lasted about 30 minutes. HISTORY OF PRESENT ILLNESS: This is Ms. Linette Martinez with a history of diabetes mellitus, hypertension, hyperlipidemia, who was in her usual state of health until day of admission the patient woke up and had some weakness and facial droop with difficulty walking, impaired speech which was witnessed by her daughter and her and lasted for 30 minutes and the patient came to the emergency room and in the emergency room, the patient's symptoms had dissipated. The patient had similar symptoms previously, has history of CVA. About a month ago, the patient had a procedure endoscopically. Plavix and aspirin was stopped at that time and patient has not restarted the medicine back for the last one month. PAST MEDICAL HISTORY 1. History of hypertension. 2. History of depression. 3. History of low back pain. 4. History of long-term intake of insulin. 5. History of seizure disorder. 6. History of allergies. MEDICATIONS: Medicines she takes at home are clopidogrel which she has not taken for one month, Lexapro 10 mg daily, gabapentin 600 mg twice a day, glimepiride 4 mg daily, Levemir 100 units 1 mL vial dose unknown at this time, Keppra 500 mg twice daily, lisinopril 20 mg daily, magnesium oxide 500 mg capsules every day, montelukast 10 mg tablets, pantoprazole 20 mg, and Carafate 1 g tablets. PAST SURGICAL HISTORY: History of knee replacement and also history of endoscopy and . ALLERGIES: INCLUDE IODINE, SEAFOOD, SHELLFISH, AND STRAWBERRY. REVIEW OF SYSTEMS: Negative for chest pain. No shortness of breath. No nausea, vomiting, or diarrhea. No constipation. No rectal bleeding. No hematochezia. No hematemesis. No blurry vision. Positive for tingling in the lower extremities. No focal weakness at this time, did have when she came in. SOCIAL HISTORY: No ETOH. No IV drug abuse. No history of smoking in the past. PHYSICAL EXAMINATION VITAL SIGNS: Temperature is 97.6, pulse of 64, respirations of 20, blood pressure is 203/86, pulse oximetry 94%. HEENT: Normocephalic and atraumatic. Pupils are reactive to light and accommodation. No nystagmus present. NECK: On examination of the neck, there is a right carotid bruit present. CVS: S1, S2 are normal. Regular rate and rhythm. ABDOMEN: Nontender and nondistended. EXTREMITIES: No clubbing. No cyanosis. No edema. NEUROLOGIC: Cranial nerves are normal. No motor deficiency noted. Reflexes are 2+ on both sides. The patient has sensory deficit in the lower extremities from monofilament testing. LABORATORY VALUES: The patient's white count is 9.03, hemoglobin of 12.1, hematocrit of 37.2. No left shift present. Chemistries; sodium of 135, potassium of 5.2, CO2 is 22, BUN of 39, creatinine of 0.78. Glucose is 174. CK, CK-MB, and troponins have been trending on the normal side. Patient's triglycerides 70, cholesterol 152, HDL is 59, and LDL is 79. IMAGING STUDIES: Brain CT shows no acute intracranial abnormalities, chronic changes with atherosclerotic calcification of cavernous and supraclinoid internal carotid arteries. The patient's chest x-ray shows cardiomegaly with vascular congestion and pulmonary hyperinflation and substantial atelectasis. ASSESSMENT AND PLAN Transient ischemic attack. History of cerebrovascular accidents in the past. The patient is to be started back on aspirin 325 mg. MRA of the brain will be done to assess the carotid system and system. The patient also had an echocardiogram. The patient's LDL is suboptimal at 73. We will start her on statins. For hypertension, we will run her blood pressure on the higher side. Start her on hydralazine. We will get her off the lisinopril because of the potassium. Continue monitoring her potassium levels. Echocardiogram to be ordered. Further recommendations per clinical course. We will continue monitoring the patient's diabetes with A1c, possibly needs increase insulin before discharge. A consult with Dr. Chung will be done too and we will continue monitoring the patient along with Neurology. Job#: [id number] RENETTA
[2018-09-11] MEDS ORDERED: HYDRALAZINE HCL 20 MG/ML VIAL ONE (10:22)
[2018-09-11] MEDS: HYDRALAZINE HCL 20 MG/ML VIAL IV PRN ×2 (10:25→20:02)
--- NOTE | 2018-09-11 11:08 | NUR ---
Order received for bedside swallow evaluation. Handed off to receiving therapist and will address Wednesday.
[2018-09-11] MEDS ORDERED: TYLENOL WITH C1 EACH PO (11:18)
[2018-09-11] MEDS ORDERED: LORAZEPAM 1 MG TAB PO ONE (11:30)
[2018-09-11] MEDS: ESCITALOPRAM OXALATE 10 MG TAB PO SCH (11:32)
--- NOTE | 2018-09-11 11:45 | NUR ---
patient leaving the floor for procedure via wheelchair, alert and oriented and in no distress.
[2018-09-11] MEDS: ACETAMINOPHEN 325 MG TAB PO PRN (13:20)
[2018-09-11] MEDS ORDERED: HYDROMORPHONE 2MG/ML 2 MG/ML ML IV ONE (13:30)
[2018-09-11] MEDS ORDERED: DIAZEPAM 5 MG TAB PO ONE (13:30)
[2018-09-11] MEDS: SODIUM CHLORIDE 0.9% 1000ML 1,000 ML IV SCH ×2 (13:45→21:43)
--- NOTE | 2018-09-11 13:56 | NUR ---
patient leaving the floor on bed to retry procedure for MRA. Patient alert an oriented and in no distress
[2018-09-11 14:14] LABS: CREATINE KINASE MB 2.9 ng/mL (0-5.0)
--- NOTE | 2018-09-11 15:04 | NUR ---
patient arrived back on the unit on hospital bed. Patient in no distress, alert and oriented.
[2018-09-11] MEDS ORDERED: DIPHENHYDRAMINE HCL INJ 50 MG/ML VIAL ONE (15:55)
[2018-09-11] MEDS ORDERED: DIPHENHYDRAMINE HCL INJ 50 MG/ML VIAL IV PRN (16:00)
--- NOTE | 2018-09-11 16:00 | NUR ---
Patient found out of bed after composition floor layer settled patient onto the bed. Bed alarm is now on, patient has been told to call for help when trying to get out of bed, and patient verbalized understanding. Call austin in reach and bed in lowest position.
--- NOTE | 2018-09-11 16:52 | Diagnostic Imaging Report ---
Exam: Brain MRI and Cervical and Intracranial MRAs without Contrast History: 63-year-old female with a 6 year history of off and on weakness right side dizziness and mini strokes Comparison studies: Head CT dated 09/10/2018 and brain MRI dated 04/30/2018. Technique: Sagittal T2; axial T1-IR, MPGR, DWI, T2 FLAIR. 2-D cervical and 3-D intracranial [id number] MRA's . Intravenous contrast: None Findings: Extremely limited exam due to patient motion on numerous sequences. Brain: Scalp: No abnormal signal. No masses. Bone marrow: Normal in signal intensity.. Extra-axial: No masses or fluid collections. Brain sulci: Mildly prominent . Ventricles: Normal in size . No hydrocephalus. Parenchyma: No abnormal foci of restricted diffusion. Moderate size right cortically based area of encephalomalacia involving the right middle and inferior frontal gyri with extension to the right lateral ventricle. There is surrounding T2/FLAIR hyperintense gliosis around the cavity of encephalomalacia. Additional 2 small areas encephalomalacia within the posterior right occipital lobe with mild adjacent T2/FLAIR hyperintense gliosis. Mild scattered subcortical and periventricular T2/FLAIR hyperintense foci consistent with sequela of microvascular ischemic angiopathy. No masses, hemorrhage, or acute vascular insults. Suprasellar region: No abnormalities. Craniocervical junction: No abnormalities. Patent foramen magnum. No Chiari one malformation. Vessels: Normal flow-voids in the arteries and sinuses. Cervical MRA: Carotid arteries: Questionable stenosis of the proximal right retropharyngeal ICA (series 8, image 108). There is additional questionable milder stenosis of the proximal left ICA. Vertebral arteries: Patent. Intracranial MRA: Internal carotid arteries: Patent. Middle cerebral artery: Patent bilateral M1 segments. Anterior cervical arteries: Patent bilateral A1 segments. Vertebrobasilar circulation: Patent. Anatomical variants: Anterior communicating artery: Not visualized. Posterior communicating arteries: The right is visualized on the axial T2, the left is partially visualized. Vertebral arteries: Co-dominant. IMPRESSION: Brain MRI: Borderline nondiagnostic study due to patient motion. If this patient requires future examinations in MRI, general anesthesia should be considered. Despite limitation, no acute intracranial process is identified. Chronic findings: 1. Chronic areas of encephalomalacia related to prior insults in the right frontal and occipital lobes, as described above. 2. Mild white matter microvascular ischemic changes. 3. Mild generalized volume loss. Cervical and intracranial MRAs: Significantly limited study due to patient motion and lack of intravenous contrast. There is probable stenosis of the proximal cervical right internal carotid artery, which has a retropharyngeal course. Questionable proximal left extracranial ICA narrowing appears milder. This is a preliminary report was provided by the neuroradiology fellow, Dr. Lee Hernandez. Attending over read to follow. The images and preliminary report were reviewed and signed by Dr. Briana Felder, neuroradiology faculty, on 09/11/2018 at 1749 hours. Signed by: Dr. Briana Felder M.D. on 09/11/2018 5:49 PM
--- NOTE | 2018-09-11 18:50 | NUR ---
rounded with the night nurse, patient aware of shift change. Patient in no distress, call austin within reach. Bed alarm on
[2018-09-11] MEDS ORDERED: ATORVASTATIN 20 MG TAB PO SCH (21:00)
[2018-09-12] VITALS (8 sets, daily range): BP systolic 106–191; BP diastolic 60–100
[2018-09-12] MEDS: ACETAMINOPHEN 325 MG TAB PO PRN (04:17)
[2018-09-12] MEDS: SODIUM CHLORIDE 0.9% 1000ML 1,000 ML IV SCH ×2 (05:45→13:45)
[2018-09-12 05:52] LABS: BASOPHILS # (AUTO) 0.1 (0.0-0.1); BASOPHILS % 0.6 % (0.0-1.0); EOSINOPHILS # (AUTO) 0.2 (0.0-0.4); EOSINOPHILS % 1.5 % (0.0-6.0); HEMATOCRIT 40.8 % (34.2-44.1); HEMOGLOBIN 13.3 g/dL (12.0-16.0); LYMPHOCYTES % 25.1 % (18.0-39.1); MEAN CORPUSCULAR HEMOGLOBIN 27.9 pg (28-32); MEAN CORPUSCULAR HGB CONC 32.6 g/dL (31-35); MEAN CORPUSCULAR VOLUME 85.5 fL (81-99); MONOCYTES # (AUTO) 0.8 (0.2-0.8); MONOCYTES % 6.9 % (4.4-11.3); NEUTROPHILS # (AUTO) 7.9 (2.1-6.9); NEUTROPHILS % 65.2 % (38.7-80.0); PLATELET COUNT 336 x10e3/uL (140-360); RED BLOOD COUNT 4.77 x10e6/uL (3.6-5.1); RED CELL DISTRIBUTION WIDTH 13.9 % (11.7-14.4)
[2018-09-12] MEDS: HYDROCODONE/APAP 10MG-325MG TAB PO PRN ×2 (05:52→16:32)
[2018-09-12 06:19] LABS: ALANINE AMINOTRANSFERASE 22 IU/L (0-55); ALBUMIN 3.3 g/dL (3.5-5.0); ALBUMIN/GLOBULIN RATIO 0.9 (0.8-2.0); ALKALINE PHOSPHATASE 79 IU/L (40-150); ANION GAP 12.7 mmol/L (8-16); BLOOD UREA NITROGEN 25 mg/dL (7-26); BUN/CREATININE RATIO 33 (6-25); CALCIUM 9.3 mg/dL (8.4-10.2); CARBON DIOXIDE 20 mmol/L (22-29); CHLORIDE 108 mmol/L (98-107); CREATININE, SERUM 0.76 mg/dL (0.57-1.11); EST GLOMERULAR FILTRATION RATE > 60 ML/MIN (60-); GLUCOSE 141 mg/dL (74-118); MAGNESIUM 1.6 MG/DL (1.3-2.1); POTASSIUM 4.7 mmol/L (3.5-5.1); SODIUM 136 mmol/L (136-145)
--- NOTE | 2018-09-12 07:05 | NUR ---
Received patient mid fowlers position, side rails upx2, call light within reach. Resting with eyes closed. Arousable to verbal stimuli. Respirations even and unlabored. Will continue to monitor.
--- NOTE | 2018-09-12 07:16 | NUR ---
REPORT GIVEN TO ONCOMING NURSE,WALKING ROUNDS MADE.PT RESTING IN BED WITH NO S/S OF DISTRESS NOTED.
[2018-09-12] MEDS: INSULIN REGULAR, HUMAN 100 UNIT/1 ML 3ML VIAL SQ SCH ×4 (07:30→20:37)
[2018-09-12] MEDS: PANTOPRAZOLE SOD 40 MG TABEC PO SCH (08:44)
[2018-09-12] MEDS: AMLODIPINE BESYLATE 10 MG TAB PO SCH (08:44)
[2018-09-12] MEDS: ESCITALOPRAM OXALATE 10 MG TAB PO SCH (08:44)
[2018-09-12] MEDS: CLOPIDOGREL BISULFATE 75 MG TAB PO SCH (08:45)
[2018-09-12] MEDS: LISINOPRIL 20 MG TAB PO SCH (08:45)
[2018-09-12] MEDS ORDERED: AMLODIPINE BESYLATE 5 MG TAB PO SCH (09:00)
--- NOTE | 2018-09-12 09:05 | NUR ---
SPOKE W BEDSIDE NURSEBREANA. DISCUSSED ELEVATED BP AND POSSIBLE INPATIENT ORDER NEEDED. STATES SHE HAD JUST MEDICATED THE PT AND WILL F/U AT NOON.
--- NOTE | 2018-09-12 12:58 | Consultation ---
DATE OF CONSULTATION: September 12, 2018 NEUROLOGY CONSULTATION HISTORY OF PRESENT ILLNESS: Ms. Martinez is a 63-year-old [id number] woman with past medical history significant for hypertension, hyperlipidemia, diabetes mellitus type 2, a prior stroke without residual deficits, and seizure disorder, admitted to [facility] on September 10, 2018, with symptoms suspicious for a transient ischemic attack. Shortly after awakening on the morning of admission, the patient experienced the abrupt onset of expressive aphasia, right facial droop, right facial numbness, right arm weakness, and right arm numbness. Ms. Martinez endorses dizziness which is further described as a lightheaded sensation as well. The patient does not report a visual field cut or other disturbance, poor balance, impairment of gait, or confusion. Concerned she was having a stroke, the patient notified her daughter, who brought her to the emergency center at [facility] for further evaluation. The above described symptoms resolved within 5 to 10 minutes. Ms. Martinez reports she was at her neurological baseline when she presented to the emergency center at [facility]. While in the emergency center, a CT of the brain without contrast was performed but did not show evidence of recent large territorial ischemia or hemorrhage. Ms. Martinez was admitted to [facility] under observation status for further evaluation and treatment of her transient neurological symptoms. Ms. Martinez reports having a prior stroke in 2010. She endorses no deficits from this prior stroke. Ms. Martinez was prescribed aspirin 81 mg by mouth daily and Plavix 75 mg by mouth daily for stroke prophylaxis. However, the patient has stopped taking these medications. According to her daughter, Ms. Martinez discontinued treatment with aspirin and Plavix approximately 5 to 6 months ago because she was "doing so well." REVIEW OF SYSTEMS: Expressive aphasia, facial weakness and numbness on the right side, weakness and numbness of the right arm, dizziness which is further described as lightheadedness, and headache. Otherwise, a 12 point review of systems is negative. PAST MEDICAL HISTORY: Hypertension, hyperlipidemia, diabetes mellitus type 2, prior stroke without residual deficits, seizure disorder. PAST SURGICAL HISTORY: section, bilateral knee replacements, tonsillectomy, appendectomy, cholecystectomy, bilateral cataract removal. PAST HOSPITALIZATIONS: Surgeries/procedures as listed, childbirth times 1, stroke. FAMILY MEDICAL HISTORY: Coronary artery disease. SOCIAL HISTORY: Ms. Martinez is . She is retired. The patient does not report current or prior tobacco, alcohol, or recreational drug use. HOME MEDICATIONS: Reviewed. Please see the list of home medications available in the electronic medical records. ALLERGIES: NO KNOWN DRUG ALLERGIES. SHELLFISH, SEA FOOD, STRAWBERRIES. NO KNOWN ALLERGIES TO LATEX. THE PATIENT DOES ENDORSE AN ALLERGY TO IODINE. PHYSICAL EXAMINATION: VITAL SIGNS: Height 59 inches. Weight 203 pounds. BMI 41.1 kg per meter squared. Blood pressure 191/85 mmHg. Pulse 66 beats per minute. Respiratory rate 20 breaths per minute. Oxygen saturation 97% on room air. GENERAL: The patient is awake and alert, appears moderately distressed secondary to a headache. Morbidly obese. HEENT: Normocephalic, atraumatic. Pupils are surgical. Moist mucous membranes. NECK: Supple. No appreciable thyromegaly. No appreciable carotid bruits. CARDIOVASCULAR: S1, S2, regular rate and rhythm. No murmurs, rubs, or gallops. RESPIRATORY: Clear to auscultation bilaterally. No wheezes, rhonchi, or rales. EXTREMITIES: The skin is warm and dry. No clubbing, cyanosis, or edema. The posterior tibial and dorsalis pedis pulses are 1+ and symmetric. SKIN: No rashes or lesions. NEUROLOGIC: Memory/Attention: The patient is awake and alert. Oriented to person, place, time, and situation. Cranial Nerves: Cranial nerve--Not tested. Cranial nerve 2, 3, 4, and 6--Pupils are surgical. Extraocular movements intact. No nystagmus. Cranial nerve 5--Sensation to light touch and pinprick is intact in the bilateral V1 through V3 distributions. Strength of the temporalis and masseter muscles is within normal limits. Cranial nerve 7--The face is symmetric as are all facial movements. Strength is within normal limits. Cranial nerve 8--Hearing is intact to finger rub bilaterally. Cranial nerve 9, 10--The soft palate elevates equally and symmetrically. Cranial nerve 11--Normal strength of the bilateral sternocleidomastoid and trapezius muscles. Cranial nerve 12--The tongue protrudes midline and moves symmetrically from side to side. Strength: Bulk is normal. Strength is 5/5 in the bilateral deltoids, biceps, triceps, wrist flexors and extensors, finger flexors and extensors, intrinsic hand muscles, hip flexors, knee flexors and extensors, ankle dorsiflexion and plantarflexion, and intrinsic foot muscles. Tone is normal. DTRs: Deep tendon reflexes are 1+ and symmetric at the triceps, biceps, and brachioradialis. Deep tendon reflexes are absent and symmetric at the patellas and Achilles. Plantar responses are flexor bilaterally. Sensation: Sensation is intact to light touch and pinprick in both arms and both legs. Cerebellar: Rokjwf-vxxo-xipffp and heel-everett movements are intact without dysmetria or other impairment except as follows: There is mild dysmetria with imxbgf-usaq-tksxym movements on the right. Gait: Deferred. Speech: Spontaneous speech is mildly dysarthric without appreciable aphasia. Repetition is intact. Involuntary Movements: None. Pronator Drift: None. LABORATORY DATA: Reviewed. The patient's total cholesterol is less than 200. Her LDL cholesterol is approximately 70. The patient's hemoglobin A1c is 7.3. Renal function is within normal limits. DIAGNOSTIC STUDIES: Electrocardiogram September 11, 2018: Normal sinus rhythm at 66 beats per minute. Echocardiogram September 11, 2018: Ejection fraction 50% to 55%. Concentric left ventricular hypertrophy. Calcification of the aortic valve. Trace to mild mitral regurgitation. Bilateral carotid artery ultrasound with Doppler September 11, 2018: Atherosclerosis without hemodynamically significant stenosis at the bilateral internal carotid arteries. Flow is antegrade in the bilateral vertebral arteries. MRI of the brain without contrast September 11, 2018: Evaluation of magnetic resonance imaging is significantly impaired secondary to motion artifact. However, on my review, there is no evidence of recent large territorial ischemia, hemorrhage, mass, or mass effect. There are areas of encephalomalacia in the right cerebral hemisphere. There is mild diffuse cerebral atrophy, more than expected for the patient's age, with compensatory dilatation of the ventricles. There are findings compatible with mild to moderate chronic small-vessel ischemic disease. MRA of the brain and neck September 11, 2018: Once again, interpretation of magnetic resonance imaging is significantly impaired secondary to motion artifact. There is possible narrowing of the bilateral internal carotid arteries. ASSESSMENT AND PLAN: Ms. Martinez is a 63-year-old [id number]-afeoknzo woman with multiple vascular risk factors, admitted to [facility] on September 10, 2018, with a probable transient ischemic attack in the left middle cerebral artery distribution. The patient has undergone a thorough neurological examination with findings detailed above. Her laboratory data and other diagnostic studies have been reviewed and are documented above. RECOMMENDATIONS: 1. Following her stroke in 2000, Ms. Martinez reports being prescribed aspirin 81 mg by mouth daily and Plavix 75 mg by mouth daily for stroke prophylaxis. However, dual antiplatelet therapy puts the patient at a much higher risk for hemorrhage. Therefore, treatment with aspirin will be discontinued. Ms. Martinez will continue to take Plavix 75 mg by mouth daily for stroke prophylaxis. 2. The patient is approximately 48 hours status post transient ischemic attack. Her blood pressure should be normalized. Her goal blood pressure is less than 140/90 mmHg at discharge. The dose of Norvasc will be increased to 10 mg by mouth daily, first dose today. Treatment with the patient's home medication of lisinopril 20 mg by mouth daily will be prescribed, first dose today. Continue p.r.n. treatment with clonidine and hydralazine. Monitor vital signs per unit protocol. 3. The patient's goal total cholesterol is less than 200 with an LDL of less than 70. Ms. Galarzas cholesterol is more or less at goal. Continue treatment with atorvastatin 40 mg by mouth at bedtime daily. 4. The patient's goal hemoglobin A1c is less than 7.0. Ms. Martinez's hemoglobin A1c is 7.3. Tight glycemic control is recommended while the patient is hospitalized. Continue treatment with sliding-scale insulin per protocol. Further treatment of diabetes mellitus type 2 is deferred to the primary service. 5. Physical therapy and speech therapy consultations will be ordered. 6. GI prophylaxis with the patient's home medication of Protonix 20 mg by mouth daily. DVT prophylaxis with Lovenox 40 mg subcutaneously daily. 7. For seizure prophylaxis, continue the patient's home medication of Keppra 500 mg by mouth twice daily. 8. Defer treatment of the remaining medical comorbidities to the primary and other services following the patient. Thank you for this consultation. I will continue to follow the patient while she remains in the hospital. Time spent: 70 minutes. Job#: [id number] EV MTDD
[2018-09-12] MEDS: CLONIDINE HCL 0.1 MG TAB PO PRN (13:05)
--- NOTE | 2018-09-12 13:40 | NUR ---
SOCIAL WORK INITIAL ASSESSMENT Manager Data [employer] to bedside to discuss plan of care with patient/family. CM/SW role and care transitions discussed. Anticipated discharge plan discussed along with duration of care. CM/SW discussed patients right to make decisions in care. CM/SW work hours given. Patient lives: IN OWN HOUSE WITH FAMILY Admit/Transfer: VIA HOME POA/Emergency contact: KOURTNEY ALONSO [phone] Current/Previous Home Health: NONE PCP/Follow-up Care: OMI Current/Previous DME: [facility] Other Services: NONE Employment Status: RETIRED Areas of Concerns: NONE Referral Needs: NONE Education Needs: NONE IMM/YUNG given and signed (if applicable): YUNG Goal for discharge: RETURN HOME INDEPENDENTLY CM/SW left business card at the bedside with contact information. Name and number was also written on the patients whiteboard. Patient verbalized understanding of discussion. CM will follow-up with ongoing discharge and transition of care needs.
[2018-09-12] MEDS: ENOXAPARIN SOD INJ 40 MG/0.4 ML SYR SC SCH (16:32)
--- NOTE | 2018-09-12 19:00 | NUR ---
Report given to oncoming nurse of patient's status. No s/s of acute distress noted.
[2018-09-12] MEDS: ATORVASTATIN 40 MG TAB PO SCH (20:36)
[2018-09-13] VITALS (7 sets, daily range): BP systolic 134–204; BP diastolic 64–105
[2018-09-13] MEDS: HYDROCODONE/APAP 10MG-325MG TAB PO PRN (00:36)
--- NOTE | 2018-09-13 06:40 | NUR ---
handoff report rec'd during walking rounds.
[2018-09-13] MEDS: INSULIN REGULAR, HUMAN 100 UNIT/1 ML 3ML VIAL SQ SCH ×4 (07:30→21:00)
[2018-09-13] MEDS: CLOPIDOGREL BISULFATE 75 MG TAB PO SCH (08:30)
[2018-09-13] MEDS: PANTOPRAZOLE SOD 40 MG TABEC PO SCH (08:30)
[2018-09-13] MEDS: ESCITALOPRAM OXALATE 10 MG TAB PO SCH (08:30)
[2018-09-13] MEDS: AMLODIPINE BESYLATE 10 MG TAB PO SCH (08:30)
[2018-09-13] MEDS: LISINOPRIL 20 MG TAB PO SCH ×2 (08:30→21:15)
--- NOTE | 2018-09-13 09:20 | NUR ---
ST Note: Attempted to see pt for cognitive-linguistic therapy. Pt out for walk. Will return later today time permitting.
--- NOTE | 2018-09-13 15:50 | NUR ---
CALL PLACED TO ATTENDING PHYSICIAN REGARDING ELEVATED BP AND PERIPHERAL IV.
--- NOTE | 2018-09-13 15:59 | NUR ---
CALL PLACED TO DAUGHTER, KOURTNEY, TO INFORM OF PATIENT PULLING OUT IV, PULLING OFF TELE MONITOR, AND WANTING TO LEAVE AMA. DAUGHTER WILL CALL THE PATIENTS TO INFORM OF WHAT IS GOING ON. I TOLD THE DAUGHTER THAT SOMEONE WILL NEED TO BE AT THE BEDSIDE AT ALL TIMES FOR PATIENTS SAFETY.
[2018-09-13] MEDS: CLONIDINE HCL 0.1 MG TAB PO PRN (16:13)
--- NOTE | 2018-09-13 16:19 | NUR ---
CALL BACK REC'D FROM DR. BRAGA.
[2018-09-13] MEDS ORDERED: QUETIAPINE FUMARATE 25 MG TAB PO PRN (16:30)
[2018-09-13] MEDS: ENOXAPARIN SOD INJ 40 MG/0.4 ML SYR SC SCH (16:34)
[2018-09-13] MEDS: METOPROLOL TARTRATE 25 MG TAB PO SCH (16:34)
--- NOTE | 2018-09-13 16:35 | NUR ---
spouse at bedside.
[2018-09-13] MEDS ORDERED: ONDANSETRON HCL 4 MG ORAL DISINTEGRATING TAB PO PRN (18:45)
[2018-09-13] MEDS: CEFTRIAXONE SOD 1 GM/NS 50 ML 50 ML IV SCH (18:58)
[2018-09-13] MEDS: ATORVASTATIN 40 MG TAB PO SCH (21:14)
--- NOTE | 2018-09-13 21:33 | NUR ---
Patient is agitated and attempting to pull out IV and telemetry. Calmed the room with lights dimmed. Later, patient was walked around the unit and hallways with family. Will continue to monitor.
[2018-09-13] MEDS: LORAZEPAM INJ 2 MG/ML VIAL IV PRN (22:03)
[2018-09-14] VITALS (7 sets, daily range): BP systolic 144–198; BP diastolic 59–82
[2018-09-14] MEDS: CLONIDINE HCL 0.1 MG TAB PO PRN (02:22)
[2018-09-14 05:45] LABS: BASOPHILS # (AUTO) 0.1 (0.0-0.1); BASOPHILS % 0.6 % (0.0-1.0); EOSINOPHILS # (AUTO) 0.1 (0.0-0.4); EOSINOPHILS % 1.4 % (0.0-6.0); HEMATOCRIT 35.9 % (34.2-44.1); HEMOGLOBIN 11.9 g/dL (12.0-16.0); LYMPHOCYTES # (AUTO) 1.9 (1.0-3.2); LYMPHOCYTES % 20.3 % (18.0-39.1); MEAN CORPUSCULAR HEMOGLOBIN 28.1 pg (28-32); MEAN CORPUSCULAR HGB CONC 33.1 g/dL (31-35); MEAN CORPUSCULAR VOLUME 84.9 fL (81-99); MONOCYTES # (AUTO) 0.9 (0.2-0.8); MONOCYTES % 9.5 % (4.4-11.3); NEUTROPHILS # (AUTO) 6.3 (2.1-6.9); NEUTROPHILS % 67.8 % (38.7-80.0); PLATELET COUNT 266 x10e3/uL (140-360); RED BLOOD COUNT 4.23 x10e6/uL (3.6-5.1); RED CELL DISTRIBUTION WIDTH 13.7 % (11.7-14.4)
[2018-09-14 06:01] LABS: CALCIUM 9.1 mg/dL (8.4-10.2); CREATININE, SERUM 0.96 mg/dL (0.57-1.11)
--- NOTE | 2018-09-14 06:50 | NUR ---
rounded with assistant casino shift manager nurse, patient aware of change. Patient in no distress, call austin within reach, bed in lowest position and bed alarm is on.
[2018-09-14] MEDS: INSULIN REGULAR, HUMAN 100 UNIT/1 ML 3ML VIAL SQ SCH ×4 (08:00→20:35)
[2018-09-14] MEDS: PANTOPRAZOLE SOD 40 MG TABEC PO SCH (08:00)
[2018-09-14] MEDS: ESCITALOPRAM OXALATE 10 MG TAB PO SCH (09:25)
[2018-09-14] MEDS: AMLODIPINE BESYLATE 10 MG TAB PO SCH (09:25)
[2018-09-14] MEDS: METOPROLOL TARTRATE 25 MG TAB PO SCH ×2 (09:25→17:10)
[2018-09-14] MEDS: CLOPIDOGREL BISULFATE 75 MG TAB PO SCH (09:25)
[2018-09-14] MEDS: LISINOPRIL 20 MG TAB PO SCH ×2 (09:25→20:26)
--- NOTE | 2018-09-14 10:01 | NUR ---
CM SPOKE TO INTERDISCIPLINARY TEAM DURING ROUNDS. PATIENT BARRIER TO DISCHARGE IS HIGH BLOOD PRESSURE. MD ADJUSTED BLOOD PRESSURE MEDICATIONS.
[2018-09-14] MEDS: ENOXAPARIN SOD INJ 40 MG/0.4 ML SYR SC SCH (17:10)
[2018-09-14] MEDS: ACETAMINOPHEN 325 MG TAB PO PRN (18:20)
--- NOTE | 2018-09-14 19:10 | NUR ---
report given to night nurse, patient aware of change. Patient in no distress, call austin within reach and family at the bedside.
--- NOTE | 2018-09-14 19:30 | NUR ---
Patient received lying in bed. Family at bedside. AAO x 3. Patient had no complaints of pain. No respiratory distress noted. Bed locked and in lowest position. Bed rails up x 2. Bed alarm activated. Patient instructed to call for assistance when needed. Call light within reach.
[2018-09-14] MEDS: ATORVASTATIN 40 MG TAB PO SCH (20:26)
--- NOTE | 2018-09-14 20:52 | NUR ---
Report given to Marcia ([email or web address]). Patient transferred to Room 213.
--- NOTE | 2018-09-14 21:00 | NUR ---
Received patient to floor via stretcher. Patient with no IV. Started IV to left wrist 22G. Patient tolerated. Family at bedside.
[2018-09-14] MEDS ORDERED: SODIUM CHLORIDE 0.9% 250ML 250 ML ONE (21:51)
[2018-09-14] MEDS: CEFTRIAXONE SOD 1 GM/NS 50 ML 50 ML IV SCH (21:57)
[2018-09-15] VITALS (7 sets, daily range): BP systolic 144–188; BP diastolic 58–81
--- NOTE | 2018-09-15 | NUR ---
Patient ambulated to bathroom with asst. Patient study on her feet.
[2018-09-15] MEDS: CLONIDINE HCL 0.1 MG TAB PO PRN (01:44)
[2018-09-15] MEDS: LORAZEPAM INJ 2 MG/ML VIAL IV PRN (01:48)
--- NOTE | 2018-09-15 02:00 | NUR ---
Patient requested Ativan to help relax. Med given. Patient resting quitly at this time.
--- NOTE | 2018-09-15 04:26 | NUR ---
Patient BP was elevated at 180/77. Given clonidine as ordered by MD. Continue monitor BP.Patient with general BP.
[2018-09-15] MEDS: ACETAMINOPHEN 325 MG TAB PO PRN ×3 (07:25→22:40)
[2018-09-15] MEDS: HYDRALAZINE HCL 25 MG TAB PO SCH ×3 (08:40→21:00)
[2018-09-15] MEDS: PANTOPRAZOLE SOD 40 MG TABEC PO SCH (08:40)
[2018-09-15] MEDS: METOPROLOL TARTRATE 25 MG TAB PO SCH ×2 (08:41→17:21)
[2018-09-15] MEDS: CLOPIDOGREL BISULFATE 75 MG TAB PO SCH (08:41)
[2018-09-15] MEDS: ESCITALOPRAM OXALATE 10 MG TAB PO SCH (08:41)
[2018-09-15] MEDS: AMLODIPINE BESYLATE 10 MG TAB PO SCH (08:41)
[2018-09-15] MEDS: LISINOPRIL 20 MG TAB PO SCH ×2 (08:41→21:00)
[2018-09-15] MEDS: INSULIN REGULAR, HUMAN 100 UNIT/1 ML 3ML VIAL SQ SCH ×4 (09:03→22:31)
[2018-09-15] MEDS: ENOXAPARIN SOD INJ 40 MG/0.4 ML SYR SC SCH (17:21)
--- NOTE | 2018-09-15 18:31 | NUR ---
Rounds by Dr. Chung and will watch patient tonight, BP getting better on new medication regimen, may discharge tomorrow if BP within limit per dictation on consult
[2018-09-15] MEDS: CEFTRIAXONE SOD 1 GM/NS 50 ML 50 ML IV SCH (18:43)
--- NOTE | 2018-09-15 19:41 | NUR ---
Received change of shift report from AM nurse. Walking rounds completed.
[2018-09-15] MEDS: ATORVASTATIN 40 MG TAB PO SCH (21:00)
[2018-09-16] VITALS (8 sets, daily range): BP systolic 148–193; BP diastolic 66–82
--- NOTE | 2018-09-16 04:29 | NUR ---
Patient resting quitly at this time. No noted pain or discomfort.
[2018-09-16] MEDS: PANTOPRAZOLE SOD 40 MG TABEC PO SCH (08:33)
[2018-09-16] MEDS: LISINOPRIL 20 MG TAB PO SCH ×2 (08:33→21:14)
[2018-09-16] MEDS: METOPROLOL TARTRATE 25 MG TAB PO SCH ×2 (08:33→17:38)
[2018-09-16] MEDS: HYDRALAZINE HCL 25 MG TAB PO SCH ×3 (08:33→21:14)
[2018-09-16] MEDS: AMLODIPINE BESYLATE 10 MG TAB PO SCH (08:33)
[2018-09-16] MEDS: INSULIN REGULAR, HUMAN 100 UNIT/1 ML 3ML VIAL SQ SCH ×4 (08:33→21:15)
[2018-09-16] MEDS: CLOPIDOGREL BISULFATE 75 MG TAB PO SCH (08:33)
[2018-09-16] MEDS: ESCITALOPRAM OXALATE 10 MG TAB PO SCH (08:33)
--- NOTE | 2018-09-16 10:03 | NUR ---
CM SPOKE TO MD REGARDING DISCHARGE PLAN. PER DR. BRAGA, IF PATIENT BLOOD PRESSURE UNDER 150 SYSTOLIC AND UNDER 90 DIASTOLIC PATIENT IS STABLE TO DISCHARGE. PENDING CARDIOLOGY CLEARANCE. PATIENT TO POSSIBLY DISCHARGE TODAY.
[2018-09-16] MEDS ORDERED: DICYCLOMINE HCL 10 MG CAP PO PRN (11:00)
[2018-09-16] MEDS: HYDROCODONE/APAP 10MG-325MG TAB PO PRN (12:03)
[2018-09-16] MEDS: ENOXAPARIN SOD INJ 40 MG/0.4 ML SYR SC SCH (17:38)
[2018-09-16] MEDS: CEFTRIAXONE SOD 1 GM/NS 50 ML 50 ML IV SCH (17:38)
[2018-09-16] MEDS: ATORVASTATIN 40 MG TAB PO SCH (21:14)
[2018-09-17 01:30] VITALS: BP 198/79
[2018-09-17] MEDS: CLONIDINE HCL 0.1 MG TAB PO PRN (02:46)
[2018-09-17] MEDS: HYDROCODONE/APAP 10MG-325MG TAB PO PRN (03:01)
[2018-09-17 04:30] VITALS: BP 136/58
--- NOTE | 2018-09-17 07:19 | NUR ---
REPORT GIVEN TO ONCOMING NURSE,PT RESTING IN BED WITH NO S/S OF DISTRESS.
[2018-09-17 08:15] VITALS: BP 160/71
[2018-09-17] MEDS: HYDRALAZINE HCL 25 MG TAB PO SCH ×2 (08:15→15:32)
[2018-09-17] MEDS: CLOPIDOGREL BISULFATE 75 MG TAB PO SCH (08:15)
[2018-09-17] MEDS: AMLODIPINE BESYLATE 10 MG TAB PO SCH (08:15)
[2018-09-17] MEDS: INSULIN REGULAR, HUMAN 100 UNIT/1 ML 3ML VIAL SQ SCH ×2 (08:15→12:08)
[2018-09-17] MEDS: METOPROLOL TARTRATE 25 MG TAB PO SCH (08:15)
[2018-09-17] MEDS: PANTOPRAZOLE SOD 40 MG TABEC PO SCH (08:15)
[2018-09-17] MEDS: LISINOPRIL 20 MG TAB PO SCH (08:15)
[2018-09-17 08:28] VITALS: BP 160/71
[2018-09-17] MEDS ORDERED: ESCITALOPRAM OXALATE 10 MG TAB PO SCH (09:00)
[2018-09-17 12:28] VITALS: BP 146/65
[2018-09-17] MEDS ORDERED: HYDRALAZINE HCL25 MG PO (13:45)
[2018-09-17 16:08] VITALS: BP 140/68
== END 2018-09-17 16:16 | disposition home or self-care (01) | DRG 71 ==
LOC: ER 16:06 → ERHOLD 21:57 → IMCU 23:22 → OBSVTOIN 09-12 13:06 → INTOOBSV 09-13 11:18 → MED/SURG2 09-14 20:49
PROVIDERS: ADMIT Internal Medicine; ATTEND Internal Medicine
DX: I67.9 Cerebrovascular disease, unspecified (principal); G45.8 Other transient cerebral ischemic attacks and related syndromes; N39.0 Urinary tract infection, site not specified; I10 Essential (primary) hypertension; Z86.73 Personal history of transient ischemic attack (TIA), and cerebral infarction without residual deficits; E78.5 Hyperlipidemia, unspecified; G40.909 Epilepsy, unspecified, not intractable, without status epilepticus; R41.0 Disorientation, unspecified; R51 Headache; G46.8 Other vascular syndromes of brain in cerebrovascular diseases
CPT/HCPCS: 36415; 70450; 70544; 70547; 70551; 71046; 80048; 80053; 80061; 81001; 82140; 82550; 82553; 82948; 83036; 83735; 84443; 84484; 85025; 85610; 85730; 92523; 93005; 93306; 93880; 96361; 97139; 99284; G0378; J0360; J0696; J1200; J1650; J2060; J7030; J7050

== ENCOUNTER 2019-05-04 07:17 | Observation (INO) | payer MEDICARE ==
[2019-05-02 13:14] LABS: BASOPHILS % 0.6 % (0.0-1.0); EOSINOPHILS # (AUTO) 0.2 (0.0-0.4); HEMATOCRIT 31.3 % (34.2-44.1); HEMOGLOBIN 9.7 g/dL (12.0-16.0); LYMPHOCYTES # (AUTO) 1.7 (1.0-3.2); MEAN CORPUSCULAR HEMOGLOBIN 26.4 pg (28-32); MEAN CORPUSCULAR VOLUME 85.1 fL (81-99); MONOCYTES # (AUTO) 0.6 (0.2-0.8); MONOCYTES % 8.3 % (4.4-11.3); NEUTROPHILS # (AUTO) 4.2 (2.1-6.9); NEUTROPHILS % 62.9 % (38.7-80.0); PLATELET COUNT 306 x10e3/uL (140-360); RED BLOOD COUNT 3.68 x10e6/uL (3.6-5.1); RED CELL DISTRIBUTION WIDTH 15.9 % (11.7-14.4)
[2019-05-02 13:27] LABS: INR 0.95; PROTHROMBIN TIME 13.2 seconds (11.9-14.5)
[2019-05-02 13:39] LABS: ALBUMIN/GLOBULIN RATIO 1.4 (0.8-2.0); ANION GAP 13.2 mmol/L (8-16); CALCIUM 9.5 mg/dL (8.4-10.2); CREATININE, SERUM 1.3 mg/dL (0.57-1.11); POTASSIUM 5.2 mmol/L (3.5-5.1)
--- NOTE | 2019-05-02 15:25 | NUR ---
Dr. Jorgensen notified patient has iodine allergy. Dr. Jorgensen notified of potassium 5.2, BUN 47, creatinine 1.30, and eGFR 41. Dr. Jorgensen ordered Solumedrol 125mg IV and Benadryl 50mg PO.
[2019-05-04] VITALS (12 sets, daily range): BP systolic 12–130; BP diastolic 56–80
[~2019-05-04] VITALS: Ht 149.9 cm; Wt 78.0 kg
[~2019-05-04 07:17] MED LIST changes: +AMLODIPINE BESYL5 MG PO; +ASPIR 8181 MG PO; +ATORVASTATIN CA20 MG PO; +FUROSEMIDE40 MG PO; +GLIMEPIRIDE2 MG PO; +HYDRALAZINE HCL25 MG PO; +LEVEMIR100 UNIT/1 SC; +PRILOSEC OTC20 MG PO; +TYLENOL WITH C1 EACH PO
[2019-05-04] MEDS ORDERED: HEPARIN SOD (PORCINE) 1000 UNIT/ML 30ML ONE (07:26)
[2019-05-04] MEDS ORDERED: MIDAZOLAM HCL 2 MG/2 ML VIAL ONE ×2 (07:26→09:39)
[2019-05-04] MEDS ORDERED: VERAPAMIL HCL 2.5 MG/ML 2 ML VIAL ONE (07:26)
[2019-05-04] MEDS ORDERED: METHYLPREDNISOLONE SOD SUCC 125 MG/2ML VIAL ONE (07:26)
--- OUTSIDE RECORDS SUMMARY | 2019-05-04 07:26 | XMS REPORT | Continuity of Care Document ---
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 VOMITING BLOOD Active 01/29/2019 [facility] Active 01/26/2019 [facility] Active 01/15/2019 [facility] SEPSIS DUE TO URINARY TRACT INFECTION, H Active 01/15/2019 [facility] ACHALASIA Active 12/30/2017 [facility] Gastro-esophageal reflux disease without esophagitis 12/16/2017 03/09/2018 [facility] BDDC/ GERD K21.9 Active 11/29/2017 [facility] DDC-GERD Active 10/22/2017 [facility] K22.0=ACHALASIA OF CARDIA, R13.14DYSPHAG Active 10/29/2015 [facility] STROKE Active 10/09/2014 [facility] AMS,HYPERGLYCEMIA,LT BINDLE BRANCH BLOCK Active 10/08/2014 [facility] Disturbance in speech Active 04/30/2014 Problem 09/17/2018 [facility] FACIAL WEAKNESS Active 04/30/2014 Problem 09/17/2018 [facility] Essential hypertension 03/09/2018 [facility] Type 2 diabetes mellitus without complications 03/09/2018 [facility] Unspecified osteoarthritis, unspecified site 03/09/2018 [facility] Unspecified convulsions 03/09/2018 [facility] Personal history of transient ischemic attack , and cerebral infarction without residual deficits 03/09/2018 [facility] Dysphagia, unspecified 02/23/2018 [facility] Sleep apnea, unspecified 02/23/2018 [facility] FDC use of antithrombotics/antiplatelets 02/23/2018 [facility] FDC use of insulin 02/23/2018 [facility] Acid reflux Resolved Problem 02/11/2019 [facility] Anxiety Active Problem 02/11/2019 [facility] CVA (Confirmed) Active Problem 02/11/2019 [facility] DM , type 2, uncontrolled(Confirmed) Active Problem 02/11/2019 [facility] Expressive-receptive aphasia Active Problem 02/11/2019 [facility] HLD (Confirmed) Active Problem 02/11/2019 [facility] Hypertension Active Problem 02/11/2019 [facility] Morbid obesity Active Problem 02/11/2019 [facility] Motor apraxia Active Problem 02/11/2019 [facility] MRSA Active Problem 02/11/2019 [facility] Peripheral neuropathy Active Problem 02/11/2019 [facility] Seizures Active Problem 02/11/2019 [facility] Sleep apnea Active Problem 02/11/2019 [facility] TIA (Confirmed) Resolved Problem 02/11/2019 [facility] Total knee replacement Resolved Problem 02/11/2019 [facility] Final: 10/14/2014 [facility] ALTERED MENTAL STATUS Active [facility] CVA Active [facility] CVA Active [facility] ACHALASIA OF CARDIA Active [facility] DYSPHAGIA, PHARYNGOESOPHAGEAL PHASE Active [facility] SEPSIS, UNSPECIFIED ORGANISM Active [facility] HYPOXEMIA Active [facility] DYSPNEA, UNSPECIFIED Active [facility] GASTROINTESTINAL HEMORRHAGE, UNSPECIFIED Active [facility] Medications Medication Details Route Status Patient Instructions Ordering Provider Order Date Source ceFAZolin 2 g injection See Instructions, 2 g IVPB Q8H for 30 days, Repeat CBC/CMP/ESR/CRP every week and follow up with ID., # 90 bag, 0 Refill(s), other Active 02/09/2019 [facility] collagenase topical 250 units/g ointment 1 appl, TOP, Daily, 0 Refill(s) Active 02/09/2019 [facility] pantoprazole 40 mg oral enteric coated tablet 40 mg=1 tab, PO, Q12H, 0 Refill(s) Active 02/09/2019 [facility] Ondansetron 4 mg, Route: IVP, ONCE, Dosing Weight 83.182, kg, PRN Nausea & Vomiting, Start date: 02/06/19 21:06:00 CDT Inactive 02/07/2019 [facility] Morphine 2 mg, Route: IVP, Q5Min, Dosing Weight 83.182, kg, PRN Pain Score 4-6, Start date: 02/06/19 21:06:00 CDT, Duration: 5 doses or times, Stop date: Limited # of times Inactive 02/07/2019 [facility] Flumazenil 0.2 mg, Route: IVP, PRN, Dosing Weight 83.182, kg, PRN Benzodiazepine Reversal, Initial dose, Start date: 02/06/19 21:06:00 CDT, Duration: 30 day, Stop date: 03/08/19 21:05:00 CDT Inactive 02/07/2019 [facility] Naloxone 0.4 mg, Route: IVP, Q2MIN, Dosing Weight 83.182, kg, PRN Narcotic Reversal, Start date: 02/06/19 21:06:00 CDT, Duration: 8 doses or times, Stop date: Limited # of times Inactive 02/07/2019 [facility] Calcium Chloride 0.0014 MEQ/ML / Potassium Chloride 0.004 MEQ/ML / Sodium Chloride 0.103 MEQ/ML / Sodium Lactate 0.028 MEQ/ML Injectable Solution 1,000 mL, Rate: 125 ml/hr, Infuse over: 8 hr, Route: IV, Dosing Weight 83.182 kg, Total Volume: 1,000, Start date: 02/06/19 21:06:00 CDT, Duration: 30 day, Stop date: 03/08/19 21:05:00 CDT, 1.9, m2 Inactive 02/07/2019 [facility] Hydralazine 10 mg, Route: IVP, Q20Min, Dosing Weight 83.182, kg, PRN Elevated BP, Start date: 02/06/19 21:06:00 CDT, Duration: 2 doses or times, Stop date: Limited # of times Inactive 02/07/2019 [facility] Metoprolol 1 mg, Route: IVP, Q5Min, Dosing Weight 83.409, kg, PRN Other -See Comment, Start date: 02/06/19 20:47:00 CDT, Duration: 5 doses or times, Stop date: Limited # of times No Longer Active 02/07/2019 [facility] Labetalol 10 mg, Route: IVP, Q5Min, Dosing Weight 83.409, kg, PRN Elevated BP, Start date: 02/06/19 20:47:00 CDT, Duration: 5 doses or times, Stop date: Limited # of times No Longer Active 02/07/2019 [facility] Hydralazine 10 mg, Route: IVP, Q20Min, Dosing Weight 83.409, kg, PRN Elevated BP, Start date: 02/06/19 20:47:00 CDT, Duration: 2 doses or times, Stop date: Limited # of times No Longer Active 02/07/2019 [facility] Flumazenil 0.2 mg, Route: IVP, PRN, Dosing Weight 83.409, kg, PRN Benzodiazepine Reversal, Initial dose, Start date: 02/06/19 20:47:00 CDT, Duration: 30 day, Stop date: 03/08/19 20:46:00 CDT No Longer Active 02/07/2019 [facility] Magnesium Sulfate 2 gm, 50 mL, Route: IVPB, Drug form: INJ, ONCE, Dosing Weight 83.409, kg, Start date: 02/06/19 8:44:00 CDT, Stop date: 02/06/19 8:44:00 CDTNotes: WASTE: F/P - Sink; E - Municipal Trash Bin Inactive 02/06/2019 [facility] Magnesium Sulfate 2 gm, 50 mL, Route: IVPB, Drug form: INJ, ONCE, Dosing Weight 83.409, kg, Start date: 02/04/19 12:48:00 CDT, Stop date: 02/04/19 12:48:00 CDTNotes: WASTE: F/P - Sink; E - Municipal Trash Bin Inactive 02/04/2019 [facility] Plavix 75 mg, 1 tab, Route: PO, Drug form: TAB, Daily, Dosing Weight 83.409, kg, Start date: 02/03/19 9:00:00 CDT, Duration: 30 day, Stop date: 03/04/19 9:00:00 CDTNotes: (Same As: Plavix) No Longer Active 02/03/2019 [facility] remove patch 1 patch, Route: TOP, ONCE, Drug form: ERFILM, Start date: 02/03/19 6:30:00 CDT, Stop date: 02/03/19 6:30:00 CDTNotes: Remove patch 12 hours after application each day. Inactive 02/03/2019 [facility] Lidocaine 0.05 MG/MG Transdermal Patch 1 patch, Route: TOP, ONCE, Drug form: FILM, Start date: 02/02/19 18:18:00 CDT, Stop date: 02/02/19 18:18:00 CDTNotes: Apply only once for up to 12 hours in a 24-hour period (12 hours on and 12 hours off). (Same as: Lidoderm) "Remove old patch before application of new patch" Inactive 02/02/2019 [facility] acetaminophen-codeine #3 1 tab, Route: PO, Drug Form: TAB, Dosing Weight 83.409, kg, Q4H, PRN Pain Score 4-6, Start date: 02/02/19 13:25:00 CDT, Duration: 30 day, Stop date: 03/04/19 13:24:00 CDTNotes: Do not exceed 4gm/day of acetaminophen. (Same as: Tylenol with Codeine # 3) No Longer Active 02/02/2019 [facility] Magnesium Sulfate 2 gm, 50 mL, Route: IVPB, Drug form: INJ, ONCE, Dosing Weight 83.409, kg, Start date: 02/02/19 9:06:00 CDT, Stop date: 02/02/19 9:06:00 CDTNotes: WASTE: F/P - Sink; E - Municipal Trash Bin Inactive 02/02/2019 [facility] Lisinopril 20 mg, 1 tab, Route: PO, Drug form: TAB, Daily, Dosing Weight 83.409, kg, Priority: NOW, Start date: 02/01/19 21:17:00 CDT, Duration: 30 day, Stop date: 03/03/19 9:00:00 CDTNotes: (Same as: Prinivil, Zestril) No Longer Active 02/02/2019 [facility] Amlodipine 5 mg, 1 tab, Route: PO, Drug form: TAB, Daily, Dosing Weight 83.409, kg, Priority: NOW, Start date: 02/01/19 21:16:00 CDT, Duration: 30 day, Stop date: 03/03/19 9:00:00 CDTNotes: (Same as: Norvasc) No Longer Active 02/02/2019 [facility] Acetaminophen 325 MG / Hydrocodone Bitartrate 5 MG Oral Tablet [[place] 5/325] 1 tab, Route: PO, Drug Form: TAB, Dosing Weight 83.409, kg, Q6H, PRN Pain Score 4-6, Start date: 02/01/19 18:01:00 CDT, Duration: 30 day, Stop date: 03/03/19 18:00:00 CDTNotes: (Same as: [place] 325/5) Do not exceed 4gm/day of acetaminophen. No Longer Active 02/01/2019 [facility] Aspirin 81 mg, 1 tab, Route: PO, Drug form: ECTAB, Daily, Dosing Weight 83.409, kg, Priority: NOW, Start date: 02/01/19 10:55:00 CDT, Duration: 30 day, Stop date: 03/03/19 9:00:00 CDTNotes: Do not crush or chew. (Same As: Ecotrin) No Longer Active 02/01/2019 [facility] Silver Sulfadiazine 10 MG/ML Topical Cream 1 appl, Route: TOP, Daily, Drug form: CRM, Start date: 02/01/19 9:00:00 CDT, Duration: 30 day, Stop date: 03/02/19 9:00:00 CDTNotes: (Same as: Silvadene) WASTE: F/P - Black; E - Municipal Trash Bin No Longer Active 02/01/2019 [facility] Vitamin D2 50,000 IntlUnit, 1 cap, Route: PO, Drug form: CAP, QWed, Dosing Weight 90, kg, Start date: 02/01/19 9:00:00 CDT, Duration: 30 day, Stop date: 03/01/19 9:00:00 CDTNotes: (Same as: Vitamin D) "Do Not Crush" No Longer Active 02/01/2019 [facility] Santyl 1 appl, Route: TOP, Daily, Drug form: OINT, Start date: 02/01/19 9:00:00 CDT, Duration: 30 day, Stop date: 03/02/19 9:00:00 CDTNotes: (Same As: Santyl) No Longer Active 02/01/2019 [facility] Protonix 40 mg, 1 tab, Route: PO, Drug form: ECTAB, Q12H, Dosing Weight 83.409, kg, Start date: 01/31/19 21:00:00 CDT, Duration: 30 day, Stop date: 03/02/19 9:00:00 CDTNotes: Tablet should not be chewed or crushed. (Same as: Protonix) No Longer Active 02/01/2019 [facility] Sodium Chloride 0.9% IV 1,000 mL 1,000 mL, Rate: 25 ml/hr, Infuse over: 40 hr, Route: IV, Dosing Weight 83.409 kg, Total Volume: 1,000, Start date: 01/31/19 14:59:00 CDT, Duration: 30 day, Stop date: 03/02/19 14:58:00 CDT, 1.9, m2 Inactive 01/31/2019 [facility] Lasix 20 mg, 2 mL, Route: IVP, Drug form: INJ, Daily, Dosing Weight 83.409, kg, Start date: 01/31/19 12:56:00 CDT, Duration: 30 day, Stop date: 03/02/19 9:00:00 CDTNotes: (Same as: Lasix) No Longer Active 01/31/2019 [facility] 1/2 NS 1,000 mL 1,000 mL, Rate: 40 ml/hr, Infuse over: 25 hr, Route: IV, Dosing Weight 83.409 kg, Total Volume: 1,000, Start date: 01/31/19 8:28:00 CDT, Duration: 30 day, Stop date: 03/02/19 8:27:00 CDT, 1.9, m2 Inactive 01/31/2019 [facility] gabapentin 600 MG Oral Tablet 600 mg, 2 cap, Route: PO, Drug form: CAP, Bedtime, Dosing Weight 90, kg, Start date: 01/30/19 21:00:00 CDT, Duration: 30 day, Stop date: 02/28/19 21:00:00 CDTNotes: (Same as: Neurontin) No Longer Active 01/31/2019 [facility] atorvastatin 40 mg, 1 tab, Route: PO, Drug form: TAB, Bedtime, Dosing Weight 90, kg, Start date: 01/30/19 21:00:00 CDT, Duration: 30 day, Stop date: 02/28/19 21:00:00 CDTNotes: (Same as: Lipitor) No Longer Active 01/31/2019 [facility] Glucagon 1 mg, Route: IM, Drug form: PDR/INJ, PRN, Dosing Weight 83.409, kg, PRN Blood Glucose Results, Start date: 01/30/19 16:15:00 CDT, Duration: 30 day, Stop date: 03/01/19 16:14:00 CDT No Longer Active 01/30/2019 [facility] Dextrose 50% Syringe 25 gm, 50 mL, Route: IVP, Drug Form: INJ, Dosing Weight 83.409, kg, PRN, PRN Blood Glucose Results, Start date: 01/30/19 16:15:00 CDT, Duration: 30 day, Stop date: 03/01/19 16:14:00 CDT No Longer Active 01/30/2019 [facility] Insulin Lispro 3 unit, 0.03 mL, Route: SUB-Q, Drug form: SOLN, Sliding Scale, Dosing Weight 83.409, kg, PRN Blood Glucose Results, Start date: 01/30/19 16:15:00 CDT, Duration: 30 day, Stop date: 03/01/19 16:14:00 CDTN otes: (Same as: Humalog) Roll in palms of hands gently; Do not shake vigorously. WASTE: F/P - Black; E - Municipal Trash Bin Stable for 28 days at room temperature. Expires in days from Date No Longer Active 01/30/2019 [facility] Silver Sulfadiazine 10 MG/ML Topical Cream [Silvadene] 1 appl, Route: TOP, BID, Drug form: CRM, Start date: 01/30/19 9:00:00 CDT, Duration: 30 day, Stop date: 02/28/19 17:00:00 CDTNotes: (Same as: Silvadene) WASTE: F/P - Black; E - Municipal Trash Bin No Longer Active 01/30/2019 [facility] Escitalopram 10 mg, 1 tab, Route: PO, Drug form: TAB, Daily, Dosing Weight 90, kg, Start date: 01/30/19 9:00:00 CDT, Duration: 30 day, Stop date: 02/28/19 9:00:00 CDTNotes: (Same as: Lexapro) No Longer Active 01/30/2019 [facility] Ancef + sterile water 20 mL 2 gm, Route: IV, ABXQ8H, Dosing Weight 90, kg, Start date: 01/30/19 4:00:00 CDT, Duration: 15 day, Stop date: 02/13/19 20:00:00 CDT, ABX Indication: Endocarditis/Endovascular InfectionNotes: (Same As: Ancef, Kefzol) MEDICATION WASTE Product Size: 1000 mg Product Wasted: ___ mg No Longer Active 01/30/2019 [facility] Melatonin 3 MG Extended Release Tablet 3 mg, 1 tab, Route: PO, Drug Form: TAB, Dosing Weight 90, kg, Bedtime, PRN Insomnia, Start date: 01/30/19 2:37:00 CDT, Duration: 30 day, Stop date: 03/01/19 2:36:00 CDTNotes: (Same as: Melatonin) No Longer Active 01/30/2019 [facility] Sodium Chloride 0.9% IV 1,000 mL 1,000 mL, Rate: 50 ml/hr, Infuse over: 20 hr, Route: IV, Dosing Weight 90 kg, Total Volume: 1,000, Start date: 01/29/19 23:22:00 CDT, Duration: 30 day, Stop date: 02/28/19 23:21:00 CDT, 1.98, m2 No Longer Active 01/30/2019 [facility] Ondansetron 4 mg, 2 mL, Route: IVP, Drug form: INJ, Q6H, Dosing Weight 90, kg, PRN Nausea & Vomiting, Start date: 01/29/19 23:22:00 CDT, Duration: 30 day, Stop date: 02/28/19 23:21:00 CDTNotes: (Same as: Zofran) MEDICATION WASTE Product Size: 4 mg Product Wasted: ___ mg No Longer Active 01/30/2019 [facility] Saline Flush 0.9% 10 ml, Route: IVP, Drug Form: INJ, Dosing Weight 90, kg, PRN, PRN Line Flush, Start date: 01/29/19 23:22:00 CDT, Duration: 30 day, Stop date: 02/28/19 23:21:00 CDTNotes: (Same as: BD Posiflush) No Longer Active 01/30/2019 [facility] Sodium Chloride 0.9% (Bolus) IV 500 mL, 500 ml/hr, Infuse Over: 1 hr, Route: IV, 500, Drug form: INJ, ONCE, Priority: STAT, Dosing Weight 90 kg, Start date: 01/29/19 23:20:00 CDT, Stop date: 01/29/19 23:20:00 CDT No Longer Active 01/30/2019 [facility] Morphine 2 mg, 0.5 mL, Route: IVP, Drug form: SOLN, Q4H, Dosing Weight 90, kg, PRN Pain Score 6-10, Start date: 01/29/19 23:20:00 CDT, Duration: 30 day, Stop date: 02/28/19 23:19:00 CDT, ..Notes: (Same as:MORPhine Sulfate) No Longer Active 01/30/2019 [facility] pantoprazole additive 80 mg + Sodium Chloride 0.9% IV 100 mL 100 mL, Rate: 10 ml/hr, Infuse over: 10 hr, Route: IVPB, Dosing Weight 90 kg, Total Volume: 100, Infuse at 8 mg/hr for 72 hrs for GI bleeding, Start date: 01/29/19 22:13:00 CDT, Duration: 72 hr, Stop date: 02/01/19 22:12:00 CDT, 1.98, q0Vlubp: For IV push reconstitute with 10 ml 0.9% sodium chloride and push over 2 minutes. (Same as: Protonix) No Longer Active 01/30/2019 [facility] Vancomycin 2,250 mg, Route: IVPB, ONCE, Dosing Weight 90, kg, Start date: 01/29/19 21:30:00 CDT, Stop date: 01/29/19 21:30:00 CDT, ABX Indication: ED - Suspected SepsisNotes: TIME CRITICAL MEDICATION (Same As: Van cocin) Infusion rate 2001 mg: infuse over 2.5 hours For adult patients only: Round to nearest 250 mg per Medical Staff approval MEDICATION WASTE Product Size: 1000 mg Product Wasted: ___ mg Inactive 01/30/2019 [facility] pantoprazole 80 mg, Route: IVP, Drug form: INJ, ONCE, Dosing Weight 90, kg, Priority: STAT, Start date: 01/29/19 20:55:00 CDT, Stop date: 01/29/19 20:55:00 CDTNotes: For IV push reconstitute with 10 ml 0.9% sodium c hloride and push over 2 minutes. (Same as: Protonix) Inactive 01/30/2019 [facility] Vancomycin 1,000 mg, Route: IVPB, ONCE, Dosing Weight 90, kg, Priority: STAT, Start date: 01/29/19 20:32:00 CDT, Stop date: 01/29/19 20:32:00 CDT, ABX Indication: ED - Suspected Sepsis Inactive 01/30/2019 [facility] cefepime 2 gm, Route: IV, ONCE, Dosing Weight 90, kg, Priority: STAT, Start date: 01/29/19 20:32:00 CDT, Stop date: 01/29/19 20:32:00 CDT, ABX Indication: ED - Suspected SepsisNotes: (Same as: Maxipime) MEDICATION WASTE Product Size: 2000 mg Product Wasted: ___ mg Inactive 01/30/2019 [facility] Saline Flush 0.9% 10 mL, Route: IVP, Drug Form: INJ, Dosing Weight 90, kg, PRN, PRN Line Flush, Start date: 01/29/19 20:31:00 CDT, Duration: 30 day, Stop date: 02/28/19 20:30:00 CDTNotes: (Same as: BD Posiflush) No Longer Active 01/30/2019 [facility] Aspirin 81 MG Enteric Coated Tablet 81 mg=1 tab, PO, Daily, 0 Refill(s) Active 01/23/2019 [facility] Aspirin 81 MG Enteric Coated Tablet 81 mg=1 tab, PO, Daily, # 30 tab, 3 Refill(s), Pharmacy: [facility] Active 01/23/2019 [facility] Acetaminophen 300 MG / Codeine Phosphate 30 MG Oral Tablet 1 tab, PO, Q6H, PRN Pain Score 7-10, X 14 day, # 30 tab, 0 Refill(s) Active 01/23/2019 [facility] Hydralazine Hydrochloride 50 MG Oral Tablet 50 mg=1 tab, PO, QID, # 120 tab, 0 Refill(s), Pharmacy: [facility] Active 01/23/2019 [facility] Silver Sulfadiazine 10 MG/ML Topical Cream [Silvadene] See Instructions, apply 3-4 grams to right foot wound once daily for 30 days, # 85 gm, 2 Refill(s) Active 01/23/2019 [facility] Aspirin 81 mg, 1 tab, Route: PO, Drug form: ECTAB, Daily, Dosing Weight 85.554, kg, Priority: NOW, Start date: 01/23/19 11:23:00 CDT, Duration: 30 day, Stop date: 02/22/19 9:00:00 CDTNotes: Do not crush or chew. (Same As: Ecotrin) Inactive 01/23/2019 [facility] Hydralazine 50 mg, 1 tab, Route: PO, Drug form: TAB, Q6Hnow, Dosing Weight 85.909, kg, Start date: 01/22/19 9:00:00 CDT, Duration: 30 day, Stop date: 02/21/19 3:00:00 CDT No Longer Active 01/22/2019 [facility] heparin 5,000 unit, 1 mL, Route: SUB-Q, Drug form: INJ, Q12H, Dosing Weight 85.554, kg, Start date: 01/21/19 21:00:00 CDT, Duration: 30 day, Stop date: 02/20/19 9:00:00 CDTNotes: porcine heparin No Longer Active 01/22/2019 [facility] Acetaminophen 300 MG / Codeine Phosphate 30 MG Oral Tablet 1 tab, Route: PO, Drug Form: TAB, Dosing Weight 85.554, kg, Q6H, PRN Pain Score 7-10, Start date: 01/21/19 11:31:00 CDT, Duration: 30 day, Stop date: 02/20/19 11:30:00 CDTNotes: Do not exceed 4gm/day of acetaminophen. (Same as: Tylenol with Codeine # 3) No Longer Active 01/21/2019 [facility] Morphine 4 mg, 1 mL, Route: IVP, Drug form: SOLN, Q4H, Dosing Weight 85.554, kg, PRN Pain Score 7-10, Start date: 01/21/19 11:25:00 CDT, Duration: 30 day, Stop date: 02/20/19 11:24:00 CDTNotes: (Same as:MORPhine Sulfate) No Longer Active 01/21/2019 [facility] lisinopril 20 mg, 1 tab, Route: PO, Drug form: TAB, ONCE, Start date: 01/21/19 10:09:00 CDT, Stop date: 01/21/19 10:09:00 CDTNotes: (Same as: Prinivil, Zestril) Inactive 01/21/2019 [facility] Morphine 2 mg, 1 mL, Route: IVP, Drug form: SOLN, Q4H, Dosing Weight 85.554, kg, PRN Pain Score 4-6, Start date: 01/20/19 22:22:00 CDT, Duration: 30 day, Stop date: 02/19/19 22:21:00 CDT No Longer Active 01/21/2019 [facility] Lasix 20 mg, 2 mL, Route: IVP, Drug form: INJ, ONCE, Dosing Weight 85.554, kg, Start date: 01/20/19 10:25:00 CDT, Stop date: 01/20/19 10:25:00 CDTNotes: (Same as: Lasix) Inactive 01/20/2019 [facility] Silver Sulfadiazine 10 MG/ML Topical Cream [Silvadene] 1 appl, Route: TOP, Daily, Drug form: CRM, Start date: 01/20/19 9:00:00 CDT, Duration: 30 day, Stop date: 02/18/19 9:00:00 CDTNotes: (Same as: Silvadene) WASTE: F/P - Black; E - Municipal Trash Bin No Longer Active 01/20/2019 [facility] chlorhexidine gluconate 1.2 MG/ML Mouthwash 15 ml, Route: S&SPIT, Daily, Drug form: LIQ, Start date: 01/20/19 9:00:00 CDT, Duration: 30 day, Stop date: 02/18/19 9:00:00 CDTNotes: (Same As: Peridex) No Longer Active 01/20/2019 [facility] Saline Flush 0.9% 10 ml, Route: IVP, Drug Form: INJ, Dosing Weight 85.554, kg, Q12H, Start date: 01/19/19 21:00:00 CDT, Duration: 30 day, Stop date: 02/18/19 9:00:00 CDTNotes: (Same as: BD Posiflush) No Longer Active 01/20/2019 [facility] Lidocaine Hydrochloride 10 MG/ML Injectable Solution 100 mg, 10 mL, Route: InFILtration(local), Drug Form: INJ, Dosing Weight 85.554, kg, ONCE, Start date: 01/19/19 18:44:00 CDT, Stop date: 01/19/19 18:44:00 CDTNotes: (Same as: Xylocaine) No Longer Active 01/19/2019 [facility] Benzocaine 140 MG/ML / butamben 20 MG/ML / Tetracaine 20 MG/ML Mucosal [place] [Cetacaine] 2 spray, Route: MUCOUS MEM, ONCALL, Drug form: AERO, Start date: 01/19/19 17:00:00 CDT, Duration: 1 doses or timesNotes: (Same As: Cetacaine) Cetacaine ([id number] 14-2-2%) No Longer Active 01/19/2019 [facility] Saline Flush 0.9% 10 ml, Route: IVP, Drug Form: INJ, Dosing Weight 85.554, kg, PRN, PRN Line Flush, Start date: 01/19/19 16:03:00 CDT, Duration: 30 day, Stop date: 02/18/19 16:02:00 CDTNotes: (Same as: BD Posiflush) No Longer Active 01/19/2019 [facility] Vitamin D2 50,000 IntlUnit, 1 cap, Route: PO, Drug form: CAP, QWed, Dosing Weight 85.909, kg, Start date: 01/18/19 9:00:00 CDT, Duration: 30 day, Stop date: 02/15/19 9:00:00 CDTNotes: (Same as: Vitamin D) "Do Not Crush" No Longer Active 01/18/2019 [facility] Lasix 40 mg, 4 mL, Route: IVP, Drug form: INJ, BID, Dosing Weight 85.554, kg, Start date: 01/17/19 21:00:00 CDT, Duration: 30 day, Stop date: 02/16/19 17:00:00 CDTNotes: (Same as: Lasix) MEDICATION WASTE Product Size: 40 mg Product Wasted: ___ mg No Longer Active 01/18/2019 [facility] Vancomycin 1,500 mg, 250 mL, Route: IV, Drug form: INJ, [id number], Dosing Weight 85.554, kg, Start date: 01/17/19 14:00:00 CDT, Duration: 9 day, Stop date: 01/25/19 14:00:00 CDT, ABX Indication: BacteremiaNotes: TIME CRITICAL MEDICATION Same as: Vancocin-NS (premixed) Infusion rate 2001 mg: infuse over 2.5 hours No Longer Active 01/17/2019 [facility] Vancomycin 1,000 mg, Route: IVPB, Drug form: INJ, Q24H, Dosing Weight 85.554, kg, Start date: 01/17/19 12:00:00 CDT, Duration: 7 day, Stop date: 01/23/19 12:00:00 CDT, ABX Indication: Bacteremia No Longer Active 01/17/2019 [facility] Cefazolin 2 gm, Route: IVP, [id number], Dosing Weight 85.554, kg, Start date: 01/16/19 21:00:00 CDT, Duration: 28 day, Stop date: 02/13/19 13:00:00 CDT, ABX Indication: BacteremiaNotes: (Same As: Ancef, Kefzol) MEDICATION WASTE Product Size: 1000 mg Product Wasted: ___ mg No Longer Active 01/17/2019 [facility] Levemir 10 unit, Route: SUB-Q, Drug form: SOLN, Bedtime, Dosing Weight 85.909, kg, Start date: 01/16/19 21:00:00 CDT, Duration: 30 day, Stop date: 02/14/19 21:00:00 CDT No Longer Active 01/17/2019 [facility] atorvastatin 40 mg, 1 tab, Route: PO, Drug form: TAB, Bedtime, Dosing Weight 85.909, kg, Start date: 01/16/19 21:00:00 CDT, Duration: 30 day, Stop date: 02/14/19 21:00:00 CDTNotes: (Same as: Lipitor) No Longer Active 01/17/2019 [facility] Acetaminophen 33.3 MG/ML / Hydrocodone Bitartrate 0.5 MG/ML Oral Solution 15 mL, Route: PO, Dosing Weight 85.554, kg, Q4H, PRN Pain Score 4-6, Start date: 01/16/19 20:47:00 CDT, Duration: 30 day, Stop date: 02/15/19 20:46:00 CDT Inactive 01/17/2019 [facility] Azithromycin 500 mg, Route: IVPB, [id number], Dosing Weight 85.909, kg, Start date: 01/16/19 18:30:00 CDT, Duration: 2 day, Stop date: 01/17/19 18:30:00 CDT, ABX Indication: PneumoniaNotes: (Same As: Zithromax IV) Inactive 01/16/2019 [facility] Ceftriaxone 1 gm, Route: IVP, [id number], Dosing Weight 85.909, kg, Start date: 01/16/19 18:00:00 CDT, Duration: 5 day, Stop date: 01/20/19 18:00:00 CDT, ABX Indication: Urinary Tract InfectionNotes: (Same As: Rocephin). Use with 100 mL NS and infuse over 30 min MEDICATION WASTE Product Size: 1000 mg Product Wasted: ___ mg Inactive 01/16/2019 [facility] Aluminum Hydroxide 40 MG/ML / Magnesium Hydroxide 40 MG/ML / Simethicone 4 MG/ML Oral Suspension 30 mL, Route: PO, Drug Form: SUSP, Dosing Weight 85.554, kg, Q4H, PRN Indigestion, Start date: 01/16/19 14:59:00 CDT, Duration: 30 day, Stop date: 02/15/19 14:58:00 CDTNotes: (aluminum hydroxide-magnesium hyd-simethicone [phone]/5ml 30 ml ud NITA) No Longer Active 01/16/2019 [facility] Diphenhydramine 25 mg, 1 tab, Route: PO, Drug form: TAB, Q6H, Dosing Weight 85.554, kg, PRN Itching, Start date: 01/16/19 14:59:00 CDT, Duration: 30 day, Stop date: 02/15/19 14:58:00 CDT No Longer Active 01/16/2019 [facility] Dextromethorphan Hydrobromide 2 MG/ML / Guaifenesin 20 MG/ML Oral Solution 10 mL, Route: PO, Drug Form: LIQ, Dosing Weight 85.554, kg, Q4H, PRN Cough, Start date: 01/16/19 14:59:00 CDT, Duration: 30 day, Stop date: 02/15/19 14:58:00 CDTNotes: (dextromethorphan-guaifenesin 10-100/5 ml LIQ) (Same as: Robitussin-DM) No Longer Active 01/16/2019 [facility] meloxicam 15 mg oral tablet 15 mg=1 tab, PO, Daily, 0 Refill(s) No Longer Active 01/16/2019 [facility] Alendronic acid 70 MG Oral Tablet 70 mg=1 tab, PO, Q7D, 0 Refill(s) Active 01/16/2019 [facility] Cranberry preparation 1 tab, PO, Daily, 0 Refill(s) Active 01/16/2019 [facility] gabapentin 600 MG Oral Tablet 600 mg=1 tab, PO, Bedtime, 0 Refill(s) Active 01/16/2019 [facility] Furosemide 40 MG Oral Tablet 40 mg=1 tab, PO, Daily, 0 Refill(s) Active 01/16/2019 [facility] Levemir 10 unit, SUB-Q, PRN, 0 Refill(s) No Longer Active 01/16/2019 [facility] Ativan 0.5 mg, 0.25 mL, Route: IVP, Drug form: INJ, ONCE, Dosing Weight 85.554, kg, PRN Anxiety, Start date: 01/16/19 13:34:00 CDTNotes: (Same as: Ativan) No Longer Active 01/16/2019 [facility] vancomycin 2 gm, 500 mL, Route: IVPB, Drug form: SOLN, ONCE, Start date: 01/16/19 12:38:00 CDT, Stop date: 01/16/19 12:38:00 CDT, ABX Indication: BacteremiaNotes: TIME CRITICAL MEDICATION Same as: Vancocin Inf usion rate 2001 mg: infuse over 2.5 hours Inactive 01/16/2019 [facility] Vancomycin 1 ea, Route: MISC, ONCALL, Dosing Weight 85.554, kg, Start date: 01/16/19 12:00:00 CDT, Duration: 10 day, Stop date: 01/26/19 11:59:00 CDT, Pharmacy to dose, ABX Indication: Bacteremia Inactive 01/16/2019 [facility] Vancomycin 1,500 mg, Route: IVPB, Drug form: INJ, ONCE, Dosing Weight 85.554, kg, Start date: 01/16/19 11:57:00 CDT, Stop date: 01/16/19 11:57:00 CDT, ABX Indication: Bacteremia Inactive 01/16/2019 [facility] Acetaminophen 300 MG / Codeine Phosphate 30 MG Oral Tablet 1 tab, Route: PO, Drug Form: TAB, Dosing Weight 85.554, kg, Q8H, PRN Pain Score 7-10, Start date: 01/16/19 11:57:00 CDT, Duration: 30 day, Stop date: 02/15/19 11:56:00 CDTNotes: Do not exceed 4gm/day of acetaminophen. (Same as: Tylenol with Codeine # 3) No Longer Active 01/16/2019 [facility] Acetaminophen 300 MG / Codeine Phosphate 30 MG Oral Tablet 1 tab, PO, Q8H, PRN Pain Score 7-10 No Longer Active 01/16/2019 [facility] Lisinopril 40 mg, 2 tab, Route: PO, Drug form: TAB, Daily, Dosing Weight 85.909, kg, Start date: 01/16/19 9:00:00 CDT, Duration: 30 day, Stop date: 02/14/19 9:00:00 CDTNotes: (Same as: Prinivil, Zestril) No Longer Active 01/16/2019 [facility] gabapentin 600 MG Oral Tablet 600 mg, 2 cap, Route: PO, Drug form: CAP, Q12H, Dosing Weight 85.909, kg, Start date: 01/16/19 9:00:00 CDT, Duration: 30 day, Stop date: 02/14/19 21:00:00 CDTNotes: (Same as: Neurontin) No Longer Active 01/16/2019 [facility] Escitalopram 10 mg, 1 tab, Route: PO, Drug form: TAB, Daily, Dosing Weight 85.909, kg, Start date: 01/16/19 9:00:00 CDT, Duration: 30 day, Stop date: 02/14/19 9:00:00 CDTNotes: (Same as: Lexapro) No Longer Active 01/16/2019 [facility] Plavix 75 mg, 1 tab, Route: PO, Drug form: TAB, Daily, Dosing Weight 85.909, kg, Start date: 01/16/19 9:00:00 CDT, Duration: 30 day, Stop date: 02/14/19 9:00:00 CDTNotes: (Same As: Plavix) No Longer Active 01/16/2019 [facility] Docusate Sodium 100 MG Oral Capsule 100 mg, 1 cap, Route: PO, Drug form: CAP, BID, Dosing Weight 85.909, kg, Start date: 01/16/19 9:00:00 CDT, Duration: 30 day, Stop date: 02/14/19 17:00:00 CDTNotes: (Same as: Colace) (Do Not Crush) No Longer Active 01/16/2019 [facility] Amlodipine 5 mg, 1 tab, Route: PO, Drug form: TAB, Daily, Dosing Weight 85.909, kg, Start date: 01/16/19 9:00:00 CDT, Duration: 30 day, Stop date: 02/14/19 9:00:00 CDTNotes: (Same as: Norvasc) No Longer Active 01/16/2019 [facility] heparin 5,000 unit, 1 mL, Route: SUB-Q, Drug form: INJ, Q8H, Dosing Weight 85.909, kg, Start date: 01/16/19 0:00:00 CDT, Duration: 30 day, Stop date: 02/14/19 16:00:00 CDTNotes: porcine heparin No Longer Active 01/16/2019 [facility] Aspirin 325 mg, 1 tab, Route: PO, Drug form: ECTAB, ONCE, Dosing Weight 85.909, kg, Start date: 01/15/19 23:53:00 CDT, Stop date: 01/15/19 23:53:00 CDTNotes: (Do Not Crush) Do not crush or chew. No Longer Active 01/16/2019 [facility] Heparin - one time bolus for ACS 3,100 unit, Route: IVP, Drug form: INJ, ONCE, Dosing Weight 85.909, kg, Priority: STAT, Start date: 01/15/19 23:47:00 CDT, Stop date: 01/15/19 23:47:00 CDT Inactive 01/16/2019 [facility] Heparin 60 unit/kg Bolus (Heparin Dosing Weight) Route: IVP, PRN, 3,100 unit, 3.1 mL, Drug form: INJ, PRN, Heparin Protocol, Start date: 01/15/19 23:47:00 CDT Stop date: 02/14/19 23:46:00 CDT, 30 day No Longer Active 01/16/2019 [facility] Heparin 30 unit/kg Bolus (Heparin Dosing Weight) Route: IVP, PRN, 1,600 unit, 1.6 mL, Drug form: INJ, PRN, Heparin Protocol, Start date: 01/15/19 23:47:00 CDT Stop date: 02/14/19 23:46:00 CDT, 30 day No Longer Active 01/16/2019 [facility] heparin additive 25,000 unit [12 unit/kg/hr] + Premix Diluent Dextrose 5% 500 mL 500 mL, Rate: 12.48 ml/hr, Infuse over: 40.1 hr, Route: IV, Dosing Weight 52 kg, Total Volume: 500 mL, Start date: 01/15/19 23:47:00 CDT, Duration: 30 day, Stop date: 02/14/19 23:46:00 CDT, 1.42, m2 No Longer Active 01/16/2019 [facility] insulin glargine 10 unit, 0.1 mL, Route: SUB-Q, Drug form: SOLN, Bedtime, Start date: 01/15/19 22:18:00 CDT, Duration: 30 day, Stop date: 02/14/19 21:00:00 CDTNotes: (Same as: Terrance) Do not hold insulin without cont acting prescriber WASTE: F/P - Black; E - Municipal Trash Bin "single patient use only" Stable for 28 days at room temperature Expires in days from Date No Longer Active 01/16/2019 [facility] Hydralazine 50 mg, 1 tab, Route: PO, Drug form: TAB, Q12H, Dosing Weight 85.909, kg, Start date: 01/15/19 22:15:00 CDT, Duration: 30 day, Stop date: 02/14/19 21:00:00 CDTNotes: (Same as: Apresoline) May interfere w/enteral feedings Take With Food No Longer Active 01/16/2019 [facility] Melatonin 3 MG Extended Release Tablet 3 mg, 1 tab, Route: PO, Drug Form: TAB, Dosing Weight 85.909, kg, Bedtime, PRN Insomnia, Start date: 01/15/19 22:10:00 CDT, Duration: 30 day, Stop date: 02/14/19 22:09:00 CDTNotes: (Same as: Melatonin) No Longer Active 01/16/2019 [facility] Amlodipine 5 mg, PO, Daily, 0 Refill(s) Active 01/16/2019 [facility] Hydralazine 50 mg, BID, 0 Refill(s) No Longer Active 01/16/2019 [facility] Lasix Daily, 0 Refill(s) No Longer Active 01/16/2019 [facility] clopidogrel 75 MG Oral Tablet [Plavix] 75 mg=1 tab, PO, Daily, # 30 tab, 0 Refill(s) Active 01/16/2019 [facility] Saline Flush 0.9% 10 ml, Route: IVP, Drug Form: INJ, Dosing Weight 85.909, kg, Q12H, Start date: 01/15/19 21:00:00 CDT, Duration: 30 day, Stop date: 02/14/19 9:00:00 CDTNotes: (Same as: BD Posiflush) No Longer Active 01/16/2019 [facility] Albuterol 0.833 MG/ML / Ipratropium [place] 0.167 MG/ML Inhalant Solution 3 ml, Route: NEB, Drug Form: SOLN, Dosing Weight 85.909, kg, PRN, PRN Respiratory Pathway, Start date: 01/15/19 20:27:00 CDT, Duration: 30 day, Stop date: 02/14/19 20:26:00 CDTNotes: (Same as: Duoneb) No Longer Active 01/16/2019 [facility] Tylenol 650 mg, 20.3 mL, Route: PO, Drug form: LIQ, Q4H, Dosing Weight 85.909, kg, PRN Pain 1-3/Temp > 100.4 F, Start date: 01/15/19 20:15:00 CDT, Duration: 30 day, Stop date: 02/14/19 20:14:00 CDTNotes: Max adrrwgeflzrfn=8373io/day (4 gm/day). (Same as: Tylenol) No Longer Active 01/16/2019 [facility] Lasix 60 mg, 6 mL, Route: IV, Drug form: INJ, ONCE, Dosing Weight 85.909, kg, Start date: 01/15/19 20:14:00 CDT, Stop date: 01/15/19 20:14:00 CDTNotes: (Same as: Lasix) MEDICATION WASTE Product Size: 40 mg Product Wasted: ___ mg Inactive 01/16/2019 [facility] Insulin Lispro 5 unit, 0.05 mL, Route: SUB-Q, Drug form: SOLN, TID-Before Meals, Dosing Weight 85.909, kg, PRN Blood Glucose Results, Start date: 01/15/19 20:14:00 CDT, Duration: 30 day, Stop date: 02/14/19 20:13:0 0 CDTNotes: (Same as: Humalog) Roll in palms of hands gently; Do not shake vigorously. WASTE: F/P - Black; E - Municipal Trash Bin Stable for 28 days at room temperature. Expires in days from Date No Longer Active 01/16/2019 [facility] Glucagon 1 mg, Route: IM, Drug form: PDR/INJ, PRN, Dosing Weight 85.909, kg, PRN Blood Glucose Results, Start date: 01/15/19 20:14:00 CDT, Duration: 30 day, Stop date: 02/14/19 20:13:00 CDT No Longer Active 01/16/2019 [facility] Dextrose 50% Syringe 25 gm, 50 mL, Route: IVP, Drug Form: INJ, Dosing Weight 85.909, kg, PRN, PRN Blood Glucose Results, Start date: 01/15/19 20:14:00 CDT, Duration: 30 day, Stop date: 02/14/19 20:13:00 CDT No Longer Active 01/16/2019 [facility] Saline Flush 0.9% 10 ml, Route: IVP, Drug Form: INJ, Dosing Weight 85.909, kg, PRN, PRN Line Flush, Start date: 01/15/19 20:13:00 CDT, Duration: 30 day, Stop date: 02/14/19 20:12:00 CDTNotes: (Same as: BD Posiflush) No Longer Active 01/16/2019 [facility] Ondansetron 4 mg, 2 mL, Route: IVP, Drug form: INJ, Q8H, Dosing Weight 85.909, kg, PRN Nausea & Vomiting, Start date: 01/15/19 20:13:00 CDT, Duration: 30 day, Stop date: 02/14/19 20:12:00 CDTNotes: (Same as: Zofran) MEDICATION WASTE Product Size: 4 mg Product Wasted: ___ mg No Longer Active 01/16/2019 [facility] Lasix 20 mg, Route: IVP, Drug form: INJ, ONCE, Dosing Weight 85.909, kg, Priority: STAT, Start date: 01/15/19 18:53:00 CDT, Stop date: 01/15/19 18:53:00 CDT Inactive 01/15/2019 [facility] Azithromycin 500 mg, Route: IVPB, ONCE, Dosing Weight 85.909, kg, Priority: STAT, Start date: 01/15/19 18:13:00 CDT, Stop date: 01/15/19 18:13:00 CDT, ABX Indication: Other (specify in Comments)Notes: (Same As: Z ithromax IV) Inactive 01/15/2019 [facility] Rocephin + sterile water 10 mL 1 gm, Route: IVP, ONCE, Dosing Weight 85.909, kg, Priority: STAT, Start date: 01/15/19 18:13:00 CDT, Stop date: 01/15/19 18:13:00 CDT, ABX Indication: Other (specify in Comments)Notes: (Same As: Rocephin). Use with 100 mL NS and infuse over 30 min MEDICATION WASTE Product Size: 1000 mg Product Wasted: ___ mg Inactive 01/15/2019 [facility] Ibuprofen 600 mg, 3 tab, Route: PO, Drug form: TAB, ONCE, Dosing Weight 88.636, kg, Priority: STAT, Start date: 01/15/19 18:11:00 CDT, Stop date: 01/15/19 18:11:00 CDTNotes: (Same as: Advil) Give with food. Inactive 01/15/2019 [facility] Acetaminophen 650 mg, 2 tab, Route: PO, Drug form: TAB, ONCE, Dosing Weight 88.636, kg, Priority: STAT, Start date: 01/15/19 18:11:00 CDT, Stop date: 01/15/19 18:11:00 CDTNotes: Do not exceed 4 gm/day. (Same as: Tylenol) Inactive 01/15/2019 [facility] Docusate Sodium 100 MG Oral Capsule 100 mg=1 cap, PO, BID, # 60 cap, 0 Refill(s) Active 01/14/2018 [facility] Acetaminophen 325 MG Oral Tablet [Tylenol] 325 mg=1 tab, PO, Q4H, PRN Pain Score 6-10, PRN pain, X 7 day, # 42 tab, 0 Refill(s) Active 01/14/2018 [facility] Melatonin 3 MG Extended Release Tablet 3 mg=1 tab, PO, Bedtime, PRN for insomnia Active 01/14/2018 [facility] Acetaminophen 325 MG Oral Tablet [Tylenol] 325 mg=1 tab, PO, Daily, PRN pain Inactive 01/14/2018 [facility] Vitamin D2 50,000 intl units oral capsule 50,000 IntlUnit=1 cap, PO, qWeek, (every Wednesday of the week) Active 01/14/2018 [facility] atorvastatin 40 mg oral tablet 40 mg=1 tab, PO, Bedtime, # 90 tab, 0 Refill(s) Active 01/14/2018 [facility] Levetiracetam 500 MG Oral Tablet 500 mg=1 tab, PO, BID, # 60 tab, 0 Refill(s) Active 01/14/2018 [facility] gabapentin 600 MG Oral Tablet 600 mg=1 tab, PO, TID, # 90 tab, 0 Refill(s) Active 01/14/2018 [facility] Enoxaparin 40 mg, 0.4 mL, Route: SUB-Q, Drug form: INJ, [id number], Dosing Weight 88.636, kg, Start date: 01/14/18 9:00:00 CDT, Stop date: 02/11/18 9:00:00 CDTNotes: (Same as: Lovenox) Inactive 01/14/2018 [facility] Lisinopril 5 mg, 1 tab, Route: PO, Drug form: TAB, Daily, Dosing Weight 88.636, kg, Priority: NOW, Start date: 01/14/18 8:12:00 CDT, Duration: 30 day, Stop date: 02/12/18 9:00:00 CDTNotes: (Same as: Prinivil, Z estril) Inactive 01/14/2018 [facility] Calcium Gluconate 1,000 mg, 10 mL, Route: IVPB, ONCE, Dosing Weight 88.636, kg, Start date: 01/14/18 6:02:00 CDT, Stop date: 01/14/18 6:02:00 CDTNotes: WASTE: F/P - Sink; E - Municipal Trash Bin Inactive 01/14/2018 [facility] Magnesium Sulfate 2 gm, 50 mL, Route: IVPB, Drug form: INJ, ONCE, Dosing Weight 88.636, kg, Total dose=2 gm, Start date: 01/14/18 5:55:00 CDT, Stop date: 01/14/18 5:55:00 CDTNotes: WASTE: F/P - Sink; E - Municipal Trash Bin Inactive 01/14/2018 [facility] Albuterol 0.833 MG/ML / Ipratropium [place] 0.167 MG/ML Inhalant Solution [DuoNeb] 3 ml, Route: NEB, Drug Form: SOLN, Dosing Weight 88.636, kg, PRN, PRN Respiratory Protocol, Start date: 01/13/18 20:34:00 CDT, Duration: 30 day, Stop date: 02/12/18 20:33:00 CDTNotes: (Same as: Duoneb) No Longer Active 01/14/2018 [facility] atorvastatin 40 mg, PO, Bedtime, 0 Refill(s) No Longer Active 01/14/2018 [facility] magnesium oxide 500 mg oral tablet 500 mg=1 tab, PO, BID, 0 Refill(s) Active 01/14/2018 [facility] lisinopril 20 mg oral tablet 20 mg=1 tab, PO, Daily, 0 Refill(s) Active 01/14/2018 [facility] escitalopram 10 mg oral tablet 10 mg=1 tab, PO, Bedtime, 0 Refill(s) Active 01/14/2018 [facility] insulin detemir 100 UNT/ML Injectable Solution [Levemir] 100 unit, SUB-Q, Bedtime, 0 Refill(s) Active 01/14/2018 [facility] Ergocalciferol PO, once a week, 0 Refill(s) No Longer Active 01/14/2018 [facility] gabapentin 600 MG Oral Tablet 600 mg=1 tab, PO, Bedtime, 2 tabs, 0 Refill(s) No Longer Active 01/14/2018 [facility] meloxicam 15 mg oral tablet 15 mg=1 tab, PO, Daily, 0 Refill(s) No Longer Active 01/14/2018 [facility] glimepiride 4 mg oral tablet 4 mg=1 tab, PO, Daily, 0 Refill(s) Active 01/14/2018 [facility] Ofirmev 1,000 mg, 100 mL, Route: IV, Drug form: INJ, Q6H, Dosing Weight 88.636, kg, for > or=50 kg, Start date: 01/13/18 18:00:00 CDT, Duration: 30 day, Stop date: 02/12/18 12:00:00 CDTNotes: Infuse over 15 minutes Do not exceed 4gm/day of acetaminophen MEDICATION WASTE Product Size: 1000 mg Product Wasted: ___ mg No Longer Active 01/13/2018 [facility] Fluconazole 400 mg, 200 mL, Route: IVPB, Drug form: INJ, [id number], Dosing Weight 88.636, kg, Priority: NOW, Start date: 01/13/18 16:58:00 CDT, Duration: 1 day, Stop date: 01/13/18 16:58:00 CDT, ABX Indication: Sofia rgical ProphylaxisNotes: (Same as: Diflucan) Inactive 01/13/2018 [facility] Insulin regular 5 unit, Route: IV, ONCE, Dosing Weight 88.636, kg, Start date: 01/13/18 15:13:00 CDT, Stop date: 01/13/18 15:13:00 CDT Inactive 01/13/2018 [facility] Insulin regular 5 unit, Route: IV, ONCE, Dosing Weight 88.636, kg, Start date: 01/13/18 14:38:00 CDT, Stop date: 01/13/18 14:38:00 CDT Inactive 01/13/2018 [facility] ondansetron (ANES) Route: IV, Drug form: INJ, ONCE, Stop date: 01/13/18 14:10:00 CDT Inactive 01/13/2018 [facility] ketOROLAC (ANES) IV, ONCE Inactive 01/13/2018 [facility] sugammadex (ANES) Route: IV, Drug form: SOLN, ONCE, Stop date: 01/13/18 14:10:00 CDT Inactive 01/13/2018 [facility] furosemide (ANES) Route: IV, Drug form: INJ, ONCE, Stop date: 01/13/18 14:10:00 CDT Inactive 01/13/2018 [facility] NovoLIN R (ANES) Route: SUB-Q, Drug form: INJ, ONCE, Stop date: 01/13/18 14:06:00 CDT Inactive 01/13/2018 [facility] Enoxaparin 40 mg, Route: SUB-Q, Drug form: INJ, [id number], Dosing Weight 88.636, kg, Start date: 01/13/18 14:00:00 CDT, Stop date: 02/11/18 14:00:00 CDT Inactive 01/13/2018 [facility] Insulin regular 2 unit, 0.02 mL, Route: [...] days from Date No Longer Active 01/13/2018 [facility] Dextrose 50% Syringe 12.5 gm, 25 mL, Route: IVP, Drug Form: INJ, Dosing Weight 88.636, kg, PRN, PRN Blood Glucose Results, Start date: 01/13/18 13:59:00 CDT, Duration: 30 day, Stop date: 02/12/18 13:58:00 CDT No Longer Active 01/13/2018 [facility] Glucagon 1 mg, Route: IM, Drug form: PDR/INJ, PRN, Dosing Weight 88.636, kg, PRN Blood Glucose Results, Start date: 01/13/18 13:59:00 CDT, Duration: 30 day, Stop date: 02/12/18 13:58:00 CDT No Longer Active 01/13/2018 [facility] sugammadex 500 mg, 5 mL, Route: IV, Drug form: SOLN, ONCE, Start date: 01/13/18 13:52:00 CDT, Stop date: 01/13/18 13:52:00 CDTNotes: (Same as: Bridion) No Longer Active 01/13/2018 [facility] hydromorphone (ANES) Route: IV, Drug form: INJ, ONCE, Stop date: 01/13/18 13:36:00 CDT Inactive 01/13/2018 [facility] Lactated Ringers IV 1,000 mL 1,000 mL, Rate: 75 ml/hr, Infuse over: 13.3 hr, Route: IV, Dosing Weight 88.636 kg, Total Volume: 1,000, Start date: 01/13/18 13:12:00 CDT, Duration: 30 day, Stop date: 02/12/18 13:11:00 CDT, 1.96, m2 No Longer Active 01/13/2018 [facility] Dilaudid 0.5 mg, 0.25 mL, Route: IVP, Drug form: INJ, Q8H, Dosing Weight 88.636, kg, PRN Pain Score 7-10, Start date: 01/13/18 13:10:00 CDT, Duration: 30 day, Stop date: 02/12/18 13:09:00 CDTNotes: Same as Dilaudid No Longer Active 01/13/2018 [facility] fentaNYL (ANES) Route: IV, Drug form: INJ, ONCE, Stop date: 01/13/18 13:06:00 CDT Inactive 01/13/2018 [facility] ketAMINE (ANES) Route: IV, Drug form: INJ, ONCE, Stop date: 01/13/18 13:06:00 CDT Inactive 01/13/2018 [facility] phenylephrine (ANES) Route: IV, Drug form: INJ, ONCE, Stop date: 01/13/18 13:06:00 CDT Inactive 01/13/2018 [facility] Ondansetron 4 mg, 2 mL, Route: IVP, Drug form: INJ, Q6H, Dosing Weight 88.636, kg, PRN Nausea & Vomiting, Start date: 01/13/18 13:03:00 CDT, Duration: 30 day, Stop date: 02/12/18 13:02:00 CDTNotes: (Same as: Zofran) MEDICATION WASTE Product Size: 4 mg Product Wasted: ___ mg No Longer Active 01/13/2018 [facility] ceFAZolin (ANES) Route: IV, Drug form: INJ, ONCE, Stop date: 01/13/18 12:09:00 CDT Inactive 01/13/2018 [facility] sodium bicarbonate (ANES) Route: IV, Drug form: INJ, ONCE, Stop date: 01/13/18 11:53:00 CDT Inactive 01/13/2018 [facility] rocuronium (ANES) Route: IV, Drug form: INJ, ONCE, Stop date: 01/13/18 11:28:00 CDT Inactive 01/13/2018 [facility] propofol (ANES) Route: IV, Drug form: INJ, ONCE, Stop date: 01/13/18 11:28:00 CDT Inactive 01/13/2018 [facility] EPINEPHrine (ANES) 1 mg Route: IV, Drug form: INJ, Start date: 01/13/18 11:05:00 CDT, Stop date: 01/13/18 12:05:00 CDT Inactive 01/13/2018 [facility] albuterol (ANES) Route: INHALATION, Drug form: AERO/A, ONCE, Stop date: 01/13/18 10:46:00 CDT Inactive 01/13/2018 [facility] famotidine (ANES) Route: IV, Drug form: INJ, ONCE, Stop date: 01/13/18 10:38:00 CDT Inactive 01/13/2018 [facility] norepinephrine (ANES) Route: IV, Drug form: INJ, ONCE, Stop date: 01/13/18 10:38:00 CDT Inactive 01/13/2018 [facility] glycopyrrolate (ANES) Route: IV, Drug form: INJ, ONCE, Stop date: 01/13/18 10:38:00 CDT Inactive 01/13/2018 [facility] acetaminophen (ANES) Route: IV, Drug form: INJ, ONCE, Stop date: 01/13/18 10:18:00 CDT Inactive 01/13/2018 [facility] dexamethasone (ANES) Route: IV, Drug form: INJ, ONCE, Stop date: 01/13/18 10:13:00 CDT Inactive 01/13/2018 [facility] fentaNYL (ANES) Route: IV, Drug form: INJ, ONCE, Stop date: 01/13/18 10:03:00 CDT Inactive 01/13/2018 [facility] succinylcholine (ANES) Route: IV, Drug form: INJ, ONCE, Stop date: 01/13/18 10:03:00 CDT Inactive 01/13/2018 [facility] lidocaine (ANES) Route: IV, Drug form: INJ, ONCE, Stop date: 01/13/18 10:03:00 CDT Inactive 01/13/2018 [facility] propofol (ANES) Route: IV, Drug form: INJ, ONCE, Stop date: 01/13/18 10:03:00 CDT Inactive 01/13/2018 [facility] phenylephrine (ANES) Route: IV, Drug form: INJ, ONCE, Stop date: 01/13/18 9:58:00 CDT Inactive 01/13/2018 [facility] rocuronium (ANES) Route: IV, Drug form: INJ, ONCE, Stop date: 01/13/18 9:48:00 CDT Inactive 01/13/2018 [facility] Oxycodone 5 mg, 1 tab, Route: PO, Drug form: TAB, Q4H, Dosing Weight 88.636, kg, PRN Pain Score 4-6, Start date: 01/13/18 9:46:00 CDT, Duration: 30 day, Stop date: 02/12/18 9:45:00 CDTNotes: (Same as: Roxicodone) Inactive 01/13/2018 [facility] Naloxone 0.4 mg, 1 mL, Route: IVP, Drug form: INJ, Q2MIN, Dosing Weight 88.636, kg, PRN Narcotic Reversal, Start date: 01/13/18 9:46:00 CDT, Duration: 8 doses or times, Stop date: 01/14/18 0:00:00 CDTNotes: Same as Narcan Inactive 01/13/2018 [facility] Flumazenil 0.2 mg, 2 mL, Route: IVP, Drug form: INJ, PRN, Dosing Weight 88.636, kg, PRN Benzodiazepine Reversal, Initial dose, Start date: 01/13/18 9:46:00 CDT, Duration: 30 day, Stop date: 02/12/18 9:45:00 CDT Notes: (Same as: Romazicon) Inactive 01/13/2018 [facility] Hydromorphone 0.5 mg, 0.25 mL, Route: IVP, Drug form: INJ, Q5Min, Dosing Weight 88.636, kg, PRN Pain Score 7-10, Start date: 01/13/18 9:46:00 CDT, Duration: 4 doses or times, Stop date: 01/14/18 0:00:00 CDTNotes: Same as Dilaudid Inactive 01/13/2018 [facility] Hydralazine 10 mg, 0.5 mL, Route: IVP, Drug form: INJ, Q20Min, Dosing Weight 88.636, kg, PRN Elevated BP, Start date: 01/13/18 9:46:00 CDT, Duration: 2 doses or times, Stop date: 01/14/18 0:00:00 CDTNotes: (Same as: Apresoline) Push over 5 minutes Inactive 01/13/2018 [facility] Ondansetron 4 mg, 2 mL, Route: IVP, Drug form: INJ, ONCE, Dosing Weight 88.636, kg, PRN Nausea & Vomiting, Start date: 01/13/18 9:46:00 CDTNotes: (Same as: Zofran) MEDICATION WASTE Product Size: 4 mg Product Wasted: ___ mg Inactive 01/13/2018 [facility] Promethazine 6.25 mg, 0.25 mL, Route: IVPB, Drug form: INJ, ONCE, Dosing Weight 88.636, kg, PRN Nausea & Vomiting, Start date: 01/13/18 9:46:00 CDTNotes: Do not give IV push. (Same as: Phenergan) Inactive 01/13/2018 [facility] ceFAZolin (ANES) Route: IV, Drug form: INJ, ONCE, Stop date: 01/13/18 9:38:00 CDT Inactive 01/13/2018 [facility] ketAMINE (ANES) 100 mg Route: IV, Drug form: INJ, Start date: 01/13/18 9:05:00 CDT, Stop date: 01/13/18 10:05:00 CDT Inactive 01/13/2018 [facility] dexmedetomidine (ANES) 200 microgram Route: IV, Drug form: INJ, Start date: 01/13/18 9:05:00 CDT, Stop date: 01/13/18 10:05:00 CDT Inactive 01/13/2018 [facility] Lactated Ringers Injection IV (ANES) 1000 mL Route: IV, Total Volume: 1,000, Start date: 01/13/18 8:46:00 CDT, Stop date: 01/13/18 9:46:00 CDT Inactive 01/13/2018 [facility] Ofirmev 1,000 mg, 100 mL, Route: IV, Drug form: INJ, PRE OP, Start date: 01/13/18 0:00:00 CDT, Duration: 1 day, Stop date: 01/13/18 23:59:00 CDTNotes: Infuse over 15 minutes Do not exceed 4gm/day of acetaminop hen MEDICATION WASTE Product Size: 1000 mg Product Wasted: ___ mg No Longer Active 01/13/2018 [facility] scopolamine 1 patch, Route: TOP, Drug form: ERFILM, PRE OP, Start date: 01/13/18 0:00:00 CDT, Duration: 1 day, Stop date: 01/13/18 23:59:00 CDTNotes: Change patch every 72 hours (Same as: Transderm-Scop) Inactive 01/13/2018 [facility] heparin 5,000 unit, 1 mL, Route: SUB-Q, Drug form: INJ, PRE OP, Start date: 01/13/18 0:00:00 CDT, Duration: 1 day, Stop date: 01/13/18 23:59:00 CDTNotes: porcine heparin Inactive 01/13/2018 [facility] ceFAZolin + sterile water 20 mL 2 gm, Route: IV, PRE OP, Start date: 01/13/18 0:00:00 CDT, Duration: 1 day, Stop date: 01/13/18 23:59:00 CDT, ABX Indication: Surgical ProphylaxisNotes: (Same As: Duarte Payne) MEDICATION WASTE Product Size: 1000 mg Product Wasted: ___ mg No Longer Active 01/13/2018 [facility] glimepiride PO, Daily, 0 Refill(s) No Longer Active 01/05/2018 [facility] lisinopril 20 mg oral tablet 20 mg=1 tab, PO, Daily, 0 Refill(s) No Longer Active 01/05/2018 [facility] Acetaminophen/Hydrocodone Bitart ([place] 10MG-325MG*) 1 Ea Tab, 1 Tab Oral Every 6 Hours as needed Active 08/08/2015 [facility] Amoxicillin 250 Mg Capsule, 500 Mg Oral Every 6 Hours Active 08/08/2015 [facility] Vilazodone Hydrochloride (Viibryd) 40 Mg Tablet, 40 Mg Oral Daily Active 08/08/2015 [facility] lisinopril 20 mg oral tablet 20 mg=1 tab, PO, Daily, # 30 tab, 0 Refill(s) Active 10/19/2014 [facility] Levetiracetam 500 MG Oral Tablet 500 mg=1 tab, PO, BID, # 60 tab, 0 Refill(s) Active 10/19/2014 [facility] glimepiride 4 mg oral tablet 4 mg=1 tab, PO, Daily, # 30 tab, 0 Refill(s) Active 10/19/2014 [facility] gabapentin 600 MG Oral Tablet 600 mg=1 tab, PO, BID, # 60 tab, 0 Refill(s) Active 10/19/2014 [facility] escitalopram 10 mg oral tablet 10 mg=1 tab, PO, Daily, # 30 tab, 0 Refill(s) Active 10/19/2014 [facility] clopidogrel 75 mg oral tablet 75 mg=1 tab, PO, Daily, # 30 tab, 0 Refill(s) Active 10/19/2014 [facility] atorvastatin 40 mg oral tablet 40 mg=1 tab, PO, Bedtime, # 30 tab, 0 Refill(s) Active 10/19/2014 [facility] ergocalciferol 50,000 intl units oral capsule 50,000 IntlUnit=1 cap, PO, qWeek, # 4 caplet, 0 Refill(s) Active 10/19/2014 [facility] 3 ML insulin detemir 100 UNT/ML Prefilled Syringe [Levemir] 15 unit, SUB-Q, Bedtime, rotate injection sites, # 2 pen(s), 0 Refill(s)Special Instructions: rotate injection sites Active 10/19/2014 [facility] magnesium oxide 500 mg oral tablet 500 mg=1 tab, PO, BID, # 60 tab, 0 Refill(s) Active 10/19/2014 [facility] Speech Therapy See Instructions, MISC, ONCALL, Evaluate and Treat 2-3 times per week for 4-6 weeks, # 1 ea, 0 Refill(s)Special Instructions: Evaluate and Treat 2-3 times per week for 4-6 weeks Active 10/18/2014 [facility] Occupational Therapy See Instructions, MISC, ONCALL, Evaluate and Treat 2-3 times per week for2-4 weeks, # 1 unit, 0 Refill(s)Special Instructions: Evaluate and Treat 2-3 times per week for2-4 weeks Active 10/18/2014 [facility] Physical Therapy See Instructions, MISC, ONCALL, Evaluate and Treat 2-3 times per week for 4-6 weeks, # 1 ea, 0 Refill(s)Special Instructions: Evaluate and Treat 2-3 times per week for 4-6 weeks Active 10/18/2014 [facility] Levemir 15 unit, 0.15 mL, Route: SUB-Q, Drug form: INJ, Daily, Dosing Weight 95.318, kg, Start date: 10/16/14 9:00:00, Duration: 30 day, Stop date: 11/14/14 9:00:00Notes: Same as Levemir Do not hold insulin wit hout contacting prescriber "single patient use only" No Longer Active 10/16/2014 [facility] Vitamin D 50,000 IntlUnit, 1 cap, Route: PO, Drug form: CAP, qWeek, Dosing Weight 95.318, kg, Start date: 10/15/14 22:00:00, Duration: 5 doses or times, Stop date: 11/12/14 9:00:00Notes: (Same as: Vitamin D) "Do Not Crush" No Longer Active 10/16/2014 [facility] Insulin, Aspart, Human 1 unit, 0.01 mL, [...] days from Date No Longer Active 10/16/2014 [facility] Tums 1,000 mg, 2 tab, Route: CHEW, Drug form: CHEWTAB, Q4H, Dosing Weight 95.318, kg, PRN Indigestion, Start date: 10/15/14 12:43:00, Duration: 30 day, Stop date: 11/14/14 12:42:00Notes: (Same As: Tums) Calcium Carbonate 500 fs=677 mg elemental calcium Dose= mg calcium carbonate ( mg elemental calcium) No Longer Active 10/15/2014 [facility] Insulin, Aspart, Human 2 unit, 0.02 mL, [...] days from Date No Longer Active 10/14/2014 [facility] Glucagon 1 mg, Route: IM, Drug form: PDR/INJ, PRN, Dosing Weight 95.318, kg, PRN Blood Glucose Results, Start date: 10/14/14 11:44:00, Duration: 30 day, Stop date: 11/13/14 12:43:00 No Longer Active 10/14/2014 [facility] Dextrose 50% Syringe 12.5 gm, 25 mL, Route: IVP, Drug Form: INJ, Dosing Weight 95.318, kg, PRN, PRN Blood Glucose Results, Start date: 10/14/14 11:44:00, Duration: 30 day, Stop date: 11/13/14 12:43:00 No Longer Active 10/14/2014 [facility] Magnesium Oxide 500 MG Oral Tablet 500 mg, 2 tab, Route: PO, Drug form: TAB, BID, Dosing Weight 95.318, kg, Start date: 10/14/14 9:00:00, Duration: 30 day, Stop date: 11/12/14 17:00:00 No Longer Active 10/14/2014 [facility] pantoprazole 40 mg, 1 tab, Route: PO, Drug form: ECTAB, Before Dinner, Dosing Weight 95.318, kg, Start date: 10/13/14 16:30:00, Duration: 30 day, Stop date: 11/11/14 16:30:00Notes: Tablet should not be chewed or crushed. (Same as: Protonix) No Longer Active 10/13/2014 [facility] Magnesium Sulfate 2 gm, 50 mL, Route: IVPB, Drug form: INJ, Q2H, Dosing Weight 95.318, kg, Total dose=4 gm, Start date: 10/13/14 10:00:00, Duration: 2 doses or times, Stop date: 10/13/14 12:00:00 Inactive 10/13/2014 [facility] Lisinopril 20 mg, 1 tab, Route: PO, Drug form: TAB, Daily, Dosing Weight 95.318, kg, Start date: 10/13/14 9:00:00, Duration: 30 day, Stop date: 11/11/14 9:00:00Notes: (Same as: Prinivil, Zestril) No Longer Active 10/13/2014 [facility] glimepiride 4 mg, 1 tab, Route: PO, Drug form: TAB, Daily, Dosing Weight 95.318, kg, Start date: 10/13/14 9:00:00, Duration: 30 day, Stop date: 11/11/14 9:00:00Notes: (Same as: Amaryl) No Longer Active 10/13/2014 [facility] Escitalopram 10 mg, 1 tab, Route: PO, Drug form: TAB, Daily, Dosing Weight 95.318, kg, Start date: 10/13/14 9:00:00, Duration: 30 day, Stop date: 11/11/14 9:00:00Notes: (Same as: Lexapro) No Longer Active 10/13/2014 [facility] clopidogrel 75 mg, 1 tab, Route: PO, Drug form: TAB, Daily, Dosing Weight 95.318, kg, Start date: 10/13/14 9:00:00, Duration: 30 day, Stop date: 11/11/14 9:00:00Notes: (Same As: Plavix) No Longer Active 10/13/2014 [facility] Levetiracetam 500 MG Oral Tablet 500 mg, 1 tab, Route: PO, Drug form: TAB, BID, Dosing Weight 95.318, kg, Start date: 10/12/14 21:00:00, Duration: 30 day, Stop date: 11/11/14 9:00:00Notes: (Same as:Keppra) No Longer Active 10/13/2014 [facility] gabapentin 600 MG Oral Tablet 600 mg, 2 cap, Route: PO, Drug form: CAP, BID, Dosing Weight 95.318, kg, Start date: 10/12/14 21:00:00, Duration: 30 day, Stop date: 11/11/14 9:00:00Notes: (Same as: Neurontin) No Longer Active 10/13/2014 [facility] atorvastatin 40 mg, 1 tab, Route: PO, Drug form: TAB, Bedtime, Dosing Weight 95.318, kg, Start date: 10/12/14 21:00:00, Duration: 30 day, Stop date: 11/10/14 21:00:00Notes: (Same as: Lipitor) No Longer Active 10/13/2014 [facility] Alprazolam 0.25 MG Oral Tablet [Xanax] 0.25 mg, 1 tab, Route: PO, Drug form: TAB, Q6H, Dosing Weight 95.318, kg, PRN as needed for anxiety, Start date: 10/12/14 17:00:00, Stop date: 11/11/14 16:59:00Notes: With food or milk (Same as: Xanax) No Longer Active 10/12/2014 [facility] Acetaminophen 325 MG Oral Tablet 650 mg, 2 tab, Route: PO, Drug form: TAB, Q6H, Dosing Weight 95.318, kg, PRN Pain 1-3/Temp > 100.4 F, Start date: 10/12/14 16:59:00, Stop date: 11/11/14 16:58:00Notes: Do not exceed 4 gm/day. (Same as: Tylenol) No Longer Active 10/12/2014 [facility] Temazepam 7.5 mg, 1 cap, Route: PO, Drug form: CAP, Bedtime, Dosing Weight 95.318, kg, PRN Insomnia, Start date: 10/12/14 16:56:00, Stop date: 11/11/14 16:55:00Notes: (Same As: Restoril) No Longer Active 10/12/2014 [facility] Nitroglycerin 0.4 MG Sublingual Tablet 0.4 mg, 1 tab, Route: SL, Drug form: TAB, Q5Min, Dosing Weight 95.318, kg, PRN Other -See Comment, chest pain, Start date: 10/12/14 16:55:00, Stop date: 11/11/14 17:54:00Notes: (Same as:Nitroquick, Nitrostat) "Do Not Crush" Sublingual tablet No Longer Active 10/12/2014 [facility] Trazodone 50 mg, 1 tab, Route: PO, Drug form: TAB, Bedtime, Dosing Weight 95.318, kg, PRN Insomnia, Start date: 10/12/14 13:53:00, Duration: 30 day, Stop date: 11/11/14 13:52:00Notes: (Same As: Desyrel) No Longer Active 10/12/2014 [facility] Acetaminophen 650 mg, 2 tab, Route: PO, Drug form: TAB, Q4H, Dosing Weight 95.318, kg, PRN Pain Score 1-3, Start date: 10/12/14 13:53:00, Duration: 30 day, Stop date: 11/11/14 13:52:00Notes: Do not exceed 4 gm/day. (Same as: Tylenol) Inactive 10/12/2014 [facility] pantoprazole 40 mg oral enteric coated tablet 40 mg=1 tab, PO, Before Dinner, # 30 tab, 0 Refill(s) On Hold 10/12/2014 [facility] Nitroglycerin 0.4 MG Sublingual Tablet 0.4 mg=1 tab, SL, Q5Min, Chest Pain, # 15 tab, 0 Refill(s) On Hold 10/12/2014 [facility] lisinopril 20 mg oral tablet 20 mg=1 tab, PO, Daily, # 30 tab, 0 Refill(s) On Hold 10/12/2014 [facility] Levetiracetam 500 MG Oral Tablet 500 mg=1 tab, PO, BID, # 60 tab, 0 Refill(s) On Hold 10/12/2014 [facility] glimepiride 4 mg oral tablet 4 mg=1 tab, PO, Daily, # 30 tab, 0 Refill(s) On Hold 10/12/2014 [facility] gabapentin 600 MG Oral Tablet 600 mg=1 tab, PO, BID, # 60 tab, 0 Refill(s) On Hold 10/12/2014 [facility] escitalopram 10 mg oral tablet 10 mg=1 tab, PO, Daily, # 30 tab, 0 Refill(s) On Hold 10/12/2014 [facility] clopidogrel 75 mg oral tablet 75 mg=1 tab, PO, Daily, # 30 tab, 0 Refill(s) On Hold 10/12/2014 [facility] atorvastatin 40 mg oral tablet 40 mg=1 tab, PO, Bedtime, # 30 tab, 0 Refill(s) On Hold 10/12/2014 [facility] Alprazolam 0.25 MG Oral Tablet [Xanax] 0.25 mg=1 tab, PO, Q6H, Anxiety, # 10 tab, 0 Refill(s) On Hold 10/12/2014 [facility] Acetaminophen 325 MG Oral Tablet 650 mg=2 tab, PO, Q6H, Pain Score 1-3, # 24 tab, 0 Refill(s) On Hold 10/12/2014 [facility] temazepam 7.5 mg oral capsule 7.5 mg=1 cap, PO, Bedtime, Sleep, 0 Refill(s) On Hold 10/12/2014 [facility] pantoprazole 40 mg oral enteric coated tablet 40 mg=1 tab, PO, Before Dinner, 0 Refill(s) Inactive 10/12/2014 [facility] Nitroglycerin 0.4 MG Sublingual Tablet 0.4 mg=1 tab, SL, Q5Min, Chest Pain, 0 Refill(s) Inactive 10/12/2014 [facility] atorvastatin 40 mg oral tablet 40 mg=1 tab, PO, Bedtime, 0 Refill(s) Inactive 10/12/2014 [facility] Alprazolam 0.25 MG Oral Tablet [Xanax] 0.25 mg=1 tab, PO, Q6H, Anxiety, 0 Refill(s) Inactive 10/12/2014 [facility] Acetaminophen 325 MG Oral Tablet 650 mg=2 tab, PO, Q6H, Pain Score 1-3, 0 Refill(s) Inactive 10/12/2014 [facility] Protonix 40 mg, 1 tab, Route: PO, Drug form: ECTAB, Before Dinner, Dosing Weight 95.318, kg, Start date: 10/11/14 16:30:00, Duration: 30 day, Stop date: 11/09/14 16:30:00Notes: Tablet should not be chewed or crushed. (Same as: Protonix) No Longer Active 10/11/2014 [facility] Zofran 4 mg, 2 mL, Route: IV, Drug form: INJ, Q8H, Dosing Weight 95.318, kg, PRN Nausea, Start date: 10/11/14 11:09:00, Duration: 30 day, Stop date: 11/10/14 11:08:00Notes: (Same as: Zofran) No Longer Active 10/11/2014 [facility] Temazepam 7.5 mg, 1 cap, Route: PO, Drug form: CAP, Bedtime, Dosing Weight 95.318, kg, PRN Sleep, Start date: 10/11/14 10:29:00, Duration: 30 day, Stop date: 11/10/14 10:28:00Notes: (Same As: Restoril) No Longer Active 10/11/2014 [facility] Tylenol 650 mg, 2 tab, Route: PO, Drug form: TAB, Q6H, Dosing Weight 95.318, kg, PRN Pain Score 1-3, Start date: 10/11/14 10:29:00, Duration: 30 day, Stop date: 11/10/14 10:28:00Notes: Do not exceed 4 gm/day. (Same as: Tylenol) No Longer Active 10/11/2014 [facility] Escitalopram 10 mg, 1 tab, Route: PO, Drug form: TAB, Bedtime, Dosing Weight 95.318, kg, Start date: 10/10/14 21:00:00, Duration: 30 day, Stop date: 11/08/14 21:00:00Notes: (Same as: Lexapro) No Longer Active 10/11/2014 [facility] atorvastatin 20 mg, Route: PO, Drug form: TAB, Bedtime, Dosing Weight 95.318, kg, Start date: 10/09/14 21:00:00, Duration: 30 day, Stop date: 11/07/14 21:00:00 Inactive 10/10/2014 [facility] Alprazolam 0.25 MG Oral Tablet [Xanax] 0.25 mg, 1 tab, Route: PO, Drug form: TAB, Q6H, Dosing Weight 95.318, kg, PRN Anxiety, Start date: 10/09/14 18:04:00, Duration: 30 day, Stop date: 11/08/14 18:03:00Notes: With food or milk (Same as: Xanax) No Longer Active 10/10/2014 [facility] Lisinopril 20 mg, 1 tab, Route: PO, Drug form: TAB, Daily, Dosing Weight 95.318, kg, Start date: 10/09/14 9:00:00, Duration: 30 day, Stop date: 11/07/14 9:00:00Notes: (Same as: Prinivil, Zestril) No Longer Active 10/09/2014 [facility] Levetiracetam 500 MG Oral Tablet 500 mg, 1 tab, Route: PO, Drug form: TAB, BID, Dosing Weight 95.318, kg, Start date: 10/09/14 9:00:00, Duration: 30 day, Stop date: 11/07/14 21:00:00Notes: (Same as:Keppra) No Longer Active 10/09/2014 [facility] glimepiride 4 mg, 1 tab, Route: PO, Drug form: TAB, Daily, Dosing Weight 95.318, kg, Start date: 10/09/14 9:00:00, Duration: 30 day, Stop date: 11/07/14 9:00:00Notes: (Same as: Amaryl) No Longer Active 10/09/2014 [facility] gabapentin 600 MG Oral Tablet 600 mg, 2 cap, Route: PO, Drug form: CAP, BID, Dosing Weight 95.318, kg, Start date: 10/09/14 9:00:00, Duration: 30 day, Stop date: 11/07/14 17:00:00Notes: (Same as: Neurontin) No Longer Active 10/09/2014 [facility] Escitalopram 10 mg, 1 tab, Route: PO, Drug form: TAB, Daily, Dosing Weight 95.318, kg, Start date: 10/09/14 9:00:00, Duration: 30 day, Stop date: 11/07/14 9:00:00Notes: (Same as: Lexapro) Inactive 10/09/2014 [facility] clopidogrel 75 mg, 1 tab, Route: PO, Drug form: TAB, Daily, Dosing Weight 95.318, kg, Start date: 10/09/14 9:00:00, Duration: 30 day, Stop date: 11/07/14 9:00:00Notes: (Same As: Plavix) No Longer Active 10/09/2014 [facility] Saline Flush 0.9% 10 ml, Route: IVP, Drug Form: INJ, Dosing Weight 95.318, kg, Q12H, Start date: 10/09/14 9:00:00, Duration: 30 day, Stop date: 11/07/14 21:00:00Notes: (Same as: BD Posiflush) No Longer Active 10/09/2014 [facility] Aspirin 325 MG Enteric Coated Tablet 325 mg, 1 tab, Route: PO, Drug form: ECTAB, Daily, Dosing Weight 95.318, kg, Start date: 10/09/14 2:54:00, Duration: 30 day, Stop date: 11/07/14 9:00:00Notes: (Do Not Crush) Do not crush or chew. No Longer Active 10/09/2014 [facility] Ativan 1 mg, 0.5 mL, Route: IVP, Drug form: INJ, ONCE, Dosing Weight 95.318, kg, PRN Anxiety, Start date: 10/09/14 2:46:00Notes: (Same as: Ativan) Inactive 10/09/2014 [facility] Saline Flush 0.9% 10 ml, Route: IVP, Drug Form: INJ, Dosing Weight 95.318, kg, PRN, PRN Line Flush, Start date: 10/09/14 2:40:00, Duration: 30 day, Stop date: 11/08/14 2:39:00Notes: (Same as: BD Posiflush) No Longer Active 10/09/2014 [facility] Labetalol 10 mg, 2 mL, Route: IVP, Drug form: INJ, Q10Min, Dosing Weight 95.318, kg, PRN Hypertension, Start date: 10/09/14 2:40:00, Duration: 30 day, Stop date: 11/08/14 2:39:00, For SBP > 180mmHg and/or DBP > 105mmHgNotes: (Same as: Normodyne, Trandate) Push over 2 minutes Give bolus over 2-3 minutes. No Longer Active 10/09/2014 [facility] Nitroglycerin 0.4 MG Sublingual Tablet 0.4 mg, 1 tab, Route: SL, Drug form: TAB, Q5Min, Dosing Weight 95.318, kg, PRN Chest Pain, Start date: 10/09/14 2:39:00, Duration: 30 day, Stop date: 11/08/14 2:38:00Notes: (Same as:Nitroquick, Nitrostat) "Do Not Crush" Sublingual tablet No Longer Active 10/09/2014 [facility] Atropine 0.5 mg, 5 mL, Route: IVP, Drug form: INJ, PRN, Dosing Weight 95.318, kg, PRN Bradycardia, Start date: 10/09/14 2:39:00, Duration: 30 day, Stop date: 11/08/14 2:38:00 No Longer Active 10/09/2014 [facility] Insulin, Aspart, Human 1 unit, 0.01 mL, [...] days from Date No Longer Active 10/09/2014 [facility] Glucagon 1 mg, Route: IM, Drug form: PDR/INJ, PRN, Dosing Weight 95.318, kg, PRN Blood Glucose Results, Start date: 10/09/14 2:35:00, Duration: 30 day, Stop date: 11/08/14 2:34:00 No Longer Active 10/09/2014 [facility] Dextrose 50% Syringe 25 gm, 50 mL, Route: IVP, Drug Form: INJ, Dosing Weight 95.318, kg, PRN, PRN Blood Glucose Results, Start date: 10/09/14 2:35:00, Duration: 30 day, Stop date: 11/08/14 2:34:00 No Longer Active 10/09/2014 [facility] glimepiride 4 mg oral tablet 4 mg=1 tab, PO, Daily, # 90 tab, 0 Refill(s) No Longer Active 10/09/2014 [facility] escitalopram 10 mg oral tablet 10 mg=1 tab, PO, Daily, # 90 tab, 0 Refill(s) No Longer Active 10/09/2014 [facility] Levetiracetam 500 MG Oral Tablet 500 mg=1 tab, PO, BID, # 120 tab, 0 Refill(s) No Longer Active 10/09/2014 [facility] lisinopril 20 mg oral tablet 20 mg=1 tab, PO, Daily, # 90 tab, 0 Refill(s) No Longer Active 10/09/2014 [facility] clopidogrel 75 mg oral tablet 75 mg=1 tab, PO, Daily, # 90 tab, 0 Refill(s) No Longer Active 10/09/2014 [facility] gabapentin 600 MG Oral Tablet 600 mg=1 tab, PO, BID, # 90 tab, 0 Refill(s) No Longer Active 10/09/2014 [facility] Buspirone Hcl 10 Mg Tablet, 10 Mg Oral Twice A Day Active 04/30/2014 [facility] Sulfamethoxazole/Trimethoprim (Bactrim Ds Tablet) 1 Each Tablet, 1 Tab Oral Twice A Day Active 06/19/2013 [facility] Acetaminophen With Codeine (Tylenol With Codeine #3 Tablet) 1 Each Tablet Daily as needed for Pain Active [facility] Clopidogrel Bisulfate (Plavix) 75 Mg Tablet Daily Active [facility] Escitalopram Oxalate (Lexapro) 10 Mg Tablet Daily Active [facility] Gabapentin 600 Mg Tablet Twice A Day Active [facility] Glimepiride 4 Mg Tablet Daily Active [facility] Hydralazine Hcl 25 Mg Tab Three Times A Day Active [facility] Insulin Detemir (Levemir) 100 Unit/1 Ml Vial Active [facility] Levetiracetam 500 Mg Tablet Twice A Day Active [facility] Lisinopril 10 Mg Tablet Daily Active [facility] Magnesium Oxide (Magnesium) 500 Mg Capsule Daily Active [facility] Montelukast Sodium (Singulair) 10 Mg Tablet Daily Active [facility] Pantoprazole Sodium 20 Mg Tablet.dr Eng Active [facility] Sucralfate 1 Gm Tablet Twice A Day Active [facility] Allergies, Adverse Reactions, Alerts Substance Category Reaction Severity Reaction type Status Date Reported Comments Source seafood Unknown Allergy to Substance Active 06/20/2013 [facility] Iodine Allergy to Substance Active 04/30/2014 [facility] [place] Allergy to Substance Active 04/30/2014 [facility] shellfish derived Allergy to Substance Active 04/30/2014 [facility] iodine topical Assertion Drug allergy Active [facility] Immunizations No Data Provided for This Section Results Order Name Results Value Reference Range Date Interpretation Comments Source CHEM PANEL eGFR 76 02/07/2019 Result Comment: The eGFR is calculated using [...] should be multiplied by the estimated BMI. [facility] CHEM PANEL Creatinine Lvl 0.82 0.50 - 1.40 02/07/2019 [facility] CHEM PANEL BUN 31 7 - 22 02/07/2019 [facility] CHEM PANEL Glucose Lvl 167 70 - 99 02/07/2019 [facility] CHEM PANEL Chloride Lvl 113 95 - 109 02/07/2019 [facility] CHEM PANEL Potassium Lvl 4.7 3.5 - 5.1 02/07/2019 [facility] CHEM PANEL Sodium Lvl 141 135 - 145 02/07/2019 [facility] CHEM PANEL Calcium Lvl 8.1 8.5 - 10.5 02/07/2019 [facility] CHEM PANEL CO2 22 24 - 32 02/07/2019 [facility] CHEM PANEL AGAP 10.7 10.0 - 20.0 02/07/2019 [facility] CHEM PANEL Magnesium Lvl 1.8 1.8 - 2.4 02/07/2019 [facility] HEMATOLOGY Segs 60.8 45.0 - 75.0 02/07/2019 [facility] HEMATOLOGY Monocytes 9.2 2.0 - 12.0 02/07/2019 [facility] HEMATOLOGY Basophils 1.3 0.0 - 1.0 02/07/2019 [facility] HEMATOLOGY Neutrophils # 3.5 1.5 - 8.1 02/07/2019 [facility] HEMATOLOGY Eosinophils 4.7 0.0 - 4.0 02/07/2019 [facility] HEMATOLOGY Lymphocytes 24.0 20.0 - 40.0 02/07/2019 [facility] HEMATOLOGY Monocytes # 0.5 0.0 - 0.8 02/07/2019 [facility] HEMATOLOGY Lymphocytes # 1.4 1.0 - 5.5 02/07/2019 [facility] HEMATOLOGY Basophils # 0.1 0.0 - 0.2 02/07/2019 [facility] HEMATOLOGY Eosinophils # 0.3 0.0 - 0.5 02/07/2019 [facility] HEMATOLOGY WBC 5.8 3.7 - 10.4 02/07/2019 [facility] MCH 27.9 27.0 - 31.0 02/07/2019 [facility] MCV 83.4 80.0 - 98.0 02/07/2019 [facility] Hct 24.5 36.0 - 48.0 02/07/2019 [facility] RBC 2.93 4.20 - 5.40 02/07/2019 [facility] Hgb 8.2 12.0 - 16.0 02/07/2019 [facility] MPV 8.0 7.4 - 10.4 02/07/2019 [facility] Platelet 249 133 - 450 02/07/2019 [facility] MCHC 33.5 32.0 - 36.0 02/07/2019 [facility] RDW 16.4 11.5 - 14.5 02/07/2019 [facility] CHEM PANEL Magnesium Lvl 1.7 1.8 - 2.4 02/06/2019 [facility] CHEM PANEL Glucose Lvl 173 70 - 99 02/06/2019 [facility] CHEM PANEL Creatinine Lvl 0.78 0.50 - 1.40 02/06/2019 [facility] CHEM PANEL Sodium Lvl 141 135 - 145 02/06/2019 [facility] CHEM PANEL Potassium Lvl 4.8 3.5 - 5.1 02/06/2019 [facility] CHEM PANEL Chloride Lvl 113 95 - 109 02/06/2019 [facility] CHEM PANEL BUN 32 7 - 22 02/06/2019 [facility] [facility] CHEM PANEL Calcium Lvl 8.0 8.5 - 10.5 02/06/2019 [facility] CHEM PANEL AGAP 13.8 10.0 - 20.0 02/06/2019 [facility] CHEM PANEL eGFR 81 02/06/2019 Result Comment: The eGFR is calculated using [...] should be multiplied by the estimated BMI. [facility] CHEM PANEL CO2 19 24 - 32 02/06/2019 [facility] HEMATOLOGY Hct 26.9 36.0 - 48.0 02/06/2019 [facility] HEMATOLOGY Hgb 8.9 12.0 - 16.0 02/06/2019 [facility] CHEM PANEL Magnesium Lvl 2.0 1.8 - 2.4 02/05/2019 [facility] ELECTROLYTES AGAP 12.1 10.0 - 20.0 02/05/2019 [facility] ELECTROLYTES eGFR 75 02/05/2019 Result Comment: The eGFR is calculated using [...] should be multiplied by the estimated BMI. [facility] ELECTROLYTES Calcium Lvl 8.0 8.5 - 10.5 02/05/2019 [facility] ELECTROLYTES Chloride Lvl 113 95 - 109 02/05/2019 [facility] ELECTROLYTES CO2 22 24 - 32 02/05/2019 [facility] ELECTROLYTES Sodium Lvl 142 135 - 145 02/05/2019 [facility] ELECTROLYTES Potassium Lvl 5.1 3.5 - 5.1 02/05/2019 [facility] ELECTROLYTES Creatinine Lvl 0.83 0.50 - 1.40 02/05/2019 [facility] ELECTROLYTES BUN 30 7 - 22 02/05/2019 [facility] ELECTROLYTES Glucose Lvl 144 70 - 99 02/05/2019 [facility] Hgb 8.2 12.0 - 16.0 02/05/2019 [facility] Hct 24.6 36.0 - 48.0 02/05/2019 [facility] MCH 27.8 27.0 - 31.0 02/02/2019 [facility] MCV 82.6 80.0 - 98.0 02/02/2019 [facility] MCHC 33.7 32.0 - 36.0 02/02/2019 [facility] RDW 15.8 11.5 - 14.5 02/02/2019 [facility] Platelet 262 133 - 450 02/02/2019 [facility] MPV 8.1 7.4 - 10.4 02/02/2019 [facility] RBC 2.92 4.20 - 5.40 02/02/2019 [facility] WBC 6.2 3.7 - 10.4 02/02/2019 [facility] Monocytes # 0.5 0.0 - 0.8 02/02/2019 [facility] Lymphocytes # 1.5 1.0 - 5.5 02/02/2019 [facility] Eosinophils # 0.6 0.0 - 0.5 02/02/2019 [facility] Basophils 1.3 0.0 - 1.0 02/02/2019 [facility] Neutrophils # 3.6 1.5 - 8.1 02/02/2019 [facility] Basophils # 0.1 0.0 - 0.2 02/02/2019 [facility] Segs 57.5 45.0 - 75.0 02/02/2019 [facility] HEMATOLOGY Monocytes 7.9 2.0 - 12.0 02/02/2019 [facility] HEMATOLOGY Eosinophils 9.4 0.0 - 4.0 02/02/2019 [facility] HEMATOLOGY Lymphocytes 23.9 20.0 - 40.0 02/02/2019 [facility] MPV 7.9 7.4 - 10.4 02/01/2019 [facility] Platelet 223 133 - 450 02/01/2019 [facility] HEMATOLOGY MCH 27.0 27.0 - 31.0 02/01/2019 [facility] MCV 82.6 80.0 - 98.0 02/01/2019 [facility] RDW 15.9 11.5 - 14.5 02/01/2019 [facility] MCHC 32.7 32.0 - 36.0 02/01/2019 [facility] WBC 6.5 3.7 - 10.4 02/01/2019 [facility] RBC 2.82 4.20 - 5.40 02/01/2019 [facility] HEMATOLOGY Eosinophils # 0.6 0.0 - 0.5 01/31/2019 [facility] Basophils 1.0 0.0 - 1.0 01/31/2019 [facility] HEMATOLOGY Eosinophils 7.4 0.0 - 4.0 01/31/2019 [facility] Neutrophils # 4.8 1.5 - 8.1 01/31/2019 [facility] Segs 61.2 45.0 - 75.0 01/31/2019 [facility] Lymphocytes 22.4 20.0 - 40.0 01/31/2019 [facility] HEMATOLOGY Monocytes 8.0 2.0 - 12.0 01/31/2019 [facility] Monocytes # 0.6 0.0 - 0.8 01/31/2019 [facility] Lymphocytes # 1.8 1.0 - 5.5 01/31/2019 [facility] Basophils # 0.1 0.0 - 0.2 01/31/2019 [facility] BLOOD BANK RESULTS RBC product Product available 4 (01/30/19 1:40 PM) 01/30/2019 Result Comment: 01/30/2019 13:52 [id number]
KLS notified Jacy 01/30/2019 13:51 [facility] CHEM PANEL Lactic Acid Lvl 0.6 0.5 - 2.2 01/30/2019 [facility] URINE AND STOOL UA Blood Negative (01/30/19 2:54 AM) Negative 01/30/2019 [facility] URINE AND STOOL UA Ketones Negative mg/dL Negative mg/dL 01/30/2019 [facility] URINE AND STOOL UA Bili Negative *NA* (01/30/19 2:54 AM) Negative 01/30/2019 [facility] URINE AND STOOL UA Leuk Est Negative (01/30/19 2:54 AM) Negative 01/30/2019 [facility] URINE AND STOOL UA Nitrite Negative (01/30/19 2:54 AM) Negative 01/30/2019 [facility] URINE AND STOOL UA Mucus Few /LPF None Seen /LPF 01/30/2019 [facility] URINE AND STOOL UA RBC <1 0 - 2 01/30/2019 [facility] URINE AND STOOL UA WBC 1 0 - 5 01/30/2019 [facility] URINE AND STOOL UA Turbidity Clear (01/30/19 2:54 AM) Clear 01/30/2019 [facility] URINE AND STOOL UA Sq Epi None Seen 01/30/2019 [facility] URINE AND STOOL UA Urobilinogen <=1.0 mg/dL 0.1 - 1.0 01/30/2019 [facility] URINE AND STOOL UA Color Ltyellow 01/30/2019 [facility] URINE AND STOOL UA Spec Grav 1.015 <=1.030 01/30/2019 [facility] URINE AND STOOL UA Protein Negative mg/dL Negative mg/dL 01/30/2019 [facility] URINE AND STOOL UA Glucose Negative mg/dL Negative mg/dL 01/30/2019 [facility] URINE AND STOOL UA pH 5.0 5.0 - 8.0 01/30/2019 [facility] BLOOD BANK RESULTS RBC product Product available 5 (01/29/19 10:11 PM) 01/30/2019 Result Comment: 01/29/2019 22:28 [id number]
KLS notified Tiffany 01/29/2019 22:28 [facility] URINE AND STOOL Occult Bld Stl Positive *ABN* (01/29/19 10:09 PM) Negative 01/30/2019 [facility] CARDIAC ENZYMES Troponin-I 0.35 0.00 - 0.40 01/30/2019 [facility] CARDIAC ENZYMES Total CK 66 12 - 191 01/30/2019 [facility] CHEM PANEL Procalcitonin Lvl <0.05 0.00 - 0.10 01/30/2019 [facility] CHEM PANEL B/C Ratio 59 6 - 25 01/30/2019 [facility] CHEM PANEL Globulin 3.4 2.7 - 4.2 01/30/2019 [facility] CHEM PANEL A/G Ratio 0.7 0.7 - 1.6 01/30/2019 [facility] CHEM PANEL Albumin Lvl 2.4 3.5 - 5.0 01/30/2019 [facility] CHEM PANEL AST 19 0 - 37 01/30/2019 [facility] CHEM PANEL Alk Phos 46 39 - 136 01/30/2019 [facility] CHEM PANEL ALT 8 0 - 65 01/30/2019 [facility] CHEM PANEL Bili Total 0.2 0.2 - 1.3 01/30/2019 [facility] CHEM PANEL Total Protein 5.8 6.4 - 8.4 01/30/2019 [facility] CHEM PANEL Lactic Acid Lvl 3.0 0.5 - 2.2 01/30/2019 [facility] BLOOD BANK RESULTS ABO/Rh A NEG 01/30/2019 [facility] BLOOD BANK RESULTS Antibody Scrn Negative (01/29/19 9:38 PM) 01/30/2019 [facility] HEMATOLOGY Giant Plt Moderate *ABN* (01/29/19 9:37 PM) None Seen 01/30/2019 [facility] HEMATOLOGY Plt Morph See Note (01/29/19 9:37 PM) Normal 01/30/2019 [facility] HEMATOLOGY RBC Morph Normal (01/29/19 9:37 PM) Normal 01/30/2019 [facility] HEMATOLOGY INR 1.09 0.85 - 1.17 01/30/2019 [facility] HEMATOLOGY PT 13.9 12.0 - 14.7 01/30/2019 [facility] HEMATOLOGY PTT 20.0 22.9 - 35.8 01/30/2019 Result Comment: Result did not cross to the que. [facility] ELECTROLYTES AGAP 12.3 10.0 - 20.0 01/22/2019 [facility] ELECTROLYTES eGFR 74 01/22/2019 Result Comment: The eGFR is calculated using [...] should be multiplied by the estimated BMI. [facility] ELECTROLYTES Glucose Lvl 136 70 - 99 01/22/2019 [facility] ELECTROLYTES BUN 41 7 - 22 01/22/2019 [facility] ELECTROLYTES Potassium Lvl 4.3 3.5 - 5.1 01/22/2019 [facility] ELECTROLYTES Creatinine Lvl 0.84 0.50 - 1.40 01/22/2019 [facility] ELECTROLYTES Sodium Lvl 140 135 - 145 01/22/2019 [facility] ELECTROLYTES Chloride Lvl 107 95 - 109 01/22/2019 [facility] ELECTROLYTES Calcium Lvl 8.9 8.5 - 10.5 01/22/2019 [facility] ELECTROLYTES CO2 25 24 - 32 01/22/2019 [facility] HEMATOLOGY Platelet 320 133 - 450 01/22/2019 [facility] MPV 8.0 7.4 - 10.4 01/22/2019 [facility] MCH 27.1 27.0 - 31.0 01/22/2019 [facility] MCHC 33.0 32.0 - 36.0 01/22/2019 [facility] RDW 14.4 11.5 - 14.5 01/22/2019 [facility] RBC 3.67 4.20 - 5.40 01/22/2019 [facility] WBC 8.1 3.7 - 10.4 01/22/2019 [facility] MCV 82.3 80.0 - 98.0 01/22/2019 [facility] Hgb 10.0 12.0 - 16.0 01/22/2019 [facility] Hct 30.2 36.0 - 48.0 01/22/2019 [facility] HEMATOLOGY Basophils 1.0 0.0 - 1.0 01/22/2019 [facility] Neutrophils # 5.1 1.5 - 8.1 01/22/2019 [facility] Eosinophils 6.5 0.0 - 4.0 01/22/2019 [facility] Monocytes 8.6 2.0 - 12.0 01/22/2019 [facility] RBC Morph Normal (01/22/19 6:53 AM) Normal 01/22/2019 [facility] HEMATOLOGY Segs 63.0 45.0 - 75.0 01/22/2019 [facility] HEMATOLOGY Plt Morph Normal (01/22/19 6:53 AM) Normal 01/22/2019 [facility] HEMATOLOGY Lymphocytes 20.9 20.0 - 40.0 01/22/2019 [facility] HEMATOLOGY Basophils # 0.1 0.0 - 0.2 01/22/2019 [facility] HEMATOLOGY Eosinophils # 0.5 0.0 - 0.5 01/22/2019 [facility] HEMATOLOGY Monocytes # 0.7 0.0 - 0.8 01/22/2019 [facility] HEMATOLOGY Lymphocytes # 1.7 1.0 - 5.5 01/22/2019 [facility] IMMUNOLOGY Prealbumin 9.0 18.0 - 45.0 01/21/2019 [facility] CHEM PANEL eGFR 68 01/20/2019 Result Comment: The eGFR is calculated using [...] should be multiplied by the estimated BMI. [facility] CHEM PANEL Chloride Lvl 110 95 - 109 01/20/2019 [facility] CHEM PANEL Calcium Lvl 8.6 8.5 - 10.5 01/20/2019 [facility] CHEM PANEL CO2 25 24 - 32 01/20/2019 [facility] CHEM PANEL Potassium Lvl 5.0 3.5 - 5.1 01/20/2019 [facility] CHEM PANEL Creatinine Lvl 0.90 0.50 - 1.40 01/20/2019 [facility] CHEM PANEL BUN 48 7 - 22 01/20/2019 [facility] CHEM PANEL Sodium Lvl 140 135 - 145 01/20/2019 [facility] CHEM PANEL Glucose Lvl 125 70 - 99 01/20/2019 [facility] CHEM PANEL AGAP 10.0 10.0 - 20.0 01/20/2019 [facility] HEMATOLOGY Basophils 1.0 0.0 - 1.0 01/20/2019 [facility] HEMATOLOGY Monocytes 9.5 2.0 - 12.0 01/20/2019 [facility] HEMATOLOGY Segs 66.8 45.0 - 75.0 01/20/2019 [facility] HEMATOLOGY Eosinophils 6.2 0.0 - 4.0 01/20/2019 [facility] HEMATOLOGY Eosinophils # 0.4 0.0 - 0.5 01/20/2019 [facility] Basophils # 0.1 0.0 - 0.2 01/20/2019 [facility] Lymphocytes # 1.0 1.0 - 5.5 01/20/2019 [facility] HEMATOLOGY Monocytes # 0.6 0.0 - 0.8 01/20/2019 [facility] Neutrophils # 3.9 1.5 - 8.1 01/20/2019 [facility] RBC Morph Normal (01/20/19 7:03 AM) Normal 01/20/2019 [facility] Lymphocytes 16.5 20.0 - 40.0 01/20/2019 [facility] Plt Morph Normal (01/20/19 7:03 AM) Normal 01/20/2019 [facility] MCH 27.7 27.0 - 31.0 01/20/2019 [facility] RDW 14.3 11.5 - 14.5 01/20/2019 [facility] MCHC 33.8 32.0 - 36.0 01/20/2019 [facility] MCV 82.0 80.0 - 98.0 01/20/2019 [facility] Hct 27.3 36.0 - 48.0 01/20/2019 [facility] Hgb 9.2 12.0 - 16.0 01/20/2019 [facility] Platelet 284 133 - 450 01/20/2019 [facility] MPV 8.0 7.4 - 10.4 01/20/2019 [facility] RBC 3.33 4.20 - 5.40 01/20/2019 [facility] WBC 5.9 3.7 - 10.4 01/20/2019 [facility] Sed Rate >100 mm/hr 0 - 20 01/19/2019 [facility] IMMUNOLOGY C-REACTIVE PROTEIN 159.0 <=2.9 mg/L 01/19/2019 [facility] PENICILLIN:SUSC:PT:ISOLATE:ORDQN:FELICIA Gram Stain Report Rare WBC's Rare Gram Positive Cocci In Pairs 01/19/2019 [facility] PENICILLIN:SUSC:PT:ISOLATE:ORDQN:FELICIA Culture: Wound/Abscess w/Gram Stain Many Staphylococcus aureus 01/19/2019 [facility] PENICILLIN:SUSC:PT:ISOLATE:ORDQN:FELICIA Staphylococcus aureus Staphylococcus aureus 01/19/2019 [facility] ELECTROLYTES Sodium Lvl 136 135 - 145 01/19/2019 [facility] ELECTROLYTES BUN 55 7 - 22 01/19/2019 [facility] ELECTROLYTES Creatinine Lvl 1.12 0.50 - 1.40 01/19/2019 [facility] ELECTROLYTES Glucose Lvl 140 70 - 99 01/19/2019 [facility] ELECTROLYTES eGFR 52 01/19/2019 Result Comment: The eGFR is calculated using [...] should be multiplied by the estimated BMI. [facility] ELECTROLYTES Calcium Lvl 8.3 8.5 - 10.5 01/19/2019 [facility] ELECTROLYTES AGAP 13.2 10.0 - 20.0 01/19/2019 [facility] ELECTROLYTES Chloride Lvl 106 95 - 109 01/19/2019 [facility] ELECTROLYTES Potassium Lvl 4.2 3.5 - 5.1 01/19/2019 [facility] ELECTROLYTES CO2 21 24 - 32 01/19/2019 [facility] HEMATOLOGY MCV 84.2 80.0 - 98.0 01/19/2019 [facility] HEMATOLOGY MCH 27.0 27.0 - 31.0 01/19/2019 [facility] HEMATOLOGY RBC 3.40 4.20 - 5.40 01/19/2019 [facility] HEMATOLOGY Hgb 9.2 12.0 - 16.0 01/19/2019 [facility] HEMATOLOGY RDW 14.2 11.5 - 14.5 01/19/2019 [facility] HEMATOLOGY Hct 28.7 36.0 - 48.0 01/19/2019 [facility] HEMATOLOGY WBC 6.4 3.7 - 10.4 01/19/2019 [facility] HEMATOLOGY MCHC 32.1 32.0 - 36.0 01/19/2019 [facility] HEMATOLOGY Platelet 259 133 - 450 01/19/2019 [facility] HEMATOLOGY MPV 8.0 7.4 - 10.4 01/19/2019 [facility] HEMATOLOGY Monocytes # 0.6 0.0 - 0.8 01/19/2019 [facility] HEMATOLOGY Lymphocytes # 1.0 1.0 - 5.5 01/19/2019 [facility] HEMATOLOGY Eosinophils # 0.2 0.0 - 0.5 01/19/2019 [facility] HEMATOLOGY Basophils 0.5 0.0 - 1.0 01/19/2019 [facility] HEMATOLOGY Neutrophils # 4.6 1.5 - 8.1 01/19/2019 [facility] HEMATOLOGY Lymphocytes 15.4 20.0 - 40.0 01/19/2019 [facility] HEMATOLOGY Monocytes 9.1 2.0 - 12.0 01/19/2019 [facility] HEMATOLOGY Eosinophils 3.4 0.0 - 4.0 01/19/2019 [facility] HEMATOLOGY Segs 71.6 45.0 - 75.0 01/19/2019 [facility] HEMATOLOGY PTT 79.7 22.9 - 35.8 01/19/2019 [facility] HEMATOLOGY PTT 74.7 22.9 - 35.8 01/19/2019 [facility] HEMATOLOGY PTT 59.6 22.9 - 35.8 01/18/2019 [facility] CHEM PANEL Globulin 3.8 2.7 - 4.2 01/17/2019 [facility] CHEM PANEL B/C Ratio 32 6 - 25 01/17/2019 [facility] CHEM PANEL AST 14 0 - 37 01/17/2019 [facility] CHEM PANEL Albumin Lvl 2.1 3.5 - 5.0 01/17/2019 [facility] CHEM PANEL ALT 15 0 - 65 01/17/2019 [facility] CHEM PANEL A/G Ratio 0.6 0.7 - 1.6 01/17/2019 [facility] CHEM PANEL Bili Total 0.4 0.2 - 1.3 01/17/2019 [facility] CHEM PANEL Alk Phos 61 39 - 136 01/17/2019 [facility] CHEM PANEL Total Protein 5.9 6.4 - 8.4 01/17/2019 [facility] CHEM PANEL LDH 348 98 - 192 01/16/2019 [facility] HEMATOLOGY Sed Rate 74 0 - 20 01/16/2019 [facility] IMMUNOLOGY C-REACTIVE PROTEIN 157.0 <=2.9 mg/L 01/16/2019 [facility] BACTERIAL - SEROLOGY Strep pneumoniae Ag Negative (01/16/19 4:10 PM) Negative 01/16/2019 [facility] BACTERIAL - SEROLOGY Source Strep Urine *NA* (01/16/19 4:10 PM) 01/16/2019 [facility] CARDIAC ENZYMES Troponin-I 3.30 0.00 - 0.40 01/16/2019 Result Comment: Critical Result(s) called to Jayant Hou at 01/16/2019 04:55 mfb_ by_. Read back OK. [facility] HEMATOLOGY Basophils # 0.1 0.0 - 0.2 01/16/2019 [facility] HEMATOLOGY INR 1.21 0.85 - 1.17 01/16/2019 [facility] HEMATOLOGY PT 15.1 12.0 - 14.7 01/16/2019 [facility] CARDIAC ENZYMES Troponin-I 2.90 0.00 - 0.40 01/16/2019 Result Comment: Critical Result(s) called to Jayant Hou_ at 01/15/2019 23:42 mfb_ by_. Read back OK.

of for the nurse to release the result, she will reorder a new [facility]01/15/2019 23:46 [facility] URINE AND STOOL UA RBC 0-2 /HPF 0 - 2 01/16/2019 [facility] URINE AND STOOL UA Bacteria Moderate /HPF None Seen /HPF 01/16/2019 [facility] URINE AND STOOL UA Leuk Est Large *ABN* (01/15/19 7:38 PM) Negative 01/16/2019 [facility] URINE AND STOOL UA WBC 51-100 /HPF 0 - 5 01/16/2019 [facility] URINE AND STOOL UA Sq Epi Moderate /LPF Few /LPF 01/16/2019 [facility] URINE AND STOOL UA Glucose Negative (01/15/19 7:38 PM) Negative 01/16/2019 [facility] URINE AND STOOL UA Protein 100 mg/dL Negative mg/dL 01/16/2019 [facility] URINE AND STOOL UA pH 5.5 5.0 - 8.0 01/16/2019 [facility] URINE AND STOOL UA Urobilinogen 0.2 0.1 - 1.0 01/16/2019 [facility] URINE AND STOOL UA Blood Negative (01/15/19 7:38 PM) Negative 01/16/2019 [facility] URINE AND STOOL UA Nitrite Negative (01/15/19 7:38 PM) Negative 01/16/2019 [facility] URINE AND STOOL UA Ketones Trace *ABN* (01/15/19 7:38 PM) Negative 01/16/2019 [facility] URINE AND STOOL UA Bili Negative *NA* (01/15/19 7:38 PM) Negative 01/16/2019 [facility] URINE AND STOOL UA Turbidity Clear (01/15/19 7:38 PM) Clear 01/16/2019 [facility] URINE AND STOOL UA Spec Grav 1.025 <=1.030 01/16/2019 [facility] URINE AND STOOL UA Color Yellow *NA* (01/15/19 7:38 PM) Yellow 01/16/2019 [facility] CHEM PANEL Lactic Acid Lvl 1.6 0.5 - 2.2 01/15/2019 [facility] MOLECULAR DIAGNOSTIC RSV PCR Negative (01/15/19 6:28 PM) Negative 01/15/2019 [facility] MOLECULAR DIAGNOSTIC Influenza B PCR Negative (01/15/19 6:28 PM) Negative 01/15/2019 [facility] Source Respiratory Panel PCR [employer] Swab (01/15/19 6:28 PM) 01/15/2019 [facility] MOLECULAR DIAGNOSTIC Influenza A PCR Negative (01/15/19 6:28 PM) Negative 01/15/2019 [facility] RAPID Grp A Strep Scr Negative (01/15/19 6:28 PM) Negative 01/15/2019 [facility] VIRAL - SEROLOGY Influ A Negative (01/15/19 6:28 PM) Negative 01/15/2019 [facility] VIRAL - SEROLOGY Influ B Negative (01/15/19 6:28 PM) Negative 01/15/2019 [facility] CARDIAC ENZYMES BNP 152 <=100 pg/mL 01/15/2019 [facility] CARDIAC ENZYMES Troponin-I 0.05 0.00 - 0.40 01/15/2019 [facility] CARDIAC ENZYMES Total CK 99 12 - 191 01/15/2019 [facility] CHEM PANEL Lipase Lvl 173 73 - 393 01/15/2019 [facility] CHEM PANEL Lactic Acid Lvl 1.6 0.5 - 2.2 01/15/2019 [facility] CHEM PANEL Globulin 4.3 2.7 - 4.2 01/15/2019 [facility] CHEM PANEL A/G Ratio 0.7 0.7 - 1.6 01/15/2019 [facility] CHEM PANEL B/C Ratio 23 6 - 25 01/15/2019 [facility] CHEM PANEL Total Protein 7.1 6.4 - 8.4 01/15/2019 [facility] CHEM PANEL ALT 19 0 - 65 01/15/2019 [facility] CHEM PANEL AST 15 0 - 37 01/15/2019 [facility] CHEM PANEL Albumin Lvl 2.8 3.5 - 5.0 01/15/2019 [facility] CHEM PANEL Alk Phos 73 39 - 136 01/15/2019 [facility] CHEM PANEL Bili Total 0.4 0.2 - 1.3 01/15/2019 [facility] HEMATOLOGY PT 13.2 12.0 - 14.7 01/15/2019 [facility] HEMATOLOGY INR 1.02 0.85 - 1.17 01/15/2019 [facility] vanB Vancomycin Resistance Not Detected (01/15/19 6:19 PM) Not Detected 01/15/2019 [facility] DIAGNOSTIC Staphylococcus spp. Detected *ABN* (01/15/19 6:19 PM) Not Detected 01/15/2019 [facility] E. faecalis Not Detected (01/15/19 6:19 PM) Not Detected 01/15/2019 [facility] DIAGNOSTIC E. faecium Not Detected (01/15/19 6:19 PM) Not Detected 01/15/2019 [facility] Streptococcus spp. Not Detected (01/15/19 6:19 PM) Not Detected 01/15/2019 [facility] DIAGNOSTIC S. pyogenes Not Detected (01/15/19 6:19 PM) Not Detected 01/15/2019 [facility] S. pneumoniae Not Detected (01/15/19 6:19 PM) Not Detected 01/15/2019 [facility] DIAGNOSTIC Eyad Vancomycin Resistance Not Detected (01/15/19 6:19 PM) Not Detected 01/15/2019 [facility] DIAGNOSTIC Listeria spp. Not Detected (01/15/19 6:19 PM) Not Detected 01/15/2019 [facility] mecA Methicillin Resistance Not Detected (01/15/19 6:19 PM) Not Detected 01/15/2019 [facility] S. aureus Detected *ABN* (01/15/19 6:19 PM) Not Detected 01/15/2019 [facility] S. agalactiae Not Detected (01/15/19 6:19 PM) Not Detected 01/15/2019 [facility] S. anginosus grp Not Detected (01/15/19 6:19 PM) Not Detected 01/15/2019 [facility] S. lugdunensis Not Detected (01/15/19 6:19 PM) Not Detected 01/15/2019 [facility] S. epidermidis Not Detected (01/15/19 6:19 PM) Not Detected 01/15/2019 [facility] Capillary blood glucose measurement by glucometer (mass/volume) 147 70 - 120 09/17/2018 [facility] Blood leukocytes automated count (number/volume) 9.24 4.8 - 10.8 09/14/2018 [facility] Blood erythrocytes automated count (number/volume) 4.23 3.6 - 5.1 09/14/2018 [facility] Blood hemoglobin measurement (moles/volume) 11.9 12.0 - 16.0 09/14/2018 [facility] Automated blood hematocrit (volume fraction) 35.9 34.2 - 44.1 09/14/2018 [facility] Automated erythrocyte mean corpuscular volume 84.9 81 - 99 09/14/2018 [facility] Automated erythrocyte mean corpuscular hemoglobin (mass per erythrocyte) 28.1 28 - 32 09/14/2018 [facility] Automated erythrocyte mean corpuscular hemoglobin concentration measurement (mass/volume) 33.1 31 - 35 09/14/2018 [facility] RDW BldCo-Rto 13.7 11.7 - 14.4 09/14/2018 [facility] Automated blood platelet count (count/volume) 266 140 - 360 09/14/2018 [facility] Automated blood segmented neutrophil count as percentage of total leukocytes 67.8 38.7 - 80.0 09/14/2018 [facility] Automated blood lymphocyte count as percentage ot total leukocytes 20.3 18.0 - 39.1 09/14/2018 [facility] Automated blood monocyte count as percentage of total leukocytes 9.5 4.4 - 11.3 09/14/2018 [facility] Automated blood eosinophil count as percentage of total leukocytes 1.4 0.0 - 6.0 09/14/2018 [facility] Automated blood basophil count as percentage of total leukocytes 0.6 0.0 - 1.0 09/14/2018 [facility] IM GRANULOCYTES % 0.4 0.0 - 1.0 09/14/2018 [facility] Automated blood neutrophil count 6.3 2.1 - 6.9 09/14/2018 [facility] Blood lymphocytes count (number/volume) 1.9 1.0 - 3.2 09/14/2018 [facility] Blood monocytes automated count (number/volume) 0.9 0.2 - 0.8 09/14/2018 [facility] Automated blood eosinophil count 0.1 0.0 - 0.4 09/14/2018 [facility] Automated blood basophil count (count/volume) 0.1 0.0 - 0.1 09/14/2018 [facility] Absolute Immature Granulocyte (auto 0.04 0 - 0.1 09/14/2018 [facility] Serum or plasma sodium measurement (moles/volume) 135 136 - 145 09/14/2018 [facility] Serum or plasma potassium measurement (moles/volume) 5.0 3.5 - 5.1 09/14/2018 [facility] Serum or plasma chloride measurement (moles/volume) 105 98 - 107 09/14/2018 [facility] Serum or plasma carbon dioxide, total measurement (moles/volume) 22 22 - 29 09/14/2018 [facility] Serum or plasma anion gap 13.0 8 - 16 09/14/2018 [facility] Serum or plasma urea nitrogen measurement (mass/volume) 36 7 - 26 09/14/2018 [facility] Serum or plasma creatinine measurement (mass/volume) 0.96 0.57 - 1.11 09/14/2018 [facility] Serum or plasma urea nitrogen/creatinine mass ratio 38 6 - 25 09/14/2018 [facility] Estimated glomerular filtration rate (GFR) determination 59 60 09/14/2018 [facility] Glucose measurement 156 74 - 118 09/14/2018 [facility] Serum or plasma calcium measurement (mass/volume) 9.1 8.4 - 10.2 09/14/2018 [facility] Ammonia Ser-mCnc 39 31 - 123 09/14/2018 [facility] Serum or plasma magnesium measurement (mass/volume) 1.6 1.3 - 2.1 09/12/2018 [facility] Serum or plasma total bilirubin measurement (mass/volume) 0.8 0.2 - 1.2 09/12/2018 [facility] Aspartate Amino Transf (AST/SGOT) 17 5 - 34 09/12/2018 [facility] Serum or plasma alanine aminotransferase measurement (enzymatic activity/volume) 22 0 - 55 09/12/2018 [facility] Serum or plasma protein measurement (mass/volume) 7.1 6.5 - 8.1 09/12/2018 [facility] Serum or plasma albumin measurement (mass/volume) 3.3 3.5 - 5.0 09/12/2018 [facility] Plasma globulin measurement (mass/volume) 3.8 2.3 - 3.5 09/12/2018 [facility] Serum or plasma albumin/globulin mass ratio 0.9 0.8 - 2.0 09/12/2018 [facility] Serum or plasma alkaline phosphatase measurement (enzymatic activity/volume) 79 40 - 150 09/12/2018 [facility] Serum or plasma creatine kinase measurement (enzymatic activity/volume) 90 29 - 168 09/11/2018 [facility] Serum or plasma creatine kinase MB measurement (mass/volume) 2.90 0 - 5.0 09/11/2018 [facility] Troponin I measurement by highly sensitive enzyme immunoassay 0.064 0 - 0.300 09/11/2018 [facility] Prothrombin time (PT) in platelet poor plasma by coagulation assay 12.9 11.9 - 14.5 09/11/2018 [facility] INR in Platelet poor plasma by Coagulation assay 0.89 09/11/2018 [facility] Activated partial thromboplastin time (aPTT) in platelet poor plasma bycoagulation assay 24.3 23.8 - 35.5 09/11/2018 [facility] Hemoglobin A1c Percent 7.3 4.0 - 7.0 09/11/2018 [facility] Serum or plasma triglyceride measurement (mass/volume) 70 0 - 149 09/11/2018 [facility] Serum or plasma cholesterol measurement (mass/volume) 152 0 - 199 09/11/2018 [facility] Serum or plasma cholesterol in LDL measurement (mass/volume) 79 60 - 130 09/11/2018 [facility] Serum or plasma cholesterol in HDL measurement (mass/volume) 59 40 - 60 09/11/2018 [facility] Serum or plasma total cholesterol/cholesterol in HDL mass ratio 2.6 3.0 - 3.6 09/11/2018 [facility] Serum or plasma thyrotropin measurement by detection limit <=0.005 miu/l (units/volume) 0.394 0.350 - 4.940 09/11/2018 [facility] Urine color determination YELLOW YELLOW 09/10/2018 [facility] Urine clarity HAZY CLEAR 09/10/2018 [facility] Specific gravity of Urine by Test strip 1.030 1.010 - 1.025 09/10/2018 [facility] Urine pH measurement by automated test strip 5 5 - 7 09/10/2018 [facility] Urine leukocyte esterase detection by dipstick 1+ NEGATIVE 09/10/2018 [facility] Urine nitrite detection NEGATIVE NEGATIVE 09/10/2018 [facility] Urine protein measurement by test strip (mass/volume) 2+ NEGATIVE 09/10/2018 [facility] Urine glucose detection NEGATIVE NEGATIVE 09/10/2018 [facility] Urine ketones detection by automated test strip NEGATIVE NEGATIVE 09/10/2018 [facility] Urine urobilinogen measurement by test strip (mass/volume) 0.2 0.2 - 1 09/10/2018 [facility] Urine total bilirubin measurement (mass/volume) NEGATIVE NEGATIVE 09/10/2018 [facility] Urine erythrocytes detection TRACE NEGATIVE 09/10/2018 [facility] Automated urine sediment leukocyte count by microscopy (number/high power field) 11-20 0 - 5 09/10/2018 [facility] Erythrocytes detection in urine sediment by light microscopy 0-5 0 - 5 09/10/2018 [facility] Bacteria detection in urine sediment by light microscopy FEW NONE 09/10/2018 [facility] Epithelial cells detection in urine sediment by light microscopy FEW NONE 09/10/2018 [facility] Amorphous sediment detection in urine sediment by light microscopy FEW FEW 09/10/2018 [facility] Hyaline casts detection in urine sediment by light microscopy 0-1 0 - 1 09/10/2018 [facility] BLOOD BANK RESULTS Antibody Scrn Negative (01/14/18 3:59 AM) 01/14/2018 [facility] BLOOD BANK RESULTS ABO/Rh A NEG 01/14/2018 [facility] CHEM PANEL Lipase Lvl 76 73 - 393 01/14/2018 [facility] CHEM PANEL Alk Phos 73 39 - 136 01/14/2018 [facility] CHEM PANEL Bili Direct 0.1 0.0 - 0.3 01/14/2018 [facility] CHEM PANEL Bili Total 0.5 0.2 - 1.3 01/14/2018 [facility] CHEM PANEL ALT 24 0 - 65 01/14/2018 [facility] CHEM PANEL Bili Indirect 0.4 0.0 - 1.0 01/14/2018 [facility] CHEM PANEL AST 5 0 - 37 01/14/2018 [facility] CHEM PANEL Albumin Lvl 2.6 3.5 - 5.0 01/14/2018 [facility] CHEM PANEL Total Protein 7.5 6.4 - 8.4 01/14/2018 [facility] CHEM PANEL A/G Ratio 0.5 0.7 - 1.6 01/14/2018 [facility] CHEM PANEL Globulin 4.9 2.7 - 4.2 01/14/2018 [facility] CHEM PANEL Phosphorus 4.1 2.5 - 4.5 01/14/2018 [facility] CHEM PANEL Magnesium Lvl 1.6 1.8 - 2.4 01/14/2018 [facility] ELECTROLYTES AGAP 17.4 10.0 - 20.0 01/14/2018 [facility] ELECTROLYTES eGFR 46 01/14/2018 Result Comment: The eGFR is calculated [...] should be multiplied by the estimated BMI. [facility] ELECTROLYTES Calcium Lvl 8.6 8.5 - 10.5 01/14/2018 [facility] ELECTROLYTES Potassium Lvl 5.4 3.5 - 5.1 01/14/2018 [facility] ELECTROLYTES Creatinine Lvl 1.25 0.50 - 1.40 01/14/2018 [facility] ELECTROLYTES CO2 19 24 - 32 01/14/2018 [facility] ELECTROLYTES Chloride Lvl 105 95 - 109 01/14/2018 [facility] ELECTROLYTES BUN 32 7 - 22 01/14/2018 [facility] ELECTROLYTES Glucose Lvl 140 70 - 99 01/14/2018 [facility] ELECTROLYTES Sodium Lvl 136 135 - 145 01/14/2018 [facility] HEMATOLOGY RDW 15.0 11.5 - 14.5 01/14/2018 [facility] HEMATOLOGY MCH 27.5 27.0 - 31.0 01/14/2018 [facility] HEMATOLOGY Platelet 177 133 - 450 01/14/2018 [facility] HEMATOLOGY MCHC 32.6 32.0 - 36.0 01/14/2018 [facility] HEMATOLOGY MPV 8.6 7.4 - 10.4 01/14/2018 [facility] HEMATOLOGY Hgb 11.4 12.0 - 16.0 01/14/2018 [facility] HEMATOLOGY Hct 35.0 36.0 - 48.0 01/14/2018 [facility] HEMATOLOGY RBC 4.15 4.20 - 5.40 01/14/2018 [facility] HEMATOLOGY MCV 84.3 80.0 - 98.0 01/14/2018 [facility] HEMATOLOGY WBC 12.5 3.7 - 10.4 01/14/2018 [facility] HEMATOLOGY Segs 83.2 45.0 - 75.0 01/14/2018 [facility] HEMATOLOGY Lymphocytes 11.4 20.0 - 40.0 01/14/2018 [facility] HEMATOLOGY Basophils 0.3 0.0 - 1.0 01/14/2018 [facility] HEMATOLOGY Monocytes 5.1 2.0 - 12.0 01/14/2018 [facility] HEMATOLOGY Lymphocytes # 1.4 1.0 - 5.5 01/14/2018 [facility] HEMATOLOGY Monocytes # 0.6 0.0 - 0.8 01/14/2018 [facility] HEMATOLOGY Segs-Bands # 10.4 1.5 - 8.1 01/14/2018 [facility] PARATHYROID PROFILE Ca Norm WB 1.00 1.05 - 1.25 01/14/2018 [facility] PARATHYROID PROFILE Ca Ion WB 1.02 1.05 - 1.25 01/14/2018 [facility] ELECTROLYTES AGAP 13.6 10.0 - 20.0 01/05/2018 [facility] ELECTROLYTES eGFR 93 01/05/2018 Result Comment: The eGFR is calculated [...] should be multiplied by the estimated BMI. [facility] ELECTROLYTES BUN 22 7 - 22 01/05/2018 [facility] ELECTROLYTES Creatinine Lvl 0.69 0.50 - 1.40 01/05/2018 [facility] ELECTROLYTES CO2 27 24 - 32 01/05/2018 [facility] ELECTROLYTES Calcium Lvl 8.7 8.5 - 10.5 01/05/2018 [facility] ELECTROLYTES Potassium Lvl 5.6 3.5 - 5.1 01/05/2018 [facility] ELECTROLYTES Chloride Lvl 108 95 - 109 01/05/2018 [facility] ELECTROLYTES Sodium Lvl 143 135 - 145 01/05/2018 [facility] ELECTROLYTES Glucose Lvl 73 70 - 99 01/05/2018 [facility] HEMATOLOGY MPV 8.8 7.4 - 10.4 01/05/2018 [facility] HEMATOLOGY RDW 14.6 11.5 - 14.5 01/05/2018 [facility] HEMATOLOGY Platelet 222 133 - 450 01/05/2018 [facility] HEMATOLOGY Hct 38.4 36.0 - 48.0 01/05/2018 [facility] HEMATOLOGY Hgb 12.5 12.0 - 16.0 01/05/2018 [facility] HEMATOLOGY MCV 83.8 80.0 - 98.0 01/05/2018 [facility] HEMATOLOGY MCH 27.2 27.0 - 31.0 01/05/2018 [facility] HEMATOLOGY MCHC 32.5 32.0 - 36.0 01/05/2018 [facility] HEMATOLOGY RBC 4.58 4.20 - 5.40 01/05/2018 [facility] HEMATOLOGY WBC 11.9 3.7 - 10.4 01/05/2018 [facility] HEMATOLOGY Basophils # 0.1 0.0 - 0.2 01/05/2018 [facility] HEMATOLOGY Eosinophils # 0.2 0.0 - 0.5 01/05/2018 [facility] HEMATOLOGY Basophils 0.7 0.0 - 1.0 01/05/2018 [facility] HEMATOLOGY Segs-Bands # 8.6 1.5 - 8.1 01/05/2018 [facility] HEMATOLOGY Eosinophils 1.7 0.0 - 4.0 01/05/2018 [facility] HEMATOLOGY Lymphocytes 19.0 20.0 - 40.0 01/05/2018 [facility] HEMATOLOGY Monocytes 6.4 2.0 - 12.0 01/05/2018 [facility] HEMATOLOGY Segs 72.2 45.0 - 75.0 01/05/2018 [facility] HEMATOLOGY Lymphocytes # 2.3 1.0 - 5.5 01/05/2018 [facility] HEMATOLOGY Monocytes # 0.8 0.0 - 0.8 01/05/2018 [facility] SPECIAL CHEMISTRY Hgb A1C 7.1 <=5.6 % 01/05/2018 [facility] CHEM PANEL Vitamin D, 25-OH, Total 18 30 - 100 10/13/2014 <sup>3</sup>Interpretive Data: Reference range is based on recommendations in the End[employer]
Society Clinical Practice Guideline (J Clin Endocrinol Metab
2010;96:1727-7265) [facility] CHEM PANEL Magnesium Lvl 1.6 1.8 - 2.4 10/13/2014 [facility] CHEM PANEL Phosphorus 3.8 2.5 - 4.5 10/13/2014 [facility] CHEM PANEL Albumin Lvl 3.1 3.5 - 5.0 10/13/2014 [facility] CHEM PANEL eGFR 61 10/13/2014 <sup>1</sup>Result Comment: The eGFR is calculated using the CKD-EPI formula. In most young, healthy individuals the eGFR will be >90 mL/min/1.73m2. The eGFR declines with age. An eGFR of 60-89 may be normal in some populations, particularly the elderly, for whom the CKD-EPI formula has not been extensively validated. Use of the eGFR is not recommended in the following populations:& lt;br/>
Individuals with unstable creatinine concentrations, including patients [...] should be multiplied by the estimated BMI. [facility] CHEM PANEL BUN 22 7 - 22 10/13/2014 [facility] CHEM PANEL Glucose Lvl 149 70 - 99 10/13/2014 <sup>2</sup>Interpretive Data: Adult reference range values reflect the clinical guidelines
of the [place] [employer]. [facility] CHEM PANEL CO2 24 24 - 32 10/13/2014 [facility] CHEM PANEL Creatinine Lvl 1.0 0.5 - 1.4 10/13/2014 [facility] CHEM PANEL Calcium Lvl 8.8 8.5 - 10.5 10/13/2014 [facility] CHEM PANEL Chloride Lvl 105 95 - 109 10/13/2014 [facility] CHEM PANEL Potassium Lvl 3.9 3.5 - 5.1 10/13/2014 [facility] CHEM PANEL Sodium Lvl 137 135 - 145 10/13/2014 [facility] CHEM PANEL AGAP 11.9 10.0 - 20.0 10/13/2014 [facility] HEMATOLOGY Monocytes # 0.8 0.0 - 0.8 10/13/2014 [facility] HEMATOLOGY Eosinophils # 0.1 0.0 - 0.5 10/13/2014 [facility] HEMATOLOGY Lymphocytes # 2.5 1.0 - 5.5 10/13/2014 [facility] HEMATOLOGY Segs 50.5 45.0 - 75.0 10/13/2014 [facility] HEMATOLOGY Segs-Bands # 3.5 1.5 - 8.1 10/13/2014 [facility] HEMATOLOGY Basophils 0.6 0.0 - 1.0 10/13/2014 [facility] HEMATOLOGY Eosinophils 2.1 0.0 - 4.0 10/13/2014 [facility] HEMATOLOGY Monocytes 11.2 2.0 - 12.0 10/13/2014 [facility] HEMATOLOGY Lymphocytes 35.6 20.0 - 40.0 10/13/2014 [facility] HEMATOLOGY PTT 25.7 22.9 - 35.8 10/13/2014 <sup>5</sup>Interpretive Data: Heparin Therapeutic Range: 57 - 92 Seconds [facility] PT 13.6 12.0 - 14.7 10/13/2014 [facility] INR 1.04 0.85 - 1.17 10/13/2014 <sup>4</sup>Interpretive Data: RECOMMENDED RANGES FOR PROTIME INR:
2.0-3.0 for most medical and surgical thromboembolic states.
2.5-3.5 for artificial heart valves and recurrent embolism.

INR SHOULD BE USED ONLY FOR PATIENTS ON STABLE ANTICOAGULANT THERAPY. [facility] HEMATOLOGY MCV 90.8 80.0 - 98.0 10/13/2014 [facility] RBC 4.59 4.20 - 5.40 10/13/2014 [facility] Hct 41.7 36.0 - 48.0 10/13/2014 [facility] WBC 7.0 3.7 - 10.4 10/13/2014 [facility] Hgb 14.6 12.0 - 16.0 10/13/2014 [facility] MCHC 34.9 32.0 - 36.0 10/13/2014 [facility] Platelet 210 133 - 450 10/13/2014 [facility] MPV 8.6 7.4 - 10.4 10/13/2014 [facility] MCH 31.7 27.0 - 31.0 10/13/2014 [facility] RDW 13.0 11.5 - 14.5 10/13/2014 [facility] IMMUNOLOGY Prealbumin 16.0 18.0 - 45.0 10/13/2014 [facility] SPECIAL CHEMISTRY Hgb A1C 10.9 <=5.6 % 10/13/2014 [facility] THYROID PANEL T4 Free 1.58 0.76 - 1.46 10/13/2014 [facility] THYROID PANEL TSH 0.981 0.360 - 3.740 10/13/2014 [facility] ELECTROLYTES Chloride Lvl 102 95 - 109 10/11/2014 [facility] ELECTROLYTES Sodium Lvl 137 135 - 145 10/11/2014 [facility] ELECTROLYTES Potassium Lvl 3.8 3.5 - 5.1 10/11/2014 [facility] ELECTROLYTES eGFR 70 10/11/2014 <sup>1</sup>Result Comment: The eGFR is calculated using the CKD-EPI formula. In most young, healthy individuals the eGFR will be >90 mL/min/1.73m2. The eGFR declines with age. An eGFR of 60-89 may be normal in some populations, particularly the elderly, for whom the CKD-EPI formula has not been extensively validated. Use of the eGFR is not recommended in the following populations:& lt;br/>
Individuals with unstable creatinine concentrations, including patients [...] should be multiplied by the estimated BMI. [facility] ELECTROLYTES Glucose Lvl 144 70 - 99 10/11/2014 <sup>4</sup>Interpretive Data: Adult reference range values reflect the clinical guidelines
of the [place] [employer]. [facility] ELECTROLYTES Creatinine Lvl 0.9 0.5 - 1.4 10/11/2014 [facility] ELECTROLYTES BUN 19 7 - 22 10/11/2014 [facility] ELECTROLYTES Calcium Lvl 8.7 8.5 - 10.5 10/11/2014 [facility] ELECTROLYTES CO2 28 24 - 32 10/11/2014 [facility] ELECTROLYTES AGAP 10.8 10.0 - 20.0 10/11/2014 [facility] HEMATOLOGY WBC 6.8 3.7 - 10.4 10/11/2014 [facility] RBC 4.54 4.20 - 5.40 10/11/2014 [facility] Hgb 14.4 12.0 - 16.0 10/11/2014 [facility] Hct 41.6 36.0 - 48.0 10/11/2014 [facility] MCH 31.7 27.0 - 31.0 10/11/2014 [facility] MCHC 34.5 32.0 - 36.0 10/11/2014 [facility] RDW 13.1 11.5 - 14.5 10/11/2014 [facility] Platelet 188 133 - 450 10/11/2014 [facility] MPV 8.1 7.4 - 10.4 10/11/2014 [facility] MCV 91.7 80.0 - 98.0 10/11/2014 [facility] Segs-Bands # 3.9 1.5 - 8.1 10/11/2014 [facility] HEMATOLOGY Lymphocytes # 1.9 1.0 - 5.5 10/11/2014 [facility] HEMATOLOGY Lymphocytes 27.6 20.0 - 40.0 10/11/2014 [facility] HEMATOLOGY Eosinophils 2.1 0.0 - 4.0 10/11/2014 [facility] HEMATOLOGY Monocytes 11.4 2.0 - 12.0 10/11/2014 [facility] HEMATOLOGY Basophils 0.9 0.0 - 1.0 10/11/2014 [facility] HEMATOLOGY Segs 58.0 45.0 - 75.0 10/11/2014 [facility] HEMATOLOGY Monocytes # 0.8 0.0 - 0.8 10/11/2014 [facility] HEMATOLOGY Eosinophils # 0.1 0.0 - 0.5 10/11/2014 [facility] HEMATOLOGY Basophils # 0.1 0.0 - 0.2 10/11/2014 [facility] CHEM PANEL eGFR 80 10/10/2014 <sup>2</sup>Result Comment: The eGFR is calculated using the CKD-EPI formula. In most young, healthy individuals the eGFR will be >90 mL/min/1.73m2. The eGFR declines with age. An eGFR of 60-89 may be normal in some populations, particularly the elderly, for whom the CKD-EPI formula has not been extensively validated. Use of the eGFR is not recommended in the following populations:& lt;br/>
Individuals with unstable creatinine concentrations, including patients [...] should be multiplied by the estimated BMI. [facility] CHEM PANEL Total Protein 6.5 6.4 - 8.4 10/10/2014 [facility] CHEM PANEL B/C Ratio 16 6 - 25 10/10/2014 [facility] CHEM PANEL Globulin 3.5 2.0 - 4.0 10/10/2014 [facility] CHEM PANEL Albumin Lvl 3.0 3.5 - 5.0 10/10/2014 [facility] CHEM PANEL Bili Total 1.1 0.2 - 1.3 10/10/2014 [facility] CHEM PANEL AST 41 0 - 37 10/10/2014 [facility] CHEM PANEL Alk Phos 63 39 - 136 10/10/2014 [facility] CHEM PANEL A/G Ratio 0.9 0.7 - 1.6 10/10/2014 [facility] CHEM PANEL ALT 41 0 - 65 10/10/2014 [facility] CHEM PANEL Calcium Lvl 8.4 8.5 - 10.5 10/10/2014 [facility] CHEM PANEL AGAP 14.9 10.0 - 20.0 10/10/2014 [facility] CHEM PANEL BUN 13 7 - 22 10/10/2014 [facility] CHEM PANEL Creatinine Lvl 0.8 0.5 - 1.4 10/10/2014 [facility] CHEM PANEL CO2 21 24 - 32 10/10/2014 [facility] CHEM PANEL Glucose Lvl 166 70 - 99 10/10/2014 <sup>5</sup>Interpretive Data: Adult reference range values reflect the clinical guidelines
of the [place] [employer]. [facility] CHEM PANEL Sodium Lvl 135 135 - 145 10/10/2014 [facility] CHEM PANEL Chloride Lvl 103 95 - 109 10/10/2014 [facility] CHEM PANEL Potassium Lvl 3.9 3.5 - 5.1 10/10/2014 [facility] HEMATOLOGY Platelet 176 133 - 450 10/10/2014 [facility] HEMATOLOGY MPV 8.3 7.4 - 10.4 10/10/2014 [facility] HEMATOLOGY Hgb 13.4 12.0 - 16.0 10/10/2014 [facility] HEMATOLOGY MCV 91.4 80.0 - 98.0 10/10/2014 [facility] HEMATOLOGY Hct 39.4 36.0 - 48.0 10/10/2014 [facility] MCH 31.2 27.0 - 31.0 10/10/2014 [facility] HEMATOLOGY MCHC 34.1 32.0 - 36.0 10/10/2014 [facility] HEMATOLOGY RDW 13.2 11.5 - 14.5 10/10/2014 [facility] HEMATOLOGY WBC 9.0 3.7 - 10.4 10/10/2014 [facility] HEMATOLOGY RBC 4.31 4.20 - 5.40 10/10/2014 [facility] HEMATOLOGY Lymphocytes 22.4 20.0 - 40.0 10/10/2014 [facility] HEMATOLOGY Segs 67.0 45.0 - 75.0 10/10/2014 [facility] HEMATOLOGY Lymphocytes # 2.0 1.0 - 5.5 10/10/2014 [facility] HEMATOLOGY Basophils 0.6 0.0 - 1.0 10/10/2014 [facility] HEMATOLOGY Segs-Bands # 6.1 1.5 - 8.1 10/10/2014 [facility] HEMATOLOGY Eosinophils 0.8 0.0 - 4.0 10/10/2014 [facility] HEMATOLOGY Monocytes 9.2 2.0 - 12.0 10/10/2014 [facility] HEMATOLOGY Basophils # 0.1 0.0 - 0.2 10/10/2014 [facility] HEMATOLOGY Eosinophils # 0.1 0.0 - 0.5 10/10/2014 [facility] HEMATOLOGY Monocytes # 0.8 0.0 - 0.8 10/10/2014 [facility] CHEM PANEL BUN 15 7 - 22 10/09/2014 [facility] CHEM PANEL eGFR 70 10/09/2014 <sup>3</sup>Result Comment: The eGFR is calculated using the CKD-EPI formula. In most young, healthy individuals the eGFR will be >90 mL/min/1.73m2. The eGFR declines with age. An eGFR of 60-89 may be normal in some populations, particularly the elderly, for whom the CKD-EPI formula has not been extensively validated. Use of the eGFR is not recommended in the following populations:& lt;br/>
Individuals with unstable creatinine concentrations, including patients [...] should be multiplied by the estimated BMI. [facility] CHEM PANEL Potassium Lvl 3.9 3.5 - 5.1 10/09/2014 [facility] CHEM PANEL Sodium Lvl 136 135 - 145 10/09/2014 [facility] CHEM PANEL Creatinine Lvl 0.9 0.5 - 1.4 10/09/2014 [facility] CHEM PANEL CO2 23 24 - 32 10/09/2014 [facility] CHEM PANEL Chloride Lvl 105 95 - 109 10/09/2014 [facility] CHEM PANEL Calcium Lvl 8.8 8.5 - 10.5 10/09/2014 [facility] CHEM PANEL Glucose Lvl 242 70 - 99 10/09/2014 <sup>6</sup>Interpretive Data: Adult reference range values reflect the clinical guidelines
of the [place] [employer]. [facility] CHEM PANEL AGAP 11.9 10.0 - 20.0 10/09/2014 [facility] HEMATOLOGY Monocytes # 0.7 0.0 - 0.8 10/09/2014 [facility] HEMATOLOGY Basophils # 0.1 0.0 - 0.2 10/09/2014 [facility] HEMATOLOGY Basophils 0.9 0.0 - 1.0 10/09/2014 [facility] HEMATOLOGY Lymphocytes # 2.0 1.0 - 5.5 10/09/2014 [facility] HEMATOLOGY Segs-Bands # 4.7 1.5 - 8.1 10/09/2014 [facility] HEMATOLOGY Lymphocytes 26.1 20.0 - 40.0 10/09/2014 [facility] HEMATOLOGY Segs 63.1 45.0 - 75.0 10/09/2014 [facility] HEMATOLOGY Monocytes 9.3 2.0 - 12.0 10/09/2014 [facility] HEMATOLOGY Eosinophils 0.6 0.0 - 4.0 10/09/2014 [facility] HEMATOLOGY Platelet 198 133 - 450 10/09/2014 [facility] HEMATOLOGY MPV 8.3 7.4 - 10.4 10/09/2014 [facility] HEMATOLOGY RDW 13.1 11.5 - 14.5 10/09/2014 [facility] MCHC 34.1 32.0 - 36.0 10/09/2014 [facility] MCH 31.1 27.0 - 31.0 10/09/2014 [facility] HEMATOLOGY Hct 39.3 36.0 - 48.0 10/09/2014 [facility] HEMATOLOGY MCV 91.4 80.0 - 98.0 10/09/2014 [facility] HEMATOLOGY RBC 4.30 4.20 - 5.40 10/09/2014 [facility] HEMATOLOGY Hgb 13.4 12.0 - 16.0 10/09/2014 [facility] HEMATOLOGY WBC 7.5 3.7 - 10.4 10/09/2014 [facility] LIPIDS VLDL 24 10/09/2014 [facility] LIPIDS LDL (Calculated) 141 <=99 mg/dL 10/09/2014 [facility] LIPIDS Chol 209 <=199 mg/dL 10/09/2014 [facility] LIPIDS Trig 122 <=149 mg/dL 10/09/2014 [facility] LIPIDS HDL 44 >=61 mg/dL 10/09/2014 [facility] LIPIDS CHD Risk 4.75 3.90 - 5.80 10/09/2014 [facility] SPECIAL CHEMISTRY Hgb A1C 11.3 <=5.6 % 10/09/2014 [facility] BACTERIAL - SEROLOGY MRSA by PCR Negative 7 (10/09/14 4:39 AM) 10/09/2014 <sup>7</sup>Interpretive Data: Interpretive Data: The [employer] MRSA [...] by the [facility] within the [facility]. The [facility] is authorized under the Clinical Laboratory Improvement Amendment of 1988 (CLIA-88) to perform high complexity testing. [facility] URINE AND STOOL UA RBC 1 0 - 2 10/09/2014 [facility] URINE AND STOOL UA WBC 4 0 - 5 10/09/2014 [facility] URINE AND STOOL UA Sq Epi Occasional /LPF Few /LPF 10/09/2014 [facility] URINE AND STOOL UA Glucose 500 mg/dL Negative mg/dL 10/09/2014 [facility] URINE AND STOOL UA Blood Negative (10/09/14 4:39 AM) Negative 10/09/2014 [facility] [facility] URINE AND STOOL UA Ketones 15 *ABN* (10/09/14 4:39 AM) Negative 10/09/2014 [facility] URINE AND STOOL UA Protein Trace *ABN* (10/09/14 4:39 AM) Negative 10/09/2014 [facility] URINE AND STOOL UA Bili Negative *NA* (10/09/14 4:39 AM) Negative 10/09/2014 [facility] URINE AND STOOL UA pH 7.0 5.0 - 8.0 10/09/2014 [facility] URINE AND STOOL UA Leuk Est Negative (10/09/14 4:39 AM) Negative 10/09/2014 [facility] URINE AND STOOL UA Urobilinogen 1.0 0.1 - 1.0 10/09/2014 [facility] URINE AND STOOL UA Nitrite Negative (10/09/14 4:39 AM) Negative 10/09/2014 [facility] URINE AND STOOL UA Spec Grav 1.020 <=1.030 10/09/2014 [facility] URINE AND STOOL UA Turbidity Clear (10/09/14 4:39 AM) Clear 10/09/2014 [facility] URINE AND STOOL UA Color Yellow *NA* (10/09/14 4:39 AM) Yellow 10/09/2014 [facility] Pathology Reports No Data Provided for This Section Diagnostic Reports Report Value Date Source Foot series DX Right foot 3 views: Postoperative radiographs show removal of the small metal foreign body in the distal 1st toe demonstrated on the right foot radiographs of 01/19/2019. A bandage around the 1st toe is noted. There is no evidence of fractures or osteomyelitis. Small vessel arterial calcifications are again seen. There is no other significant change. SL [id number] 02/06/2019 [facility] 1 v for Placement DX Clinical Indication: Line Placement - Status post PPM/ICD Implantation; Comparison: January 29, 2019 FINDINGS: The portable AP single view radiograph provided for review. Interval right pacemaker placement Overlying wire artifacts Right PICC line likely present The exam demonstrates limited decreased lung volumes with further bilateral mid to lower lung zone curvilinear opacity. No effusion or pneumothorax. The heart size and pulmonary vasculature are normal. The trachea is midline. There are no clinically significant osseous abnormalities noted. IMPRESSION: 1. Interval right approach cardiac pacer device Low lung volumes with further accentuated Limited lower lung zone curvilinear densities possibly atelectasis. No pneumothorax. SL: [id number] 02/02/2019 [facility] Ext Artery Single Level Bilat US Please refer to heart lab report, located under Vascular in [facility]. 01/31/2019 [facility] Chest 1view DX Patient Name: LIBAN MARTINEZ : 1955; Age: 63 years Female MR: [id number] Study: Chest 1view DX Order Time: 01/29/2019 8:31 PM CDT CLINICAL INDICATION: - Undifferentiated Sepsis COMPARISON: Chest radiograph on 01/23/2019 FINDINGS: Lines: Right PICC line tip projects over the SVC. Lungs: Subsegmental atelectasis at the left lung base. No significant effusion or pneumothorax. Mediastinum: The cardiac silhouette is within normal limits of size. Midline trachea. Bones and soft tissues: No acute abnormalities. IMPRESSION: No acute cardiopulmonary abnormalities. SL: MIKE 01/29/2019 [facility] Chest 1 v for Placement DX Portable chest: The PICC line tip is in good position at the cavoatrial junction. There is no change in bibasilar subsegmental atelectasis compared to the previous exam on 01/18/2019. There is less venous congestion but slightly more interstitial opacity in the lungs. There is no significant effusion. There is no other significant change. [id number] 01/23/2019 [facility] wo contrast MRI MRI right foot without contrast. INDICATION: Right foot soft tissue infection. Diabetic foot wound left great toe. Sepsis. COMPARISON: 01/19/2018 right foot radiographs. TECHNIQUE: Multi-planar, multi-sequence MR imaging of the foot was performed using routine protocol without gadolinium-based contrast. A full and complete exam was performed. FINDINGS: Motion artifact present. . Bones: Magnetic susceptibility artifact is seen in the medial aspect of the distal great toe likely related to 2 mm radiopaque foreign body seen on radiographs. This results in magnetic susceptibility limiting evaluation in the distal phalanx. No osteomyelitis elsewhere in the foot. Chronic deformity of the 3rd proximal phalanx and 5th metatarsal bones seen as on radiographs. Moderate degenerative changes of the midfoot and tarsometatarsal joints. Minimally displaced transverse fracture seen in the proximal aspect of the 4th proximal phalanx demonstrating surrounding T1 hypointense T2 hyperintense marrow signal. . Joints: Small effusion of 1st metatarsophalangeal joint. No dislocation. . Flexor tendons: Partially imaged but within normal limits. . Extensor tendons: Partially imaged but within normal limits. . Peroneal tendons: Partially imaged but within normal limits. . Plantar fascia: Unremarkable in visualized portions. . Soft tissues: Subcutaneous fatty edematous changes are seen. No organized fluid collection. Additional area of magnetic susceptibility artifact seen in the lateral mid foot adjacent the cuboid. IMPRESSION: 1. Magnetic susceptibility artifact is present in the great toe related to radiopaque foreign body seen on the radiographs. This limits evaluation for osteomyelitis of the distal phalanx. No osteomyelitis appreciated elsewhere. No abscess. 2. Nondisplaced acute or subacute fracture of the base of the 4th proximal phalanx. 3. Moderate midfoot degenerative changes. 4. Additional area of magnetic susceptibility artifact in the lateral midfoot adjacent the cuboid bone suspected to be related to a subtle 6 x 1 mm radiopaque curvilinear foreign body on radiographs. SL: ANALISA 01/20/2019 [facility] Foot series DX EXAM: XR FOOT RIGHT HISTORY: 63 years old Female with - right foot pain COMPARISON: None FINDINGS: AP, oblique, and lateral radiographs of the right foot were obtained. Bones appear demineralized. No definite acute fracture or dislocation is identified. Deformity of the 5th metatarsal and 3rd proximal phalanx suggestive of old trauma. Tarsometatarsal degenerative changes. Plantar and small Achilles enthesophytes off the calcaneus. Vascular calcifications. IMPRESSION: 1. No definite acute fracture identified in the right foot. 2. Osseous demineralization and degenerative changes. SL: [id number] 01/19/2019 [facility] 1view DX EXAM: Chest radiograph HISTORY: Dyspnea, hypoxia COMPARISON: 01/15/2019 at 1827 hours TECHNIQUE: Frontal view FINDINGS: Perihilar interstitial opacities bilaterally are slightly progressed and may reflect pulmonary edema or pneumonia. No appreciable pleural effusion. Stable cardiomediastinal contour. 16 01/18/2019 [facility] Bone scan 3 phase NM EXAMINATION: Bone scan 3 phase NM CLINICAL: - lumbar spine COMPARISON: None. TECHNIQUE: Following the intravenous administration of 28 millicuries technetium 99m MDP, immediate flow and blood pool images were obtained of the lumbar spine followed by subsequent delayed images of the lumbar spine. COMMENTS: The blood flow images demonstrate no focal uptake throughout the lumbar spine. The blood pool images demonstrate no focal uptake throughout the lumbar spine. The delayed images demonstrate no focal uptake throughout the lumbar spine. IMPRESSION: There is no abnormal tracer uptake visualized to suggest osteomyelitis in the lumbar spine. SL: NEGROPC 01/17/2019 [facility] Pulmonary Embolism CTA CTA Chest: HISTORY: Short of breath, fever and weakness 2 mm helical images are obtained from lung apices through upper abdomen after the dynamic administration of IV contrast ( 100 ml Omnipaque-300 ). Computer generated 2D coronal reconstructions of the pulmonary arteries are obtained and 3D maximum intensity projection images. CT imaging performed at this location utilizes radiation dose optimization techniques which include one or more of the following: -Automated exposure control -Adjustment of the mA and/or kV according to patient size -Use of iterative reconstruction technique CT Radiation Dose DLP 930 mGy-cm. COMPARISON: Single view chest 01/15/2019. FINDINGS: Hazy bilateral interstitial pulmonary infiltrate may be edema or pneumonia. Areas of consolidation in each costophrenic angle either represents pneumonia or atelectasis. There are calcified granulomas in the left lung. No pleural effusion or pneumothorax. No lung mass. Calcified thoracic aorta without aneurysm. No pulmonary artery filling defect in either lung that would suggest a pulmonary embolus 1 cm AP window lymph node with central calcification and additional smaller calcified hilar lymph nodes compatible with previous granulomatous exposure. Limited images upper abdomen show cortical cysts in the posterior midpole left kidney. Review on bone window shows no acute bony abnormality. No vertebral compression. IMPRESSION: 1. Mixed bilateral interstitial and airspace infiltrates which could represent pneumonia, edema, atelectasis or combination. 2. No definite pulmonary emboli. 3. Evidence of previous granulomatous exposure. SL: EG-M 01/15/2019 [facility] Chest 1view DX 1 view chest portable: HISTORY: Dyspnea. FINDINGS: Pulmonary vascular congestion with areas of linear scarring or atelectasis in each lung base appears similar to 01/14/2018. No infiltrate, pneumothorax or pleural fluid collection. The heart and mediastinal contours are unchanged. IMPRESSION: Stable chest SL: - 01/15/2019 [facility] 2 views DX EXAM: XR CHEST 2 [...] device. 4. No acute osseous abnormalities. 01/14/2018 [facility] Esophagram w Water Soluble Contrast DX EXAM: [...] Bibasilar subsegmental atelectasis of the lung. 01/14/2018 [facility] Chest 1view DX EXAM: XR CHEST 1 [...] atelectasis. Underlying consolidation cannot be excluded. 01/13/2018 [facility] Chest 1view DX EXAM: XR CHEST 1 [...] the patient to the operating room. 01/13/2018 [facility] Consultation Notes No Data Provided for This Section Discharge Summaries No Data Provided for This Section History and Physicals No Data Provided for This Section Vital Signs Vital Sign Value Date Comments Source Temperature Oral (F) 97.5 F 02/09/2019 [facility] Systolic (mm Hg) 163 02/09/2019 [facility] Diastolic (mm Hg) 72 02/09/2019 [facility] Respitory Rate 20 02/09/2019 [facility] Systolic (mm Hg) 158 02/09/2019 [facility] Diastolic (mm Hg) 52 02/09/2019 [facility] Respitory Rate 11 02/09/2019 [facility] Systolic (mm Hg) 143 02/09/2019 [facility] Diastolic (mm Hg) 67 02/09/2019 [facility] Respitory Rate 17 02/09/2019 [facility] Temperature Oral (F) 97.9 F 02/09/2019 [facility] Temperature Oral (F) 98.0 F 02/09/2019 [facility] Weight 83.409 01/30/2019 [facility] BMI Calculated 37.14 01/30/2019 [facility] Height 149.86 cm 01/30/2019 [facility] Weight 90 01/30/2019 [facility] BMI Calculated 40.07 01/30/2019 [facility] Heart Rate 99 01/30/2019 [facility] Height 149.86 cm 01/30/2019 [facility] Systolic (mm Hg) 111 01/23/2019 [facility] Diastolic (mm Hg) 65 01/23/2019 [facility] Heart Rate 74 01/23/2019 [facility] Temperature Oral (F) 97.8 F 01/23/2019 [facility] Systolic (mm Hg) 129 01/23/2019 [facility] Diastolic (mm Hg) 74 01/23/2019 [facility] Heart Rate 78 01/23/2019 [facility] Temperature Oral (F) 97.6 F 01/23/2019 [facility] Systolic (mm Hg) 143 01/23/2019 [facility] Diastolic (mm Hg) 82 01/23/2019 [facility] Temperature Oral (F) 97.6 F 01/23/2019 [facility] Heart Rate 74 01/23/2019 [facility] Respitory Rate 18 01/23/2019 [facility] Respitory Rate 18 01/23/2019 [facility] Respitory Rate 18 01/23/2019 [facility] Weight 85.554 01/16/2019 [facility] BMI Calculated 47.4 01/15/2019 [facility] Weight 85.909 01/15/2019 [facility] Height 134.62 cm 01/15/2019 [facility] Systolic (mm Hg) 156 01/14/2018 [facility] Diastolic (mm Hg) 64 01/14/2018 [facility] Respitory Rate 20 01/14/2018 [facility] Heart Rate 54 01/14/2018 [facility] Temperature Oral (F) 98.2 F 01/14/2018 [facility] Systolic (mm Hg) 173 01/14/2018 [facility] Diastolic (mm Hg) 66 01/14/2018 [facility] Respitory Rate 20 01/14/2018 [facility] Heart Rate 50 01/14/2018 [facility] Temperature Oral (F) 97.8 F 01/14/2018 [facility] Heart Rate 59 01/14/2018 [facility] Temperature Oral (F) 97.8 F 01/14/2018 [facility] Respitory Rate 20 01/14/2018 [facility] Systolic (mm Hg) 197 01/14/2018 [facility] Diastolic (mm Hg) 96 01/14/2018 [facility] BMI Calculated 39.47 01/13/2018 [facility] Weight 88.636 01/13/2018 [facility] Height 149.86 cm 01/13/2018 [facility] BMI Calculated 40.07 01/05/2018 [facility] Weight 90 01/05/2018 [facility] Height 149.86 cm 01/05/2018 [facility] Temperature Oral (F) 97.8 F 10/19/2014 [facility] Respitory Rate 16 10/19/2014 [facility] Diastolic (mm Hg) 74 10/19/2014 [facility] Systolic (mm Hg) 129 10/19/2014 [facility] Heart Rate 67 10/19/2014 [facility] Diastolic (mm Hg) 61 10/19/2014 [facility] Respitory Rate 18 10/19/2014 [facility] Systolic (mm Hg) 101 10/19/2014 [facility] Heart Rate 76 10/19/2014 [facility] Temperature Oral (F) 97.5 F 10/19/2014 [facility] Diastolic (mm Hg) 77 10/18/2014 [facility] Systolic (mm Hg) 123 10/18/2014 [facility] Respitory Rate 18 10/18/2014 [facility] Heart Rate 81 10/18/2014 [facility] Temperature Oral (F) 97.5 F 10/18/2014 [facility] Weight 95.318 10/12/2014 [facility] BMI Calculated 41.04 10/12/2014 [facility] Height 152.4 cm 10/12/2014 [facility] Height 152.4 cm 10/12/2014 [facility] BMI Calculated 41.04 10/12/2014 [facility] Weight 95.318 10/12/2014 [facility] Temperature Oral (F) 97.8 F 10/12/2014 [facility] Systolic (mm Hg) 123 10/12/2014 [facility] Respitory Rate 14 10/12/2014 [facility] Heart Rate 92 10/12/2014 [facility] Diastolic (mm Hg) 71 10/12/2014 [facility] Heart Rate 83 10/12/2014 [facility] Respitory Rate 16 10/12/2014 [facility] Temperature Oral (F) 97.6 F 10/12/2014 [facility] Systolic (mm Hg) 123 10/12/2014 [facility] Diastolic (mm Hg) 84 10/12/2014 [facility] Systolic (mm Hg) 128 10/12/2014 [facility] Diastolic (mm Hg) 75 10/12/2014 [facility] Respitory Rate 18 10/12/2014 [facility] Heart Rate 82 10/12/2014 [facility] Temperature Oral (F) 98.5 F 10/12/2014 [facility] Weight 95.318 10/09/2014 [facility] BMI Calculated 41.04 10/09/2014 [facility] Height 152.4 cm 10/09/2014 [facility] Encounters Location Location Details Encounter Type Encounter Number Reason For Visit Attending Provider ADM Date DC Date Status Source [facility] Inpatient [id number] Preston Sheikh 10/09/2014 10/12/2014 [facility] Inpatient Rehab [id number] Hollis Martel Jr 10/12/2014 10/19/2014 [facility] Bedded Outpatient [id number] Derrell Botello 11/17/2017 11/17/2017 [facility] Bedded Outpatient [id number] Derrell Botello 12/01/2017 12/01/2017 [facility] Observation [id number] Maria Del Rosario Linder 01/13/2018 01/14/2018 [facility] Discharged Inpatient [id number] MORGAN BRAGA MD 09/12/2018 09/17/[address] [facility] [id number] Chaz Mitchell 01/15/2019 01/23/2019 [facility] Inpatient [id number] Alok Galindo 01/30/2019 02/09/2019 [facility] Procedures Procedure Code Date Perfomer Comments Source Magnetic resonance imaging of brain without contrast [id number] 09/11/2018 [facility] Magnetic resonance angiography of head without contrast [id number] 09/11/2018 [facility] Magnetic resonance angiography of neck without contrast [id number] 09/11/2018 [facility] Computed tomography of brain without radiopaque contrast [id number] 09/10/2018 [facility] X-ray of chest, two views [id number] 09/10/2018 [facility] Myotomy<sup>1</sup> [id number] 01/13/2018 Laparoscopic Endoscopic Myotomy and EGD [facility] Total knee replacement [id number] [facility] Caesarean section [id number] [facility] Assessment and Plan Assessment and Plan Date Source Extracted from:Title: Podiatry Progress Note Author: Manish Jaime DPMadhu Date: 02/09/19 1.Diabetes mellitus type 2 with foot ulceration 2. 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 Right hallux degloving wound, improving 4. Severe anemia secondary to GI ulcer bleed, stable. 5. Leukocytosis, resolved 6. Hyperlipidemia 7.Recent NSTEMI 8. Renal disease, improved 9. Foreign body right foot s/p removal of foreign body POD 3, doing well. -Patient was seen and evaluated. -Patient is doing well postoperatively. [facility] -Dressing changed today. Enzymatic debridement performed with Santyl ointment applied to theright hallux ulceration with saline and dry sterile dressing. Patient will need daily dressing changes. Sutures can be removed at 2 weeks. She has been given information forpostoperative follow-up. -Partialweightbearing as tolerated in the surgical shoe until sutures are removed, after that weightbearing as tolerated in surgical shoe. -Continuepain control with Tylenol #3 PO. Extracted from:Title: Clinical Document Author: Kermit Garcia MD Date: 02/02/19 I was asked to see this 63-year-old lady by Dr. Jaime for peripheral vascular disease she had a wound on her right great toe as well as a foreign body and I was asked to see her in regards to her vascular status. She has multiple medical problems including diabetes hypertension as well as CVA in the past. She recently presented with shortness of breath and had bilateral infiltrate with positive blood cultures for Staphylococcus aureus. She appears also to have a vegetation on her mitral valve by YVETTE and she has been on antibiotics. She denies any claudication. A noninvasive peripheral vascular study was done and showed triphasic waveforms throughout. Her tibial vessels were not compressible. Her past medical history significant for the above-mentioned problems as well as a myotomy, total knee replacement and in the past as well as sleep apnea. She does not smoke and does not drink. The family history is noncontributory. Review of systems otherwise unremarkable. On physical examination: Patient is alert and oriented no distress. HEENT clear. Neck clear. Heart S1-S2 normal. Chest clear. Abdomen soft nontender. Extremities no deformities. There is a large wound on her right great toe with some cellulitis. The vascular exam shows the dorsalis pedis pulses to be present and strong bilaterally. The posterior tibial pulse can only be palpated on the left. Impression: Diabetic lady with multiple medical problem however she does not have any evidence of significant on physical examination or noninvasive studies of large vessel disease to justify any angiogram or further diagnostic studies at this time. Thank you very much for the consultation. 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) 3.DM (diabetes mellitus), type 2, uncontrolled(E11.65) 4.HLD (hyperlipidemia)(E78.5) 5.Hypertension(I10) 6.Anxiety(F41.9) 7.Peripheral neuropathy(G64) 8.Seizures(R56.9) Plan: - NPO - transfuse 2 units -Serial H&HGI consult -Hold aspirin and Plavix -IV PPI -Supportive care as needed -continue with Ancef for MSSA endocarditis -Sliding scale insulin - R LE OM and wound - wound care pending wound care nurse eval - home meds reconciled, holding anit HTN, and diuretics given acute blood loss anemia and hypotension scd lovenox contra indicated due to gi bleed admit full code 02/09/2019 [facility] Extracted from:Title: Cardiology Progress Note * Author: Jr Heck MD Date: 01/23/19 Impression and Plan The patient was seen and examined by me with the resident/JOB FOREMAN/PA and I agree with the History/Exam documented. NSTEMI Bacteremia Pneumonia HTN HLD DM Respiratory failure - YVETTE showed vegetation but no valvular dysfunction as a result - continue heparin gtt, ASA, and Plavix - continue lasix IV for diuresis - on statin - continue antibiotics per Pulm and primary teams - delay cath until infection controlled Extracted from:Title: History and Physical Author: Regla Perea MD Date: 01/15/19 63 yoF with multiple TIAs/CVAs with cognitive deficits, DM, HTN, EDUARDO on CPAP who presented to the ED with acute onset of dyspnea. Acute hypoxic respiratory failure -Givenpulmonary edema suspect new onset heart failure - continue abx for CAP -Continuediuresis, obtain echo, consult cardiology -Trend cardiac enzymes x3, monitor on telemetry -1 L fluid restriction, 2 g sodium restriction -Check respiratory viral panel and ABG - Follow up CT-PE protocol - wean O2 as tolerated SIRS due to UTI and CAP - given ceftriaxone and zithromycin, will continue -Follow blood and urine cultures Type 2 diabetes -start SSI heparin IMU, anticipate 2-3 midnights Addendum by Regla Perea MD on 01/15/2019 23:55 CDT repeat troponin 2.9 from 0.05 consistent with NSTEMI. will give ASA 325 and start heparin drip. This was discussed with the patient. 01/23/2019 [facility] Extracted from:Title: Cardiology Consult Note Author: Donny Baires MD Date: 01/14/18 Ms Martinez is a 62 year old female with [...] chest pain, denies history of CAD or IA, and does not have a family history significant for IA. With no acute changes on EKG and no chest pain, dyspnea, or other cardiac symptoms, she is at her baseline and is cleared for discharge. #Left Bundle Branch Block, Chronic #Hypertension #Diabetes mellitus type II, on insulin #History of CVA in 2012 Recommendations: - No signs of acute EKG [...] Physician | PGY-1 Department of Internal Medicine [facility] CARDIOLOGY STAFF I saw and examined the patient with cardiologyresident Dr. Baires, and I agree with findings, assessment and recommended plan of care. Thank you for the courtesy of this consult. Fortino Molina M.D. 01/14/2018 [facility] Extracted from:Title: Clinical Document Author: Hollis Cook MD Date: [...] her spouse. PHYSICAL EXAMINATION: Vitals and Temp: Vitals Tmp(F) Pulse BP RR SpO2 FIO2 10/18 08:00 97.6 75 145/80 18 93 --- 10/17 20:09 97.3 54 121/65 16 94 --- 10/17 16:00 97.7 85 109/73 16 97 --- 10/17 08:00 98 78 137/80 16 96 --- 24 Hr Tmax: 97.7F (36.50c) at 10/17 16:00 Vital Signs are the last 5 in the [...] DATA: Labs (Last four charted values) WBC 7.0 (OCT 13) Hgb 14.6 (OCT 13) 13.4 (OCT 09) Hct 41.7 (OCT 13) Plt 210 (OCT 13) Na 137 (OCT 13) K 3.9 (OCT 13) CO2 24 (OCT 13) Cl 105 (OCT 13) Cr 1.0 (OCT 13) BUN 22 (OCT 13) Glucose Random H 149 (OCT 13) Mg L 1.6 (OCT 13) Phos 3.8 (OCT 13) Ca 8.8 (OCT 13) PT 13.6 (OCT 13) INR 1.04 (OCT 13) PTT 25.7 (OCT 13) DIAGNOSTIC IMAGING: No new imaging. ASSESSMENT [...] done with multi-disciplinary involvement including PT, OT, PERSONNEL CLERK, nutrition, nursing, social work, and rehab MD. [...] other methods of pain and anxiety control. PERSONNEL CLERK: poor insight into her deficits. Reading is [...] tub bench and shower bench. F/U: Outpatient PERSONNEL CLERK, PT, and OT 36 minutes of clinical time was spent with the patient performing history, examination, interdisciplinary team rounds, pharmacy team rounds, coordination of care and education, with >50% spent on coordination of care and counseling. 10/19/2014 [facility] Extracted from:Title: Clinical Document Author: Baudilio Lomax MD Date: 10/12/14 Progress Note - Daily [facility] Completed: Oct, 09:35 by Baudilio Lomax MD RM: 246 - 1P, SE C2A LIBAN MARTINEZ 59y (: 1955) F Attending: Preston Sheikh MD Service: Internal Medicine Reason for Admission: AMS,HYPERGLYCEMIA,LT BINDLE BRANCH BLOCK,POSSIBLE CVA Working DRG: Intracranial hemorrhage or cerebral infarction w CC Code status: Full Code [Ordered] Current diet: Isolation: None Documented Allergies: iodine topical SUBJECTIVE Feels good overall other than some emotional lability which is improving. No weakness or numbness, chest pain, shortness of breath, headache, vision change, nausea, fever. OBJECTIVE 24hr Labs 10/12 0645 Glucose POC 133 H 10/11 2115 Glucose POC 155 H 10/11 1556 Glucose POC 136 H 10/11 1103 Glucose POC 259 H [place] still necessary (Yes/No): Line still necessary (Yes/No): Vitals Tmp(F) Pulse BP RR SpO2 FIO2 10/12 08:06 97.6 83 123/84 16 96 --- 10/12 04:25 98.5 82 128/75 18 --- --- 10/12 00:00 98.1 79 138/70 16 --- --- 10/11 20:00 97.5 69 136/81 18 --- --- 10/11 15:43 97.6 78 135/75 16 99 --- 24 Hr Tmax: 98.5F (36.94c) at 10/12 04:25 Vital Signs are the last 5 in the past 48 hours. Date Wt(kg) Wt(lb) Ht(cm) Ht(in) Method 10/08 (initial) 95.32 209.70 Measured 10/08 152.40 60.00 Stated I&O Record In Out Bal 10/11 24hr Tot 12 0 12 10/10 24hr Tot 920 0 920 Medications (29) Active [...] neuropathy. -Continue levetiracetam for seizure prophylaxis. Extracted from:Title: Clinical Document Author: Nadja De La Vega DO Date: 10/09/14 History and Physical Attending: Preston Sheikh MD Service: Internal Medicine Code status: None Specified=FULL CODE Reason for Admission: AMS,HYPERGLYCEMIA,LT BINDLE BRANCH BLOCK,POSSIBLE CVA Working DRG: None Documented Isolation: None Documented Consulting Physicians: (none on file) Allergies: iodine topical HPI: 59yo F transferred from [facility] ER in [facility] for AMS r/o CVA. Hx [...] Never smoker. Medications: See medication reconciliation list. Vitals Tmp(F) Pulse BP RR SpO2 FIO2 10/09 00:00 98.0 63 155/75 18 97 --- 24 Hr Tmax: 98.0F (36.67c) at 10/09 00:00 Vital Signs are the last 5 in the past 48 hours. Physical Exam: CONSTITUTIONAL: no acute distress EYES: EOMI, nml conjuctiva ENT AND MOUTH: moist mucous membranes CARDIOVASCULAR: +S1, S2; nml rate, regular rhythm, no murmus, +strong pulses B/L GASTROINTESTINAL: +BS, soft, nontender, no guarding, no rebound MUSCULOSKELETAL: no scoliosis NEUROLOGIC: awake, alert and oriented, RLE drift, CN 2-12 grossly intact, 5/5 B/L UE and LE muscle strength, no sensory deficit INTEGUMENTARY: no rash PSYCHIATRY: no hallucinations GENITOURINARY: rectal deferred RESPIRATORY: clear to ascultation B/L HEMATOLOGIC/LYMPHATIC: no petechiae, no edema 24hr Labs 10/08 2352 Glucose POC 294 H Imaging: Outside CXR - unremarakable Outside CT Brain - unremarkable EKG: Outside EKG performed at 19:08 NSR at 67, nml NJ, incr QRS, nml QTc, L axis, LBBB (no old EKG available at this time) good tracing Independently viewed by me Interp contemporaneously by me Assessment and Plan: 59yo F with AMS, r/o acute CVA: 1. NEURO - neuro consult placed to neuro professional services specialist, daily ASA ordered, neuro checks. MRI brain and carotid U/S ordered. Form completed to obtain medical records from Patient's hospital 2. CARDIO - stable, check cardiac enzymes 3. PULM - stable 4. HEME - stable, DVT prophylaxis 5. GI - stable 6. RENAL - stable 7. ID - stable 8. ENDO - stable Above plan pending eval by primary attending physician. 10/12/2014 [facility] Plan of Care Plan of Care Date Source Discharge Date 09/17/18 4:16pm Disposition HOME, SELF-CARE Instructions/Education Provided TIA Prescriptions See Medication Section Additional Instructions/Education Monitor blood pressure. Follow up with Dr. Braga in a couple weeks. 09/17/2018 [facility] Social History Social History Date Source Social History Problem Response Recorded Date/Time Onset Date Status Hx Psychiatric Problems Y - skin disorder picking 05/01/2014 6:04pm Not Applicable Not Applicable Hx Eating Disorder No 05/01/2014 6:04pm Not Applicable Not Applicable Hx Substance Use Disorder No 05/01/2014 6:04pm Not Applicable Not Applicable Hx Depression No 05/01/2014 6:04pm Not Applicable Not Applicable Hx Alcohol Use No 05/01/2014 6:04pm Not Applicable Not Applicable Hx Substance Use Treatment No 05/01/2014 6:04pm Not Applicable Not Applicable Hx Physical Abuse No 05/01/2014 6:04pm Not Applicable Not Applicable Smoking Status Start Date Stop Date Never Smoker 09/17/2018 [facility] Social History TypeResponse Alcohol Never Smoking Status Never smoker; Ready to change: No; Concerns about tobacco use in household: No; Exposure to Tobacco Smoke None; Cigarette Smoking Last 365 Days Yes; Reg Smoking Cessation Counseling No entered on: 01/13/18 10/09/2014 [facility] Social History TypeResponse Alcohol Never Smoking Status Never smoker; Ready to change: No; Concerns about tobacco use in household: No; Exposure to Tobacco Smoke None; Cigarette Smoking Last 365 Days Yes; Reg Smoking Cessation Counseling No entered on: 01/30/19 10/09/2014 [facility] Family History No Data Provided for This Section Advance Directives Order Name Results Value Date Source Advance Directives Advance Directives Directive Response Recorded Date/Time Does the patient have an advance directive? Yes 09/10/18 11:30pm If yes, is advance directive on file with [facility]? No 09/10/18 11:30pm If not on file with [facility] will patient provide a copy? Yes 09/10/18 11:30pm Do you have a Directive to Physician? Yes 09/10/18 6:10pm Do you have a Medical Power of Reporting Consultant? Yes 09/10/18 6:10pm Do you have an out of hospital Do Not Resuscitate Order? Yes 09/10/18 6:10pm Do you have any special needs we should be aware of? U 09/10/18 6:10pm Do you have a support person here with you today? Yes 09/10/18 6:10pm Did patient receive Notice of Privacy Practices? Yes 09/10/18 6:10pm Did patient receive patient rights and responsibilities? Yes 09/10/18 6:10pm 09/17/2018 [facility] Functional Status No Data Provided for This Section
[2019-05-04] MEDS ORDERED: DIPHENHYDRAMINE HCL 25 MG CAP ONE (07:27)
[2019-05-04] MEDS ORDERED: LIDOCAINE HCL 2% LOCAL 20 ML VIAL ONE ×2 (07:27→08:26)
[2019-05-04] MEDS ORDERED: FENTANYL CITRATE/PF 100MCG/2 ML INJ ONE (07:27)
--- OUTSIDE RECORDS SUMMARY | 2019-05-04 07:27 | XMS REPORT | Summary of Care ---
Author Author [facility] Organization [facility] Address Unknown Phone Unavailable Encounter ROBBIE Patel(CHRISTIN) [id number] Date(s): 01/29/19 - 02/09/19 [facility] [address] [place] [address]- Discharge Disposition: Group Home Facility Attending Physician: Alok Galindo MD Admitting Physician: Alok Galindo MD Vital Signs 1 2 3 Most recent to oldest [Reference Range]: 149.86 cm (01/30/19 2:50 AM) 149.86 cm (01/29/19 8:17 PM) Height 97.5 DegF (02/09/19 12:00 PM) 97.9 DegF (02/09/19 8:00 AM) 98.0 DegF (02/09/19 4:00 AM) Temperature Oral [96.4-99.1 DegF] 163/72 mmHg *HI* (02/09/19 12:00 PM) 158/52 mmHg *HI* (02/09/19 11:00 AM) 143/67 mmHg *HI* (02/09/19 10:00 AM) Blood Pressure [90-140/60-90 mmHg] 20 BRMIN (02/09/19 12:00 PM) 11 BRMIN *LOW* (02/09/19 11:00 AM) 17 BRMIN (02/09/19 10:00 AM) Respiratory Rate [14-20 BRMIN] 99 bpm (01/29/19 8:17 PM) Peripheral Pulse Rate [60-100 bpm] 83.409 kg (01/30/19 2:50 AM) 90 kg (01/29/19 8:17 PM) Weight 37.14 m2 (01/30/19 2:50 AM) 40.07 m2 (01/29/19 8:17 PM) Body Mass Index Problem List Condition [...] Reaction Severity Status iodine topical Active Medications 1/2 NS 1,000 mL 1,000 mL, Rate: 40 ml/hr, Infuse over: 25 hr, Route: IV, Dosing Weight 83.409 kg , Total Volume: 1,000, Start date: 01/31/19 8:28:00 CDT, Duration: 30 day, Stop date: 03/02/19 8:27:00 CDT, 1.9, m2 Start Date: 01/31/19 Stop Date: 01/31/19 Status: Discontinued acetaminophen-codeine #3 1 tab, Route: PO, Drug Form: TAB, Dosing Weight 83.409, kg, Q4H, PRN Pain Score 4-6, Start date: 02/02/19 13:25:00 CDT, Duration: 30 day, Stop date: 03/04/19 13 :24:00 CDT Notes: Do not exceed 4gm/day of acetaminophen. (Same as: Tylenol with Codeine # 3) Start Date: 02/02/19 Stop Date: 02/09/19 Status: Discontinued amLODIPine 5 mg, 1 tab, Route: PO, Drug form: TAB, Daily, Dosing Weight 83.409, kg, Priorit y: NOW, Start date: 02/01/19 21:16:00 CDT, Duration: 30 day, Stop date: 03/03/19 9:00:00 CDT Notes: (Same as: Norvasc) Start Date: 02/01/19 Stop Date: 02/09/19 Status: Discontinued Ancef + sterile water 20 mL 2 gm, Route: IV, [id number], Dosing Weight 90, kg, Start date: 01/30/19 4:00:00 CDT, Duration: 15 day, Stop date: 02/13/19 20:00:00 CDT, ABX Indication: Endocarditi s/Endovascular Infection Notes: (Same As: Duarte Payne) MEDICATION WASTE Product Size: 1000 mgP roduct Wasted: ___ mg Start Date: 01/30/19 Stop Date: 02/09/19 Status: Discontinued ANES flumazenil 0.2 mg, Route: IVP, PRN, Dosing Weight 83.409, kg, PRN Benzodiazepine Reversal, Initial dose, Start date: 02/06/19 20:47:00 CDT, Duration: 30 day, Stop date: 20:46:00 CDT Start Date: 02/06/19 Stop Date: 02/07/19 Status: Discontinued ANES flumazenil 0.2 mg, Route: IVP, PRN, Dosing Weight 83.182, kg, PRN Benzodiazepine Reversal, Initial dose, Start date: 02/06/19 21:06:00 CDT, Duration: 30 day, Stop date: 21:05:00 CDT Start Date: 02/06/19 Stop Date: 02/06/19 Status: Discontinued ANES hydrALAZINE 10 mg, Route: IVP, Q20Min, Dosing Weight 83.409, kg, PRN Elevated BP, Start date : 02/06/19 20:47:00 CDT, Duration: 2 doses or times, Stop date: Limited # of roberto es Start Date: 02/06/19 Stop Date: 02/07/19 Status: Discontinued ANES hydrALAZINE 10 mg, Route: IVP, Q20Min, Dosing Weight 83.182, kg, PRN Elevated BP, Start date : 02/06/19 21:06:00 CDT, Duration: 2 doses or times, Stop date: Limited # of roberto es Start Date: 02/06/19 Stop Date: 02/06/19 Status: Discontinued ANES labetalol 10 mg, Route: IVP, Q5Min, Dosing Weight 83.409, kg, PRN Elevated BP, Start date: 02/06/19 20:47:00 CDT, Duration: 5 doses or times, Stop date: Limited # of times Start Date: 02/06/19 Stop Date: 02/07/19 Status: Discontinued ANES metoprolol 1 mg, Route: IVP, Q5Min, Dosing Weight 83.409, kg, PRN Other -See Comment, Start date: 02/06/19 20:47:00 CDT, Duration: 5 doses or times, Stop date: Limited # of times Start Date: 02/06/19 Stop Date: 02/07/19 Status: Discontinued ANES morphine Sulfate 2 mg, Route: IVP, Q5Min, Dosing Weight 83.182, kg, PRN Pain Score 4-6, Start najma e: 02/06/19 21:06:00 CDT, Duration: 5 doses or times, Stop date: Limited # of ti mes Start Date: 02/06/19 Stop Date: 02/06/19 Status: Discontinued ANES naloxone 0.4 mg, Route: IVP, Q2MIN, Dosing Weight 83.182, kg, PRN Narcotic Reversal, Star t date: 02/06/19 21:06:00 CDT, Duration: 8 doses or times, Stop date: Limited # of times Start Date: 02/06/19 Stop Date: 02/06/19 Status: Discontinued ANES ondansetron 4 mg, Route: IVP, ONCE, Dosing Weight 83.182, kg, PRN Nausea & Vomiting, Start date: 02/06/19 21:06:00 CDT Start Date: 02/06/19 Stop Date: 02/06/19 Status: Discontinued aspirin 81 mg, 1 tab, Route: PO, Drug form: ECTAB, Daily, Dosing Weight 83.409, kg, Prio rity: NOW, Start date: 02/01/19 10:55:00 CDT, Duration: 30 day, Stop date: 03/03 9:00:00 CDT Notes: Do not crush or chew.(Same As: Ecotrin) Start Date: 02/01/19 Stop Date: 02/09/19 Status: Discontinued atorvastatin 40 mg, 1 tab, Route: PO, Drug form: TAB, Bedtime, Dosing Weight 90, kg, Start da te: 01/30/19 21:00:00 CDT, Duration: 30 day, Stop date: 02/28/19 21:00:00 CDT Notes: (Same as: Lipitor) Start Date: 01/30/19 Stop Date: 02/09/19 Status: Discontinued ceFAZolin 2 g injection See Instructions, 2 g IVPB Q8H for 30 days, Repeat CBC/CMP/ESR/CRP every week an d follow up with ID., # 90 bag, 0 Refill(s), other Start Date: 02/09/19 Status: Ordered cefepime + sterile water 20 mL 2 gm, Route: IV, ONCE, Dosing Weight 90, kg, Priority: STAT, Start date: 9 20:32:00 CDT, Stop date: 01/29/19 20:32:00 CDT, ABX Indication: ED - Suspected Sepsis Notes: (Same as: Maxipime) MEDICATION WASTE Product Size: 2000 mgProduc t Wasted: ___ mg Start Date: 01/29/19 Stop Date: 01/29/19 Status: Completed collagenase topical 250 units/g ointment 1 appl, TOP, Daily, 0 Refill(s) Start Date: 02/09/19 Status: Ordered Dextrose 50% Syringe 25 gm, 50 mL, Route: IVP, Drug Form: INJ, Dosing Weight 83.409, kg, PRN, PRN Blo od Glucose Results, Start date: 01/30/19 16:15:00 CDT, Duration: 30 day, Stop da te: 03/01/19 16:14:00 CDT Start Date: 01/30/19 Stop Date: 02/09/19 Status: Discontinued Dextrose 50% Syringe 12.5 gm, 25 mL, Route: IVP, Drug Form: INJ, Dosing Weight 83.409, kg, PRN, PRN B lood Glucose Results, Start date: 01/30/19 16:15:00 CDT, Duration: 30 day, Stop date: 03/01/19 16:14:00 CDT Start Date: 01/30/19 Stop Date: 02/06/19 Status: Discontinued escitalopram 10 mg, 1 tab, Route: PO, Drug form: TAB, Daily, Dosing Weight 90, kg, Start date : 01/30/19 9:00:00 CDT, Duration: 30 day, Stop date: 02/28/19 9:00:00 CDT Notes: (Same as: Lexapro) Start Date: 01/30/19 Stop Date: 02/09/19 Status: Discontinued gabapentin 600 mg oral tablet 600 mg, 2 cap, Route: PO, Drug form: CAP, Bedtime, Dosing Weight 90, kg, Start d ate: 01/30/19 21:00:00 CDT, Duration: 30 day, Stop date: 02/28/19 21:00:00 CDT Notes: (Same as: Neurontin) Start Date: 01/30/19 Stop Date: 02/09/19 Status: Discontinued glucagon 1 mg, Route: IM, Drug form: PDR/INJ, PRN, Dosing Weight 83.409, kg, PRN Blood Gl ucose Results, Start date: 01/30/19 16:15:00 CDT, Duration: 30 day, Stop date: 0 03/01/19 16:14:00 CDT Start Date: 01/30/19 Stop Date: 02/09/19 Status: Discontinued insulin lispro 3 unit, 0.03 mL, Route: SUB-Q, Drug form: SOLN, Sliding Scale, Dosing Weight 83. 409, kg, PRN Blood Glucose Results, Start date: 01/30/19 16:15:00 CDT, Duration: 30 day, Stop date: 03/01/19 16:14:00 CDT Notes: (Same as: Humalog) Roll in palms of hands gently; Do not shake vigorously . WASTE: F/P - Black; E - Municipal Trash BinStable for 28 days at room tempera ture.Expires in days from Date Start Date: 01/30/19 Stop Date: 02/09/19 Status: Discontinued insulin lispro 2 unit, 0.02 mL, Route: SUB-Q, Drug form: SOLN, Sliding Scale, Dosing Weight 83. 409, kg, PRN Blood Glucose Results, Start date: 01/30/19 16:15:00 CDT, Duration: 30 day, Stop date: 03/01/19 16:14:00 CDT Notes: (Same as: Humalog) Roll in palms of hands gently; Do not shake vigorously . WASTE: F/P - Black; E - Municipal Trash BinStable for 28 days at room tempera ture.Expires in days from Date Start Date: 01/30/19 Stop Date: 02/09/19 Status: Discontinued insulin lispro 5 unit, 0.05 mL, Route: SUB-Q, Drug form: SOLN, Sliding Scale, Dosing Weight 83. 409, kg, PRN Blood Glucose Results, Start date: 01/30/19 16:15:00 CDT, Duration: 30 day, Stop date: 03/01/19 16:14:00 CDT Notes: (Same as: Humalog) Roll in palms of hands gently; Do not shake vigorously . WASTE: F/P - Black; E - Municipal Tr[facility] BinStable [facility].Expires in days from Date Start Date: 01/30/19 Stop Date: 02/09/19 Status: Discontinued insulin lispro 4 unit, 0.04 mL, Route: SUB-Q, Drug form: SOLN, Sliding Scale, Dosing Weight 83. 409, kg, PRN Blood Glucose Results, Start date: 01/30/19 16:15:00 CDT, Duration: 30 day, Stop date: 03/01/19 16:14:00 CDT Notes: (Same as: Humalog) Roll in palms of hands gently; Do not shake vigorously . WASTE: F/P - Black; E - Municipal Trash BinStable for [facility].Expires in days from Date Start Date: 01/30/19 Stop Date: 02/09/19 Status: Discontinued insulin lispro 1 unit, 0.01 mL, Route: SUB-Q, Drug form: SOLN, Sliding Scale, Dosing Weight 83. 409, kg, PRN Blood Glucose Results, Start date: 01/30/19 16:15:00 CDT, Duration: 30 day, Stop date: 03/01/19 16:14:00 CDT Notes: (Same as: Humalog) Roll in palms of hands gently; Do not shake vigorously . WASTE: F/P - Black; E - Municipal Trash BinStable [facility].Expires in days from Date Start Date: 01/30/19 Stop Date: 02/09/19 Status: Discontinued Lactated Ringers Injection IV 1,000 mL 1,000 mL, Rate: 125 ml/hr, Infuse over: 8 hr, Route: IV, Dosing Weight 83.182 kg , Total Volume: 1,000, Start date: 02/06/19 21:06:00 CDT, Duration: 30 day, Stop date: 03/08/19 21:05:00 CDT, 1.9, m2 Start Date: 02/06/19 Stop Date: 02/06/19 Status: Discontinued Lasix 20 mg, 2 mL, Route: IVP, Drug form: INJ, Daily, Dosing Weight 83.409, kg, Start date: 01/31/19 12:56:00 CDT, Duration: 30 day, Stop date: 03/02/19 9:00:00 CDT Notes: (Same as: Lasix) Start Date: 01/31/19 Stop Date: 02/09/19 Status: Discontinued lidocaine topical patch (5% film) 1 patch, Route: TOP, ONCE, Drug form: FILM, Start date: 02/02/19 18:18:00 CDT, S top date: 02/02/19 18:18:00 CDT Notes: Apply only once for up to 12 hours in [id number] period (12 hours on and 12 hours off).(Same as: Lidoderm)"Remove old patch before application of new patch" Start Date: 02/02/19 Stop Date: 02/02/19 Status: Completed lisinopril 20 mg, 1 tab, Route: PO, Drug form: TAB, Daily, Dosing Weight 83.409, kg, Priori ty: NOW, Start date: 02/01/19 21:17:00 CDT, Duration: 30 day, Stop date: 9 9:00:00 CDT Notes: (Same as: Prinivil, Zestril) Start Date: 02/01/19 Stop Date: 02/09/19 Status: Discontinued magnesium sulfate 2 gm in Water 50 ml 2 gm, 50 mL, Route: IVPB, Drug form: INJ, ONCE, Dosing Weight 83.409, kg, Start date: 02/04/19 12:48:00 CDT, Stop date: 02/04/19 12:48:00 CDT Notes: WASTE: F/P - Sink; E - Municipal Trash Bin Start Date: 02/04/19 Stop Date: 02/04/19 Status: Completed magnesium sulfate 2 gm in Water 50 ml 2 gm, 50 mL, Route: IVPB, Drug form: INJ, ONCE, Dosing Weight 83.409, kg, Start date: 02/06/19 8:44:00 CDT, Stop date: 02/06/19 8:44:00 CDT Notes: WASTE: F/P - Sink; E - Municipal Trash Bin Start Date: 02/06/19 Stop Date: 02/06/19 Status: Completed magnesium sulfate 2 gm in Water 50 ml 2 gm, 50 mL, Route: IVPB, Drug form: INJ, ONCE, Dosing Weight 83.409, kg, Start date: 02/02/19 9:06:00 CDT, Stop date: 02/02/19 9:06:00 CDT Notes: WASTE: F/P - Sink; E - Municipal Trash Bin Start Date: 02/02/19 Stop Date: 02/02/19 Status: Completed melatonin 3 mg oral tablet 3 mg, 1 tab, Route: PO, Drug Form: TAB, Dosing Weight 90, kg, Bedtime, PRN Insom jeb, Start date: 01/30/19 2:37:00 CDT, Duration: 30 day, Stop date: 03/01/19 2:3 6:00 CDT Notes: (Same as: Melatonin) Start Date: 01/30/19 Stop Date: 02/09/19 Status: Discontinued morphine Sulfate 2 mg, 0.5 mL, Route: IVP, Drug form: SOLN, Q4H, Dosing Weight 90, kg, PRN Pain S core 6-10, Start date: 01/29/19 23:20:00 CDT, Duration: 30 day, Stop date: 02/28 23:19:00 CDT, .. Notes: (Same as:MORPhine Sulfate) Start Date: 01/29/19 Stop Date: 02/09/19 Status: Discontinued Kingston 5/325 oral tablet 1 tab, Route: PO, Drug Form: TAB, Dosing Weight 83.409, kg, Q6H, PRN Pain Score 4-6, Start date: 02/01/19 18:01:00 CDT, Duration: 30 day, Stop date: 03/03/19 18 :00:00 CDT Notes: (Same as: Kingston 325/5) Do not exceed 4gm/day of acetaminophen. Start Date: 02/01/19 Stop Date: 02/06/19 Status: Discontinued ondansetron 4 mg, 2 mL, Route: IVP, Drug form: INJ, Q6H, Dosing Weight 90, kg, PRN Nausea & Vomiting, Start date: 01/29/19 23:22:00 CDT, Duration: 30 day, Stop date: 02/28 23:21:00 CDT Notes: (Same as: Sana) MEDICATION WASTE Product Size: 4 mgProduct Was lorne: ___ mg Start Date: 01/29/19 Stop Date: 02/09/19 Status: Discontinued pantoprazole 80 mg, Route: IVP, Drug form: INJ, ONCE, Dosing Weight 90, kg, Priority: STAT, S tart date: 01/29/19 20:55:00 CDT, Stop date: 01/29/19 20:55:00 CDT Notes: For IV push reconstitute with 10 ml 0.9% sodium chloride and push over 2 minutes. (Same as: Protonix) Start Date: 01/29/19 Stop Date: 01/29/19 Status: Completed pantoprazole 40 mg oral enteric coated tablet 40 mg=1 tab, PO, Q12H, 0 Refill(s) Start Date: 02/09/19 Status: Ordered pantoprazole additive 80 mg + Sodium Chloride 0.9% IV 100 mL 100 mL, Rate: 10 ml/hr, Infuse over: 10 hr, Route: IVPB, Dosing Weight 90 kg, To fatoumata Volume: 100, Infuse at 8 mg/hr for 72 hrs for GI bleeding, Start date: 01/29 22:13:00 CDT, Duration: 72 hr, Stop date: 02/01/19 22:12:00 CDT, 1.98, m2 Notes: For IV push reconstitute with 10 ml 0.9% sodium chloride and push over 2 minutes. (Same as: Protonix) Start Date: 01/29/19 Stop Date: 01/31/19 Status: Discontinued Plavix 75 mg, 1 tab, Route: PO, Drug form: TAB, Daily, Dosing Weight 83.409, kg, Start date: 02/03/19 9:00:00 CDT, Duration: 30 day, Stop date: 03/04/19 9:00:00 CDT Notes: (Same As: Plavix) Start Date: 02/03/19 Stop Date: 02/09/19 Status: Discontinued Protonix 40 mg, 1 tab, Route: PO, Drug form: ECTAB, Q12H, Dosing Weight 83.409, kg, Start date: 01/31/19 21:00:00 CDT, Duration: 30 day, Stop date: 03/02/19 9:00:00 CDT Notes: Tablet should not be chewed or crushed.(Same as: Protonix) Start Date: 01/31/19 Stop Date: 02/09/19 Status: Discontinued remove patch 1 patch, Route: TOP, ONCE, Drug form: ERFILM, Start date: 02/03/19 6:30:00 CDT, Stop date: 02/03/19 6:30:00 CDT Notes: Remove patch 12 hours after application each day. Start Date: 02/03/19 Stop Date: 02/03/19 Status: Completed Saline Flush 0.9% 10 ml, Route: IVP, Drug Form: INJ, Dosing Weight 90, kg, PRN, PRN Line Flush, St art date: 01/29/19 23:22:00 CDT, Duration: 30 day, Stop date: 02/28/19 23:21:00 CDT Notes: (Same as: BD Posiflush) Start Date: 01/29/19 Stop Date: 02/09/19 Status: Discontinued Saline Flush 0.9% 10 mL, Route: IVP, Drug Form: INJ, Dosing Weight 90, kg, PRN, PRN Line Flush, St art date: 01/29/19 20:31:00 CDT, Duration: 30 day, Stop date: 02/28/19 20:30:00 CDT Notes: (Same as: BD Posiflush) Start Date: 01/29/19 Stop Date: 02/03/19 Status: Discontinued Santyl 1 appl, Route: TOP, Daily, Drug form: OINT, Start date: 02/01/19 9:00:00 CDT, Du ration: 30 day, Stop date: 03/02/19 9:00:00 CDT Notes: (Same As: Santyl) Start Date: 02/01/19 Stop Date: 02/09/19 Status: Discontinued Silvadene 1% topical cream 1 appl, Route: TOP, BID, Drug form: CRM, Start date: 01/30/19 9:00:00 CDT, Durat ion: 30 day, Stop date: 02/28/19 17:00:00 CDT Notes: (Same as: Silvadene)WASTE: F/P - Black; E - Municipal Trash Bin Start Date: 01/30/19 Stop Date: 01/31/19 Status: Discontinued silver sulfADIAZINE topical 1% cream 1 appl, Route: TOP, Daily, Drug form: CRM, Start date: 02/01/19 9:00:00 CDT, Dur ation: 30 day, Stop date: 03/02/19 9:00:00 CDT Notes: (Same as: Silvadene)WASTE: F/P - Black; E - Municipal Trash Bin Start Date: 02/01/19 Stop Date: 02/06/19 Status: Discontinued Sodium Chloride 0.9% (Bolus) IV 500 mL, 500 ml/hr, Infuse Over: 1 hr, Route: IV, 500, Drug form: INJ, ONCE, Prio rity: STAT, Dosing Weight 90 kg, Start date: 01/29/19 23:20:00 CDT, Stop date: 0 01/29/19 23:20:00 CDT Start Date: 01/29/19 Stop Date: 01/30/19 Status: Completed Sodium Chloride 0.9% IV 1,000 mL 1,000 mL, Rate: 25 ml/hr, Infuse over: 40 hr, Route: IV, Dosing Weight 83.409 kg , Total Volume: 1,000, Start date: 01/31/19 14:59:00 CDT, Duration: 30 day, Stop date: 03/02/19 14:58:00 CDT, 1.9, m2 Start Date: 01/31/19 Stop Date: 01/31/19 Status: Discontinued Sodium Chloride 0.9% IV 1,000 mL 1,000 mL, Rate: 50 ml/hr, Infuse over: 20 hr, Route: IV, Dosing Weight 90 kg, To fatoumata Volume: 1,000, Start date: 01/29/19 23:22:00 CDT, Duration: 30 day, Stop najma e: 02/28/19 23:21:00 CDT, 1.98, m2 Start Date: 01/29/19 Stop Date: 01/31/19 Status: Discontinued vancomycin 1,000 mg, Route: IVPB, ONCE, Dosing Weight 90, kg, Priority: STAT, Start date: 0 01/29/19 20:32:00 CDT, Stop date: 01/29/19 20:32:00 CDT, ABX Indication: ED - Vilma pected Sepsis Start Date: 01/29/19 Stop Date: 01/29/19 Status: Discontinued vancomycin + Sodium Chloride 0.9% IV 500 mL 2,250 mg, Route: IVPB, ONCE, Dosing Weight 90, kg, Start date: 01/29/19 21:30:00 CDT, Stop date: 01/29/19 21:30:00 CDT, ABX Indication: ED - Suspected Sepsis Notes: TIME CRITICAL MEDICATION(Same As: Vancocin)Infusion rate< 1000 mg: infuse over 1 [id number] - 1500 mg: infuse over 1.5 [id number] - 2000 mg: infuse over 2 hours> 2001 mg: infuse over 2.5 hoursFor adult patients only: Round to nearest 250 mg per Medical Staff approval MEDICATION WASTE Product Size: 1000 mgProduct Wasted: ___ mg Start Date: 01/29/19 Stop Date: 01/29/19 Status: Completed Vitamin D2 50,000 IntlUnit, 1 cap, Route: PO, Drug form: CAP, QWed, Dosing Weight 90, kg, S tart date: 02/01/19 9:00:00 CDT, Duration: 30 day, Stop date: 03/01/19 9:00:00 C DT Notes: (Same as: Vitamin D) "Do Not Crush" Start Date: 02/01/19 Stop Date: 02/09/19 Status: Discontinued Results 1 2 3 Most recent to oldest [Reference Range]: <0.05 ng/mL (01/29/19 10:07 PM) Procalcitonin Lvl [0.00-0.10 ng/mL] 3.5 K/CMM (02/07/19 5:22 AM) 3.6 K/CMM (02/02/19 6:11 AM) 4.8 K/CMM (01/31/19 5:06 AM) Neutrophils # [1.5-8.1 K/CMM] 1.4 K/CMM (02/07/19 5:22 AM) 1.5 K/CMM (02/02/19 6:11 AM) 1.8 K/CMM (01/31/19 5:06 AM) Lymphocytes # [1.0-5.5 K/CMM] 0.5 K/CMM (02/07/19 5:22 AM) 0.5 K/CMM (02/02/19 6:11 AM) 0.6 K/CMM (01/31/19 5:06 AM) Monocytes # [0.0-0.8 K/CMM] 0.3 K/CMM (02/07/19 5:22 AM) 0.6 K/CMM *HI* (02/02/19 6:11 AM) 0.6 K/CMM *HI* (01/31/19 5:06 AM) Eosinophils # [0.0-0.5 K/CMM] 0.1 K/CMM (02/07/19 5:22 AM) 0.1 K/CMM (02/02/19 6:11 AM) 0.1 K/CMM (01/31/19 5:06 AM) Basophils # [0.0-0.2 K/CMM] See Note (01/29/19 9:37 PM) Plt Morph [Normal] 76 mL/min/1.73m2 1 *NA* (02/07/19 5:22 AM) 81 mL/min/1.73m2 2 *NA* (02/06/19 3:25 AM) 75 mL/min/1.73m2 3 *NA* (02/05/19 2:55 AM) eGFR Product available 4 (01/30/19 1:40 PM) Product available 5 (01/29/19 10:11 PM) RBC product A NEG *Unknown* (01/29/19 9:38 PM) ABO/Rh 0.7 (01/29/19 10:07 PM) A/G Ratio [0.7-1.6] Negative (01/29/19 9:38 PM) Antibody Scrn 2.4 g/dL *LOW* (01/29/19 10:07 PM) Albumin Lvl [3.5-5.0 g/dL] 46 unit/L (01/29/19 10:07 PM) Alk Phos [39-136 unit/L] 8 unit/L (01/29/19 10:07 PM) ALT [0-65 unit/L] 10.7 mEq/L (02/07/19 5:22 AM) 13.8 mEq/L (02/06/19 3:25 AM) 12.1 mEq/L (02/05/19 2:55 AM) AGAP [10.0-20.0 mEq/L] 19 unit/L (01/29/19 10:07 PM) AST [0-37 unit/L] 59 *HI* (01/29/19 10:07 PM) B/C Ratio [6-25] 1.3 % *HI* (02/07/19 5:22 AM) 1.3 % *HI* (02/02/19 6:11 AM) 1.0 % (01/31/19 5:06 AM) Basophils [0.0-1.0 %] 31 mg/dL *HI* (02/07/19 5:22 AM) 32 mg/dL *HI* (02/06/19 3:25 AM) 30 mg/dL *HI* (02/05/19 2:55 AM) BUN [7-22 mg/dL] 8.1 mg/dL *LOW* (02/07/19 5:22 AM) 8.0 mg/dL *LOW* (02/06/19 3:25 AM) 8.0 mg/dL *LOW* (02/05/19 2:55 AM) Calcium Lvl [8.5-10.5 mg/dL] 66 unit/L (01/29/19 10:07 PM) Total CK [12-191 unit/L] 113 mEq/L *HI* (02/07/19 5:22 AM) 113 mEq/L *HI* (02/06/19 3:25 AM) 113 mEq/L *HI* (02/05/19 2:55 AM) Chloride Lvl [95-109 mEq/L] 22 mEq/L *LOW* (02/07/19 5:22 AM) 19 mEq/L *LOW* (02/06/19 3:25 AM) 22 mEq/L *LOW* (02/05/19 2:55 AM) CO2 [24-32 mEq/L] 0.82 mg/dL (02/07/19 5:22 AM) 0.78 mg/dL (02/06/19 3:25 AM) 0.83 mg/dL (02/05/19 2:55 AM) Creatinine Lvl [0.50-1.40 mg/dL] 4.7 % *HI* (02/07/19 5:22 AM) 9.4 % *HI* (02/02/19 6:11 AM) 7.4 % *HI* (01/31/19 5:06 AM) Eosinophils [0.0-4.0 %] 3.4 g/dL (01/29/19 10:07 PM) Globulin [2.7-4.2 g/dL] 167 mg/dL *HI* (02/07/19 5:22 AM) 173 mg/dL *HI* (02/06/19 3:25 AM) 144 mg/dL *HI* (02/05/19 2:55 AM) Glucose Lvl [70-99 mg/dL] 24.5 % *LOW* (02/07/19 5:22 AM) 26.9 % *LOW* (02/06/19 3:25 AM) 24.6 % *LOW* (02/05/19 2:55 AM) Hct [36.0-48.0 %] 8.2 g/dL *LOW* (02/07/19 5:22 AM) 8.9 g/dL *LOW* (02/06/19 3:25 AM) 8.2 g/dL *LOW* (02/05/19 2:55 AM) Hgb [12.0-16.0 g/dL] 1.09 (01/29/19 9:37 PM) INR [0.85-1.17] 4.7 mEq/L (02/07/19 5:22 AM) 4.8 mEq/L (02/06/19 3:25 AM) 5.1 mEq/L (02/05/19 2:55 AM) Potassium Lvl [3.5-5.1 mEq/L] 0.6 mMol/L (01/30/19 10:54 AM) 3.0 mMol/L *HI* (01/29/19 10:07 PM) Lactic Acid Lvl [0.5-2.2 mMol/L] 24.0 % (02/07/19 5:22 AM) 23.9 % (02/02/19 6:11 AM) 22.4 % (01/31/19 5:06 AM) Lymphocytes [20.0-40.0 %] 27.9 pg (02/07/19 5:22 AM) 27.8 pg (02/02/19 6:11 AM) 27.0 pg (02/01/19 5:04 AM) MCH [27.0-31.0 pg] 33.5 g/dL (02/07/19 5:22 AM) 33.7 g/dL (02/02/19 6:11 AM) 32.7 g/dL (02/01/19 5:04 AM) MCHC [32.0-36.0 g/dL] 83.4 fL (02/07/19 5:22 AM) 82.6 fL (02/02/19 6:11 AM) 82.6 fL (02/01/19 5:04 AM) MCV [80.0-98.0 fL] 1.8 mg/dL (02/07/19:22 AM) 1.7 mg/dL *LOW* (02/06/19 3:25 AM) 2.0 mg/dL (02/05/19 2:55 AM) Magnesium Lvl [1.8-2.4 mg/dL] 9.2 % (02/07/19 5:22 AM) 7.9 % (02/02/19 6:11 AM) 8.0 % (01/31/19 5:06 AM) Monocytes [2.0-12.0 %] 8.0 fL (02/07/19 5:22 AM) 8.1 fL (02/02/19 6:11 AM) 7.9 fL (02/01/19 5:04 AM) MPV [7.4-10.4 fL] 141 mEq/L (02/07/19 5:22 AM) 141 mEq/L (02/06/19 3:25 AM) 142 mEq/L (02/05/19 2:55 AM) Sodium Lvl [135-145 mEq/L] Positive *ABN* (01/29/19 10:09 PM) Occult Bld Stl [Negative] 249 K/CMM (02/07/19 5:22 AM) 262 K/CMM (02/02/19 6:11 AM) 223 K/CMM (02/01/19 5:04 AM) Platelet [133-450 K/CMM] 60.8 % (02/07/19 5:22 AM) 57.5 % (02/02/19 6:11 AM) 61.2 % (01/31/19 5:06 AM) Segs [45.0-75.0 %] 5.8 g/dL *LOW* (01/29/19 10:07 PM) Total Protein [6.4-8.4 g/dL] 13.9 seconds (01/29/19 9:37 PM) PT [12.0-14.7 seconds] 20.0 seconds 6 *LOW* (01/29/19 9:37 PM) PTT [22.9-35.8 seconds] 2.93 M/CMM *LOW* (02/07/19 5:22 AM) 2.92 M/CMM *LOW* (02/02/19 6:11 AM) 2.82 M/CMM *LOW* (02/01/19 5:04 AM) RBC [4.20-5.40 M/CMM] Normal (01/29/19 9:37 PM) RBC Morph [Normal] 16.4 % *HI* (02/07/19 5:22 AM) 15.8 % *HI* (02/02/19 6:11 AM) 15.9 % *HI* (02/01/19 5:04 AM) RDW [11.5-14.5 %] 0.2 mg/dL (01/29/19 10:07 PM) Bili Total [0.2-1.3 mg/dL] 0.35 ng/mL (01/29/19 10:07 PM) Troponin-I [0.00-0.40 ng/mL] Negative *NA* (01/30/19 2:54 AM) UA Bili [Negative] Negative (01/30/19 2:54 AM) UA Blood [Negative] Ltyellow *NA* (01/30/19 2:54 AM) UA Color Negative mg/dL *NA* (01/30/19 2:54 AM) UA Glucose [Negative mg/dL] Negative mg/dL *NA* (01/30/19 2:54 AM) UA Ketones [Negative mg/dL] Negative (01/30/19 2:54 AM) UA Leuk Est [Negative] Few /LPF *NA* (01/30/19 2:54 AM) UA Mucus [None Seen /LPF] Negative (01/30/19 2:54 AM) UA Nitrite [Negative] 5.0 (01/30/19 2:54 AM) UA pH [5.0-8.0] Negative mg/dL (01/30/19 2:54 AM) UA Protein [Negative mg/dL] <1 /HPF (01/30/19 2:54 AM) UA RBC [0-2 /HPF] 1.015 (01/30/19 2:54 AM) UA Spec Grav [<=1.030] None Seen *NA* (01/30/19 2:54 AM) UA Sq Epi Clear (01/30/19 2:54 AM) UA Turbidity [Clear] <=1.0 mg/dL *NA* (01/30/19 2:54 AM) UA Urobilinogen [0.1-1.0 mg/dL] 1 /HPF (01/30/19 2:54 AM) UA WBC [0-5 /HPF] 5.8 K/CMM (02/07/19 5:22 AM) 6.2 K/CMM (02/02/19 6:11 AM) 6.5 K/CMM (02/01/19 5:04 AM) WBC [3.7-10.4 K/CMM] Moderate *ABN* (01/29/19 9:37 PM) Giant Plt [None Seen] 1Result Comment: The eGFR is calculated using [...] be mul tiplied by the estimated BMI. 4Result Comment: 01/30/2019 13:52 [id number] KLS notified Jacy 01/30/2019 13:51 5Result Comment: 01/29/2019 22:28 [id number] KLS notified Tiffany 01/29/2019 22:28 6Result Comment: Result did not cross to the que. Immunizations No data available for this section [...] Smoking Cessation Counseling No entered on: 01/30/19 Assessment and Plan Extracted from: Title: Podiatry Progress Note Author: Manish Jaime DPM Date: 02/09/19 1.Diabetes mellitus type 2 with [...] well postoperatively. [facility]. -Dressing changed today. Enzymatic [...] -Continuepain control with Tylenol #3 PO. Extracted from: Title: Clinical Document Author: Kermit Garcia MD Date: [...] you very much for the consultation. Extracted from: Title: History and Physical Author: Ar Brown Date: 01/29/19 1.Acute upper GI bleed(K92.2) 2.Endocarditis [...]
--- OUTSIDE RECORDS SUMMARY | 2019-05-04 07:27 | XMS REPORT | Summary of Care ---
Author Author [facility] - Health Organization [facility] - Health Address Unknown Phone Unavailable Care Team Providers Care Water Safety Instructor Name Role Phone Fernando Staton PCP Reason for Visit * Reason Comments Refill Request Encounter Details Care Team Description Date Type Department Gerri Ram, [place] [address] [place], [place] [id number] Refill Request 04/14/2019 Telephone [facility] Orthopaedic Surgery- [address] [place] [phone] Allergies Comments Active Allergy Reactions Severity Noted Date Iodine Hives 09/08/2018 Seafood/Fish Anaphylaxis High 03/21/2019 [place] Hives High 11/01/2018 documented as of this encounter (statuses as of 04/17/2019) Medications End Date Status Medication Sig Dispensed Refills Start Date Active acetaminophen-codeine 0 300-30 mg tablet 9 Active amLODIPine 5 mg tablet TAKE ONE (1) TABLET(S) BY 9 MOUTH ONCE A DAY. Active atorvastatin 40 mg tablet 0 9 Active ONETOUCH ULTRA BLUE TEST USE 3 STRIP strip DIRECTED 9 THREE TIMES A DAY. Active ONETOUCH ULTRA2 Kit USE 0 DRIECTED WITH 9 TEST STRIPS. Active clopidogrel 75 mg tablet TAKE ONE (1) 3 TABLET(S) BY 9 MOUTH ONCE A DAY. Active dicyclomine 20 mg tablet TAKE ONE (1) 0 TABLET(S) BY 9 MOUTH THREE TIMES A DAY NEEDED FOR 10 DAYS. Active escitalopram oxalate 10 TAKE ONE (1) 1 mg tablet TABLET(S) BY 9 MOUTH ONCE A DAY. Active glimepiride 4 mg tablet TAKE ONE (1) 3 TABLET(S) BY 9 MOUTH ONCE A DAY. Active hydralAZINE 50 mg tablet TAKE ONE (1) 3 TABLET(S) BY 9 MOUTH THREE TIMES A DAY. Active ONE TOUCH DELICA 33 gauge CHECK BLOOD 5 Misc SUGAR THREE 9 TIMES A DAY. Active lisinopril 20 mg tablet 0 9 Active meloxicam 15 mg tablet TAKE ONE (1) 3 TABLET(S) BY 9 MOUTH ONCE A DAY. Active montelukast 10 mg tablet TAKE ONE (1) 3 TABLET(S) BY 9 MOUTH ONCE A DAY. 12/07/2019 Active alendronate 70 mg Take 1 tablet 12 tablet 3 tabletIndications: by mouth 9 Localized osteoporosis weekly. with current pathological fracture with delayed healing, subsequent encounter Active GABAPENTIN, BULK, MISC Take 600 mg 0 by mouth every morning and at bedtime. Active ergocalciferol, vitamin Take by 0 D2, (VITAMIN D ORAL) mouth. Active aspirin 81 mg EC tablet Take 81 mg by 3 mouth daily. 9 04/22/2019 Active furosemide 20 mg Take 1 tablet 30 tablet 0 tabletIndications: by mouth 9 Pacemaker daily for 30 days. 04/21/2019 Active levalbuterol 1.25 mg/3 mL Inhale 1.25 1 Box 0 nebulizer mg 3 (three) 9 solutionIndications: times daily Pacemaker as needed for Wheezing or Shortness of Breath for up to 30 days. 04/21/2019 Active melatonin 3 mg Take 1 tablet 30 tablet 0 tabletIndications: by mouth at 9 Pacemaker bedtime as needed for Insomnia for up to 30 days. documented as of this encounter (statuses as of 04/17/2019) Active Problems Problem Noted Date S/P placement of cardiac pacemaker 03/21/2019 Overview: Dual chamber pacemaker insertion to left side by Dr. Yuen Other spondylosis with radiculopathy, lumbar region 12/14/2018 Overview: Added automatically from request for surgery [id number] Greater trochanteric bursitis of right hip 09/12/2018 Back pain, lumbosacral 09/12/2018 documented as of this encounter (statuses as of 04/17/2019) Social History Date Tobacco Use Types Packs/Day Years Used Never Smoker Smokeless Tobacco: Never Used Financial Resource Strain Answer Date Recorded How hard is it for you to pay for the very basics Not hard at all 03/21/2019 like food, housing, medical care, and heating? Sex Assigned at Date Recorded Not on file Industry Job Start Date Occupation Not on file Not on file Not on file Travel End Travel History Travel Start No recent travel history available. documented as of this encounter Last Filed Vital Signs Not on filedocumented in this encounter Plan of Treatment Care Team Description Date Type Specialty Inez Rhoades, [employer] [address] [facility] [address] [place] [address] [phone] 04/19/2019 Office Visit Orthopedic Surgery Health Maintenance Due Date Last Done Comments HEPATITIS C (HCV) SCREEN 1954 PNEUMOCOCCAL 0-64 YEARS 1960 COMBINED SERIES (1 of 1 - PPSV23) EYE EXAM 1964 LDL-C 1964 URINE MICROALBUMIN 1964 FOOT EXAM 1972 DTaP,Tdap,and Td Vaccines 1973 (1 - Tdap) PAP SMEAR 1975 MAMMOGRAM 1994 COLONOSCOPY 2004 Zoster Recombinant 2004 Vaccine (SHINGRIX) (1 of 2) INFLUENZA VACCINE 05/07/2019 HgA1C 09/22/2019 03/22/2019 CREATININE (SERUM) 03/22/2020 03/22/2019, 10/26/2018 documented as of this encounter Results Not on filedocumented in this encounter Insurance Type Payer Benefit Subscriber ID Effective Phone Address Plan / Dates Group Medicare Adv PPO [employer] - MANAGED MEDICARE [employer] [id number] 2017-P [address] MEDICARE resent [id number] [place] [id number] documented as of this encounter
--- OUTSIDE RECORDS SUMMARY | 2019-05-04 07:27 | XMS REPORT | Summary of Care ---
Author Author [facility] Organization [facility] Address Unknown Phone Unavailable Encounter HQ Jorge(CHRISTIN) [id number] Date(s): 01/15/19 - 01/23/19 [facility] [address] [place] [address]- Discharge Disposition: Home or Self Care Attending Physician: Chaz Mitchell DO Admitting Physician: Chaz Mitchell DO Vital Signs 1 2 3 Most recent to oldest [Reference Range]: 134.62 cm (01/15/19 6:05 PM) Height 89.005 kg (01/23/19 3:00 AM) 89.409 kg (01/22/19 5:12 AM) 87.528 kg (01/21/19 5:43 AM) Current Weight 97.8 DegF (01/23/19 4:00 PM) 97.6 DegF (01/23/19 12:59 PM) 97.6 DegF (01/23/19 8:32 AM) Temperature Oral [96.4-99.1 DegF] 111/65 mmHg (01/23/19 4:00 PM) 129/74 mmHg (01/23/19 12:59 PM) 143/82 mmHg *HI* (01/23/19 8:32 AM) Blood Pressure [90-140/60-90 mmHg] 18 BRMIN (01/23/19 7:47 AM) 18 BRMIN (01/23/19 3:57 AM) 18 BRMIN (01/23/19 12:43 AM) Respiratory Rate [14-20 BRMIN] 74 bpm (01/23/19 4:00 PM) 78 bpm (01/23/19 12:59 PM) 74 bpm (01/23/19 8:32 AM) Peripheral Pulse Rate [60-100 bpm] 85.554 kg (01/16/19 2:23 AM) 85.909 kg (01/15/19 6:05 PM) Weight 47.4 m2 (01/15/19 6:05 PM) Body Mass Index Problem List Condition [...] form: TAB, ONCE, Dosing Weight 88.636, kg, Priori ty: STAT, Start date: 01/15/19 18:11:00 CDT, Stop date: 01/15/19 18:11:00 CDT Notes: Do not exceed 4 gm/day. (Same as: Tylenol) Start Date: 01/15/19 Stop Date: 01/15/19 Status: Completed acetaminophen-codeine 300 mg-30 mg oral tablet 1 tab, PO, Q6H, PRN Pain Score 7-10, X 14 day, # 30 tab, 0 Refill(s) Start Date: 01/23/19 Stop Date: 02/06/19 Status: Ordered acetaminophen-codeine 300 mg-30 mg oral tablet 1 tab, Route: PO, Drug Form: TAB, Dosing Weight 85.554, kg, Q6H, PRN Pain Score 7-10, Start date: 01/21/19 11:31:00 CDT, Duration: 30 day, Stop date: 02/20/19 1 1:30:00 CDT Notes: Do not exceed 4gm/day of acetaminophen. (Same as: Tylenol with Codeine # 3) Start Date: 01/21/19 Stop Date: 01/23/19 Status: Discontinued acetaminophen-codeine 300 mg-30 mg oral tablet 1 tab, PO, Q8H, PRN Pain Score 7-10 Start Date: 01/16/19 Stop Date: 01/23/19 Status: Discontinued acetaminophen-codeine 300 mg-30 mg oral tablet 1 tab, Route: PO, Drug Form: TAB, Dosing Weight 85.554, kg, Q8H, PRN Pain Score 7-10, Start date: 01/16/19 11:57:00 CDT, Duration: 30 day, Stop date: 02/15/19 1 1:56:00 CDT Notes: Do not exceed 4gm/day of acetaminophen. (Same as: Tylenol with Codeine # 3) Start Date: 01/16/19 Stop Date: 01/21/19 Status: Discontinued acetaminophen-hydrocodone 334 mg-5 mg/10 mL oral elixir 15 mL, Route: PO, Dosing Weight 85.554, kg, Q4H, PRN Pain Score 4-6, Start date: 01/16/19 20:47:00 CDT, Duration: 30 day, Stop date: 02/15/19 20:46:00 CDT Start Date: 01/16/19 Stop Date: 01/16/19 Status: Discontinued Al hydroxide/Mg hydroxide/simethicone 200 mg-200 mg-20 mg/5 mL oral suspension 30 mL, Route: PO, Drug Form: SUSP, Dosing Weight 85.554, kg, Q4H, PRN Indigestio n, Start date: 01/16/19 14:59:00 CDT, Duration: 30 day, Stop date: 02/15/19 14:5 8:00 CDT Notes: (aluminum hydroxide-magnesium hyd-simethicone [id number]/5ml 30 ml ud S US) Start Date: 01/16/19 Stop Date: 01/23/19 Status: Discontinued albuterol-ipratropium 2.5-0.5 mg inhalation solution 3 ml, Route: NEB, Drug Form: SOLN, Dosing Weight 85.909, kg, PRN, PRN Respirator y Pathway, Start date: 01/15/19 20:27:00 CDT, Duration: 30 day, Stop date: 02/14 20:26:00 CDT Notes: (Same as: Duoneb) Start Date: 01/15/19 Stop Date: 01/23/19 Status: Discontinued alendronate 70 mg oral tablet 70 mg=1 tab, PO, Q7D, 0 Refill(s) Start Date: 01/16/19 Status: Ordered amLODIPine 5 mg, PO, Daily, 0 Refill(s) Start Date: 01/15/19 Status: Ordered amLODIPine 5 mg, 1 tab, Route: PO, Drug form: TAB, Daily, Dosing Weight 85.909, kg, Start d ate: 01/16/19 9:00:00 CDT, Duration: 30 day, Stop date: 02/14/19 9:00:00 CDT Notes: (Same as: Norvasc) Start Date: 01/16/19 Stop Date: 01/19/19 Status: Discontinued aspirin 325 mg, 1 tab, Route: PO, Drug form: ECTAB, ONCE, Dosing Weight 85.909, kg, Star t date: 01/15/19 23:53:00 CDT, Stop date: 01/15/19 23:53:00 CDT Notes: (Do Not Crush) Do not crush or chew. Start Date: 01/15/19 Stop Date: 01/16/19 Status: Completed aspirin 81 mg, 1 tab, Route: PO, Drug form: ECTAB, Daily, Dosing Weight 85.554, kg, Prio rity: NOW, Start date: 01/23/19 11:23:00 CDT, Duration: 30 day, Stop date: 02/22 9:00:00 CDT Notes: Do not crush or chew.(Same As: Ecotrin) Start Date: 01/23/19 Stop Date: 01/23/19 Status: Discontinued aspirin 81 mg tablet, enteric coated 81 mg=1 tab, PO, Daily, # 30 tab, 3 Refill(s), Pharmacy: [facility] [place] Start Date: 01/23/19 Stop Date: 05/23/19 Status: Ordered aspirin 81 mg tablet, enteric coated 81 mg=1 tab, PO, Daily, 0 Refill(s) Start Date: 01/23/19 Status: Ordered Ativan 0.5 mg, 0.25 mL, Route: IVP, Drug form: INJ, ONCE, Dosing Weight 85.554, kg, PRN Anxiety, Start date: 01/16/19 13:34:00 CDT Notes: (Same as: Ativan) Start Date: 01/16/19 Stop Date: 01/17/19 Status: Completed atorvastatin 40 mg, 1 tab, Route: PO, Drug form: TAB, Bedtime, Dosing Weight 85.909, kg, Star t date: 01/16/19 21:00:00 CDT, Duration: 30 day, Stop date: 02/14/19 21:00:00 CD T Notes: (Same as: Lipitor) Start Date: 01/16/19 Stop Date: 01/23/19 Status: Discontinued azithromycin + Sodium Chloride 0.9% IV 250 mL 500 mg, Route: IVPB, ONCE, Dosing Weight 85.909, kg, Priority: STAT, Start date: 01/15/19 18:13:00 CDT, Stop date: 01/15/19 18:13:00 CDT, ABX Indication: Other (specify in Comments) Notes: (Same As: Zithromax IV) Start Date: 01/15/19 Stop Date: 01/15/19 Status: Completed azithromycin + Sodium Chloride 0.9% IV 250 mL 500 mg, Route: IVPB, [id number], Dosing Weight 85.909, kg, Start date: 01/16/19 18: 30:00 CDT, Duration: 2 day, Stop date: 01/17/19 18:30:00 CDT, ABX Indication: Pn eumonia Notes: (Same As: Zithromax IV) Start Date: 01/16/19 Stop Date: 01/16/19 Status: Canceled ceFAZolin + sterile water 20 mL 2 gm, Route: IVP, [id number], Dosing Weight 85.554, kg, Start date: 01/16/19 21:00:0 0 CDT, Duration: 28 day, Stop date: 02/13/19 13:00:00 CDT, ABX Indication: Bacte remia Notes: (Same As: AncMargaret tiradozoteodora) MEDICATION WASTE Product Size: 1000 mgP roduct Wasted: ___ mg Start Date: 01/16/19 Stop Date: 01/23/19 Status: Discontinued cefTRIAXone + sterile water 10 mL 1 gm, Route: IVP, [id number], Dosing Weight 85.909, kg, Start date: 01/16/19 18:00: 00 CDT, Duration: 5 day, Stop date: 01/20/19 18:00:00 CDT, ABX Indication: Urina ry Tract Infection Notes: (Same As: Rocephin).Use with 100 mL NS and infuse over 30 min MEDICA TION WASTE Product Size: 1000 mgProduct Wasted: ___ mg Start Date: 01/16/19 Stop Date: 01/16/19 Status: Canceled Cetacaine topical aerosol 2 spray, Route: MUCOUS MEM, ONCALL, Drug form: AERO, Start date: 01/19/19 17:00: 00 CDT, Duration: 1 doses or times Notes: (Same As: Cetacaine)Cetacaine (ftprrhkjos-cdowjzqgej-vozhmhvl 14-2-2%) Start Date: 01/19/19 Stop Date: 01/23/19 Status: Discontinued chlorhexidine topical 0.12% liquid 15 ml, Route: S&SPIT, Daily, Drug form: LIQ, Start date: 01/20/19 9:00:00 CDT, Duration: 30 day, Stop date: 02/18/19 9:00:00 CDT Notes: (Same As: Peridex) Start Date: 01/20/19 Stop Date: 01/23/19 Status: Discontinued cranberry 1 tab, PO, Daily, 0 Refill(s) Start Date: 01/16/19 Status: Ordered dextromethorphan-guaiFENesin 10 mg-100 mg/5 mL oral liquid 10 mL, Route: PO, Drug Form: LIQ, Dosing Weight 85.554, kg, Q4H, PRN Cough, Star t date: 01/16/19 14:59:00 CDT, Duration: 30 day, Stop date: 02/15/19 14:58:00 CD T Notes: (dextromethorphan-guaifenesin 10-100/5 ml LIQ) (Same as: Robitussin-DM) Start Date: 01/16/19 Stop Date: 01/23/19 Status: Discontinued Dextrose 50% Syringe 25 gm, 50 mL, Route: IVP, Drug Form: INJ, Dosing Weight 85.909, kg, PRN, PRN Blo od Glucose Results, Start date: 01/15/19 20:14:00 CDT, Duration: 30 day, Stop da te: 02/14/19 20:13:00 CDT Start Date: 01/15/19 Stop Date: 01/23/19 Status: Discontinued Dextrose 50% Syringe 12.5 gm, 25 mL, Route: IVP, Drug Form: INJ, Dosing Weight 85.909, kg, PRN, PRN B lood Glucose Results, Start date: 01/15/19 20:14:00 CDT, Duration: 30 day, Stop date: 02/14/19 20:13:00 CDT Start Date: 01/15/19 Stop Date: 01/23/19 Status: Discontinued diphenhydrAMINE 25 mg, 1 tab, Route: PO, Drug form: TAB, Q6H, Dosing Weight 85.554, kg, PRN Itch ing, Start date: 01/16/19 14:59:00 CDT, Duration: 30 day, Stop date: 02/15/19 14 :58:00 CDT Start Date: 01/16/19 Stop Date: 01/23/19 Status: Discontinued docusate sodium 100 mg oral capsule 100 mg, 1 cap, Route: PO, Drug form: CAP, BID, Dosing Weight 85.909, kg, Start d ate: 01/16/19 9:00:00 CDT, Duration: 30 day, Stop date: 02/14/19 17:00:00 CDT Notes: (Same as: Colace) (Do Not Crush) Start Date: 01/16/19 Stop Date: 01/23/19 Status: Discontinued escitalopram 10 mg, 1 tab, Route: PO, Drug form: TAB, Daily, Dosing Weight 85.909, kg, Start date: 01/16/19 9:00:00 CDT, Duration: 30 day, Stop date: 02/14/19 9:00:00 CDT Notes: (Same as: Lexapro) Start Date: 01/16/19 Stop Date: 01/23/19 Status: Discontinued furosemide 40 mg oral tablet 40 mg=1 tab, PO, Daily, 0 Refill(s) Start Date: 01/16/19 Status: Ordered gabapentin 600 mg oral tablet 600 mg, 2 cap, Route: PO, Drug form: CAP, Q12H, Dosing Weight 85.909, kg, Start date: 01/16/19 9:00:00 CDT, Duration: 30 day, Stop date: 02/14/19 21:00:00 CDT Notes: (Same as: Neurontin) Start Date: 01/16/19 Stop Date: 01/23/19 Status: Discontinued gabapentin 600 mg oral tablet 600 mg=1 tab, PO, Bedtime, 0 Refill(s) Start Date: 01/16/19 Status: Ordered glucagon 1 mg, Route: IM, Drug form: PDR/INJ, PRN, Dosing Weight 85.909, kg, PRN Blood Gl ucose Results, Start date: 01/15/19 20:14:00 CDT, Duration: 30 day, Stop date: 0 02/14/19 20:13:00 CDT Start Date: 01/15/19 Stop Date: 01/23/19 Status: Discontinued heparin 5,000 unit, 1 mL, Route: SUB-Q, Drug form: INJ, Q12H, Dosing Weight 85.554, kg, Start date: 01/21/19 21:00:00 CDT, Duration: 30 day, Stop date: 02/20/19 9:00:00 CDT Notes: porcine heparin Start Date: 01/21/19 Stop Date: 01/23/19 Status: Discontinued heparin 5,000 unit, 1 mL, Route: SUB-Q, Drug form: INJ, Q8H, Dosing Weight 85.909, kg, S tart date: 01/16/19 0:00:00 CDT, Duration: 30 day, Stop date: 02/14/19 16:00:00 CDT Notes: porcine heparin Start Date: 01/16/19 Stop Date: 01/15/19 Status: Discontinued Heparin - one time bolus for ACS 3,100 unit, Route: IVP, Drug form: INJ, ONCE, Dosing Weight 85.909, kg, Priority : STAT, Start date: 01/15/19 23:47:00 CDT, Stop date: 01/15/19 23:47:00 CDT Start Date: 01/15/19 Stop Date: 01/15/19 Status: Discontinued Heparin 30 unit/kg Bolus (Heparin Dosing Weight) Route: IVP, PRN, 1,600 unit, 1.6 mL, Drug form: INJ, PRN, Heparin Protocol, Star t date: 01/15/19 23:47:00 CDT Stop date: 02/14/19 23:46:00 CDT, 30 day Start Date: 01/15/19 Stop Date: 01/20/19 Status: Discontinued Heparin 60 unit/kg Bolus (Heparin Dosing Weight) Route: IVP, PRN, 3,100 unit, 3.1 mL, Drug form: INJ, PRN, Heparin Protocol, Star t date: 01/15/19 23:47:00 CDT Stop date: 02/14/19 23:46:00 CDT, 30 day Start Date: 01/15/19 Stop Date: 01/20/19 Status: Discontinued heparin additive 25,000 unit [12 unit/kg/hr] + Premix Diluent Dextrose 5% 500 mL 500 mL, Rate: 12.48 ml/hr, Infuse over: 40.1 hr, Route: IV, Dosing Weight 52 kg, Total Volume: 500 mL, Start date: 01/15/19 23:47:00 CDT, Duration: 30 day, Stop date: 02/14/19 23:46:00 CDT, 1.42, m2 Start Date: 01/15/19 Stop Date: 01/19/19 Status: Discontinued hydrALAZINE 50 mg, BID, 0 Refill(s) Start Date: 01/15/19 Stop Date: 01/23/19 Status: Discontinued hydrALAZINE 50 mg, 1 tab, Route: PO, Drug form: TAB, Q12H, Dosing Weight 85.909, kg, Start d ate: 01/15/19 22:15:00 CDT, Duration: 30 day, Stop date: 02/14/19 21:00:00 CDT Notes: (Same as: Apresoline) May interfere w/enteral feedings Take With Food Start Date: 01/15/19 Stop Date: 01/22/19 Status: Discontinued hydrALAZINE 50 mg, 1 tab, Route: PO, Drug form: TAB, Q6Hnow, Dosing Weight 85.909, kg, Start date: 01/22/19 9:00:00 CDT, Duration: 30 day, Stop date: 02/21/19 3:00:00 CDT Start Date: 01/22/19 Stop Date: 01/23/19 Status: Discontinued hydrALAZINE 50 mg oral tablet 50 mg=1 tab, PO, QID, # 120 tab, 0 Refill(s), Pharmacy: [facility] Zhane Leyva Start Date: 01/23/19 Stop Date: 02/22/19 Status: Ordered ibuprofen 600 mg, 3 tab, Route: PO, Drug form: TAB, ONCE, Dosing Weight 88.636, kg, Priori ty: STAT, Start date: 01/15/19 18:11:00 CDT, Stop date: 01/15/19 18:11:00 CDT Notes: (Same as: Advil) Give with food. Start Date: 01/15/19 Stop Date: 01/15/19 Status: Completed insulin glargine 10 unit, 0.1 mL, Route: SUB-Q, Drug form: SOLN, Bedtime, Start date: 01/15/19 22 :18:00 CDT, Duration: 30 day, Stop date: 02/14/19 21:00:00 CDT Notes: (Same as: Lantus)Do not hold insulin without contacting prescriberWASTE: F/P - Black; E - Municipal Trash Bin"single patient use only"Stable for 28 days at room temperature Expires in days from Date Start Date: 01/15/19 Stop Date: 01/23/19 Status: Discontinued insulin lispro 5 unit, 0.05 mL, Route: SUB-Q, Drug form: SOLN, TID-Before Meals, Dosing Weight 85.909, kg, PRN Blood Glucose Results, Start date: 01/15/19 20:14:00 CDT, Durati on: 30 day, Stop date: 02/14/19 20:13:00 CDT Notes: (Same as: Humalog) Roll in palms of hands gently; Do not shake vigorously . WASTE: F/P - Black; E - Municipal Trash BinStable for 28 days at room tempera ture.Expires in days from Date Start Date: 01/15/19 Stop Date: 01/23/19 Status: Discontinued insulin lispro 4 unit, 0.04 mL, Route: SUB-Q, Drug form: SOLN, TID-Before Meals, Dosing Weight 85.909, kg, PRN Blood Glucose Results, Start date: 01/15/19 20:14:00 CDT, Durati on: 30 day, Stop date: 02/14/19 20:13:00 CDT Notes: (Same as: Humalog) Roll in palms of hands gently; Do not shake vigorously . WASTE: F/P - Black; E - Municipal Trash BinStable for 28 days at room [facility].Expires in days from Date Start Date: 01/15/19 Stop Date: 01/23/19 Status: Discontinued insulin lispro 3 unit, 0.03 mL, Route: SUB-Q, Drug form: SOLN, TID-Before Meals, Dosing Weight 85.909, kg, PRN Blood Glucose Results, Start date: 01/15/19 20:14:00 CDT, Durati on: 30 day, Stop date: 02/14/19 20:13:00 CDT Notes: (Same as: Humalog) Roll in palms of hands gently; Do not shake vigorously . WASTE: F/P - Black; E - Municipal Trash BinStable for 28 days at room [facility].Expires in days from Date Start Date: 01/15/19 Stop Date: 01/23/19 Status: Discontinued insulin lispro 1 unit, 0.01 mL, Route: SUB-Q, Drug form: SOLN, TID-Before Meals, Dosing Weight 85.909, kg, PRN Blood Glucose Results, Start date: 01/15/19 20:14:00 CDT, Durati on: 30 day, Stop date: 02/14/19 20:13:00 CDT Notes: (Same as: Humalog) Roll in palms of hands gently; Do not shake vigorously . WASTE: F/P - Black; E - Municipal Trash BinStable for 28 days at room [facility].Expires in days from Date Start Date: 01/15/19 Stop Date: 01/23/19 Status: Discontinued insulin lispro 2 unit, 0.02 mL, Route: SUB-Q, Drug form: SOLN, TID-Before Meals, Dosing Weight 85.909, kg, PRN Blood Glucose Results, Start date: 01/15/19 20:14:00 CDT, Durati on: 30 day, Stop date: 02/14/19 20:13:00 CDT Notes: (Same as: Humalog) Roll in palms of hands gently; Do not shake vigorously . WASTE: F/P - Black; E - Municipal Trash BinStable for 28 days at room [facility].Expires in days from Date Start Date: 01/15/19 Stop Date: 01/23/19 Status: Discontinued insulin lispro 4 unit, 0.04 mL, Route: SUB-Q, Drug form: SOLN, Bedtime, Dosing Weight 85.909, k g, PRN Blood Glucose Results, Start date: 01/15/19 20:14:00 CDT, Duration: 30 da y, Stop date: 02/14/19 20:13:00 CDT Notes: (Same as: Humalog) Roll in palms of hands gently; Do not shake vigorously . WASTE: F/P - Black; E - Municipal Trash BinStable for 28 days at room [facility].Expires in days from Date Start Date: 01/15/19 Stop Date: 01/23/19 Status: Discontinued insulin lispro 2 unit, 0.02 mL, Route: SUB-Q, Drug form: INJ, Bedtime, Dosing Weight 85.909, kg , PRN Blood Glucose Results, Start date: 01/15/19 20:14:00 CDT, Duration: 30 day , Stop date: 02/14/19 20:13:00 CDT Start Date: 01/15/19 Stop Date: 01/23/19 Status: Discontinued insulin lispro 3 unit, 0.03 mL, Route: SUB-Q, Drug form: SOLN, Bedtime, Dosing Weight 85.909, k g, PRN Blood Glucose Results, Start date: 01/15/19 20:14:00 CDT, Duration: 30 da y, Stop date: 02/14/19 20:13:00 CDT Notes: (Same as: Humalog) Roll in palms of hands gently; Do not shake vigorously . WASTE: F/P - Black; E - Municipal Trash BinStable for [facility]Expires in days from Date Start Date: 01/15/19 Stop Date: 01/23/19 Status: Discontinued insulin lispro 1 unit, 0.01 mL, Route: SUB-Q, Drug form: SOLN, Bedtime, Dosing Weight 85.909, k g, PRN Blood Glucose Results, Start date: 01/15/19 20:14:00 CDT, Duration: 30 da y, Stop date: 02/14/19 20:13:00 CDT Notes: (Same as: Humalog) Roll in palms of hands gently; Do not shake vigorously . WASTE: F/P - Black; E - Municipal Trash BinStable for [facility] from Date Start Date: 01/15/19 Stop Date: 01/23/19 Status: Discontinued Lasix 60 mg, 6 mL, Route: IV, Drug form: INJ, ONCE, Dosing Weight 85.909, kg, Start da te: 01/15/19 20:14:00 CDT, Stop date: 01/15/19 20:14:00 CDT Notes: (Same as: Lasix) MEDICATION WASTE Product Size: 40 mgProduct Was lorne: ___ mg Start Date: 01/15/19 Stop Date: 01/15/19 Status: Completed Lasix 40 mg, 4 mL, Route: IVP, Drug form: INJ, BID, Dosing Weight 85.554, kg, Start da te: 01/17/19 21:00:00 CDT, Duration: 30 day, Stop date: 02/16/19 17:00:00 CDT Notes: (Same as: Lasix) MEDICATION WASTE Product Size: 40 mgProduct Was lorne: ___ mg Start Date: 01/17/19 Stop Date: 01/23/19 Status: Discontinued Lasix Daily, 0 Refill(s) Start Date: 01/15/19 Stop Date: 01/16/19 Status: Deleted Lasix 20 mg, Route: IVP, Drug form: INJ, ONCE, Dosing Weight 85.909, kg, Priority: STA T, Start date: 01/15/19 18:53:00 CDT, Stop date: 01/15/19 18:53:00 CDT Start Date: 01/15/19 Stop Date: 01/15/19 Status: Completed Lasix 20 mg, 2 mL, Route: IVP, Drug form: INJ, ONCE, Dosing Weight 85.554, kg, Start d ate: 01/20/19 10:25:00 CDT, Stop date: 01/20/19 10:25:00 CDT Notes: (Same as: Lasix) Start Date: 01/20/19 Stop Date: 01/20/19 Status: Completed Levemir 10 unit, Route: SUB-Q, Drug form: SOLN, Bedtime, Dosing Weight 85.909, kg, Start date: 01/16/19 21:00:00 CDT, Duration: 30 day, Stop date: 02/14/19 21:00:00 CDT Start Date: 01/16/19 Stop Date: 01/15/19 Status: Deleted Levemir 10 unit, SUB-Q, PRN, 0 Refill(s) Start Date: 01/16/19 Stop Date: 01/23/19 Status: Discontinued lidocaine 1% injectable solution 100 mg, 10 mL, Route: InFILtration(local), Drug Form: INJ, Dosing Weight 85.554, kg, ONCE, Start date: 01/19/19 18:44:00 CDT, Stop date: 01/19/19 18:44:00 CDT Notes: (Same as: Xylocaine) Start Date: 01/19/19 Stop Date: 01/20/19 Status: Completed lisinopril 20 mg, 1 tab, Route: PO, Drug form: TAB, ONCE, Start date: 01/21/19 10:09:00 CDT , Stop date: 01/21/19 10:09:00 CDT Notes: (Same as: Prinivil, Zestril) Start Date: 01/21/19 Stop Date: 01/21/19 Status: Completed lisinopril 40 mg, 2 tab, Route: PO, Drug form: TAB, Daily, Dosing Weight 85.909, kg, Start date: 01/16/19 9:00:00 CDT, Duration: 30 day, Stop date: 02/14/19 9:00:00 CDT Notes: (Same as: Prinivil, Zestril) Start Date: 01/16/19 Stop Date: 01/23/19 Status: Discontinued melatonin 3 mg oral tablet 3 mg, 1 tab, Route: PO, Drug Form: TAB, Dosing Weight 85.909, kg, Bedtime, PRN I nsomnia, Start date: 01/15/19 22:10:00 CDT, Duration: 30 day, Stop date: 22:09:00 CDT Notes: (Same as: Melatonin) Start Date: 01/15/19 Stop Date: 01/23/19 Status: Discontinued meloxicam 15 mg oral tablet 15 mg=1 tab, PO, Daily, 0 Refill(s) Start Date: 01/16/19 Stop Date: 01/23/19 Status: Discontinued morphine Sulfate 4 mg, 1 mL, Route: IVP, Drug form: SOLN, Q4H, Dosing Weight 85.554, kg, PRN Pain Score 7-10, Start date: 01/21/19 11:25:00 CDT, Duration: 30 day, Stop date: 11:24:00 CDT Notes: (Same as:MORPhine Sulfate) Start Date: 01/21/19 Stop Date: 01/23/19 Status: Discontinued morphine Sulfate 2 mg, 1 mL, Route: IVP, Drug form: SOLN, Q4H, Dosing Weight 85.554, kg, PRN Pain Score 4-6, Start date: 01/20/19 22:22:00 CDT, Duration: 30 day, Stop date: 02/04 02/22 22:21:00 CDT Start Date: 01/20/19 Stop Date: 01/23/19 Status: Discontinued ondansetron 4 mg, 2 mL, Route: IVP, Drug form: INJ, Q8H, Dosing Weight 85.909, kg, PRN Nause a & Vomiting, Start date: 01/15/19 20:13:00 CDT, Duration: 30 day, Stop date: 02/14/19 20:12:00 CDT Notes: (Same as: Zofran) MEDICATION WASTE Product Size: 4 mgProduct Was lorne: ___ mg Start Date: 01/15/19 Stop Date: 01/23/19 Status: Discontinued Plavix 75 mg, 1 tab, Route: PO, Drug form: TAB, Daily, Dosing Weight 85.909, kg, Start date: 01/16/19 9:00:00 CDT, Duration: 30 day, Stop date: 02/14/19 9:00:00 CDT Notes: (Same As: Plavix) Start Date: 01/16/19 Stop Date: 01/23/19 Status: Discontinued Plavix 75 mg oral tablet 75 mg=1 tab, PO, Daily, # 30 tab, 0 Refill(s) Start Date: 01/15/19 Status: Ordered Rocephin + sterile water 10 mL 1 gm, Route: IVP, ONCE, Dosing Weight 85.909, kg, Priority: STAT, Start date: 18:13:00 CDT, Stop date: 01/15/19 18:13:00 CDT, ABX Indication: Other (sp ecify in Comments) Notes: (Same As: Rocephin).Use with 100 mL NS and infuse over 30 min MEDICA TION WASTE Product Size: 1000 mgProduct Wasted: ___ mg Start Date: 01/15/19 Stop Date: 01/15/19 Status: Completed Saline Flush 0.9% 10 ml, Route: IVP, Drug Form: INJ, Dosing Weight 85.909, kg, Q12H, Start date: 0 01/15/19 21:00:00 CDT, Duration: 30 day, Stop date: 02/14/19 9:00:00 CDT Notes: (Same as: BD Posiflush) Start Date: 01/15/19 Stop Date: 01/23/19 Status: Discontinued Saline Flush 0.9% 10 ml, Route: IVP, Drug Form: INJ, Dosing Weight 85.909, kg, PRN, PRN Line Flush , Start date: 01/15/19 20:13:00 CDT, Duration: 30 day, Stop date: 02/14/19 20:12 :00 CDT Notes: (Same as: BD Posiflush) Start Date: 01/15/19 Stop Date: 01/23/19 Status: Discontinued Saline Flush 0.9% 10 ml, Route: IVP, Drug Form: INJ, Dosing Weight 85.554, kg, PRN, PRN Line Flush , Start date: 01/19/19 16:03:00 CDT, Duration: 30 day, Stop date: 02/18/19 16:02 :00 CDT Notes: (Same as: BD Posiflush) Start Date: 01/19/19 Stop Date: 01/23/19 Status: Discontinued Saline Flush 0.9% 10 ml, Route: IVP, Drug Form: INJ, Dosing Weight 85.554, kg, Q12H, Start date: 0 01/19/19 21:00:00 CDT, Duration: 30 day, Stop date: 02/18/19 9:00:00 CDT Notes: (Same as: BD Posiflush) Start Date: 01/19/19 Stop Date: 01/23/19 Status: Discontinued Silvadene 1% topical cream See Instructions, apply 3-4 grams to right foot wound once daily for 30 days, # 85 gm, 2 Refill(s) Start Date: 01/23/19 Stop Date: 04/25/19 Status: Ordered Silvadene 1% topical cream 1 appl, Route: TOP, Daily, Drug form: CRM, Start date: 01/20/19 9:00:00 CDT, Dur ation: 30 day, Stop date: 02/18/19 9:00:00 CDT Notes: (Same as: Silvadene)WASTE: F/P - Black; E - [facility] Trash Bin Start Date: 01/20/19 Stop Date: 01/23/19 Status: Discontinued Tylenol 650 mg, 20.3 mL, Route: PO, Drug form: LIQ, Q4H, Dosing Weight 85.909, kg, PRN P ain 1-3/Temp > 100.4 F, Start date: 01/15/19 20:15:00 CDT, Duration: 30 day, Stop date: 02/14/19 20:14:00 CDT Notes: Max qvixaneaykguh=1959ip/day (4 gm/day). (Same as: Tylenol) Start Date: 01/15/19 Stop Date: 01/23/19 Status: Discontinued vancomycin 1,000 mg, Route: IVPB, Drug form: INJ, Q24H, Dosing Weight 85.554, kg, Start najma e: 01/17/19 12:00:00 CDT, Duration: 7 day, Stop date: 01/23/19 12:00:00 CDT, ABX Indication: Bacteremia Start Date: 01/17/19 Stop Date: 01/16/19 Status: Deleted vancomycin 1,500 mg, 250 mL, Route: IV, Drug form: INJ, [id number], Dosing Weight 85.554, kg, Start date: 01/17/19 14:00:00 CDT, Duration: 9 day, Stop date: 01/25/19 14:00:00 CDT, ABX Indication: Bacteremia Notes: TIME CRITICAL MEDICATIONSame as: Vancocin-NS (premixed)Infusion rate< 1000 mg: infuse over 1 [id number] - 1500 mg: infuse over 1.5 [id number] - 2000 mg: infuse over 2 hours> 2001 mg: infuse over 2.5 hours Start Date: 01/17/19 Stop Date: 01/16/19 Status: Canceled vancomycin 2 gm, 500 mL, Route: IVPB, Drug form: SOLN, ONCE, Start date: 01/16/19 12:38:00 CDT, Stop date: 01/16/19 12:38:00 CDT, ABX Indication: Bacteremia Notes: TIME CRITICAL MEDICATIONSame as: Vancocin Infusion rate< 1000 mg: infuse over 1 [id number] - 1500 mg: infuse over 1.5 [id number] - 2000 mg: infuse over 2 hours> 2001 mg: infuse over 2.5 hours Start Date: 01/16/19 Stop Date: 01/16/19 Status: Completed vancomycin 1,500 mg, Route: IVPB, Drug form: INJ, ONCE, Dosing Weight 85.554, kg, Start najma e: 01/16/19 11:57:00 CDT, Stop date: 01/16/19 11:57:00 CDT, ABX Indication: Bact eremia Start Date: 01/16/19 Stop Date: 01/16/19 Status: Deleted Vancomycin Pharmacy Dosing 1 ea, Route: MISC, ONCALL, Dosing Weight 85.554, kg, Start date: 01/16/19 12:00: 00 CDT, Duration: 10 day, Stop date: 01/26/19 11:59:00 CDT, Pharmacy to dose, AB X Indication: Bacteremia Start Date: 01/16/19 Stop Date: 01/16/19 Status: Discontinued Vitamin D2 50,000 IntlUnit, 1 cap, Route: PO, Drug form: CAP, QWed, Dosing Weight 85.909, k g, Start date: 01/18/19 9:00:00 CDT, Duration: 30 day, Stop date: 02/15/19 9:00: 00 CDT Notes: (Same as: Vitamin D) "Do Not Crush" Start Date: 01/18/19 Stop Date: 01/23/19 Status: Discontinued Results 1 2 3 Most recent to oldest [Reference Range]: 5.1 K/CMM (01/22/19 6:53 AM) 3.9 K/CMM (01/20/19 7:03 AM) 4.6 K/CMM (01/19/19 11:41 AM) Neutrophils # [1.5-8.1 K/CMM] 1.7 K/CMM (01/22/19 6:53 AM) 1.0 K/CMM (01/20/19 7:03 AM) 1.0 K/CMM (01/19/19 11:41 AM) Lymphocytes # [1.0-5.5 K/CMM] 0.7 K/CMM (01/22/19 6:53 AM) 0.6 K/CMM (01/20/19 7:03 AM) 0.6 K/CMM (01/19/19 11:41 AM) Monocytes # [0.0-0.8 K/CMM] 0.5 K/CMM (01/22/19 6:53 AM) 0.4 K/CMM (01/20/19 7:03 AM) 0.2 K/CMM (01/19/19 11:41 AM) Eosinophils # [0.0-0.5 K/CMM] 0.1 K/CMM (01/22/19 6:53 AM) 0.1 K/CMM (01/20/19 7:03 AM) 0.1 K/CMM (01/16/19 4:20 AM) Basophils # [0.0-0.2 K/CMM] 152 pg/mL *HI* (01/15/19 6:19 PM) BNP [<=100 pg/mL] Normal (01/22/19 6:53 AM) Normal (01/20/19 7:03 AM) Plt Morph [Normal] Urine *NA* (01/16/19 4:10 PM) Source Strep Negative (01/16/19 4:10 PM) Strep pneumoniae Ag [Negative] Not Detected (01/15/19 6:19 PM) E. faecalis [Not Detected] Not Detected (01/15/19 6:19 PM) E. faecium [Not Detected] Not Detected (01/15/19 6:19 PM) Listeria spp. [Not Detected] Not Detected (01/15/19 6:19 PM) mecA Methicillin Resistance [Not Detected] Not Detected (01/15/19 6:19 PM) S. agalactiae [Not Detected] Not Detected (01/15/19 6:19 PM) S. anginosus grp [Not Detected] Detected *ABN* (01/15/19 6:19 PM) S. aureus [Not Detected] Not Detected (01/15/19 6:19 PM) S. epidermidis [Not Detected] Not Detected (01/15/19 6:19 PM) S. lugdunensis [Not Detected] Not Detected (01/15/19 6:19 PM) S. pneumoniae [Not Detected] Not Detected (01/15/19 6:19 PM) S. pyogenes [Not Detected] Detected *ABN* (01/15/19 6:19 PM) Staphylococcus spp. [Not Detected] Not Detected (01/15/19 6:19 PM) Streptococcus spp. [Not Detected] Not Detected (01/15/19 6:19 PM) Eyad Vancomycin Resistance [Not Detected] Not Detected (01/15/19 6:19 PM) vanB Vancomycin Resistance [Not Detected] 74 mL/min/1.73m2 1 *NA* (01/22/19 6:53 AM) 68 mL/min/1.73m2 2 *NA* (01/20/19 7:03 AM) 52 mL/min/1.73m2 3 *NA* (01/19/19 11:41 AM) eGFR Negative (01/15/19 6:28 PM) Influ A [Negative] Negative (01/15/19 6:28 PM) Influ B [Negative] 0.6 *LOW* (01/17/19 11:26 AM) 0.7 (01/15/19 6:19 PM) A/G Ratio [0.7-1.6] 2.1 g/dL *LOW* (01/17/19 11:26 AM) 2.8 g/dL *LOW* (01/15/19 6:19 PM) Albumin Lvl [3.5-5.0 g/dL] 61 unit/L (01/17/19 11:26 AM) 73 unit/L (01/15/19 6:19 PM) Alk Phos [39-136 unit/L] 15 unit/L (01/17/19 11:26 AM) 19 unit/L (01/15/19 6:19 PM) ALT [0-65 unit/L] 12.3 mEq/L (01/22/19 6:53 AM) 10.0 mEq/L (01/20/19 7:03 AM) 13.2 mEq/L (01/19/19 11:41 AM) AGAP [10.0-20.0 mEq/L] 14 unit/L (01/17/19 11:26 AM) 15 unit/L (01/15/19 6:19 PM) AST [0-37 unit/L] 32 *HI* (01/17/19 11:26 AM) 23 (01/15/19 6:19 PM) B/C Ratio [6-25] 1.0 % (01/22/19 6:53 AM) 1.0 % (01/20/19 7:03 AM) 0.5 % (01/19/19 11:41 AM) Basophils [0.0-1.0 %] 41 mg/dL *HI* (01/22/19 6:53 AM) 48 mg/dL *HI* (01/20/19 7:03 AM) 55 mg/dL *HI* (01/19/19 11:41 AM) BUN [7-22 mg/dL] 8.9 mg/dL (01/22/19 6:53 AM) 8.6 mg/dL (01/20/19 7:03 AM) 8.3 mg/dL *LOW* (01/19/19 11:41 AM) Calcium Lvl [8.5-10.5 mg/dL] 99 unit/L (01/15/19 6:19 PM) Total CK [12-191 unit/L] 107 mEq/L (01/22/19 6:53 AM) 110 mEq/L *HI* (01/20/19 7:03 AM) 106 mEq/L (01/19/19 11:41 AM) Chloride Lvl [95-109 mEq/L] 25 mEq/L (01/22/19 6:53 AM) 25 mEq/L (01/20/19 7:03 AM) 21 mEq/L *LOW* (01/19/19 11:41 AM) CO2 [24-32 mEq/L] 0.84 mg/dL (01/22/19 6:53 AM) 0.90 mg/dL (01/20/19 7:03 AM) 1.12 mg/dL (01/19/19 11:41 AM) Creatinine Lvl [0.50-1.40 mg/dL] 159.0 mg/L *HI* (01/19/19 1:41 PM) 157.0 mg/L *HI* (01/16/19 5:41 PM) CRP [<=2.9 mg/L] 6.5 % *HI* (01/22/19 6:53 AM) 6.2 % *HI* (01/20/19 7:03 AM) 3.4 % (01/19/19 11:41 AM) Eosinophils [0.0-4.0 %] 3.8 g/dL (01/17/19 11:26 AM) 4.3 g/dL *HI* (01/15/19 6:19 PM) Globulin [2.7-4.2 g/dL] 136 mg/dL *HI* (01/22/19 6:53 AM) 125 mg/dL *HI* (01/20/19 7:03 AM) 140 mg/dL *HI* (01/19/19 11:41 AM) Glucose Lvl [70-99 mg/dL] 30.2 % *LOW* (01/22/19 6:53 AM) 27.3 % *LOW* (01/20/19 7:03 AM) 28.7 % *LOW* (01/19/19 11:41 AM) Hct [36.0-48.0 %] 10.0 g/dL *LOW* (01/22/19 6:53 AM) 9.2 g/dL *LOW* (01/20/19 7:03 AM) 9.2 g/dL *LOW* (01/19/19 11:41 AM) Hgb [12.0-16.0 g/dL] 1.21 *HI* (01/16/19 12:23 AM) 1.02 (01/15/19 6:19 PM) INR [0.85-1.17] 4.3 mEq/L (01/22/19 6:53 AM) 5.0 mEq/L (01/20/19 7:03 AM) 4.2 mEq/L (01/19/19 11:41 AM) Potassium Lvl [3.5-5.1 mEq/L] 1.6 mMol/L (01/15/19 6:28 PM) 1.6 mMol/L (01/15/19 6:19 PM) Lactic Acid Lvl [0.5-2.2 mMol/L] 348 unit/L *HI* (01/16/19 5:41 PM) LDH [98-192 unit/L] 173 unit/L (01/15/19 6:19 PM) Lipase Lvl [73-393 unit/L] 20.9 % (01/22/19 6:53 AM) 16.5 % *LOW* (01/20/19 7:03 AM) 15.4 % *LOW* (01/19/19 11:41 AM) Lymphocytes [20.0-40.0 %] 27.1 pg (01/22/19 6:53 AM) 27.7 pg (01/20/19 7:03 AM) 27.0 pg (01/19/19 11:41 AM) MCH [27.0-31.0 pg] 33.0 g/dL (01/22/19 6:53 AM) 33.8 g/dL (01/20/19 7:03 AM) 32.1 g/dL (01/19/19 11:41 AM) MCHC [32.0-36.0 g/dL] 82.3 fL (01/22/19 6:53 AM) 82.0 fL (01/20/19 7:03 AM) 84.2 fL (01/19/19 11:41 AM) MCV [80.0-98.0 fL] 8.6 % (01/22/19 6:53 AM) 9.5 % (01/20/19 7:03 AM) 9.1 % (01/19/19 11:41 AM) Monocytes [2.0-12.0 %] 8.0 fL (01/22/19 6:53 AM) 8.0 fL (01/20/19 7:03 AM) 8.0 fL (01/19/19 11:41 AM) MPV [7.4-10.4 fL] 140 mEq/L (01/22/19 6:53 AM) 140 mEq/L (01/20/19 7:03 AM) 136 mEq/L (01/19/19 11:41 AM) Sodium Lvl [135-145 mEq/L] 320 K/CMM (01/22/19 6:53 AM) 284 K/CMM (01/20/19 7:03 AM) 259 K/CMM (01/19/19 11:41 AM) Platelet [133-450 K/CMM] 63.0 % (01/22/19 6:53 AM) 66.8 % (01/20/19 7:03 AM) 71.6 % (01/19/19 11:41 AM) Segs [45.0-75.0 %] 9.0 mg/dL *LOW* (01/21/19 4:26 AM) Prealbumin [18.0-45.0 mg/dL] 5.9 g/dL *LOW* (01/17/19 11:26 AM) 7.1 g/dL (01/15/19 6:19 PM) Total Protein [6.4-8.4 g/dL] 15.1 seconds *HI* (01/16/19 12:23 AM) 13.2 seconds (01/15/19 6:19 PM) PT [12.0-14.7 seconds] 79.7 seconds *HI* (01/19/19 8:53 AM) 74.7 seconds *HI* (01/18/19 11:41 PM) 59.6 seconds *HI* (01/18/19 1:52 PM) PTT [22.9-35.8 seconds] 3.67 M/CMM *LOW* (01/22/19 6:53 AM) 3.33 M/CMM *LOW* (01/20/19 7:03 AM) 3.40 M/CMM *LOW* (01/19/19 11:41 AM) RBC [4.20-5.40 M/CMM] Normal (01/22/19 6:53 AM) Normal (01/20/19 7:03 AM) RBC Morph [Normal] 14.4 % (01/22/19 6:53 AM) 14.3 % (01/20/19 7:03 AM) 14.2 % (01/19/19 11:41 AM) RDW [11.5-14.5 %] >100 mm/hr *ABN* (01/19/19 1:41 PM) 74 mm/hr *HI* (01/16/19 5:41 PM) Sed Rate [0-20 mm/hr] Negative (01/15/19 6:28 PM) Grp A Strep Scr [Negative] 0.4 mg/dL (01/17/19 11:26 AM) 0.4 mg/dL (01/15/19 6:19 PM) Bili Total [0.2-1.3 mg/dL] 3.30 ng/mL 4 *CRIT* (01/16/19 4:20 AM) 2.90 ng/mL 5 *CRIT* (01/15/19 11:14 PM) 0.05 ng/mL (01/15/19 6:19 PM) Troponin-I [0.00-0.40 ng/mL] Moderate /HPF *ABN* (01/15/19 7:38 PM) UA Bacteria [None Seen /HPF] Negative *NA* (01/15/19 7:38 PM) UA Bili [Negative] Negative (01/15/19 7:38 PM) UA Blood [Negative] Yellow *NA* (01/15/19 7:38 PM) UA Color [Yellow] Negative (01/15/19 7:38 PM) UA Glucose [Negative] Trace *ABN* (01/15/19 7:38 PM) UA Ketones [Negative] Large *ABN* (01/15/19 7:38 PM) UA Leuk Est [Negative] Negative (01/15/19 7:38 PM) UA Nitrite [Negative] 5.5 (01/15/19 7:38 PM) UA pH [5.0-8.0] 100 mg/dL *ABN* (01/15/19 7:38 PM) UA Protein [Negative mg/dL] 0-2 /HPF (01/15/19 7:38 PM) UA RBC [0-2 /HPF] 1.025 (01/15/19 7:38 PM) UA Spec Grav [<=1.030] Moderate /LPF *ABN* (01/15/19 7:38 PM) UA Sq Epi [Few /LPF] Clear (01/15/19 7:38 PM) UA Turbidity [Clear] 0.2 EU/dL (01/15/19 7:38 PM) UA Urobilinogen [0.1-1.0 EU/dL] 51-100 /HPF *ABN* (01/15/19 7:38 PM) UA WBC [0-5 /HPF] 8.1 K/CMM (01/22/19 6:53 AM) 5.9 K/CMM (01/20/19 7:03 AM) 6.4 K/CMM (01/19/19 11:41 AM) WBC [3.7-10.4 K/CMM] Negative (01/15/19 6:28 PM) Influenza A PCR [Negative] Negative (01/15/19 6:28 PM) Influenza B PCR [Negative] Negative (01/15/19 6:28 PM) RSV PCR [Negative] Flocked INTENSIVE CARE UNIT REGISTERED NURSE Swab (01/15/19 6:28 PM) Source Respiratory Panel PCR 1Result Comment: The eGFR is calculated using [...] tiplied by the estimated BMI. 4Result Comment: Critical Result(s) called to Jayant Hou at 01/16/2019 04:55 mfb_ by_. Read back OK. 5Result Comment: Critical Result(s) called to Jayant Fox at 01/15/2019 23:42 mfb_ by_. Read back OK. of for the nurse to release the result, she will reorder a new Trop, b01/16/20 23:46 Microbiology Reports TEST: Culture: Wound/Abscess w/Gram Stain STATUS: Auth (Verified) BODY SITE: Right Foot SOURCE: Wound, Non Surgical COLLECTED DATE/TIME: 01/19/19 1:09 PM FINAL REPORT Many Staphylococcus aureus STAIN REPORT Rare WBC's Rare Gram Positive Cocci In Pairs ORGANISM:Staphylococcus aureus Immunizations No data available for this section [...] Reg Smoking Cessation Counseling No entered on: 01/15/19 Assessment and Plan Extracted from: Title: Cardiology Progress Note * Author: Jr Heck MD Date: 01/23/19 Impression and Plan The patient was seen and examined by me with the resident/INTENSIVE CARE UNIT REGISTERED NURSE/PA and I agree with the History/Exam documented. NSTEMI Bacteremia Pneumonia HTN HLD DM Respiratory failure - YVETTE showed vegetation but no valvular dysfunction as a result - continue heparin gtt, ASA, and Plavix - continue lasix IV for diuresis - on statin - continue antibiotics per Pulm and primary teams - delay cath until infection controlled Extracted from: Title: History and Physical Author: Regla Perea MD [...] O2 as tolerated SIRS due to UTI & CAP - given ceftriaxone and zithromycin, will continue -Follow blood and urine cultures Type 2 diabetes -start SSI heparin IMU, anticipate 2-3 midnights Addendum by Eliazar, repeat troponin 2.9 from 0.05 consistent with NSTEMI. will give ASA 325 and start heparin Regla sawant. This was discussed with the patient. Krystal SCHAFFER on 01/15/2019 23:55 CDT
[2019-05-04] MEDS ORDERED: SODIUM CHLORIDE 0.9% 1000ML 1,000 ML ONE (07:28)
[2019-05-04] MEDS ORDERED: NITROGLYCERIN/D5W 200 MCG/ML 250 ML ONE (07:28)
[2019-05-04] MEDS ORDERED: HEPARIN SOD/SOD CHLORIDE 2,000 ML ONE (07:28)
[2019-05-04] MEDS ORDERED: IOPAMIDOL 370 MG/ML 200 ML INFUS..BTL INJ ONE (07:28)
--- OUTSIDE RECORDS SUMMARY | 2019-05-04 07:28 | XMS REPORT | Summary of Care ---
Author Author [facility] - Health Organization [facility] - Health Address Unknown Phone Unavailable Care Team Providers Care Soccer Coach Name Role Phone Fernando Staton PCP Reason for Visit * Reason Comments Hip Pain right * (Routine) Referred By Contact Referred To Contact Status Reason Specialty Diagnoses / Procedures Sanford De Anda MD [address] [facility] [id number] [place] [address] Gerri Ram [address] [address] Authorized Orthopedic Diagnoses Surgery Sacral insufficiency fracture with routine healing, subsequent encounter P rocedures CONSULT[facility]ERR[facility] Encounter Details Care Team Description Date Type Department Inez Rhoades, [address] [place] [address] [phone] Chronic bilateral low back pain with bilateral sciatica (Primary Dx); Trochanteric bursitis of both hips; Pars defect with spondylolisthesis; Closed fracture of transverse process of lumbar vertebra, initial encounter; Closed fracture of sacrum, unspecified portion of sacrum, initial encounter; DDD (degenerative disc disease), lumbar 04/20/2019 Office Visit [facility] Orthopaedic Surgery[address], [facility] [address] [place] [phone] Allergies Comments Active Allergy Reactions Severity Noted Date Iodine Hives 09/08/2018 Seafood/Fish Anaphylaxis High 03/21/2019 [employer] Hives High 11/01/2018 documented as of this encounter (statuses as of 04/20/2019) Medications End Date Status Medication Sig Dispensed Refills Start Date Active acetaminophen-codeine 0 300-30 mg tablet 9 Active amLODIPine 5 mg tablet TAKE ONE (1) 3 TABLET(S) [...] as of this encounter (statuses as of 04/20/2019) Active Problems Problem Noted Date S/P placement of cardiac pacemaker 03/21/2019 Overview: Dual chamber pacemaker insertion to left side by Dr. Yuen Other spondylosis with radiculopathy, lumbar region 12/14/2018 Overview: Added automatically from request for surgery [id number] Greater trochanteric bursitis of right hip 09/12/2018 Back pain, lumbosacral 09/12/2018 documented as of this encounter (statuses as of 04/20/2019) Social History Date Tobacco Use Types Packs/Day [...] of this encounter Last Filed Vital Signs Reading Time Taken Comments Vital Sign - - Blood Pressure - - Pulse 36.2 C (97.2 F) 04/20/2019 10:56 AM CDT Temperature - - Respiratory Rate - - Oxygen Saturation - - Inhaled Oxygen Concentration 78 kg (172 lb) 04/20/2019 10:56 AM CDT Weight 149.9 cm (4' 11") 04/20/2019 10:56 AM CDT Height 34.74 04/20/2019 10:56 AM CDT Body Mass Index documented in this encounter Progress Notes * Inez Rhoades FNP - 04/20/2019 11:00 AM CDT ORTHOPEDIC SURGERY CLINIC BOTE 09/08/2018 Chief complaint: low back pain History of present illness: Linette Martinez is a 63 year old female coming in today with a chief complaint of l ow back pain and right hip pain. The pain is primarily located in the patient's low back pain and radiates down the right leg. She is accompanied by her can collins and today who report that she has a history of frequent falls and inst ability for the last few years. She has RLE weakness for years as well. She has been seen by a pain specialist who has performed multiple ESIs and a nerve ablat ion. Although she had temporary relief this was not complete. The last injection was 1.5 years ago at L4-L5. The injection lasted 3-4 days of relief. She has co ntinued pain of the right hip when she is lying on the right side. She has pain that radiates down her knee with lateral band tightness. There has been no histo ry of loss of bowel or bladder control. Her has a topical cream that he rubs on the side of her hip for the pain. She uses a cane and a walker for ambul ation. She denies any trauma to the right hip. Interval Hx 11/01/2018 :Linette Martinez is a 63 year old female for the follow up wi th the CT spine,she still c/o low back pain due to sacral insufficiency fracture . She is on Alendronate which she is tolerating well. Interval Hx 12/07/2018 :Linette Martinez is a 63 year old female for the follow up wit h the low back pain,her fracture is healing but she endorses about the low back pain and her CT spine shows Bilateral L5 spondylosis and healing rt sacral ala f racture with spondylolisthesis. Interval History, 04/20/19 : Linette Martinez is a 63 year old female who presents to clinic for follow up on low back pain and fractures. She endorses pain is deepali ateral low back, tailbone, bilateral trochanteric bursas, radiating to bilateral knees. She continues to take fosamax as prescribed by bone [employer]. She reports she uses her walker. She reports STAR L4-5 with pain medicine on 12/22/18 gave 50 % pain relief but unknown how long it provided relief but has worn off. 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 She had a permanent pacemaker placed and at [facility] had IV antibiotics and right foot wound was managed by podiatry. Patient reports she no longer needs / is taking antibiotics. She reports right foot wound is being managed by another provider and is under control. She is taking Tylenol #3 for pain as prescribed she reports by her PCP. Past Medical History: Diagnosis Date Osteoporosis Sacral insufficiency fracture with delayed healing DM HTN CVA Obesity Right foot wound Past Surgical History: Procedure Laterality Date CAUDAL EPIDURAL STEROID INJECTION N/A 12/22/2018 Surgeon: Paige Bess MD; Location: [facility] Pacemaker 12/2018 Current Outpatient Medications Medication Sig Dispense Refill furosemide 20 mg tablet Take 1 tablet by mouth daily for 30 days. 30 tablet 0 levalbuterol 1.25 mg/3 mL nebulizer solution Inhale 1.25 mg 3 (three) times daily as needed for Wheezing or Shortness of Breath for up to 30 days. 1 Box 0 melatonin 3 mg tablet Take 1 tablet by mouth at bedtime as needed for Insomn ia for up to 30 days. 30 tablet 0 aspirin 81 mg EC tablet Take 81 mg by mouth daily. 3 ergocalciferol, vitamin D2, (VITAMIN D ORAL) Take by mouth. GABAPENTIN, BULK, MISC Take 600 mg by mouth every morning and at bedtime. alendronate 70 mg tablet Take 1 tablet by mouth weekly. 12 tablet 3 acetaminophen-codeine 300-30 mg tablet amLODIPine 5 mg tablet TAKE ONE (1) TABLET(S) BY MOUTH ONCE A DAY. 3 atorvastatin 40 mg tablet clopidogrel 75 mg tablet TAKE ONE (1) TABLET(S) BY MOUTH ONCE A DAY. 3 dicyclomine 20 mg tablet TAKE ONE (1) TABLET(S) BY MOUTH THREE TIMES A DAY A S NEEDED FOR 10 DAYS. 0 escitalopram oxalate 10 mg tablet TAKE ONE (1) TABLET(S) BY MOUTH ONCE A DAY . 1 glimepiride 4 mg tablet TAKE ONE (1) TABLET(S) BY MOUTH ONCE A DAY. 3 hydralAZINE 50 mg tablet TAKE ONE (1) TABLET(S) BY MOUTH THREE TIMES A DAY. 3 lisinopril 20 mg tablet meloxicam 15 mg tablet TAKE ONE (1) TABLET(S) BY MOUTH ONCE A DAY. 3 montelukast 10 mg tablet TAKE ONE (1) TABLET(S) BY MOUTH ONCE A DAY. 3 ONE TOUCH DELICA 33 gauge Misc CHECK BLOOD SUGAR THREE TIMES A DAY. 5 ONETOUCH ULTRA BLUE TEST STRIP strip USE DIRECTED THREE TIMES A DAY. 3 ONETOUCH ULTRA2 Kit USE DRIECTED WITH TEST STRIPS. 0 No current facility-administered medications for this visit. Allergies Allergen Reactions Seafood/Fish Anaphylaxis Strawberries [[employer]] Hives Iodine Hives Social History Socioeconomic History Marital status: Spouse name: Rupesh Martinez Number of children: 1 Years of education: Not on file Highest education level: Not on file Occupational History Occupation: disability Social Needs Financial resource strain: Not hard at all Food insecurity: Worry: Patient refused Inability: Patient refused Transportation needs: Medical: Patient refused Non-medical: Patient refused Tobacco Use Smoking status: Never Smoker Smokeless tobacco: Never Used Substance and Sexual Activity Alcohol use: Not on file Drug use: Not on file Sexual activity: Not on file Lifestyle Physical activity: Days per week: Not on file Minutes per session: Not on file Stress: Not on file Relationships Social connections: Talks on phone: Not on file Gets together: Not on file Attends moravian service: Not on file Active member of club or organization: Not on file Attends meetings of clubs or organizations: Not on file Relationship status: Not on file Intimate partner violence: Fear of current or ex partner: Not on file Emotionally abused: Not on file Physically abused: Not on file Forced sexual activity: Not on file Other Topics Concern Not on file Social History Narrative Not on file No family history on file. No history of bleeding disorders ROS No fevers, chills, night sweats, nausea, vomiting, constipation, diarrhea, chest pain, shortness of breath, numbness or tingling, headaches, blurry vision, or r ashes Physical Examination: Temp 36.2 C (97.2 F) (Temporal Artery) | Ht 59" (149.9 cm) | Wt 78 kg (172 lb) | BMI 34.74 kg/m General: AAOx3, pleasant and cooperative, antalgic gait, ambulates with a walker and a cane Back: Flexion with the hands to the level of the knees with moderate discomfort Extends with mild discomfort mild tenderness to palpation in the patient's lumbar spine, paraspinal muscles b ilaterally and sacrum / coccyx TTP over the bilateral Greater Trochanter SI joints NTTP Straight leg raise is negative Neuro: Reflexes are symmetric at the knees and ankles and are normal 5/5 motor in all muscle groups L2-S1 bilaterally Sensation is intact in all nerve distributions Clonus is absent Imagin04/20/19: No new 09/08/2018 OSH x-rays personally reviewed today demonstrate lumbar degenerative sp ondylolisthesis, and high slip angle 09/08/2018 2 Views of the right hip demonstrate calcific formations proximal to th e greater trochanter that appears to be like HO DEXA 07/21/2018: Rt femur neck with T score -2.60,rt hip -1.60 10/11/2018 CT L spine Slight anterolisthesis of L5 on S1. The vertebral bodies are normal in height and in otherwise normal alignment. Mild dextrocurvature is noted. No acute facet fracture or subluxation is present. No overt, there does appear to be a subacute, healing fracture of the right L5 transverse process with adjacent callus formation. Sclerosis is noted within the right sacral ala in keeping with a healing subacute insufficiency fracture. The up loaded outside hospital MRI also demonstrates a fracture through the right sacral ala. Bilateral chronic L5 pars interarticularis defects are noted. No high-grade spinal canal stenosis or neural foraminal narrowing is suspected at any level within the limitations of CT. Spondylolisthesis and associated degenerative changes of the lumbosacral junction result in at least moderate neural foraminal narrowing. Incidentally note is made of a 1 cm nodule in the right adrenal gland demonstrating approximately [address] Pelvis: Subacute, healing fractures of the right L5 transverse process and right sacral ala, also demonstrated on the outside hospital MRI of 07/15/2018 Bilateral L5 spondylolysis with associated spondylolisthesis and degenerative changes contributing to moderate neural foraminal narrowing and potential impingement on the exiting L5 nerve roots Incidentally noted right adrenal lesion not meeting criteria for simple adenoma. Dedicated CT abdomen with adrenal protocol is recommended for further evaluation if no prior imaging is available. Osteopenia. Bilateral sacral ala stress fractures, more prominent on the right. Bilateral L5-S1 pars defects with grade 1 L5-S1 anterolisthesis. Advanced degenerative disc disease at L5-S1 level. Healing fracture between the second and third coccygeal segments. Suspected stress fracture of the third sacral vertebra segment. Healing L5 right transverse process fracture. Bilateral subcutaneous soft tissue calcification at the gluteal regions, may represent heterotopic ossification, less likely posttraumatic fat Necrosis. Assessment: Linette Martinez is a 63 year old female with high slip angle, calcific HO proximal to the greater trochanter which is a-traumatic in origin, and: Chronic bilateral low back pain with bilateral sciatica Trochanteric bursitis of both hips Pars defect with spondylolisthesis Closed fracture of transverse process of lumbar vertebra Closed fracture of sacrum DDD (degenerative disc disease), lumbar Plan: - Reviewed current imaging studies in addition to previous imaging for compariso n, if applicable. - Educated patient on condition present and answered all questions to patient's satisfaction. - Message sent to air technician for advisement on their standpoint for trochanter ic bursa injections - Continue fall precautions / peter - Patient, family/companions present at clinic visit, instructed on appropriate activity modification involving no aggressive/strenuous activities, indicated ho me exercises, fall precautions, indicated anti-inflammatory medicine or other ov er the counter analgesic, rest, and modalities. A detailed discussion held regar ding precautions for weight bearing status and appropriate and inappropriate uti lization of involved extremity(ies) in order to assist healing, limit risks to h ealing, and optimize patient outcome. Questions reviewed and answered. - Heat therapy PRN - Patient's PCP prescribing Tylenol #3 and patient to follow up with them for co mpound cream - Patient instructed to please go to the emergency department for numbness, ting ling, weakness, bowel or bladder dysfunction, worsening or any concerns - Advised her to contact us with questions/concerns - Follow up: With pain medicine, bone health, and PCP - All findings and diagnosis were discussed with patient at time of visit and sh e states they understand and are in agreement with the treatment plan at this ti id. documented in this encounter Plan of Treatment Care Team Description Date Type Specialty George-Gerri Alvarez FNP [address] [place] [address] [phone] 04/27/2019 Office Visit Orthopedic Surgery Health Maintenance Due Date Last Done Comments HEPATITIS C (HCV) SCREEN 1954 PNEUMOCOCCAL 0-64 YEARS 1960 COMBINED SERIES (1 of 1 - PPSV23) EYE EXAM 1964 LDL-C 1964 URINE MICROALBUMIN 1964 FOOT EXAM 1972 DTaP,Tdap,and Td Vaccines 1973 (1 - Tdap) PAP SMEAR 1975 MAMMOGRAM 1994 COLONOSCOPY 2004 Zoster Recombinant 2004 Vaccine (SHINGRIX) (1 of 2) INFLUENZA VACCINE (#1) 2019 HgA1C 09/22/2019 03/22/2019 CREATININE (SERUM) 03/22/2020 03/22/2019, 10/26/2018 documented as of this encounter Results Not on filedocumented in this encounter Visit Diagnoses Diagnosis Chronic bilateral low back pain with bilateral sciatica - Primary Trochanteric bursitis of both hips Enthesopathy of hip region Pars defect with spondylolisthesis Closed fracture of transverse process of lumbar vertebra, initial encounter Closed fracture of sacrum, unspecified portion of sacrum, initial encounter DDD (degenerative disc disease), lumbar Degeneration of lumbar or lumbosacral intervertebral disc documented in this encounter Insurance Type Payer Benefit Subscriber ID Effective Phone Address Plan / Dates Group Medicare Adv PPO AETNA - MANAGED MEDICARE AETNA MEBKLDMN 2017-P P O BOX MEDICARE resent [id number] [place] [address] documented as of this encounter
--- OUTSIDE RECORDS SUMMARY | 2019-05-04 07:28 | XMS REPORT | Summary of Care ---
Author Author [facility] - Health Organization [facility] - Health Address Unknown Phone Unavailable Care Team Providers Care Procurement Internship Name Role Phone Fernando Staton PCP Reason for Visit * Reason Comments Hip Pain right * (Routine) Referred By Contact Referred To Contact Status Reason Specialty Diagnoses / Procedures Sanford De Anda MD [address] [facility] [id number] [place] [address] Gerri Ram [address] [address] Authorized Orthopedic Diagnoses Surgery Sacral insufficiency fracture with routine healing, subsequent encounter P rocedures CONSULT[facility]ERR[facility] Encounter Details Care Team Description Date Type Department Inez Rhoades, [address] [place] [address] [phone] Chronic bilateral low back pain with bilateral sciatica (Primary Dx); Trochanteric bursitis of both hips; Pars defect with spondylolisthesis; Closed fracture of transverse process of lumbar vertebra, initial encounter; Closed fracture of sacrum, unspecified portion of sacrum, initial encounter; DDD (degenerative disc disease), lumbar 04/20/2019 Office Visit [facility] Orthopaedic Surgery[address], [facility] [address] [place] [phone] Allergies Comments Active Allergy Reactions Severity Noted Date Iodine Hives 09/08/2018 Seafood/Fish Anaphylaxis High 03/21/2019 [place] Hives High 11/01/2018 documented as of this [...] Overview: Added automatically from request for surgery [id number] Greater trochanteric bursitis of right hip 09/12/2018 [...] to take fosamax as prescribed by bone [employer]. She reports she uses her walker. She [...] had a permanent pacemaker placed and at [facility] had IV antibiotics and right foot wound was managed by podiatry. Patient reports she no longer needs / is taking antibiotics. She reports right foot wound is being managed by another provider and is under control. She is taking Tylenol #3 for pain as prescribed she reports by her PCP, Fernando Staton (P: [phone]). Past Medical History: Diagnosis Date Osteoporosis Sacral insufficiency fracture with delayed healing DM 2 - uncontrolled, peripheral neuropathy Seizures Sleep Apnea TIA Sepsis due to urinary tract infection NSTEMI GI bleed HLD HTN CVA - expressive-receptive aphasia and motor apraxia MRSA Obesity Right foot wound GERD Anxiety Past Surgical History: Procedure Laterality Date CAUDAL EPIDURAL STEROID INJECTION N/A 12/22/2018 Surgeon: Paige Bess MD; Location: [facility] Pacemaker 12/2018 Total knee arthroplasty Current Outpatient Medications Medication Sig Dispense Refill [...] visit. Allergies Allergen Reactions Seafood/Fish Anaphylaxis Strawberries [[place]] Hives Iodine Hives Social History Socioeconomic History [...] file Gets together: Not on file Attends congregation service: Not on file Active member of [...] to patient's satisfaction. - Message sent to conveyor belt installer for advisement on their standpoint for trochanter [...] with patient at time of visit and e states they understand and are in agreement [facility]. documented in this encounter Plan of Treatment Care Team Description Date Type Specialty George-Gerri Alvarez FNP [address] [place] [address] [phone] 04/27/2019 Office Visit Orthopedic Surgery Health Maintenance [...] MEBKLDMN 2017-P P O BOX MEDICARE resent [id number] [place] [address] documented as of this encounter
--- OUTSIDE RECORDS SUMMARY | 2019-05-04 07:28 | XMS REPORT | Summary of Care ---
Author Author [facility] - Health Organization [facility] - Health Address Unknown Phone Unavailable Care Team Providers Care Bottom Painter Name Role Phone Fernando Staton PCP Reason for Visit * Reason Comments MED PROB Encounter Details Care Team Description Date Type Department Inez Rhoades, DISTRIBUTION TRANSFORMER ASSEMBLER [address] [facility] [address] [place], [place] [id number] MED PROB 04/20/2019 [facility]phone [facility] [address] [facility], [address] [place] [address] Allergies Comments Active Allergy Reactions Severity Noted Date Iodine Hives 09/08/2018 Seafood/Fish Anaphylaxis High 03/21/2019 [place] Hives High 11/01/2018 documented as of this [...] Overview: Added automatically from request for surgery [id number] Greater trochanteric bursitis of right hip 09/12/2018 [...] Treatment Care Team Description Date Type Specialty Gerri Ram, [place] [address] [place] [address] [phone] 04/27/2019 Office Visit Orthopedic Surgery Health Maintenance [...] BKLDMN 2017-P P O BOX MEDICARE resent [id number] [place] [phone] documented as of this encounter
--- OUTSIDE RECORDS SUMMARY | 2019-05-04 07:28 | XMS REPORT | Summary of Care ---
Author Author [facility] - Health Organization [facility] - Health Address Unknown Phone Unavailable Care Team Providers Care Child Protective Investigator Name Role Phone Fernando Staton PCP Reason for Visit * Reason Comments Hip Pain right * (Routine) Referred By Contact Referred To Contact Status Reason Specialty Diagnoses / Procedures Sanford De Anda MD [address] [facility] [id number] [place] [address] Gerri Ram [address] [address] Authorized Orthopedic Diagnoses Surgery Sacral insufficiency fracture with routine healing, subsequent encounter P rocedures [facility]SULT[facility]ERR[facility] Encounter Details Care Team Description Date Type Department Inez Rhoades, [address] [place] [address] [phone] Chronic bilateral low back pain with bilateral sciatica (Primary Dx); Trochanteric bursitis of both hips; Pars defect with spondylolisthesis; Closed fracture of transverse process of lumbar vertebra, initial encounter; Closed fracture of sacrum, unspecified portion of sacrum, initial encounter; DDD (degenerative disc disease), lumbar 04/20/2019 Office Visit [facility] Orthopaedic Surgery[address], [facility] [address] [place] [phone] Allergies Comments Active Allergy Reactions Severity Noted Date Iodine Hives 09/08/2018 Seafood/Fish Anaphylaxis High 03/21/2019 [place] Hives High 11/01/2018 documented as of this [...] Overview: Added automatically from request for surgery [id number] Greater trochanteric bursitis of right hip 09/12/2018 [...] to take fosamax as prescribed by bone [employer]. She reports she uses her walker. She [...] had a permanent pacemaker placed and at [facility] had IV antibiotics and right foot wound [...] N/A 12/22/2018 Surgeon: Paige Bess MD; Location: [facility] Pacemaker 12/2018 Current Outpatient Medications Medication Sig [...] visit. Allergies Allergen Reactions Seafood/Fish Anaphylaxis Strawberries [[place]] Hives Iodine Hives Social History Socioeconomic History [...] file Gets together: Not on file Attends mu-ism service: Not on file Active member of [...] to patient's satisfaction. - Message sent to environmental service aide for advisement on their standpoint for trochanter [...] with the treatment plan at this ti nm. documented in this encounter Plan of Treatment Care Team Description Date Type Specialty George-Gerri Alvarez FNP [address] [place] [address] [phone] 04/27/2019 Office Visit Orthopedic Surgery Health Maintenance [...] MEBKLDMN 2017-P P O BOX MEDICARE resent [id number] [place] [address] documented as of this encounter
--- OUTSIDE RECORDS SUMMARY | 2019-05-04 07:28 | XMS REPORT | Summary of Care ---
Author Author [facility] - Health Organization [facility] - Health Address Unknown Phone Unavailable Care Team Providers Care Staff Respiratory Therapist Name Role Phone Fernando Staton PCP Reason for Visit * Reason Comments Hip Pain right * (Routine) Referred By Contact Referred To Contact Status Reason Specialty Diagnoses / Procedures Sanford De Anda MD [address] [facility] [id number] [place] [address] Gerri Ram [address] [address] Authorized Orthopedic Diagnoses Surgery Sacral insufficiency fracture with routine healing, subsequent encounter P rocedures CONSULT/REFERRAL [facility] Encounter Details Care Team Description Date Type Department Inez Rhoades, [address] [place] [address] [phone] Chronic bilateral low back pain with bilateral sciatica (Primary Dx); Trochanteric bursitis of both hips; Pars defect with spondylolisthesis; Closed fracture of transverse process of lumbar vertebra, initial encounter; Closed fracture of sacrum, unspecified portion of sacrum, initial encounter; DDD (degenerative disc disease), lumbar 04/20/2019 Office Visit [facility] Orthopaedic Surgery[address], [facility] [address] [place] [phone] Allergies Comments Active Allergy Reactions Severity Noted Date Iodine Hives 09/08/2018 Seafood/Fish Anaphylaxis High 03/21/2019 [place] Hives High 11/01/2018 documented as of this [...] Overview: Added automatically from request for surgery [id number] Greater trochanteric bursitis of right hip 09/12/2018 [...] to take fosamax as prescribed by bone [employer]. She reports she uses her walker. She [...] had a permanent pacemaker placed and at [facility] had IV antibiotics and right foot wound was managed by podiatry. Patient reports she no longer needs / is taking antibiotics. She reports right foot wound is being managed by another provider and is under control. She is taking Tylenol #3 for pain as prescribed she reports by her PCP, Fernando Staton (P: [phone]). Past Medical History: Diagnosis Date Osteoporosis Sacral insufficiency fracture with delayed healing DM HTN CVA Obesity Right foot wound Past Surgical History: Procedure Laterality Date CAUDAL EPIDURAL STEROID INJECTION N/A 12/22/2018 Surgeon: Paige Bess MD; Location: [facility] Location Pacemaker 12/2018 Current Outpatient Medications Medication Sig [...] visit. Allergies Allergen Reactions Seafood/Fish Anaphylaxis Strawberries [[place]] Hives Iodine Hives Social History Socioeconomic History [...] file Gets together: Not on file Attends baptism service: Not on file Active member of [...] to patient's satisfaction. - Message sent to well testing operator for advisement on their standpoint for trochanter [...] with the treatment plan at this ti ar. documented in this encounter Plan of Treatment Care Team Description Date Type Specialty George-Gerri Alvarez FNP [address] [place] [address] [phone] 04/27/2019 Office Visit Orthopedic Surgery Health Maintenance [...] MEBKLDMN 2017-P P O BOX MEDICARE resent [id number] [place] [phone] documented as of this encounter
--- OUTSIDE RECORDS SUMMARY | 2019-05-04 07:28 | XMS REPORT | Summary of Care ---
Author Author [facility] - Health Organization [facility] - Health Address Unknown Phone Unavailable Care Team Providers Care Law Tutor Name Role Phone Fernando Staton PCP Reason for Visit * Reason Comments Appointment Encounter Details Care Team Description Date Type Department Sanford De Anda MD [id number] [place] [address] [phone] Appointment 04/18/2019 Telephone [facility] [place] [address] [address] Allergies Comments Active Allergy Reactions Severity Noted Date Iodine Hives 09/08/2018 Seafood/Fish Anaphylaxis High 03/21/2019 [place] Hives High 11/01/2018 documented as of this encounter (statuses as of 04/18/2019) Medications End Date Status Medication Sig Dispensed [...] as of this encounter (statuses as of 04/18/2019) Active Problems Problem Noted Date S/P placement of cardiac pacemaker 03/21/2019 Overview: Dual chamber pacemaker insertion to left side by Dr. Yuen Other spondylosis with radiculopathy, lumbar region 12/14/2018 Overview: Added automatically from request for surgery [id number] Greater trochanteric bursitis of right hip 09/12/2018 Back pain, lumbosacral 09/12/2018 documented as of this encounter (statuses as of 04/18/2019) Social History Date Tobacco Use Types Packs/Day [...] Team Description Date Type Specialty Inez Rhoades, REAL ESTATE SALES SUPERVISOR [address] [facility] [address] [place] [address] [phone] 04/20/2019 Office Visit Orthopedic Surgery Health Maintenance Due [...] MEBKLDMN 2017-P P O BOX MEDICARE resent [id number] [place] [phone] documented as of this encounter
--- OUTSIDE RECORDS SUMMARY | 2019-05-04 07:28 | XMS REPORT | Summary of Care ---
Author Author [facility] - Health Organization [facility] - Health Address Unknown Phone Unavailable Care Team Providers Care Body Liner Name Role Phone Fernando Staton Pablo PCP Encounter Details Care Team Description Date Type Department Doctor Unassigned, [place] [address] [place] [address] 04/20/2019 Orders Only [facility] [address] [place] [address] Allergies Comments Active Allergy Reactions Severity Noted Date Iodine Hives 09/08/2018 Seafood/Fish Anaphylaxis High 03/21/2019 [place] Hives High 11/01/2018 documented as of this [...] Overview: Added automatically from request for surgery [id number] Greater trochanteric bursitis of right hip 09/12/2018 [...] Team Description Date Type Specialty Inez Rhoades, DESIGNER AND PATTERNMAKER [address] [facility] [address] [place] [address] [phone] 04/20/2019 Office Visit Orthopedic Surgery Health Maintenance [...] 03/22/2019, 10/26/2018 documented as of this encounter Procedures Comments Procedure Name Priority Date/Time Associated Diagnosis NO SHOW OR MISSED Routine 04/20/2019 APPOINTMENT POLICY 10:50 AM CDT ACKNOWLEDGEMENT documented in this encounter Results Not on filedocumented in this encounter Insurance Type Payer Benefit Subscriber ID Effective Phone Address Plan / Dates Group Medicare Adv PPO AETNA - MANAGED MEDICARE AETNA MEBKLDMN 2017-P P O BOX MEDICARE resent [id number] [place] [phone] documented as of this encounter
--- OUTSIDE RECORDS SUMMARY | 2019-05-04 07:28 | XMS REPORT | Summary of Care ---
Author Author [facility] - Health Organization [facility] - Health Address Unknown Phone Unavailable Care Team Providers Care Amphibious Operations Officer Name Role Phone Fernando Staton PCP Reason for Visit * Reason Comments MED PROB Encounter Details Care Team Description Date Type Department Inez Rhoades, SERVICE DELIVERY CONSULTANT [address] [facility] [address] [place], [place] [address] MED PROB 04/20/2019 Telephone [facility] [address] [facility], [address] [place] [address] Allergies Comments Active Allergy Reactions Severity Noted Date Iodine Hives 09/08/2018 Seafood/Fish Anaphylaxis High 03/21/2019 [place] Hives High 11/01/2018 documented as of this [...] Overview: Added automatically from request for surgery [id number] Greater trochanteric bursitis of right hip 09/12/2018 [...] Date Type Specialty Gerri Ram, AUGUSTIN [address] [place] [address] [phone] 04/27/2019 Office Visit Orthopedic Surgery Health Maintenance [...] BKLDMN 2017-P P O BOX MEDICARE resent [id number] [place] [phone] documented as of this encounter
--- OUTSIDE RECORDS SUMMARY | 2019-05-04 07:28 | XMS REPORT | Summary of Care ---
Author Author [facility] - Health Organization [facility] - Health Address Unknown Phone Unavailable Care Team Providers Care Middle School Art Teacher Name Role Phone Fernando Staton PCP Reason for Visit * Reason Comments Hip Pain right * (Routine) Referred By Contact Referred To Contact Status Reason Specialty Diagnoses / Procedures Sanford De Anda MD [address] [facility] [id number] [place] [address] Gerri Ram [address] [address] Authorized Orthopedic Diagnoses Surgery Sacral insufficiency fracture with routine healing, subsequent encounter P rocedures [facility]SULT[facility]ERR[facility] Encounter Details Care Team Description Date Type Department Inez Rhoades, [address] [place] [address] [phone] Chronic bilateral low back pain with bilateral sciatica (Primary Dx); Trochanteric bursitis of both hips; Pars defect with spondylolisthesis; Closed fracture of transverse process of lumbar vertebra, initial encounter; Closed fracture of sacrum, unspecified portion of sacrum, initial encounter; DDD (degenerative disc disease), lumbar 04/20/2019 Office Visit [facility] Orthopaedic Surgery[address], [facility] [address] [place] [phone] Allergies Comments Active Allergy Reactions Severity Noted Date Iodine Hives 09/08/2018 Seafood/Fish Anaphylaxis High 03/21/2019 [place] Hives High 11/01/2018 documented as of this [...] Overview: Added automatically from request for surgery [id number] Greater trochanteric bursitis of right hip 09/12/2018 [...] to take fosamax as prescribed by bone abeo. She reports she uses her walker. She reports STAR L4-5 with pain medicine on 12/22/18 gave 50 % pain relief but unknown how long it provided relief but has worn off. Since last clinic visit patient went to [facility] for GI bleed , MSSA bacteremia, mitral valve endocarditis. She was started on IV antibiotics but during the stay developed a heart block and was placed on a temporary pacema ker and subsequent permanent pacemaker placed. Per chart review patient had a th ird degree AV block and a foot wound and ulcer which was managed by podiatry.P atient reports she no longer needs / is taking antibiotics. She reports foot wou nd is being managed by another provider and is under control. She is taking Tyle nol #3 for pain as prescribed she reports by her PCP, Fernando Staton (P: ). Past Medical History: Diagnosis Date Osteoporosis Sacral insufficiency fracture with delayed healing DM 2 - uncontrolled, peripheral neuropathy Seizures Sleep Apnea TIA Sepsis due to urinary tract infection NSTEMI GI bleed HLD HTN CVA - expressive-receptive aphasia and motor apraxia MRSA Obesity foot wound GERD Anxiety Past Surgical History: Procedure Laterality Date CAUDAL EPIDURAL STEROID INJECTION N/A 12/22/2018 Surgeon: Paige Bess MD; Location: [facility] Location Pacemaker 12/2018 Total knee arthroplasty Current Outpatient [...] visit. Allergies Allergen Reactions Seafood/Fish Anaphylaxis Strawberries [[place]] Hives Iodine Hives Social History Socioeconomic History [...] file Gets together: Not on file Attends mandaeism service: Not on file Active member of [...] to patient's satisfaction. - Message sent to bathroom tiling professional for advisement on their standpoint for trochanter [...] with patient at time of visit and brittany states they understand and are in agreement with the treatment plan at [facility]. documented in this encounter Plan of Treatment Care Team Description Date Type Specialty George-Gerri Alvarez FNP [address] [place] [address] [phone] 04/27/2019 Office Visit Orthopedic Surgery Health Maintenance [...] MEBKLDMN 2017-P P O BOX MEDICARE resent [id number] [place] [address] documented as of this encounter
--- OUTSIDE RECORDS SUMMARY | 2019-05-04 07:28 | XMS REPORT | Summary of Care ---
Author Author [facility] - Health Organization [facility] - Health Address Unknown Phone Unavailable Care Team Providers Care Journeyman Painter Name Role Phone Brionna, Fernando Shah PCP Reason for Visit * Reason Comments Refill Request Encounter Details Care Team Description Date Type Department Sanford De Anda MD [id number] [place] [address] [phone] Refill Request 04/13/2019 Telephone [facility] [place] [id number] [facility], [facility] [address] [place] [address] Allergies Comments Active Allergy Reactions Severity Noted Date Iodine Hives 09/08/2018 Seafood/Fish Anaphylaxis High 03/21/2019 [place] Hives High 11/01/2018 documented as of this [...] Overview: Added automatically from request for surgery [id number] Greater trochanteric bursitis of right hip 09/12/2018 [...] Team Description Date Type Specialty Inez Rhoades, BIODIESEL PROCESS CONTROL TECHNICIAN [address] [facility] [address] [place] [address] [phone] 04/19/2019 Office Visit Orthopedic Surgery Health Maintenance [...] MEBKLDMN 2017-P P O BOX MEDICARE resent [id number] [place] [phone] documented as of this encounter
--- OUTSIDE RECORDS SUMMARY | 2019-05-04 07:29 | XMS REPORT | Summary of Care ---
Author Author [facility] - Health Organization [facility] - Health Address Unknown Phone Unavailable Care Team Providers Care Knotting Machine Operator Portable Name Role Phone Brionna Fernando Shah PCP Reason for Visit * Reason Comments Notification Encounter Details Care Team Description Date Type Department Paige Bess MD [id number] [place] [address] [phone] Notification 04/18/2019 Telephone [facility] [address] [place] [address] Allergies Comments Active Allergy Reactions Severity Noted Date Iodine Hives 09/08/2018 Seafood/Fish Anaphylaxis High 03/21/2019 [place] Hives High 11/01/2018 documented as of this encounter (statuses as of 04/21/2019) Medications End Date Status Medication Sig Dispensed [...] as of this encounter (statuses as of 04/21/2019) Active Problems Problem Noted Date S/P placement of cardiac pacemaker 03/21/2019 Overview: Dual chamber pacemaker insertion to left side by Dr. Yuen Other spondylosis with radiculopathy, lumbar region 12/14/2018 Overview: Added automatically from request for surgery [id number] Greater trochanteric bursitis of right hip 09/12/2018 Back pain, lumbosacral 09/12/2018 documented as of this encounter (statuses as of 04/21/2019) Social History Date Tobacco Use Types Packs/Day [...] Care Team Description Date Type Specialty Gerri aRm, AUGUSTIN [address] [place] [address] [phone] 04/27/2019 Office Visit Orthopedic Surgery Health Maintenance [...] BKLDMN 2017-P P O BOX MEDICARE resent [id number] [place] [phone] documented as of this encounter
--- OUTSIDE RECORDS SUMMARY | 2019-05-04 07:29 | XMS REPORT | Summary of Care ---
Author Author [facility] - Health Organization [facility] - Health Address Unknown Phone Unavailable Care Team Providers Care Forklift Operator Name Role Phone Brionna Fernando Shah PCP Reason for Visit * Reason Comments Forms Encounter Details Care Team Description Date Type Department Gerri Ram, TOOL STRAIGHTENER [address] [place], [place] [address] Forms 04/21/2019 Telephone [facility] Orthopaedic Surgery[address] [place] [address] Allergies Comments Active Allergy Reactions Severity Noted Date Iodine Hives 09/08/2018 Seafood/Fish Anaphylaxis High 03/21/2019 [place] Hives High 11/01/2018 documented as of this encounter (statuses as of 04/25/2019) Medications End Date Status Medication Sig Dispensed [...] 81 mg by 3 mouth daily. 9 documented as of this encounter (statuses as of 04/25/2019) Active Problems Problem Noted Date S/P placement of cardiac pacemaker 03/21/2019 Overview: Dual chamber pacemaker insertion to left side by Dr. Yuen Other spondylosis with radiculopathy, lumbar region 12/14/2018 Overview: Added automatically from request for surgery [id number] Greater trochanteric bursitis of right hip 09/12/2018 Back pain, lumbosacral 09/12/2018 documented as of this encounter (statuses as of 04/25/2019) Social History Date Tobacco Use Types Packs/Day [...] Team Description Date Type Specialty Gerri Ram, TOOL STRAIGHTENER [address] [place] [address] [phone] 04/27/2019 Office Visit Orthopedic Surgery Health Maintenance [...] MEBKLDMN 2017-P P O BOX MEDICARE resent [id number] [place] [phone] documented as of this encounter
--- OUTSIDE RECORDS SUMMARY | 2019-05-04 07:29 | XMS REPORT | Summary of Care ---
Author Author [facility] - Health Organization [facility] - Health Address Unknown Phone Unavailable Care Team Providers Care Deputy Chief Counsel Name Role Phone Brionna Fernando Shah PCP Reason for Visit * Reason Comments Forms Encounter Details Care Team Description Date Type Department Gerri Ram, ENGINEERING PROGRAM MANAGER [address] [place], [place] [id number] Forms 04/21/2019 Telephone [facility] Orthopaedic Surgery[address] [place] [address] Allergies Comments Active Allergy Reactions Severity Noted Date Iodine Hives 09/08/2018 Seafood/Fish Anaphylaxis High 03/21/2019 [place] Hives High 11/01/2018 documented as of this [...] Overview: Added automatically from request for surgery [id number] Greater trochanteric bursitis of right hip 09/12/2018 [...] Team Description Date Type Specialty Gerri Ram, ENGINEERING PROGRAM MANAGER [address] [place] [address] [phone] 04/27/2019 Office Visit Orthopedic Surgery Health Maintenance [...] MEBKLDMN 2017-P P O BOX MEDICARE resent [id number] ADV [place] [phone] documented as of this encounter
--- OUTSIDE RECORDS SUMMARY | 2019-05-04 07:29 | XMS REPORT | Summary of Care ---
Author Author [facility] - Health Organization [facility] - Health Address Unknown Phone Unavailable Care Team Providers Care Biodiesel Product Manager Name Role Phone Brionna Fernando Shah PCP Reason for Visit * Reason Comments Forms Encounter Details Care Team Description Date Type Department Gerri Ram, TRACK MACHINE OPERATOR REPAIRER [address] [place], [place] [address] Forms 04/21/2019 Telephone [facility] Orthopaedic Surgery[address] [place] [address] Allergies Comments Active Allergy Reactions Severity Noted Date Iodine Hives 09/08/2018 Seafood/Fish Anaphylaxis High 03/21/2019 [place] Hives High 11/01/2018 documented as of this [...] Overview: Added automatically from request for surgery [id number] Greater trochanteric bursitis of right hip 09/12/2018 [...] Team Description Date Type Specialty Gerri Ram, TRACK MACHINE OPERATOR REPAIRER [address] [place] [address] [phone] 04/27/2019 Office Visit Orthopedic Surgery Health Maintenance [...] MEBKLDMN 2017-P P O BOX MEDICARE resent [id number] [place]V [place] [phone] documented as of this encounter
[2019-05-04] MEDS ORDERED: CLOPIDOGREL BISULFATE 75 MG TAB ONE (09:55)
[2019-05-04] MEDS ORDERED: ATROPINE SULFATE 0.1 MG/ML 10ML SYR ONE (09:59)
--- NOTE | 2019-05-04 10:27 | NUR ---
1027bedside report received from Almita MORRISON. Alert oriented and appropriate, PERRLA, respirations even and unlabored to room air. Pulses x4 extremeties equal and strong. Pedal pulses PT/DP x4 Doppler and marked. Cap fill brisk < 3 sec.. Rt Groin Angioseal Site w/o hematoma or oozing. Skin warm and dry integrity appears D/I. IV 20g to left hand 75hr via IV controller, presents healthy w/o s/s of infiltration or complaint. Abdomen soft and supple. pt offered toileting, denies need to urinate or defecate. No personal affects with patient. Family Gene [phone]. Pt and family verbalizes understanding of POC. Currently w/o complaint of pain or need. Bedrest till 230pm Rt Radial site with 2x2 dresing No Hematoma or oozing noted at either site. Tele Observation ordered. Greg Aj. Lucy MORRISON notified. savannah/amy
--- NOTE | 2019-05-04 11:24 | Operative Report ---
DATE OF PROCEDURE: SURGEON: Michael Jorgensen DO PROCEDURES PERFORMED: 1. Conscious sedation, 1 hour. 2. Selective coronary angiography x2. 3. Left heart catheterization. 4. Percutaneous coronary intervention of the right coronary artery. PREPROCEDURE DIAGNOSIS: Prior myocardial infarction. POSTPROCEDURE DIAGNOSIS: Coronary artery disease. ESTIMATED BLOOD LOSS: Less than 20 mL. SPECIMENS REMOVED: None. PROCEDURE IN DETAIL: After informed consent was obtained, the patient was brought to the cardiac catheterization laboratory in a fasting and nonsedated state. Bilateral groins and right wrist were prepped and draped in usual sterile fashion. A 2% lidocaine was instilled over the right wrist for local anesthesia. Using ultrasound guidance, I had some difficulty getting into the right radial artery. I took a picture through the sheath dilator, which revealed a very narrowed, moderately diffusely diseased radial artery with an occluded ulnar artery. A decision was made to not intervene through the wrist. At this time, everything was removed and her pulse ox was monitored. Next, 2% lidocaine was instilled over the right anterior groin for local anesthesia. Using ultrasound guidance, the right common femoral artery was accessed via modified Seldinger technique and a 5-Ukrainian sheath was placed. Next, diagnostic coronary angiography was performed using a JL4 and 3DRC catheter. The same 3DRC catheter was used in the left ventricle and hemodynamic parameters were obtained. Diagnostic imaging revealed 2 severe proximal tandem RCA lesions. Decision was made to perform percutaneous coronary intervention. The patient received systemic heparin for therapeutic anticoagulation. The right coronary artery was cannulated with a 3DRC guide catheter. The lesions were crossed with a Luge wire. They were pre-dilated with a 2.5 x 12 balloon. Next, the mid stenosis was stented with a 2.5 x 18 resolute [place] drug-eluting stent. Next, the proximal lesion was directly stented with a 3 x 12 [place] [employer] Synergy drug-eluting stent. Final angiography revealed excellent results with REBECCA-3 flow distally. There was no evidence of wedge dissection, distal embolization, vessel perforation at the end of the case. The patient tolerated the procedure well with no immediate complications. Sheath was removed over the wire and hemostasis was achieved via an Angio-Seal device. She was transferred back to room in stable condition. PROCEDURAL FINDINGS: 1. Left main coronary artery is patent without significant coronary artery disease. 2. Left anterior descending coronary artery is patent proximally and has a mid 50% non-flow limiting stenosis. 3. Ramus intermedius coronary artery has luminal irregularities. 4. Left circumflex and the second obtuse marginal vessel have diffuse luminal irregularities. The first obtuse marginal vessel has a moderate 60% to 70% non-flow limiting stenosis. 5. Right coronary artery is a dominant vessel and provides posterior descending coronary artery. There is a proximal 70% stenosis. There is a mid 80% stenosis. 6. Left ventricular end-diastolic pressure was 19 mmHg. No significant aortic valve gradient present upon pullback. INTERVENTIONAL RESULTS: Successful percutaneous coronary intervention of the right coronary artery. Pre-PCI REBECCA flow was 2. Post-PCI REBECCA flow was 3. Postprocedure stenosis less than 10%. IMPRESSION: Coronary artery disease. RECOMMENDATIONS: The patient will be continued on dual antiplatelet therapy and received optimal medical therapy for coronary artery disease. DO KIMBERLY Hardin/[place] /[id number]
--- OUTSIDE RECORDS SUMMARY | 2019-05-04 11:50 | XMS REPORT | Continuity of Care Document ---
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 Role Phone [employer] Unavailable Unavailable Problems Problem Status Onset Date Classification Date Reported Comments Source ACUTE UPPER GI BLEED Active 01/29/2019 [facility] VOMITING BLOOD Active 01/29/2019 [facility] Active 01/26/2019 [facility] Active 01/15/2019 [facility] SEPSIS DUE TO URINARY TRACT INFECTION, H Active 01/15/2019 [facility] ACHALASIA Active 12/30/2017 [facility] Gastro-esophageal reflux disease without esophagitis 12/16/2017 03/09/2018 [facility] BDDC/ GERD K21.9 Active 11/29/2017 [facility] DDC-GERD Active 10/22/2017 [facility] K22.0=ACHALASIA OF CARDIA, R13.14DYSPHAG Active 10/29/2015 [facility] STROKE Active 10/09/2014 [facility] AMS,HYPERGLYCEMIA,LT BINDLE BRANCH BLOCK Active 10/08/2014 [facility] Disturbance in speech Active 04/30/2014 Problem 09/17/[address] [facility] FACIAL WEAKNESS Active 04/30/2014 Problem 09/17/[address] [facility] Essential hypertension 03/09/2018 [facility] Type 2 diabetes mellitus without complications 03/09/2018 [facility] Unspecified osteoarthritis, unspecified site 03/09/2018 [facility] Unspecified convulsions 03/09/2018 [facility] Personal history of transient ischemic attack , and cerebral infarction without residual deficits 03/09/2018 [facility] Dysphagia, unspecified 02/23/2018 [facility] Sleep apnea, unspecified 02/23/2018 [facility] long-term use of antithrombotics/antiplatelets 02/23/2018 [facility] long-term use of insulin 02/23/2018 [facility] Acid reflux Resolved Problem 02/11/2019 [facility] Anxiety Active Problem 02/11/2019 [facility] CVA (Confirmed) Active Problem 02/11/2019 [facility] DM , type 2, uncontrolled(Confirmed) Active Problem 02/11/2019 [facility] Expressive-receptive aphasia Active Problem 02/11/2019 [facility] HLD (Confirmed) Active Problem 02/11/2019 [facility] Hypertension Active Problem 02/11/2019 [facility] Morbid obesity Active Problem 02/11/2019 [facility] Motor apraxia Active Problem 02/11/2019 [facility] MRSA Active Problem 02/11/2019 [facility] Peripheral neuropathy Active Problem 02/11/2019 [facility] Seizures Active Problem 02/11/2019 [facility] Sleep apnea Active Problem 02/11/2019 [facility] TIA (Confirmed) Resolved Problem 02/11/2019 [facility] Total knee replacement Resolved Problem 02/11/2019 [facility] Final: 10/14/2014 [facility] ALTERED MENTAL STATUS Active [facility] CVA Active [facility] CVA Active [facility] [place] ACHALASIA OF CARDIA Active [facility] DYSPHAGIA, PHARYNGOESOPHAGEAL PHASE Active [facility] SEPSIS, UNSPECIFIED ORGANISM Active [facility] HYPOXEMIA Active [facility] DYSPNEA, UNSPECIFIED Active [facility] GASTROINTESTINAL HEMORRHAGE, UNSPECIFIED Active [facility] Medications Medication Details Route Status Patient Instructions Ordering Provider Order Date Source ceFAZolin 2 g injection See Instructions, 2 g IVPB Q8H for 30 days, Repeat CBC/CMP/ESR/CRP every week and follow up with ID., # 90 bag, 0 Refill(s), other Active 02/09/2019 [facility] collagenase topical 250 units/g ointment 1 appl, TOP, Daily, 0 Refill(s) Active 02/09/2019 [facility] pantoprazole 40 mg oral enteric coated tablet 40 mg=1 tab, PO, Q12H, 0 Refill(s) Active 02/09/2019 [facility] Ondansetron 4 mg, Route: IVP, ONCE, Dosing Weight 83.182, kg, PRN Nausea & Vomiting, Start date: 02/06/19 21:06:00 CDT Inactive 02/07/2019 [facility] Morphine 2 mg, Route: IVP, Q5Min, Dosing Weight 83.182, kg, PRN Pain Score 4-6, Start date: 02/06/19 21:06:00 CDT, Duration: 5 doses or times, Stop date: Limited # of times Inactive 02/07/2019 [facility] Flumazenil 0.2 mg, Route: IVP, PRN, Dosing Weight 83.182, kg, PRN Benzodiazepine Reversal, Initial dose, Start date: 02/06/19 21:06:00 CDT, Duration: 30 day, Stop date: 03/08/19 21:05:00 CDT Inactive 02/07/2019 [facility] Naloxone 0.4 mg, Route: IVP, Q2MIN, Dosing Weight 83.182, kg, PRN Narcotic Reversal, Start date: 02/06/19 21:06:00 CDT, Duration: 8 doses or times, Stop date: Limited # of times Inactive 02/07/2019 [facility] Calcium Chloride 0.0014 MEQ/ML / Potassium Chloride 0.004 MEQ/ML / Sodium Chloride 0.103 MEQ/ML / Sodium Lactate 0.028 MEQ/ML Injectable Solution 1,000 mL, Rate: 125 ml/hr, Infuse over: 8 hr, Route: IV, Dosing Weight 83.182 kg, Total Volume: 1,000, Start date: 02/06/19 21:06:00 CDT, Duration: 30 day, Stop date: 03/08/19 21:05:00 CDT, 1.9, m2 Inactive 02/07/2019 [facility] Hydralazine 10 mg, Route: IVP, Q20Min, Dosing Weight 83.182, kg, PRN Elevated BP, Start date: 02/06/19 21:06:00 CDT, Duration: 2 doses or times, Stop date: Limited # of times Inactive 02/07/2019 [facility] Metoprolol 1 mg, Route: IVP, Q5Min, Dosing Weight 83.409, kg, PRN Other -See Comment, Start date: 02/06/19 20:47:00 CDT, Duration: 5 doses or times, Stop date: Limited # of times No Longer Active 02/07/2019 [facility] Labetalol 10 mg, Route: IVP, Q5Min, Dosing Weight 83.409, kg, PRN Elevated BP, Start date: 02/06/19 20:47:00 CDT, Duration: 5 doses or times, Stop date: Limited # of times No Longer Active 02/07/2019 [facility] Hydralazine 10 mg, Route: IVP, Q20Min, Dosing Weight 83.409, kg, PRN Elevated BP, Start date: 02/06/19 20:47:00 CDT, Duration: 2 doses or times, Stop date: Limited # of times No Longer Active 02/07/2019 [facility] Flumazenil 0.2 mg, Route: IVP, PRN, Dosing Weight 83.409, kg, PRN Benzodiazepine Reversal, Initial dose, Start date: 02/06/19 20:47:00 CDT, Duration: 30 day, Stop date: 03/08/19 20:46:00 CDT No Longer Active 02/07/2019 [facility] Magnesium Sulfate 2 gm, 50 mL, Route: IVPB, Drug form: INJ, ONCE, Dosing Weight 83.409, kg, Start date: 02/06/19 8:44:00 CDT, Stop date: 02/06/19 8:44:00 CDTNotes: WASTE: F/P - Sink; E - Municipal Trash Bin Inactive 02/06/2019 [facility] Magnesium Sulfate 2 gm, 50 mL, Route: IVPB, Drug form: INJ, ONCE, Dosing Weight 83.409, kg, Start date: 02/04/19 12:48:00 CDT, Stop date: 02/04/19 12:48:00 CDTNotes: WASTE: F/P - Sink; E - Municipal Trash Bin Inactive 02/04/2019 [facility] Plavix 75 mg, 1 tab, Route: PO, Drug form: TAB, Daily, Dosing Weight 83.409, kg, Start date: 02/03/19 9:00:00 CDT, Duration: 30 day, Stop date: 03/04/19 9:00:00 CDTNotes: (Same As: Plavix) No Longer Active 02/03/2019 [facility] remove patch 1 patch, Route: TOP, ONCE, Drug form: ERFILM, Start date: 02/03/19 6:30:00 CDT, Stop date: 02/03/19 6:30:00 CDTNotes: Remove patch 12 hours after application each day. Inactive 02/03/2019 [facility] Lidocaine 0.05 MG/MG Transdermal Patch 1 patch, Route: TOP, ONCE, Drug form: FILM, Start date: 02/02/19 18:18:00 CDT, Stop date: 02/02/19 18:18:00 CDTNotes: Apply only once for up to 12 hours in a 24-hour period (12 hours on and 12 hours off). (Same as: Lidoderm) "Remove old patch before application of new patch" Inactive 02/02/2019 [facility] acetaminophen-codeine #3 1 tab, Route: PO, Drug Form: TAB, Dosing Weight 83.409, kg, Q4H, PRN Pain Score 4-6, Start date: 02/02/19 13:25:00 CDT, Duration: 30 day, Stop date: 03/04/19 13:24:00 CDTNotes: Do not exceed 4gm/day of acetaminophen. (Same as: Tylenol with Codeine # 3) No Longer Active 02/02/2019 [facility] Magnesium Sulfate 2 gm, 50 mL, Route: IVPB, Drug form: INJ, ONCE, Dosing Weight 83.409, kg, Start date: 02/02/19 9:06:00 CDT, Stop date: 02/02/19 9:06:00 CDTNotes: WASTE: F/P - Sink; E - Municipal Trash Bin Inactive 02/02/2019 [facility] Lisinopril 20 mg, 1 tab, Route: PO, Drug form: TAB, Daily, Dosing Weight 83.409, kg, Priority: NOW, Start date: 02/01/19 21:17:00 CDT, Duration: 30 day, Stop date: 03/03/19 9:00:00 CDTNotes: (Same as: Prinivil, Zestril) No Longer Active 02/02/2019 [facility] Amlodipine 5 mg, 1 tab, Route: PO, Drug form: TAB, Daily, Dosing Weight 83.409, kg, Priority: NOW, Start date: 02/01/19 21:16:00 CDT, Duration: 30 day, Stop date: 03/03/19 9:00:00 CDTNotes: (Same as: Norvasc) No Longer Active 02/02/2019 [facility] Acetaminophen 325 MG / Hydrocodone Bitartrate 5 MG Oral Tablet [[place] 5/325] 1 tab, Route: PO, Drug Form: TAB, Dosing Weight 83.409, kg, Q6H, PRN Pain Score 4-6, Start date: 02/01/19 18:01:00 CDT, Duration: 30 day, Stop date: 03/03/19 18:00:00 CDTNotes: (Same as: [place] 325/5) Do not exceed 4gm/day of acetaminophen. No Longer Active 02/01/2019 [facility] Aspirin 81 mg, 1 tab, Route: PO, Drug form: ECTAB, Daily, Dosing Weight 83.409, kg, Priority: NOW, Start date: 02/01/19 10:55:00 CDT, Duration: 30 day, Stop date: 03/03/19 9:00:00 CDTNotes: Do not crush or chew. (Same As: Ecotrin) No Longer Active 02/01/2019 [facility] Silver Sulfadiazine 10 MG/ML Topical Cream 1 appl, Route: TOP, Daily, Drug form: CRM, Start date: 02/01/19 9:00:00 CDT, Duration: 30 day, Stop date: 03/02/19 9:00:00 CDTNotes: (Same as: Silvadene) WASTE: F/P - Black; E - Municipal Trash Bin No Longer Active 02/01/2019 [facility] Vitamin D2 50,000 IntlUnit, 1 cap, Route: PO, Drug form: CAP, QWed, Dosing Weight 90, kg, Start date: 02/01/19 9:00:00 CDT, Duration: 30 day, Stop date: 03/01/19 9:00:00 CDTNotes: (Same as: Vitamin D) "Do Not Crush" No Longer Active 02/01/2019 [facility] Santyl 1 appl, Route: TOP, Daily, Drug form: OINT, Start date: 02/01/19 9:00:00 CDT, Duration: 30 day, Stop date: 03/02/19 9:00:00 CDTNotes: (Same As: Santyl) No Longer Active 02/01/2019 [facility] Protonix 40 mg, 1 tab, Route: PO, Drug form: ECTAB, Q12H, Dosing Weight 83.409, kg, Start date: 01/31/19 21:00:00 CDT, Duration: 30 day, Stop date: 03/02/19 9:00:00 CDTNotes: Tablet should not be chewed or crushed. (Same as: Protonix) No Longer Active 02/01/2019 [facility] Sodium Chloride 0.9% IV 1,000 mL 1,000 mL, Rate: 25 ml/hr, Infuse over: 40 hr, Route: IV, Dosing Weight 83.409 kg, Total Volume: 1,000, Start date: 01/31/19 14:59:00 CDT, Duration: 30 day, Stop date: 03/02/19 14:58:00 CDT, 1.9, m2 Inactive 01/31/2019 [facility] Lasix 20 mg, 2 mL, Route: IVP, Drug form: INJ, Daily, Dosing Weight 83.409, kg, Start date: 01/31/19 12:56:00 CDT, Duration: 30 day, Stop date: 03/02/19 9:00:00 CDTNotes: (Same as: Lasix) No Longer Active 01/31/2019 [facility] 1/2 NS 1,000 mL 1,000 mL, Rate: 40 ml/hr, Infuse over: 25 hr, Route: IV, Dosing Weight 83.409 kg, Total Volume: 1,000, Start date: 01/31/19 8:28:00 CDT, Duration: 30 day, Stop date: 03/02/19 8:27:00 CDT, 1.9, m2 Inactive 01/31/2019 [facility] gabapentin 600 MG Oral Tablet 600 mg, 2 cap, Route: PO, Drug form: CAP, Bedtime, Dosing Weight 90, kg, Start date: 01/30/19 21:00:00 CDT, Duration: 30 day, Stop date: 02/28/19 21:00:00 CDTNotes: (Same as: Neurontin) No Longer Active 01/31/2019 [facility] atorvastatin 40 mg, 1 tab, Route: PO, Drug form: TAB, Bedtime, Dosing Weight 90, kg, Start date: 01/30/19 21:00:00 CDT, Duration: 30 day, Stop date: 02/28/19 21:00:00 CDTNotes: (Same as: Lipitor) No Longer Active 01/31/2019 [facility] Glucagon 1 mg, Route: IM, Drug form: PDR/INJ, PRN, Dosing Weight 83.409, kg, PRN Blood Glucose Results, Start date: 01/30/19 16:15:00 CDT, Duration: 30 day, Stop date: 03/01/19 16:14:00 CDT No Longer Active 01/30/2019 [facility] Dextrose 50% Syringe 25 gm, 50 mL, Route: IVP, Drug Form: INJ, Dosing Weight 83.409, kg, PRN, PRN Blood Glucose Results, Start date: 01/30/19 16:15:00 CDT, Duration: 30 day, Stop date: 03/01/19 16:14:00 CDT No Longer Active 01/30/2019 [facility] Insulin Lispro 3 unit, 0.03 mL, [...] days from Date No Longer Active 01/30/2019 [facility] Silver Sulfadiazine 10 MG/ML Topical Cream [Silvadene] 1 appl, Route: TOP, BID, Drug form: CRM, Start date: 01/30/19 9:00:00 CDT, Duration: 30 day, Stop date: 02/28/19 17:00:00 CDTNotes: (Same as: Silvadene) WASTE: F/P - Black; E - Municipal Trash Bin No Longer Active 01/30/2019 [facility] Escitalopram 10 mg, 1 tab, Route: PO, Drug form: TAB, Daily, Dosing Weight 90, kg, Start date: 01/30/19 9:00:00 CDT, Duration: 30 day, Stop date: 02/28/19 9:00:00 CDTNotes: (Same as: Lexapro) No Longer Active 01/30/2019 [facility] Ancef + sterile water 20 mL 2 gm, Route: IV, [id number], Dosing Weight 90, kg, Start date: 01/30/19 4:00:00 CDT, Duration: 15 day, Stop date: 02/13/19 20:00:00 CDT, ABX Indication: Endocarditis/Endovascular InfectionNotes: (Same As: Ancef, Kefzol) MEDICATION WASTE Product Size: 1000 mg Product Wasted: ___ mg No Longer Active 01/30/2019 [facility] Melatonin 3 MG Extended Release Tablet 3 mg, 1 tab, Route: PO, Drug Form: TAB, Dosing Weight 90, kg, Bedtime, PRN Insomnia, Start date: 01/30/19 2:37:00 CDT, Duration: 30 day, Stop date: 03/01/19 2:36:00 CDTNotes: (Same as: Melatonin) No Longer Active 01/30/2019 [facility] Sodium Chloride 0.9% IV 1,000 mL 1,000 mL, Rate: 50 ml/hr, Infuse over: 20 hr, Route: IV, Dosing Weight 90 kg, Total Volume: 1,000, Start date: 01/29/19 23:22:00 CDT, Duration: 30 day, Stop date: 02/28/19 23:21:00 CDT, 1.98, m2 No Longer Active 01/30/2019 [facility] Ondansetron 4 mg, 2 mL, Route: IVP, Drug form: INJ, Q6H, Dosing Weight 90, kg, PRN Nausea & Vomiting, Start date: 01/29/19 23:22:00 CDT, Duration: 30 day, Stop date: 02/28/19 23:21:00 CDTNotes: (Same as: Zofran) MEDICATION WASTE Product Size: 4 mg Product Wasted: ___ mg No Longer Active 01/30/2019 [facility] Saline Flush 0.9% 10 ml, Route: IVP, Drug Form: INJ, Dosing Weight 90, kg, PRN, PRN Line Flush, Start date: 01/29/19 23:22:00 CDT, Duration: 30 day, Stop date: 02/28/19 23:21:00 CDTNotes: (Same as: BD Posiflush) No Longer Active 01/30/2019 [facility] Sodium Chloride 0.9% (Bolus) IV 500 mL, 500 ml/hr, Infuse Over: 1 hr, Route: IV, 500, Drug form: INJ, ONCE, Priority: STAT, Dosing Weight 90 kg, Start date: 01/29/19 23:20:00 CDT, Stop date: 01/29/19 23:20:00 CDT No Longer Active 01/30/2019 [facility] Morphine 2 mg, 0.5 mL, Route: IVP, Drug form: SOLN, Q4H, Dosing Weight 90, kg, PRN Pain Score 6-10, Start date: 01/29/19 23:20:00 CDT, Duration: 30 day, Stop date: 02/28/19 23:19:00 CDT, ..Notes: (Same as:MORPhine Sulfate) No Longer Active 01/30/2019 [facility] pantoprazole additive 80 mg + Sodium Chloride 0.9% IV 100 mL 100 mL, Rate: 10 ml/hr, Infuse over: 10 hr, Route: IVPB, Dosing Weight 90 kg, Total Volume: 100, Infuse at 8 mg/hr for 72 hrs for GI bleeding, Start date: 01/29/19 22:13:00 CDT, Duration: 72 hr, Stop date: 02/01/19 22:12:00 CDT, 1.98, [id number]: For IV push reconstitute with 10 ml 0.9% sodium chloride and push over 2 minutes. (Same as: Protonix) No Longer Active 01/30/2019 [facility] Vancomycin 2,250 mg, Route: IVPB, ONCE, [...] mg Product Wasted: ___ mg Inactive 01/30/2019 [facility] pantoprazole 80 mg, Route: IVP, Drug form: INJ, ONCE, Dosing Weight 90, kg, Priority: STAT, Start date: 01/29/19 20:55:00 CDT, Stop date: 01/29/19 20:55:00 CDTNotes: For IV push reconstitute with 10 ml 0.9% sodium c hloride and push over 2 minutes. (Same as: Protonix) Inactive 01/30/2019 [facility] Vancomycin 1,000 mg, Route: IVPB, ONCE, Dosing Weight 90, kg, Priority: STAT, Start date: 01/29/19 20:32:00 CDT, Stop date: 01/29/19 20:32:00 CDT, ABX Indication: ED - Suspected Sepsis Inactive 01/30/2019 [facility] cefepime 2 gm, Route: IV, ONCE, Dosing Weight 90, kg, Priority: STAT, Start date: 01/29/19 20:32:00 CDT, Stop date: 01/29/19 20:32:00 CDT, ABX Indication: ED - Suspected SepsisNotes: (Same as: Maxipime) MEDICATION WASTE Product Size: 2000 mg Product Wasted: ___ mg Inactive 01/30/2019 [facility] Saline Flush 0.9% 10 mL, Route: IVP, Drug Form: INJ, Dosing Weight 90, kg, PRN, PRN Line Flush, Start date: 01/29/19 20:31:00 CDT, Duration: 30 day, Stop date: 02/28/19 20:30:00 CDTNotes: (Same as: BD Posiflush) No Longer Active 01/30/2019 [facility] Aspirin 81 MG Enteric Coated Tablet 81 mg=1 tab, PO, Daily, 0 Refill(s) Active 01/23/2019 [facility] Aspirin 81 MG Enteric Coated Tablet 81 mg=1 tab, PO, Daily, # 30 tab, 3 Refill(s), Pharmacy: [facility] Active 01/23/2019 [facility] Acetaminophen 300 MG / Codeine Phosphate 30 MG Oral Tablet 1 tab, PO, Q6H, PRN Pain Score 7-10, X 14 day, # 30 tab, 0 Refill(s) Active 01/23/2019 [facility] Hydralazine Hydrochloride 50 MG Oral Tablet 50 mg=1 tab, PO, QID, # 120 tab, 0 Refill(s), Pharmacy: [facility] Active 01/23/2019 [facility] Silver Sulfadiazine 10 MG/ML Topical Cream [Silvadene] See Instructions, apply 3-4 grams to right foot wound once daily for 30 days, # 85 gm, 2 Refill(s) Active 01/23/2019 [facility] Aspirin 81 mg, 1 tab, Route: PO, Drug form: ECTAB, Daily, Dosing Weight 85.554, kg, Priority: NOW, Start date: 01/23/19 11:23:00 CDT, Duration: 30 day, Stop date: 02/22/19 9:00:00 CDTNotes: Do not crush or chew. (Same As: Ecotrin) Inactive 01/23/2019 [facility] Hydralazine 50 mg, 1 tab, Route: PO, Drug form: TAB, Q6Hnow, Dosing Weight 85.909, kg, Start date: 01/22/19 9:00:00 CDT, Duration: 30 day, Stop date: 02/21/19 3:00:00 CDT No Longer Active 01/22/2019 [facility] heparin 5,000 unit, 1 mL, Route: SUB-Q, Drug form: INJ, Q12H, Dosing Weight 85.554, kg, Start date: 01/21/19 21:00:00 CDT, Duration: 30 day, Stop date: 02/20/19 9:00:00 CDTNotes: porcine heparin No Longer Active 01/22/2019 [facility] Acetaminophen 300 MG / Codeine Phosphate 30 MG Oral Tablet 1 tab, Route: PO, Drug Form: TAB, Dosing Weight 85.554, kg, Q6H, PRN Pain Score 7-10, Start date: 01/21/19 11:31:00 CDT, Duration: 30 day, Stop date: 02/20/19 11:30:00 CDTNotes: Do not exceed 4gm/day of acetaminophen. (Same as: Tylenol with Codeine # 3) No Longer Active 01/21/2019 [facility] Morphine 4 mg, 1 mL, Route: IVP, Drug form: SOLN, Q4H, Dosing Weight 85.554, kg, PRN Pain Score 7-10, Start date: 01/21/19 11:25:00 CDT, Duration: 30 day, Stop date: 02/20/19 11:24:00 CDTNotes: (Same as:MORPhine Sulfate) No Longer Active 01/21/2019 [facility] lisinopril 20 mg, 1 tab, Route: PO, Drug form: TAB, ONCE, Start date: 01/21/19 10:09:00 CDT, Stop date: 01/21/19 10:09:00 CDTNotes: (Same as: Prinivil, Zestril) Inactive 01/21/2019 [facility] Morphine 2 mg, 1 mL, Route: IVP, Drug form: SOLN, Q4H, Dosing Weight 85.554, kg, PRN Pain Score 4-6, Start date: 01/20/19 22:22:00 CDT, Duration: 30 day, Stop date: 02/19/19 22:21:00 CDT No Longer Active 01/21/2019 [facility] Lasix 20 mg, 2 mL, Route: IVP, Drug form: INJ, ONCE, Dosing Weight 85.554, kg, Start date: 01/20/19 10:25:00 CDT, Stop date: 01/20/19 10:25:00 CDTNotes: (Same as: Lasix) Inactive 01/20/2019 [facility] Silver Sulfadiazine 10 MG/ML Topical Cream [Silvadene] 1 appl, Route: TOP, Daily, Drug form: CRM, Start date: 01/20/19 9:00:00 CDT, Duration: 30 day, Stop date: 02/18/19 9:00:00 CDTNotes: (Same as: Silvadene) WASTE: F/P - Black; E - Municipal Trash Bin No Longer Active 01/20/2019 [facility] chlorhexidine gluconate 1.2 MG/ML Mouthwash 15 ml, Route: S&SPIT, Daily, Drug form: LIQ, Start date: 01/20/19 9:00:00 CDT, Duration: 30 day, Stop date: 02/18/19 9:00:00 CDTNotes: (Same As: Peridex) No Longer Active 01/20/2019 [facility] Saline Flush 0.9% 10 ml, Route: IVP, Drug Form: INJ, Dosing Weight 85.554, kg, Q12H, Start date: 01/19/19 21:00:00 CDT, Duration: 30 day, Stop date: 02/18/19 9:00:00 CDTNotes: (Same as: BD Posiflush) No Longer Active 01/20/2019 [facility] Lidocaine Hydrochloride 10 MG/ML Injectable Solution 100 mg, 10 mL, Route: InFILtration(local), Drug Form: INJ, Dosing Weight 85.554, kg, ONCE, Start date: 01/19/19 18:44:00 CDT, Stop date: 01/19/19 18:44:00 CDTNotes: (Same as: Xylocaine) No Longer Active 01/19/2019 [facility] Benzocaine 140 MG/ML / butamben 20 MG/ML / Tetracaine 20 MG/ML Mucosal [place] [Cetacaine] 2 spray, Route: MUCOUS MEM, ONCALL, Drug form: AERO, Start date: 01/19/19 17:00:00 CDT, Duration: 1 doses or timesNotes: (Same As: Cetacaine) Cetacaine (uusevhyivp-fdltiegzle-errghlzb 14-2-2%) No Longer Active 01/19/2019 [facility] Saline Flush 0.9% 10 ml, Route: IVP, Drug Form: INJ, Dosing Weight 85.554, kg, PRN, PRN Line Flush, Start date: 01/19/19 16:03:00 CDT, Duration: 30 day, Stop date: 02/18/19 16:02:00 CDTNotes: (Same as: BD Posiflush) No Longer Active 01/19/2019 [facility] Vitamin D2 50,000 IntlUnit, 1 cap, Route: PO, Drug form: CAP, QWed, Dosing Weight 85.909, kg, Start date: 01/18/19 9:00:00 CDT, Duration: 30 day, Stop date: 02/15/19 9:00:00 CDTNotes: (Same as: Vitamin D) "Do Not Crush" No Longer Active 01/18/2019 [facility] Lasix 40 mg, 4 mL, Route: IVP, Drug form: INJ, BID, Dosing Weight 85.554, kg, Start date: 01/17/19 21:00:00 CDT, Duration: 30 day, Stop date: 02/16/19 17:00:00 CDTNotes: (Same as: Lasix) MEDICATION WASTE Product Size: 40 mg Product Wasted: ___ mg No Longer Active 01/18/2019 [facility] Vancomycin 1,500 mg, 250 mL, Route: IV, Drug form: INJ, [id number], Dosing Weight 85.554, kg, Start date: 01/17/19 14:00:00 CDT, Duration: 9 day, Stop date: 01/25/19 14:00:00 CDT, ABX Indication: BacteremiaNotes: TIME CRITICAL MEDICATION Same as: Vancocin-NS (premixed) Infusion rate 2001 mg: infuse over 2.5 hours No Longer Active 01/17/2019 [facility] Vancomycin 1,000 mg, Route: IVPB, Drug form: INJ, Q24H, Dosing Weight 85.554, kg, Start date: 01/17/19 12:00:00 CDT, Duration: 7 day, Stop date: 01/23/19 12:00:00 CDT, ABX Indication: Bacteremia No Longer Active 01/17/2019 [facility] Cefazolin 2 gm, Route: IVP, [id number], Dosing Weight 85.554, kg, Start date: 01/16/19 21:00:00 CDT, Duration: 28 day, Stop date: 02/13/19 13:00:00 CDT, ABX Indication: BacteremiaNotes: (Same As: Ancef, Kefzol) MEDICATION WASTE Product Size: 1000 mg Product Wasted: ___ mg No Longer Active 01/17/2019 [facility] Levemir 10 unit, Route: SUB-Q, Drug form: SOLN, Bedtime, Dosing Weight 85.909, kg, Start date: 01/16/19 21:00:00 CDT, Duration: 30 day, Stop date: 02/14/19 21:00:00 CDT No Longer Active 01/17/2019 [facility] atorvastatin 40 mg, 1 tab, Route: PO, Drug form: TAB, Bedtime, Dosing Weight 85.909, kg, Start date: 01/16/19 21:00:00 CDT, Duration: 30 day, Stop date: 02/14/19 21:00:00 CDTNotes: (Same as: Lipitor) No Longer Active 01/17/2019 [facility] Acetaminophen 33.3 MG/ML / Hydrocodone Bitartrate 0.5 MG/ML Oral Solution 15 mL, Route: PO, Dosing Weight 85.554, kg, Q4H, PRN Pain Score 4-6, Start date: 01/16/19 20:47:00 CDT, Duration: 30 day, Stop date: 02/15/19 20:46:00 CDT Inactive 01/17/2019 [facility] Azithromycin 500 mg, Route: IVPB, [id number], Dosing Weight 85.909, kg, Start date: 01/16/19 18:30:00 CDT, Duration: 2 day, Stop date: 01/17/19 18:30:00 CDT, ABX Indication: PneumoniaNotes: (Same As: Zithromax IV) Inactive 01/16/2019 [facility] Ceftriaxone 1 gm, Route: IVP, [id number], Dosing Weight 85.909, kg, Start date: 01/16/19 18:00:00 CDT, Duration: 5 day, Stop date: 01/20/19 18:00:00 CDT, ABX Indication: Urinary Tract InfectionNotes: (Same As: Rocephin). Use with 100 mL NS and infuse over 30 min MEDICATION WASTE Product Size: 1000 mg Product Wasted: ___ mg Inactive 01/16/2019 [facility] Aluminum Hydroxide 40 MG/ML / Magnesium Hydroxide 40 MG/ML / Simethicone 4 MG/ML Oral Suspension 30 mL, Route: PO, Drug Form: SUSP, Dosing Weight 85.554, kg, Q4H, PRN Indigestion, Start date: 01/16/19 14:59:00 CDT, Duration: 30 day, Stop date: 02/15/19 14:58:00 CDTNotes: (aluminum hydroxide-magnesium hyd-simethicone [id number]/5ml 30 ml ud NITA) No Longer Active 01/16/2019 [facility] Diphenhydramine 25 mg, 1 tab, Route: PO, Drug form: TAB, Q6H, Dosing Weight 85.554, kg, PRN Itching, Start date: 01/16/19 14:59:00 CDT, Duration: 30 day, Stop date: 02/15/19 14:58:00 CDT No Longer Active 01/16/2019 [facility] Dextromethorphan Hydrobromide 2 MG/ML / Guaifenesin 20 MG/ML Oral Solution 10 mL, Route: PO, Drug Form: LIQ, Dosing Weight 85.554, kg, Q4H, PRN Cough, Start date: 01/16/19 14:59:00 CDT, Duration: 30 day, Stop date: 02/15/19 14:58:00 CDTNotes: (dextromethorphan-guaifenesin 10-100/5 ml LIQ) (Same as: Robitussin-DM) No Longer Active 01/16/2019 [facility] meloxicam 15 mg oral tablet 15 mg=1 tab, PO, Daily, 0 Refill(s) No Longer Active 01/16/2019 [facility] Alendronic acid 70 MG Oral Tablet 70 mg=1 tab, PO, Q7D, 0 Refill(s) Active 01/16/2019 [facility] Cranberry preparation 1 tab, PO, Daily, 0 Refill(s) Active 01/16/2019 [facility] gabapentin 600 MG Oral Tablet 600 mg=1 tab, PO, Bedtime, 0 Refill(s) Active 01/16/2019 [facility] Furosemide 40 MG Oral Tablet 40 mg=1 tab, PO, Daily, 0 Refill(s) Active 01/16/2019 [facility] Levemir 10 unit, SUB-Q, PRN, 0 Refill(s) No Longer Active 01/16/2019 [facility] Ativan 0.5 mg, 0.25 mL, Route: IVP, Drug form: INJ, ONCE, Dosing Weight 85.554, kg, PRN Anxiety, Start date: 01/16/19 13:34:00 CDTNotes: (Same as: Ativan) No Longer Active 01/16/2019 [facility] vancomycin 2 gm, 500 mL, Route: IVPB, Drug form: SOLN, ONCE, Start date: 01/16/19 12:38:00 CDT, Stop date: 01/16/19 12:38:00 CDT, ABX Indication: BacteremiaNotes: TIME CRITICAL MEDICATION Same as: Vancocin Inf usion rate 2001 mg: infuse over 2.5 hours Inactive 01/16/2019 [facility] Vancomycin 1 ea, Route: MISC, ONCALL, Dosing Weight 85.554, kg, Start date: 01/16/19 12:00:00 CDT, Duration: 10 day, Stop date: 01/26/19 11:59:00 CDT, Pharmacy to dose, ABX Indication: Bacteremia Inactive 01/16/2019 [facility] Vancomycin 1,500 mg, Route: IVPB, Drug form: INJ, ONCE, Dosing Weight 85.554, kg, Start date: 01/16/19 11:57:00 CDT, Stop date: 01/16/19 11:57:00 CDT, ABX Indication: Bacteremia Inactive 01/16/2019 [facility] Acetaminophen 300 MG / Codeine Phosphate 30 MG Oral Tablet 1 tab, Route: PO, Drug Form: TAB, Dosing Weight 85.554, kg, Q8H, PRN Pain Score 7-10, Start date: 01/16/19 11:57:00 CDT, Duration: 30 day, Stop date: 02/15/19 11:56:00 CDTNotes: Do not exceed 4gm/day of acetaminophen. (Same as: Tylenol with Codeine # 3) No Longer Active 01/16/2019 [facility] Acetaminophen 300 MG / Codeine Phosphate 30 MG Oral Tablet 1 tab, PO, Q8H, PRN Pain Score 7-10 No Longer Active 01/16/2019 [facility] Lisinopril 40 mg, 2 tab, Route: PO, Drug form: TAB, Daily, Dosing Weight 85.909, kg, Start date: 01/16/19 9:00:00 CDT, Duration: 30 day, Stop date: 02/14/19 9:00:00 CDTNotes: (Same as: Prinivil, Zestril) No Longer Active 01/16/2019 [facility] gabapentin 600 MG Oral Tablet 600 mg, 2 cap, Route: PO, Drug form: CAP, Q12H, Dosing Weight 85.909, kg, Start date: 01/16/19 9:00:00 CDT, Duration: 30 day, Stop date: 02/14/19 21:00:00 CDTNotes: (Same as: Neurontin) No Longer Active 01/16/2019 [facility] Escitalopram 10 mg, 1 tab, Route: PO, Drug form: TAB, Daily, Dosing Weight 85.909, kg, Start date: 01/16/19 9:00:00 CDT, Duration: 30 day, Stop date: 02/14/19 9:00:00 CDTNotes: (Same as: Lexapro) No Longer Active 01/16/2019 [facility] Plavix 75 mg, 1 tab, Route: PO, Drug form: TAB, Daily, Dosing Weight 85.909, kg, Start date: 01/16/19 9:00:00 CDT, Duration: 30 day, Stop date: 02/14/19 9:00:00 CDTNotes: (Same As: Plavix) No Longer Active 01/16/2019 [facility] Docusate Sodium 100 MG Oral Capsule 100 mg, 1 cap, Route: PO, Drug form: CAP, BID, Dosing Weight 85.909, kg, Start date: 01/16/19 9:00:00 CDT, Duration: 30 day, Stop date: 02/14/19 17:00:00 CDTNotes: (Same as: Colace) (Do Not Crush) No Longer Active 01/16/2019 [facility] Amlodipine 5 mg, 1 tab, Route: PO, Drug form: TAB, Daily, Dosing Weight 85.909, kg, Start date: 01/16/19 9:00:00 CDT, Duration: 30 day, Stop date: 02/14/19 9:00:00 CDTNotes: (Same as: Norvasc) No Longer Active 01/16/2019 [facility] heparin 5,000 unit, 1 mL, Route: SUB-Q, Drug form: INJ, Q8H, Dosing Weight 85.909, kg, Start date: 01/16/19 0:00:00 CDT, Duration: 30 day, Stop date: 02/14/19 16:00:00 CDTNotes: porcine heparin No Longer Active 01/16/2019 [facility] Aspirin 325 mg, 1 tab, Route: PO, Drug form: ECTAB, ONCE, Dosing Weight 85.909, kg, Start date: 01/15/19 23:53:00 CDT, Stop date: 01/15/19 23:53:00 CDTNotes: (Do Not Crush) Do not crush or chew. No Longer Active 01/16/2019 [facility] Heparin - one time bolus for ACS 3,100 unit, Route: IVP, Drug form: INJ, ONCE, Dosing Weight 85.909, kg, Priority: STAT, Start date: 01/15/19 23:47:00 CDT, Stop date: 01/15/19 23:47:00 CDT Inactive 01/16/2019 [facility] Heparin 60 unit/kg Bolus (Heparin Dosing Weight) Route: IVP, PRN, 3,100 unit, 3.1 mL, Drug form: INJ, PRN, Heparin Protocol, Start date: 01/15/19 23:47:00 CDT Stop date: 02/14/19 23:46:00 CDT, 30 day No Longer Active 01/16/2019 [facility] Heparin 30 unit/kg Bolus (Heparin Dosing Weight) Route: IVP, PRN, 1,600 unit, 1.6 mL, Drug form: INJ, PRN, Heparin Protocol, Start date: 01/15/19 23:47:00 CDT Stop date: 02/14/19 23:46:00 CDT, 30 day No Longer Active 01/16/2019 [facility] heparin additive 25,000 unit [12 unit/kg/hr] + Premix Diluent Dextrose 5% 500 mL 500 mL, Rate: 12.48 ml/hr, Infuse over: 40.1 hr, Route: IV, Dosing Weight 52 kg, Total Volume: 500 mL, Start date: 01/15/19 23:47:00 CDT, Duration: 30 day, Stop date: 02/14/19 23:46:00 CDT, 1.42, m2 No Longer Active 01/16/2019 [facility] insulin glargine 10 unit, 0.1 mL, [...] days from Date No Longer Active 01/16/2019 [facility] Hydralazine 50 mg, 1 tab, Route: PO, Drug form: TAB, Q12H, Dosing Weight 85.909, kg, Start date: 01/15/19 22:15:00 CDT, Duration: 30 day, Stop date: 02/14/19 21:00:00 CDTNotes: (Same as: Apresoline) May interfere w/enteral feedings Take With Food No Longer Active 01/16/2019 [facility] Melatonin 3 MG Extended Release Tablet 3 mg, 1 tab, Route: PO, Drug Form: TAB, Dosing Weight 85.909, kg, Bedtime, PRN Insomnia, Start date: 01/15/19 22:10:00 CDT, Duration: 30 day, Stop date: 02/14/19 22:09:00 CDTNotes: (Same as: Melatonin) No Longer Active 01/16/2019 [facility] Amlodipine 5 mg, PO, Daily, 0 Refill(s) Active 01/16/2019 [facility] Hydralazine 50 mg, BID, 0 Refill(s) No Longer Active 01/16/2019 [facility] Lasix Daily, 0 Refill(s) No Longer Active 01/16/2019 [facility] clopidogrel 75 MG Oral Tablet [Plavix] 75 mg=1 tab, PO, Daily, # 30 tab, 0 Refill(s) Active 01/16/2019 [facility] Saline Flush 0.9% 10 ml, Route: IVP, Drug Form: INJ, Dosing Weight 85.909, kg, Q12H, Start date: 01/15/19 21:00:00 CDT, Duration: 30 day, Stop date: 02/14/19 9:00:00 CDTNotes: (Same as: BD Posiflush) No Longer Active 01/16/2019 [facility] Albuterol 0.833 MG/ML / Ipratropium Ketchum 0.167 MG/ML Inhalant Solution 3 ml, Route: NEB, Drug Form: SOLN, Dosing Weight 85.909, kg, PRN, PRN Respiratory Pathway, Start date: 01/15/19 20:27:00 CDT, Duration: 30 day, Stop date: 02/14/19 20:26:00 CDTNotes: (Same as: Duoneb) No Longer Active 01/16/2019 [facility] Tylenol 650 mg, 20.3 mL, Route: PO, Drug form: LIQ, Q4H, Dosing Weight 85.909, kg, PRN Pain 1-3/Temp > 100.4 F, Start date: 01/15/19 20:15:00 CDT, Duration: 30 day, Stop date: 02/14/19 20:14:00 CDTNotes: Max nlivsachaybtf=[id number]/day (4 gm/day). (Same as: Tylenol) No Longer Active 01/16/2019 [facility] Lasix 60 mg, 6 mL, Route: IV, Drug form: INJ, ONCE, Dosing Weight 85.909, kg, Start date: 01/15/19 20:14:00 CDT, Stop date: 01/15/19 20:14:00 CDTNotes: (Same as: Lasix) MEDICATION WASTE Product Size: 40 mg Product Wasted: ___ mg Inactive 01/16/2019 [facility] Insulin Lispro 5 unit, 0.05 mL, [...] days from Date No Longer Active 01/16/2019 [facility] Glucagon 1 mg, Route: IM, Drug form: PDR/INJ, PRN, Dosing Weight 85.909, kg, PRN Blood Glucose Results, Start date: 01/15/19 20:14:00 CDT, Duration: 30 day, Stop date: 02/14/19 20:13:00 CDT No Longer Active 01/16/2019 [facility] Dextrose 50% Syringe 25 gm, 50 mL, Route: IVP, Drug Form: INJ, Dosing Weight 85.909, kg, PRN, PRN Blood Glucose Results, Start date: 01/15/19 20:14:00 CDT, Duration: 30 day, Stop date: 02/14/19 20:13:00 CDT No Longer Active 01/16/2019 [facility] Saline Flush 0.9% 10 ml, Route: IVP, Drug Form: INJ, Dosing Weight 85.909, kg, PRN, PRN Line Flush, Start date: 01/15/19 20:13:00 CDT, Duration: 30 day, Stop date: 02/14/19 20:12:00 CDTNotes: (Same as: BD Posiflush) No Longer Active 01/16/2019 [facility] Ondansetron 4 mg, 2 mL, Route: IVP, Drug form: INJ, Q8H, Dosing Weight 85.909, kg, PRN Nausea & Vomiting, Start date: 01/15/19 20:13:00 CDT, Duration: 30 day, Stop date: 02/14/19 20:12:00 CDTNotes: (Same as: Zofran) MEDICATION WASTE Product Size: 4 mg Product Wasted: ___ mg No Longer Active 01/16/2019 [facility] Lasix 20 mg, Route: IVP, Drug form: INJ, ONCE, Dosing Weight 85.909, kg, Priority: STAT, Start date: 01/15/19 18:53:00 CDT, Stop date: 01/15/19 18:53:00 CDT Inactive 01/15/2019 [facility] Azithromycin 500 mg, Route: IVPB, ONCE, Dosing Weight 85.909, kg, Priority: STAT, Start date: 01/15/19 18:13:00 CDT, Stop date: 01/15/19 18:13:00 CDT, ABX Indication: Other (specify in Comments)Notes: (Same As: Z ithromax IV) Inactive 01/15/2019 [facility] Rocephin + sterile water 10 mL 1 gm, Route: IVP, ONCE, Dosing Weight 85.909, kg, Priority: STAT, Start date: 01/15/19 18:13:00 CDT, Stop date: 01/15/19 18:13:00 CDT, ABX Indication: Other (specify in Comments)Notes: (Same As: Rocephin). Use with 100 mL NS and infuse over 30 min MEDICATION WASTE Product Size: 1000 mg Product Wasted: ___ mg Inactive 01/15/2019 [facility] Ibuprofen 600 mg, 3 tab, Route: PO, Drug form: TAB, ONCE, Dosing Weight 88.636, kg, Priority: STAT, Start date: 01/15/19 18:11:00 CDT, Stop date: 01/15/19 18:11:00 CDTNotes: (Same as: Advil) Give with food. Inactive 01/15/2019 [facility] Acetaminophen 650 mg, 2 tab, Route: PO, Drug form: TAB, ONCE, Dosing Weight 88.636, kg, Priority: STAT, Start date: 01/15/19 18:11:00 CDT, Stop date: 01/15/19 18:11:00 CDTNotes: Do not exceed 4 gm/day. (Same as: Tylenol) Inactive 01/15/2019 [facility] Docusate Sodium 100 MG Oral Capsule 100 mg=1 cap, PO, BID, # 60 cap, 0 Refill(s) Active 01/14/2018 [facility] Acetaminophen 325 MG Oral Tablet [Tylenol] 325 mg=1 tab, PO, Q4H, PRN Pain Score 6-10, PRN pain, X 7 day, # 42 tab, 0 Refill(s) Active 01/14/2018 [facility] Melatonin 3 MG Extended Release Tablet 3 mg=1 tab, PO, Bedtime, PRN for insomnia Active 01/14/2018 [facility] Acetaminophen 325 MG Oral Tablet [Tylenol] 325 mg=1 tab, PO, Daily, PRN pain Inactive 01/14/2018 [facility] Vitamin D2 50,000 intl units oral capsule 50,000 IntlUnit=1 cap, PO, qWeek, (every Wednesday of the week) Active 01/14/2018 [facility] atorvastatin 40 mg oral tablet 40 mg=1 tab, PO, Bedtime, # 90 tab, 0 Refill(s) Active 01/14/2018 [facility] Levetiracetam 500 MG Oral Tablet 500 mg=1 tab, PO, BID, # 60 tab, 0 Refill(s) Active 01/14/2018 [facility] gabapentin 600 MG Oral Tablet 600 mg=1 tab, PO, TID, # 90 tab, 0 Refill(s) Active 01/14/2018 [facility] Enoxaparin 40 mg, 0.4 mL, Route: SUB-Q, Drug form: INJ, [id number], Dosing Weight 88.636, kg, Start date: 01/14/18 9:00:00 CDT, Stop date: 02/11/18 9:00:00 CDTNotes: (Same as: Lovenox) Inactive 01/14/2018 [facility] Lisinopril 5 mg, 1 tab, Route: PO, Drug form: TAB, Daily, Dosing Weight 88.636, kg, Priority: NOW, Start date: 01/14/18 8:12:00 CDT, Duration: 30 day, Stop date: 02/12/18 9:00:00 CDTNotes: (Same as: Prinivil, Z estril) Inactive 01/14/2018 [facility] Calcium Gluconate 1,000 mg, 10 mL, Route: IVPB, ONCE, Dosing Weight 88.636, kg, Start date: 01/14/18 6:02:00 CDT, Stop date: 01/14/18 6:02:00 CDTNotes: WASTE: F/P - Sink; E - Municipal Trash Bin Inactive 01/14/2018 [facility] Magnesium Sulfate 2 gm, 50 mL, Route: IVPB, Drug form: INJ, ONCE, Dosing Weight 88.636, kg, Total dose=2 gm, Start date: 01/14/18 5:55:00 CDT, Stop date: 01/14/18 5:55:00 CDTNotes: WASTE: F/P - Sink; E - Municipal Trash Bin Inactive 01/14/2018 [facility] Albuterol 0.833 MG/ML / Ipratropium Ketchum 0.167 MG/ML Inhalant Solution [DuoNeb] 3 ml, Route: NEB, Drug Form: SOLN, Dosing Weight 88.636, kg, PRN, PRN Respiratory Protocol, Start date: 01/13/18 20:34:00 CDT, Duration: 30 day, Stop date: 02/12/18 20:33:00 CDTNotes: (Same as: Duoneb) No Longer Active 01/14/2018 [facility] atorvastatin 40 mg, PO, Bedtime, 0 Refill(s) No Longer Active 01/14/2018 [facility] magnesium oxide 500 mg oral tablet 500 mg=1 tab, PO, BID, 0 Refill(s) Active 01/14/2018 [facility] lisinopril 20 mg oral tablet 20 mg=1 tab, PO, Daily, 0 Refill(s) Active 01/14/2018 [facility] escitalopram 10 mg oral tablet 10 mg=1 tab, PO, Bedtime, 0 Refill(s) Active 01/14/2018 [facility] insulin detemir 100 UNT/ML Injectable Solution [Levemir] 100 unit, SUB-Q, Bedtime, 0 Refill(s) Active 01/14/2018 [facility] Ergocalciferol PO, once a week, 0 Refill(s) No Longer Active 01/14/2018 [facility] gabapentin 600 MG Oral Tablet 600 mg=1 tab, PO, Bedtime, 2 tabs, 0 Refill(s) No Longer Active 01/14/2018 [facility] meloxicam 15 mg oral tablet 15 mg=1 tab, PO, Daily, 0 Refill(s) No Longer Active 01/14/2018 [facility] glimepiride 4 mg oral tablet 4 mg=1 tab, PO, Daily, 0 Refill(s) Active 01/14/2018 [facility] Ofirmev 1,000 mg, 100 mL, Route: IV, Drug form: INJ, Q6H, Dosing Weight 88.636, kg, for > or=50 kg, Start date: 01/13/18 18:00:00 CDT, Duration: 30 day, Stop date: 02/12/18 12:00:00 CDTNotes: Infuse over 15 minutes Do not exceed 4gm/day of acetaminophen MEDICATION WASTE Product Size: 1000 mg Product Wasted: ___ mg No Longer Active 01/13/2018 [facility] Fluconazole 400 mg, 200 mL, Route: IVPB, Drug form: INJ, [id number], Dosing Weight 88.636, kg, Priority: NOW, Start date: 01/13/18 16:58:00 CDT, Duration: 1 day, Stop date: 01/13/18 16:58:00 CDT, ABX Indication: Sofia rgical ProphylaxisNotes: (Same as: Diflucan) Inactive 01/13/2018 [facility] Insulin regular 5 unit, Route: IV, ONCE, Dosing Weight 88.636, kg, Start date: 01/13/18 15:13:00 CDT, Stop date: 01/13/18 15:13:00 CDT Inactive 01/13/2018 [facility] Insulin regular 5 unit, Route: IV, ONCE, Dosing Weight 88.636, kg, Start date: 01/13/18 14:38:00 CDT, Stop date: 01/13/18 14:38:00 CDT Inactive 01/13/2018 [facility] ondansetron (ANES) Route: IV, Drug form: INJ, ONCE, Stop date: 01/13/18 14:10:00 CDT Inactive 01/13/2018 [facility] ketOROLAC (ANES) IV, ONCE Inactive 01/13/2018 [facility] sugammadex (ANES) Route: IV, Drug form: SOLN, ONCE, Stop date: 01/13/18 14:10:00 CDT Inactive 01/13/2018 [facility] furosemide (ANES) Route: IV, Drug form: INJ, ONCE, Stop date: 01/13/18 14:10:00 CDT Inactive 01/13/2018 [facility] NovoLIN R (ANES) Route: SUB-Q, Drug form: INJ, ONCE, Stop date: 01/13/18 14:06:00 CDT Inactive 01/13/2018 [facility] Enoxaparin 40 mg, Route: SUB-Q, Drug form: INJ, [id number], Dosing Weight 88.636, kg, Start date: 01/13/18 14:00:00 CDT, Stop date: 02/11/18 14:00:00 CDT Inactive 01/13/2018 [facility] Insulin regular 2 unit, 0.02 [...] days from Date No Longer Active 01/13/2018 [facility] Dextrose 50% Syringe 12.5 gm, 25 mL, Route: IVP, Drug Form: INJ, Dosing Weight 88.636, kg, PRN, PRN Blood Glucose Results, Start date: 01/13/18 13:59:00 CDT, Duration: 30 day, Stop date: 02/12/18 13:58:00 CDT No Longer Active 01/13/2018 [facility] Glucagon 1 mg, Route: IM, Drug form: PDR/INJ, PRN, Dosing Weight 88.636, kg, PRN Blood Glucose Results, Start date: 01/13/18 13:59:00 CDT, Duration: 30 day, Stop date: 02/12/18 13:58:00 CDT No Longer Active 01/13/2018 [facility] sugammadex 500 mg, 5 mL, Route: IV, Drug form: SOLN, ONCE, Start date: 01/13/18 13:52:00 CDT, Stop date: 01/13/18 13:52:00 CDTNotes: (Same as: Bridion) No Longer Active 01/13/2018 [facility] hydromorphone (ANES) Route: IV, Drug form: INJ, ONCE, Stop date: 01/13/18 13:36:00 CDT Inactive 01/13/2018 [facility] Lactated Ringers IV 1,000 mL 1,000 mL, Rate: 75 ml/hr, Infuse over: 13.3 hr, Route: IV, Dosing Weight 88.636 kg, Total Volume: 1,000, Start date: 01/13/18 13:12:00 CDT, Duration: 30 day, Stop date: 02/12/18 13:11:00 CDT, 1.96, m2 No Longer Active 01/13/2018 [facility] Dilaudid 0.5 mg, 0.25 mL, Route: IVP, Drug form: INJ, Q8H, Dosing Weight 88.636, kg, PRN Pain Score 7-10, Start date: 01/13/18 13:10:00 CDT, Duration: 30 day, Stop date: 02/12/18 13:09:00 CDTNotes: Same as Dilaudid No Longer Active 01/13/2018 [facility] fentaNYL (ANES) Route: IV, Drug form: INJ, ONCE, Stop date: 01/13/18 13:06:00 CDT Inactive 01/13/2018 [facility] ketAMINE (ANES) Route: IV, Drug form: INJ, ONCE, Stop date: 01/13/18 13:06:00 CDT Inactive 01/13/2018 [facility] phenylephrine (ANES) Route: IV, Drug form: INJ, ONCE, Stop date: 01/13/18 13:06:00 CDT Inactive 01/13/2018 [facility] Ondansetron 4 mg, 2 mL, Route: IVP, Drug form: INJ, Q6H, Dosing Weight 88.636, kg, PRN Nausea & Vomiting, Start date: 01/13/18 13:03:00 CDT, Duration: 30 day, Stop date: 02/12/18 13:02:00 CDTNotes: (Same as: Zofran) MEDICATION WASTE Product Size: 4 mg Product Wasted: ___ mg No Longer Active 01/13/2018 [facility] ceFAZolin (ANES) Route: IV, Drug form: INJ, ONCE, Stop date: 01/13/18 12:09:00 CDT Inactive 01/13/2018 [facility] sodium bicarbonate (ANES) Route: IV, Drug form: INJ, ONCE, Stop date: 01/13/18 11:53:00 CDT Inactive 01/13/2018 [facility] rocuronium (ANES) Route: IV, Drug form: INJ, ONCE, Stop date: 01/13/18 11:28:00 CDT Inactive 01/13/2018 [facility] propofol (ANES) Route: IV, Drug form: INJ, ONCE, Stop date: 01/13/18 11:28:00 CDT Inactive 01/13/2018 [facility] EPINEPHrine (ANES) 1 mg Route: IV, Drug form: INJ, Start date: 01/13/18 11:05:00 CDT, Stop date: 01/13/18 12:05:00 CDT Inactive 01/13/2018 [facility] albuterol (ANES) Route: INHALATION, Drug form: AERO/A, ONCE, Stop date: 01/13/18 10:46:00 CDT Inactive 01/13/2018 [facility] famotidine (ANES) Route: IV, Drug form: INJ, ONCE, Stop date: 01/13/18 10:38:00 CDT Inactive 01/13/2018 [facility] norepinephrine (ANES) Route: IV, Drug form: INJ, ONCE, Stop date: 01/13/18 10:38:00 CDT Inactive 01/13/2018 [facility] glycopyrrolate (ANES) Route: IV, Drug form: INJ, ONCE, Stop date: 01/13/18 10:38:00 CDT Inactive 01/13/2018 [facility] acetaminophen (ANES) Route: IV, Drug form: INJ, ONCE, Stop date: 01/13/18 10:18:00 CDT Inactive 01/13/2018 [facility] dexamethasone (ANES) Route: IV, Drug form: INJ, ONCE, Stop date: 01/13/18 10:13:00 CDT Inactive 01/13/2018 [facility] fentaNYL (ANES) Route: IV, Drug form: INJ, ONCE, Stop date: 01/13/18 10:03:00 CDT Inactive 01/13/2018 [facility] succinylcholine (ANES) Route: IV, Drug form: INJ, ONCE, Stop date: 01/13/18 10:03:00 CDT Inactive 01/13/2018 [facility] lidocaine (ANES) Route: IV, Drug form: INJ, ONCE, Stop date: 01/13/18 10:03:00 CDT Inactive 01/13/2018 [facility] propofol (ANES) Route: IV, Drug form: INJ, ONCE, Stop date: 01/13/18 10:03:00 CDT Inactive 01/13/2018 [facility] phenylephrine (ANES) Route: IV, Drug form: INJ, ONCE, Stop date: 01/13/18 9:58:00 CDT Inactive 01/13/2018 [facility] rocuronium (ANES) Route: IV, Drug form: INJ, ONCE, Stop date: 01/13/18 9:48:00 CDT Inactive 01/13/2018 [facility] Oxycodone 5 mg, 1 tab, Route: PO, Drug form: TAB, Q4H, Dosing Weight 88.636, kg, PRN Pain Score 4-6, Start date: 01/13/18 9:46:00 CDT, Duration: 30 day, Stop date: 02/12/18 9:45:00 CDTNotes: (Same as: Roxicodone) Inactive 01/13/2018 [facility] Naloxone 0.4 mg, 1 mL, Route: IVP, Drug form: INJ, Q2MIN, Dosing Weight 88.636, kg, PRN Narcotic Reversal, Start date: 01/13/18 9:46:00 CDT, Duration: 8 doses or times, Stop date: 01/14/18 0:00:00 CDTNotes: Same as Narcan Inactive 01/13/2018 [facility] Flumazenil 0.2 mg, 2 mL, Route: IVP, Drug form: INJ, PRN, Dosing Weight 88.636, kg, PRN Benzodiazepine Reversal, Initial dose, Start date: 01/13/18 9:46:00 CDT, Duration: 30 day, Stop date: 02/12/18 9:45:00 CDT Notes: (Same as: Romazicon) Inactive 01/13/2018 [facility] Hydromorphone 0.5 mg, 0.25 mL, Route: IVP, Drug form: INJ, Q5Min, Dosing Weight 88.636, kg, PRN Pain Score 7-10, Start date: 01/13/18 9:46:00 CDT, Duration: 4 doses or times, Stop date: 01/14/18 0:00:00 CDTNotes: Same as Dilaudid Inactive 01/13/2018 [facility] Hydralazine 10 mg, 0.5 mL, Route: IVP, Drug form: INJ, Q20Min, Dosing Weight 88.636, kg, PRN Elevated BP, Start date: 01/13/18 9:46:00 CDT, Duration: 2 doses or times, Stop date: 01/14/18 0:00:00 CDTNotes: (Same as: Apresoline) Push over 5 minutes Inactive 01/13/2018 [facility] Ondansetron 4 mg, 2 mL, Route: IVP, Drug form: INJ, ONCE, Dosing Weight 88.636, kg, PRN Nausea & Vomiting, Start date: 01/13/18 9:46:00 CDTNotes: (Same as: Zofran) MEDICATION WASTE Product Size: 4 mg Product Wasted: ___ mg Inactive 01/13/2018 [facility] Promethazine 6.25 mg, 0.25 mL, Route: IVPB, Drug form: INJ, ONCE, Dosing Weight 88.636, kg, PRN Nausea & Vomiting, Start date: 01/13/18 9:46:00 CDTNotes: Do not give IV push. (Same as: Phenergan) Inactive 01/13/2018 [facility] ceFAZolin (ANES) Route: IV, Drug form: INJ, ONCE, Stop date: 01/13/18 9:38:00 CDT Inactive 01/13/2018 [facility] ketAMINE (ANES) 100 mg Route: IV, Drug form: INJ, Start date: 01/13/18 9:05:00 CDT, Stop date: 01/13/18 10:05:00 CDT Inactive 01/13/2018 [facility] dexmedetomidine (ANES) 200 microgram Route: IV, Drug form: INJ, Start date: 01/13/18 9:05:00 CDT, Stop date: 01/13/18 10:05:00 CDT Inactive 01/13/2018 [facility] Lactated Ringers Injection IV (ANES) 1000 mL Route: IV, Total Volume: 1,000, Start date: 01/13/18 8:46:00 CDT, Stop date: 01/13/18 9:46:00 CDT Inactive 01/13/2018 [facility] Ofirmev 1,000 mg, 100 mL, Route: IV, Drug form: INJ, PRE OP, Start date: 01/13/18 0:00:00 CDT, Duration: 1 day, Stop date: 01/13/18 23:59:00 CDTNotes: Infuse over 15 minutes Do not exceed 4gm/day of acetaminop hen MEDICATION WASTE Product Size: 1000 mg Product Wasted: ___ mg No Longer Active 01/13/2018 [facility] scopolamine 1 patch, Route: TOP, Drug form: ERFILM, PRE OP, Start date: 01/13/18 0:00:00 CDT, Duration: 1 day, Stop date: 01/13/18 23:59:00 CDTNotes: Change patch every 72 hours (Same as: Transderm-Scop) Inactive 01/13/2018 [facility] heparin 5,000 unit, 1 mL, Route: SUB-Q, Drug form: INJ, PRE OP, Start date: 01/13/18 0:00:00 CDT, Duration: 1 day, Stop date: 01/13/18 23:59:00 CDTNotes: porcine heparin Inactive 01/13/2018 [facility] ceFAZolin + sterile water 20 mL 2 gm, Route: IV, PRE OP, Start date: 01/13/18 0:00:00 CDT, Duration: 1 day, Stop date: 01/13/18 23:59:00 CDT, ABX Indication: Surgical ProphylaxisNotes: (Same As: Duarte Payne) MEDICATION WASTE Product Size: 1000 mg Product Wasted: ___ mg No Longer Active 01/13/2018 [facility] glimepiride PO, Daily, 0 Refill(s) No Longer Active 01/05/2018 [facility] lisinopril 20 mg oral tablet 20 mg=1 tab, PO, Daily, 0 Refill(s) No Longer Active 01/05/2018 [facility] Acetaminophen/Hydrocodone Bitart ([place] 10MG-325MG*) 1 Ea Tab, 1 Tab Oral Every 6 Hours as needed Active 08/08/[address] [facility] Amoxicillin 250 Mg Capsule, 500 Mg Oral Every 6 Hours Active 08/08/[address] [facility] Vilazodone Hydrochloride (Viibryd) 40 Mg Tablet, 40 Mg Oral Daily Active 08/08/[address] [facility] lisinopril 20 mg oral tablet 20 mg=1 tab, PO, Daily, # 30 tab, 0 Refill(s) Active 10/19/2014 [facility] Levetiracetam 500 MG Oral Tablet 500 mg=1 tab, PO, BID, # 60 tab, 0 Refill(s) Active 10/19/2014 [facility] glimepiride 4 mg oral tablet 4 mg=1 tab, PO, Daily, # 30 tab, 0 Refill(s) Active 10/19/2014 [facility] gabapentin 600 MG Oral Tablet 600 mg=1 tab, PO, BID, # 60 tab, 0 Refill(s) Active 10/19/2014 [facility] escitalopram 10 mg oral tablet 10 mg=1 tab, PO, Daily, # 30 tab, 0 Refill(s) Active 10/19/2014 [facility] clopidogrel 75 mg oral tablet 75 mg=1 tab, PO, Daily, # 30 tab, 0 Refill(s) Active 10/19/2014 [facility] atorvastatin 40 mg oral tablet 40 mg=1 tab, PO, Bedtime, # 30 tab, 0 Refill(s) Active 10/19/2014 [facility] ergocalciferol 50,000 intl units oral capsule 50,000 IntlUnit=1 cap, PO, qWeek, # 4 caplet, 0 Refill(s) Active 10/19/2014 [facility] 3 ML insulin detemir 100 UNT/ML Prefilled Syringe [Levemir] 15 unit, SUB-Q, Bedtime, rotate injection sites, # 2 pen(s), 0 Refill(s)Special Instructions: rotate injection sites Active 10/19/2014 [facility] magnesium oxide 500 mg oral tablet 500 mg=1 tab, PO, BID, # 60 tab, 0 Refill(s) Active 10/19/2014 [facility] Speech Therapy See Instructions, MISC, ONCALL, Evaluate and Treat 2-3 times per week for 4-6 weeks, # 1 ea, 0 Refill(s)Special Instructions: Evaluate and Treat 2-3 times per week for 4-6 weeks Active 10/18/2014 [facility] Occupational Therapy See Instructions, MISC, ONCALL, Evaluate and Treat 2-3 times per week for2-4 weeks, # 1 unit, 0 Refill(s)Special Instructions: Evaluate and Treat 2-3 times per week for2-4 weeks Active 10/18/2014 [facility] Physical Therapy See Instructions, MISC, ONCALL, Evaluate and Treat 2-3 times per week for 4-6 weeks, # 1 ea, 0 Refill(s)Special Instructions: Evaluate and Treat 2-3 times per week for 4-6 weeks Active 10/18/2014 [facility] Levemir 15 unit, 0.15 mL, Route: SUB-Q, Drug form: INJ, Daily, Dosing Weight 95.318, kg, Start date: 10/16/14 9:00:00, Duration: 30 day, Stop date: 11/14/14 9:00:00Notes: Same as Levemir Do not hold insulin wit hout contacting prescriber "single patient use only" No Longer Active 10/16/2014 [facility] Vitamin D 50,000 IntlUnit, 1 cap, Route: PO, Drug form: CAP, qWeek, Dosing Weight 95.318, kg, Start date: 10/15/14 22:00:00, Duration: 5 doses or times, Stop date: 11/12/14 9:00:00Notes: (Same as: Vitamin D) "Do Not Crush" No Longer Active 10/16/2014 [facility] Insulin, Aspart, Human 1 unit, 0.01 [...] days from Date No Longer Active 10/16/2014 [facility] Tums 1,000 mg, 2 tab, Route: CHEW, Drug form: CHEWTAB, Q4H, Dosing Weight 95.318, kg, PRN Indigestion, Start date: 10/15/14 12:43:00, Duration: 30 day, Stop date: 11/14/14 12:42:00Notes: (Same As: Tums) Calcium Carbonate 500 np=415 mg elemental calcium Dose= mg calcium carbonate ( mg elemental calcium) No Longer Active 10/15/2014 [facility] Insulin, Aspart, Human 2 unit, 0.02 [...] days from Date No Longer Active 10/14/2014 [facility] Glucagon 1 mg, Route: IM, Drug form: PDR/INJ, PRN, Dosing Weight 95.318, kg, PRN Blood Glucose Results, Start date: 10/14/14 11:44:00, Duration: 30 day, Stop date: 11/13/14 12:43:00 No Longer Active 10/14/2014 [facility] Dextrose 50% Syringe 12.5 gm, 25 mL, Route: IVP, Drug Form: INJ, Dosing Weight 95.318, kg, PRN, PRN Blood Glucose Results, Start date: 10/14/14 11:44:00, Duration: 30 day, Stop date: 11/13/14 12:43:00 No Longer Active 10/14/2014 [facility] Magnesium Oxide 500 MG Oral Tablet 500 mg, 2 tab, Route: PO, Drug form: TAB, BID, Dosing Weight 95.318, kg, Start date: 10/14/14 9:00:00, Duration: 30 day, Stop date: 11/12/14 17:00:00 No Longer Active 10/14/2014 [facility] pantoprazole 40 mg, 1 tab, Route: PO, Drug form: ECTAB, Before Dinner, Dosing Weight 95.318, kg, Start date: 10/13/14 16:30:00, Duration: 30 day, Stop date: 11/11/14 16:30:00Notes: Tablet should not be chewed or crushed. (Same as: Protonix) No Longer Active 10/13/2014 [facility] Magnesium Sulfate 2 gm, 50 mL, Route: IVPB, Drug form: INJ, Q2H, Dosing Weight 95.318, kg, Total dose=4 gm, Start date: 10/13/14 10:00:00, Duration: 2 doses or times, Stop date: 10/13/14 12:00:00 Inactive 10/13/2014 [facility] Lisinopril 20 mg, 1 tab, Route: PO, Drug form: TAB, Daily, Dosing Weight 95.318, kg, Start date: 10/13/14 9:00:00, Duration: 30 day, Stop date: 11/11/14 9:00:00Notes: (Same as: Prinivil, Zestril) No Longer Active 10/13/2014 [facility] glimepiride 4 mg, 1 tab, Route: PO, Drug form: TAB, Daily, Dosing Weight 95.318, kg, Start date: 10/13/14 9:00:00, Duration: 30 day, Stop date: 11/11/14 9:00:00Notes: (Same as: Amaryl) No Longer Active 10/13/2014 [facility] Escitalopram 10 mg, 1 tab, Route: PO, Drug form: TAB, Daily, Dosing Weight 95.318, kg, Start date: 10/13/14 9:00:00, Duration: 30 day, Stop date: 11/11/14 9:00:00Notes: (Same as: Lexapro) No Longer Active 10/13/2014 [facility] clopidogrel 75 mg, 1 tab, Route: PO, Drug form: TAB, Daily, Dosing Weight 95.318, kg, Start date: 10/13/14 9:00:00, Duration: 30 day, Stop date: 11/11/14 9:00:00Notes: (Same As: Plavix) No Longer Active 10/13/2014 [facility] Levetiracetam 500 MG Oral Tablet 500 mg, 1 tab, Route: PO, Drug form: TAB, BID, Dosing Weight 95.318, kg, Start date: 10/12/14 21:00:00, Duration: 30 day, Stop date: 11/11/14 9:00:00Notes: (Same as:Keppra) No Longer Active 10/13/2014 [facility] gabapentin 600 MG Oral Tablet 600 mg, 2 cap, Route: PO, Drug form: CAP, BID, Dosing Weight 95.318, kg, Start date: 10/12/14 21:00:00, Duration: 30 day, Stop date: 11/11/14 9:00:00Notes: (Same as: Neurontin) No Longer Active 10/13/2014 [facility] atorvastatin 40 mg, 1 tab, Route: PO, Drug form: TAB, Bedtime, Dosing Weight 95.318, kg, Start date: 10/12/14 21:00:00, Duration: 30 day, Stop date: 11/10/14 21:00:00Notes: (Same as: Lipitor) No Longer Active 10/13/2014 [facility] Alprazolam 0.25 MG Oral Tablet [Xanax] 0.25 mg, 1 tab, Route: PO, Drug form: TAB, Q6H, Dosing Weight 95.318, kg, PRN as needed for anxiety, Start date: 10/12/14 17:00:00, Stop date: 11/11/14 16:59:00Notes: With food or milk (Same as: Xanax) No Longer Active 10/12/2014 [facility] Acetaminophen 325 MG Oral Tablet 650 mg, 2 tab, Route: PO, Drug form: TAB, Q6H, Dosing Weight 95.318, kg, PRN Pain 1-3/Temp > 100.4 F, Start date: 10/12/14 16:59:00, Stop date: 11/11/14 16:58:00Notes: Do not exceed 4 gm/day. (Same as: Tylenol) No Longer Active 10/12/2014 [facility] Temazepam 7.5 mg, 1 cap, Route: PO, Drug form: CAP, Bedtime, Dosing Weight 95.318, kg, PRN Insomnia, Start date: 10/12/14 16:56:00, Stop date: 11/11/14 16:55:00Notes: (Same As: Restoril) No Longer Active 10/12/2014 [facility] Nitroglycerin 0.4 MG Sublingual Tablet 0.4 mg, 1 tab, Route: SL, Drug form: TAB, Q5Min, Dosing Weight 95.318, kg, PRN Other -See Comment, chest pain, Start date: 10/12/14 16:55:00, Stop date: 11/11/14 17:54:00Notes: (Same as:Nitroquick, Nitrostat) "Do Not Crush" Sublingual tablet No Longer Active 10/12/2014 [facility] Trazodone 50 mg, 1 tab, Route: PO, Drug form: TAB, Bedtime, Dosing Weight 95.318, kg, PRN Insomnia, Start date: 10/12/14 13:53:00, Duration: 30 day, Stop date: 11/11/14 13:52:00Notes: (Same As: Desyrel) No Longer Active 10/12/2014 [facility] Acetaminophen 650 mg, 2 tab, Route: PO, Drug form: TAB, Q4H, Dosing Weight 95.318, kg, PRN Pain Score 1-3, Start date: 10/12/14 13:53:00, Duration: 30 day, Stop date: 11/11/14 13:52:00Notes: Do not exceed 4 gm/day. (Same as: Tylenol) Inactive 10/12/2014 [facility] pantoprazole 40 mg oral enteric coated tablet 40 mg=1 tab, PO, Before Dinner, # 30 tab, 0 Refill(s) On Hold 10/12/2014 [facility] Nitroglycerin 0.4 MG Sublingual Tablet 0.4 mg=1 tab, SL, Q5Min, Chest Pain, # 15 tab, 0 Refill(s) On Hold 10/12/2014 [facility] lisinopril 20 mg oral tablet 20 mg=1 tab, PO, Daily, # 30 tab, 0 Refill(s) On Hold 10/12/2014 [facility] Levetiracetam 500 MG Oral Tablet 500 mg=1 tab, PO, BID, # 60 tab, 0 Refill(s) On Hold 10/12/2014 [facility] glimepiride 4 mg oral tablet 4 mg=1 tab, PO, Daily, # 30 tab, 0 Refill(s) On Hold 10/12/2014 [facility] gabapentin 600 MG Oral Tablet 600 mg=1 tab, PO, BID, # 60 tab, 0 Refill(s) On Hold 10/12/2014 [facility] escitalopram 10 mg oral tablet 10 mg=1 tab, PO, Daily, # 30 tab, 0 Refill(s) On Hold 10/12/2014 [facility] clopidogrel 75 mg oral tablet 75 mg=1 tab, PO, Daily, # 30 tab, 0 Refill(s) On Hold 10/12/2014 [facility] atorvastatin 40 mg oral tablet 40 mg=1 tab, PO, Bedtime, # 30 tab, 0 Refill(s) On Hold 10/12/2014 [facility] Alprazolam 0.25 MG Oral Tablet [Xanax] 0.25 mg=1 tab, PO, Q6H, Anxiety, # 10 tab, 0 Refill(s) On Hold 10/12/2014 [facility] Acetaminophen 325 MG Oral Tablet 650 mg=2 tab, PO, Q6H, Pain Score 1-3, # 24 tab, 0 Refill(s) On Hold 10/12/2014 [facility] temazepam 7.5 mg oral capsule 7.5 mg=1 cap, PO, Bedtime, Sleep, 0 Refill(s) On Hold 10/12/2014 [facility] pantoprazole 40 mg oral enteric coated tablet 40 mg=1 tab, PO, Before Dinner, 0 Refill(s) Inactive 10/12/2014 [facility] Nitroglycerin 0.4 MG Sublingual Tablet 0.4 mg=1 tab, SL, Q5Min, Chest Pain, 0 Refill(s) Inactive 10/12/2014 [facility] atorvastatin 40 mg oral tablet 40 mg=1 tab, PO, Bedtime, 0 Refill(s) Inactive 10/12/2014 [facility] Alprazolam 0.25 MG Oral Tablet [Xanax] 0.25 mg=1 tab, PO, Q6H, Anxiety, 0 Refill(s) Inactive 10/12/2014 [facility] Acetaminophen 325 MG Oral Tablet 650 mg=2 tab, PO, Q6H, Pain Score 1-3, 0 Refill(s) Inactive 10/12/2014 [facility] Protonix 40 mg, 1 tab, Route: PO, Drug form: ECTAB, Before Dinner, Dosing Weight 95.318, kg, Start date: 10/11/14 16:30:00, Duration: 30 day, Stop date: 11/09/14 16:30:00Notes: Tablet should not be chewed or crushed. (Same as: Protonix) No Longer Active 10/11/2014 [facility] Zofran 4 mg, 2 mL, Route: IV, Drug form: INJ, Q8H, Dosing Weight 95.318, kg, PRN Nausea, Start date: 10/11/14 11:09:00, Duration: 30 day, Stop date: 11/10/14 11:08:00Notes: (Same as: Zofran) No Longer Active 10/11/2014 [facility] Temazepam 7.5 mg, 1 cap, Route: PO, Drug form: CAP, Bedtime, Dosing Weight 95.318, kg, PRN Sleep, Start date: 10/11/14 10:29:00, Duration: 30 day, Stop date: 11/10/14 10:28:00Notes: (Same As: Restoril) No Longer Active 10/11/2014 [facility] Tylenol 650 mg, 2 tab, Route: PO, Drug form: TAB, Q6H, Dosing Weight 95.318, kg, PRN Pain Score 1-3, Start date: 10/11/14 10:29:00, Duration: 30 day, Stop date: 11/10/14 10:28:00Notes: Do not exceed 4 gm/day. (Same as: Tylenol) No Longer Active 10/11/2014 [facility] Escitalopram 10 mg, 1 tab, Route: PO, Drug form: TAB, Bedtime, Dosing Weight 95.318, kg, Start date: 10/10/14 21:00:00, Duration: 30 day, Stop date: 11/08/14 21:00:00Notes: (Same as: Lexapro) No Longer Active 10/11/2014 [facility] atorvastatin 20 mg, Route: PO, Drug form: TAB, Bedtime, Dosing Weight 95.318, kg, Start date: 10/09/14 21:00:00, Duration: 30 day, Stop date: 11/07/14 21:00:00 Inactive 10/10/2014 [facility] Alprazolam 0.25 MG Oral Tablet [Xanax] 0.25 mg, 1 tab, Route: PO, Drug form: TAB, Q6H, Dosing Weight 95.318, kg, PRN Anxiety, Start date: 10/09/14 18:04:00, Duration: 30 day, Stop date: 11/08/14 18:03:00Notes: With food or milk (Same as: Xanax) No Longer Active 10/10/2014 [facility] Lisinopril 20 mg, 1 tab, Route: PO, Drug form: TAB, Daily, Dosing Weight 95.318, kg, Start date: 10/09/14 9:00:00, Duration: 30 day, Stop date: 11/07/14 9:00:00Notes: (Same as: Prinivil, Zestril) No Longer Active 10/09/2014 [facility] Levetiracetam 500 MG Oral Tablet 500 mg, 1 tab, Route: PO, Drug form: TAB, BID, Dosing Weight 95.318, kg, Start date: 10/09/14 9:00:00, Duration: 30 day, Stop date: 11/07/14 21:00:00Notes: (Same as:Keppra) No Longer Active 10/09/2014 [facility] glimepiride 4 mg, 1 tab, Route: PO, Drug form: TAB, Daily, Dosing Weight 95.318, kg, Start date: 10/09/14 9:00:00, Duration: 30 day, Stop date: 11/07/14 9:00:00Notes: (Same as: Amaryl) No Longer Active 10/09/2014 [facility] gabapentin 600 MG Oral Tablet 600 mg, 2 cap, Route: PO, Drug form: CAP, BID, Dosing Weight 95.318, kg, Start date: 10/09/14 9:00:00, Duration: 30 day, Stop date: 11/07/14 17:00:00Notes: (Same as: Neurontin) No Longer Active 10/09/2014 [facility] Escitalopram 10 mg, 1 tab, Route: PO, Drug form: TAB, Daily, Dosing Weight 95.318, kg, Start date: 10/09/14 9:00:00, Duration: 30 day, Stop date: 11/07/14 9:00:00Notes: (Same as: Lexapro) Inactive 10/09/2014 [facility] clopidogrel 75 mg, 1 tab, Route: PO, Drug form: TAB, Daily, Dosing Weight 95.318, kg, Start date: 10/09/14 9:00:00, Duration: 30 day, Stop date: 11/07/14 9:00:00Notes: (Same As: Plavix) No Longer Active 10/09/2014 [facility] Saline Flush 0.9% 10 ml, Route: IVP, Drug Form: INJ, Dosing Weight 95.318, kg, Q12H, Start date: 10/09/14 9:00:00, Duration: 30 day, Stop date: 11/07/14 21:00:00Notes: (Same as: BD Posiflush) No Longer Active 10/09/2014 [facility] Aspirin 325 MG Enteric Coated Tablet 325 mg, 1 tab, Route: PO, Drug form: ECTAB, Daily, Dosing Weight 95.318, kg, Start date: 10/09/14 2:54:00, Duration: 30 day, Stop date: 11/07/14 9:00:00Notes: (Do Not Crush) Do not crush or chew. No Longer Active 10/09/2014 [facility] Ativan 1 mg, 0.5 mL, Route: IVP, Drug form: INJ, ONCE, Dosing Weight 95.318, kg, PRN Anxiety, Start date: 10/09/14 2:46:00Notes: (Same as: Ativan) Inactive 10/09/2014 [facility] Saline Flush 0.9% 10 ml, Route: IVP, Drug Form: INJ, Dosing Weight 95.318, kg, PRN, PRN Line Flush, Start date: 10/09/14 2:40:00, Duration: 30 day, Stop date: 11/08/14 2:39:00Notes: (Same as: BD Posiflush) No Longer Active 10/09/2014 [facility] Labetalol 10 mg, 2 mL, Route: IVP, Drug form: INJ, Q10Min, Dosing Weight 95.318, kg, PRN Hypertension, Start date: 10/09/14 2:40:00, Duration: 30 day, Stop date: 11/08/14 2:39:00, For SBP > 180mmHg and/or DBP > 105mmHgNotes: (Same as: Normodyne, Trandate) Push over 2 minutes Give bolus over 2-3 minutes. No Longer Active 10/09/2014 [facility] Nitroglycerin 0.4 MG Sublingual Tablet 0.4 mg, 1 tab, Route: SL, Drug form: TAB, Q5Min, Dosing Weight 95.318, kg, PRN Chest Pain, Start date: 10/09/14 2:39:00, Duration: 30 day, Stop date: 11/08/14 2:38:00Notes: (Same as:Nitroquick, Nitrostat) "Do Not Crush" Sublingual tablet No Longer Active 10/09/2014 [facility] Atropine 0.5 mg, 5 mL, Route: IVP, Drug form: INJ, PRN, Dosing Weight 95.318, kg, PRN Bradycardia, Start date: 10/09/14 2:39:00, Duration: 30 day, Stop date: 11/08/14 2:38:00 No Longer Active 10/09/2014 [facility] Insulin, Aspart, Human 1 unit, 0.01 [...] days from Date No Longer Active 10/09/2014 [facility] Glucagon 1 mg, Route: IM, Drug form: PDR/INJ, PRN, Dosing Weight 95.318, kg, PRN Blood Glucose Results, Start date: 10/09/14 2:35:00, Duration: 30 day, Stop date: 11/08/14 2:34:00 No Longer Active 10/09/2014 [facility] Dextrose 50% Syringe 25 gm, 50 mL, Route: IVP, Drug Form: INJ, Dosing Weight 95.318, kg, PRN, PRN Blood Glucose Results, Start date: 10/09/14 2:35:00, Duration: 30 day, Stop date: 11/08/14 2:34:00 No Longer Active 10/09/2014 [facility] glimepiride 4 mg oral tablet 4 mg=1 tab, PO, Daily, # 90 tab, 0 Refill(s) No Longer Active 10/09/2014 [facility] escitalopram 10 mg oral tablet 10 mg=1 tab, PO, Daily, # 90 tab, 0 Refill(s) No Longer Active 10/09/2014 [facility] Levetiracetam 500 MG Oral Tablet 500 mg=1 tab, PO, BID, # 120 tab, 0 Refill(s) No Longer Active 10/09/2014 [facility] lisinopril 20 mg oral tablet 20 mg=1 tab, PO, Daily, # 90 tab, 0 Refill(s) No Longer Active 10/09/2014 [facility] clopidogrel 75 mg oral tablet 75 mg=1 tab, PO, Daily, # 90 tab, 0 Refill(s) No Longer Active 10/09/2014 [facility] gabapentin 600 MG Oral Tablet 600 mg=1 tab, PO, BID, # 90 tab, 0 Refill(s) No Longer Active 10/09/2014 [facility] Buspirone Hcl 10 Mg Tablet, 10 Mg Oral Twice A Day Active 04/30/[address] [facility] Sulfamethoxazole/Trimethoprim (Bactrim Ds Tablet) 1 Each Tablet, 1 Tab Oral Twice A Day Active 06/19/[address] [facility] Acetaminophen With Codeine (Tylenol With Codeine #3 Tablet) 1 Each Tablet Daily as needed for Pain Active [facility] Clopidogrel Bisulfate (Plavix) 75 Mg Tablet Daily Active [facility] Escitalopram Oxalate (Lexapro) 10 Mg Tablet Daily Active [facility] Gabapentin 600 Mg Tablet Twice A Day Active [facility] Glimepiride 4 Mg Tablet Daily Active [facility] Hydralazine Hcl 25 Mg Tab Three Times A Day Active [facility] Insulin Detemir (Levemir) 100 Unit/1 Ml Vial Active [facility] Levetiracetam 500 Mg Tablet Twice A Day Active [facility] Lisinopril 10 Mg Tablet Daily Active [facility] Magnesium Oxide (Magnesium) 500 Mg Capsule Daily Active [facility] Montelukast Sodium (Singulair) 10 Mg Tablet Daily Active [facility] Pantoprazole Sodium 20 Mg Tablet.dr Eng Active [facility] Sucralfate 1 Gm Tablet Twice A Day Active [facility] Allergies, Adverse Reactions, Alerts Substance Category Reaction Severity Reaction type Status Date Reported Comments Source seafood Unknown Allergy to Substance Active 06/20/[address] [facility] Iodine Allergy to Substance Active 04/30/[address] [facility] [place] Allergy to Substance Active 04/30/[address] [facility] shellfish derived Allergy to Substance Active 04/30/[address] [facility] iodine topical Assertion Drug allergy Active [facility] Immunizations No Data Provided for This [...] should be multiplied by the estimated BMI. [facility] CHEM PANEL Creatinine Lvl 0.82 0.50 - 1.40 02/07/2019 [facility] CHEM PANEL BUN 31 7 - 22 02/07/2019 [facility] CHEM PANEL Glucose Lvl 167 70 - 99 02/07/2019 [facility] CHEM PANEL Chloride Lvl 113 95 - 109 02/07/2019 [facility] CHEM PANEL Potassium Lvl 4.7 3.5 - 5.1 02/07/2019 [facility] CHEM PANEL Sodium Lvl 141 135 - 145 02/07/2019 [facility] CHEM PANEL Calcium Lvl 8.1 8.5 - 10.5 02/07/2019 [facility] CHEM PANEL CO2 22 24 - 32 02/07/2019 [facility] CHEM PANEL AGAP 10.7 10.0 - 20.0 02/07/2019 [facility] CHEM PANEL Magnesium Lvl 1.8 1.8 - 2.4 02/07/2019 [facility] HEMATOLOGY Segs 60.8 45.0 - 75.0 02/07/2019 [facility] HEMATOLOGY Monocytes 9.2 2.0 - 12.0 02/07/2019 [facility] HEMATOLOGY Basophils 1.3 0.0 - 1.0 02/07/2019 [facility] HEMATOLOGY Neutrophils # 3.5 1.5 - 8.1 02/07/2019 [facility] HEMATOLOGY Eosinophils 4.7 0.0 - 4.0 02/07/2019 [facility] HEMATOLOGY Lymphocytes 24.0 20.0 - 40.0 02/07/2019 [facility] HEMATOLOGY Monocytes # 0.5 0.0 - 0.8 02/07/2019 [facility] HEMATOLOGY Lymphocytes # 1.4 1.0 - 5.5 02/07/2019 [facility] HEMATOLOGY Basophils # 0.1 0.0 - 0.2 02/07/2019 [facility] HEMATOLOGY Eosinophils # 0.3 0.0 - 0.5 02/07/2019 [facility] HEMATOLOGY WBC 5.8 3.7 - 10.4 02/07/2019 [facility] MCH 27.9 27.0 - 31.0 02/07/2019 [facility] MCV 83.4 80.0 - 98.0 02/07/2019 [facility] Hct 24.5 36.0 - 48.0 02/07/2019 [facility] RBC 2.93 4.20 - 5.40 02/07/2019 [facility] Hgb 8.2 12.0 - 16.0 02/07/2019 [facility] MPV 8.0 7.4 - 10.4 02/07/2019 [facility] Platelet 249 133 - 450 02/07/2019 [facility] MCHC 33.5 32.0 - 36.0 02/07/2019 [facility] RDW 16.4 11.5 - 14.5 02/07/2019 [facility] CHEM PANEL Magnesium Lvl 1.7 1.8 - 2.4 02/06/2019 [facility] CHEM PANEL Glucose Lvl 173 70 - 99 02/06/2019 [facility] CHEM PANEL Creatinine Lvl 0.78 0.50 - 1.40 02/06/2019 [facility] CHEM PANEL Sodium Lvl 141 135 - 145 02/06/2019 [facility] CHEM PANEL Potassium Lvl 4.8 3.5 - 5.1 02/06/2019 [facility] CHEM PANEL Chloride Lvl 113 95 - 109 02/06/2019 [facility] CHEM PANEL BUN 32 7 - 22 02/06/2019 [facility] CHEM PANEL Calcium Lvl 8.0 8.5 - 10.5 02/06/2019 [facility] CHEM PANEL AGAP 13.8 10.0 - 20.0 02/06/2019 [facility] CHEM PANEL eGFR 81 02/06/2019 Result [...] should be multiplied by the estimated BMI. [facility] CHEM PANEL CO2 19 24 - 32 02/06/2019 [facility] HEMATOLOGY Hct 26.9 36.0 - 48.0 02/06/2019 [facility] HEMATOLOGY Hgb 8.9 12.0 - 16.0 02/06/2019 [facility] CHEM PANEL Magnesium Lvl 2.0 1.8 - 2.4 02/05/2019 [facility] ELECTROLYTES AGAP 12.1 10.0 - 20.0 02/05/2019 [facility] ELECTROLYTES eGFR 75 02/05/2019 Result Comment: [...] should be multiplied by the estimated BMI. [facility] ELECTROLYTES Calcium Lvl 8.0 8.5 - 10.5 02/05/2019 [facility] ELECTROLYTES Chloride Lvl 113 95 - 109 02/05/2019 [facility] ELECTROLYTES CO2 22 24 - 32 02/05/2019 [facility] ELECTROLYTES Sodium Lvl 142 135 - 145 02/05/2019 [facility] ELECTROLYTES Potassium Lvl 5.1 3.5 - 5.1 02/05/2019 [facility] ELECTROLYTES Creatinine Lvl 0.83 0.50 - 1.40 02/05/2019 [facility] ELECTROLYTES BUN 30 7 - 22 02/05/2019 [facility] ELECTROLYTES Glucose Lvl 144 70 - 99 02/05/2019 [facility] Hgb 8.2 12.0 - 16.0 02/05/2019 [facility] Hct 24.6 36.0 - 48.0 02/05/2019 [facility] MCH 27.8 27.0 - 31.0 02/02/2019 [facility] MCV 82.6 80.0 - 98.0 02/02/2019 [facility] MCHC 33.7 32.0 - 36.0 02/02/2019 [facility] RDW 15.8 11.5 - 14.5 02/02/2019 [facility] Platelet 262 133 - 450 02/02/2019 [facility] MPV 8.1 7.4 - 10.4 02/02/2019 [facility] RBC 2.92 4.20 - 5.40 02/02/2019 [facility] WBC 6.2 3.7 - 10.4 02/02/2019 [facility] Monocytes # 0.5 0.0 - 0.8 02/02/2019 [facility] Lymphocytes # 1.5 1.0 - 5.5 02/02/2019 [facility] Eosinophils # 0.6 0.0 - 0.5 02/02/2019 [facility] Basophils 1.3 0.0 - 1.0 02/02/2019 [facility] Neutrophils # 3.6 1.5 - 8.1 02/02/2019 [facility] Basophils # 0.1 0.0 - 0.2 02/02/2019 [facility] Segs 57.5 45.0 - 75.0 02/02/2019 [facility] HEMATOLOGY Monocytes 7.9 2.0 - 12.0 02/02/2019 [facility] HEMATOLOGY Eosinophils 9.4 0.0 - 4.0 02/02/2019 [facility] HEMATOLOGY Lymphocytes 23.9 20.0 - 40.0 02/02/2019 [facility] MPV 7.9 7.4 - 10.4 02/01/2019 [facility] Platelet 223 133 - 450 02/01/2019 [facility] HEMATOLOGY MCH 27.0 27.0 - 31.0 02/01/2019 [facility] MCV 82.6 80.0 - 98.0 02/01/2019 [facility] RDW 15.9 11.5 - 14.5 02/01/2019 [facility] MCHC 32.7 32.0 - 36.0 02/01/2019 [facility] WBC 6.5 3.7 - 10.4 02/01/2019 [facility] RBC 2.82 4.20 - 5.40 02/01/2019 [facility] HEMATOLOGY Eosinophils # 0.6 0.0 - 0.5 01/31/2019 [facility] Basophils 1.0 0.0 - 1.0 01/31/2019 [facility] HEMATOLOGY Eosinophils 7.4 0.0 - 4.0 01/31/2019 [facility] Neutrophils # 4.8 1.5 - 8.1 01/31/2019 [facility] Segs 61.2 45.0 - 75.0 01/31/2019 [facility] Lymphocytes 22.4 20.0 - 40.0 01/31/2019 [facility] HEMATOLOGY Monocytes 8.0 2.0 - 12.0 01/31/2019 [facility] Monocytes # 0.6 0.0 - 0.8 01/31/2019 [facility] Lymphocytes # 1.8 1.0 - 5.5 01/31/2019 [facility] Basophils # 0.1 0.0 - 0.2 01/31/2019 [facility] BLOOD BANK RESULTS RBC product Product available 4 (01/30/19 1:40 PM) 01/30/2019 Result Comment: 01/30/2019 13:52 [id number]
KLS notified Jacy 01/30/2019 13:51 [facility] CHEM PANEL Lactic Acid Lvl 0.6 0.5 - 2.2 01/30/2019 [facility] URINE AND STOOL UA Blood Negative (01/30/19 2:54 AM) Negative 01/30/2019 [facility] URINE AND STOOL UA Ketones Negative mg/dL Negative mg/dL 01/30/2019 [facility] URINE AND STOOL UA Bili Negative *NA* (01/30/19 2:54 AM) Negative 01/30/2019 [facility] URINE AND STOOL UA Leuk Est Negative (01/30/19 2:54 AM) Negative 01/30/2019 [facility] URINE AND STOOL UA Nitrite Negative (01/30/19 2:54 AM) Negative 01/30/2019 [facility] URINE AND STOOL UA Mucus Few /LPF None Seen /LPF 01/30/2019 [facility] URINE AND STOOL UA RBC <1 0 - 2 01/30/2019 [facility] URINE AND STOOL UA WBC 1 0 - 5 01/30/2019 [facility] URINE AND STOOL UA Turbidity Clear (01/30/19 2:54 AM) Clear 01/30/2019 [facility] URINE AND STOOL UA Sq Epi None Seen 01/30/2019 [facility] URINE AND STOOL UA Urobilinogen <=1.0 mg/dL 0.1 - 1.0 01/30/2019 [facility] URINE AND STOOL UA Color Ltyellow 01/30/2019 [facility] URINE AND STOOL UA Spec Grav 1.015 <=1.030 01/30/2019 [facility] URINE AND STOOL UA Protein Negative mg/dL Negative mg/dL 01/30/2019 [facility] URINE AND STOOL UA Glucose Negative mg/dL Negative mg/dL 01/30/2019 [facility] URINE AND STOOL UA pH 5.0 5.0 - 8.0 01/30/2019 [facility] BLOOD BANK RESULTS RBC product Product available 5 (01/29/19 10:11 PM) 01/30/2019 Result Comment: 01/29/2019 22:28 [id number]
KLS notified Tiffany 01/29/2019 22:28 [facility] URINE AND STOOL Occult Bld Stl Positive *ABN* (01/29/19 10:09 PM) Negative 01/30/2019 [facility] CARDIAC ENZYMES Troponin-I 0.35 0.00 - 0.40 01/30/2019 [facility] CARDIAC ENZYMES Total CK 66 12 - 191 01/30/2019 [facility] CHEM PANEL Procalcitonin Lvl <0.05 0.00 - 0.10 01/30/2019 [facility] CHEM PANEL B/C Ratio 59 6 - 25 01/30/2019 [facility] CHEM PANEL Globulin 3.4 2.7 - 4.2 01/30/2019 [facility] CHEM PANEL A/G Ratio 0.7 0.7 - 1.6 01/30/2019 [facility] CHEM PANEL Albumin Lvl 2.4 3.5 - 5.0 01/30/2019 [facility] CHEM PANEL AST 19 0 - 37 01/30/2019 [facility] CHEM PANEL Alk Phos 46 39 - 136 01/30/2019 [facility] CHEM PANEL ALT 8 0 - 65 01/30/2019 [facility] CHEM PANEL Bili Total 0.2 0.2 - 1.3 01/30/2019 [facility] CHEM PANEL Total Protein 5.8 6.4 - 8.4 01/30/2019 [facility] CHEM PANEL Lactic Acid Lvl 3.0 0.5 - 2.2 01/30/2019 [facility] BLOOD BANK RESULTS ABO/Rh A NEG 01/30/2019 [facility] BLOOD BANK RESULTS Antibody Scrn Negative (01/29/19 9:38 PM) 01/30/2019 [facility] HEMATOLOGY Giant Plt Moderate *ABN* (01/29/19 9:37 PM) None Seen 01/30/2019 [facility] HEMATOLOGY Plt Morph See Note (01/29/19 9:37 PM) Normal 01/30/2019 [facility] HEMATOLOGY RBC Morph Normal (01/29/19 9:37 PM) Normal 01/30/2019 [facility] HEMATOLOGY INR 1.09 0.85 - 1.17 01/30/2019 [facility] HEMATOLOGY PT 13.9 12.0 - 14.7 01/30/2019 [facility] HEMATOLOGY PTT 20.0 22.9 - 35.8 01/30/2019 Result Comment: Result did not cross to the que. [facility] ELECTROLYTES AGAP 12.3 10.0 - 20.0 01/22/2019 [facility] ELECTROLYTES eGFR 74 01/22/2019 Result Comment: [...] should be multiplied by the estimated BMI. [facility] ELECTROLYTES Glucose Lvl 136 70 - 99 01/22/2019 [facility] ELECTROLYTES BUN 41 7 - 22 01/22/2019 [facility] ELECTROLYTES Potassium Lvl 4.3 3.5 - 5.1 01/22/2019 [facility] ELECTROLYTES Creatinine Lvl 0.84 0.50 - 1.40 01/22/2019 [facility] ELECTROLYTES Sodium Lvl 140 135 - 145 01/22/2019 [facility] ELECTROLYTES Chloride Lvl 107 95 - 109 01/22/2019 [facility] ELECTROLYTES Calcium Lvl 8.9 8.5 - 10.5 01/22/2019 [facility] ELECTROLYTES CO2 25 24 - 32 01/22/2019 [facility] HEMATOLOGY Platelet 320 133 - 450 01/22/2019 [facility] MPV 8.0 7.4 - 10.4 01/22/2019 [facility] MCH 27.1 27.0 - 31.0 01/22/2019 [facility] MCHC 33.0 32.0 - 36.0 01/22/2019 [facility] RDW 14.4 11.5 - 14.5 01/22/2019 [facility] RBC 3.67 4.20 - 5.40 01/22/2019 [facility] WBC 8.1 3.7 - 10.4 01/22/2019 [facility] MCV 82.3 80.0 - 98.0 01/22/2019 [facility] Hgb 10.0 12.0 - 16.0 01/22/2019 [facility] Hct 30.2 36.0 - 48.0 01/22/2019 [facility] HEMATOLOGY Basophils 1.0 0.0 - 1.0 01/22/2019 [facility] Neutrophils # 5.1 1.5 - 8.1 01/22/2019 [facility] Eosinophils 6.5 0.0 - 4.0 01/22/2019 [facility] Monocytes 8.6 2.0 - 12.0 01/22/2019 [facility] RBC Morph Normal (01/22/19 6:53 AM) Normal 01/22/2019 [facility] HEMATOLOGY Segs 63.0 45.0 - 75.0 01/22/2019 [facility] HEMATOLOGY Plt Morph Normal (01/22/19 6:53 AM) Normal 01/22/2019 [facility] HEMATOLOGY Lymphocytes 20.9 20.0 - 40.0 01/22/2019 [facility] HEMATOLOGY Basophils # 0.1 0.0 - 0.2 01/22/2019 [facility] HEMATOLOGY Eosinophils # 0.5 0.0 - 0.5 01/22/2019 [facility] HEMATOLOGY Monocytes # 0.7 0.0 - 0.8 01/22/2019 [facility] HEMATOLOGY Lymphocytes # 1.7 1.0 - 5.5 01/22/2019 [facility] IMMUNOLOGY Prealbumin 9.0 18.0 - 45.0 01/21/2019 [facility] CHEM PANEL eGFR 68 01/20/2019 Result [...] should be multiplied by the estimated BMI. [facility] CHEM PANEL Chloride Lvl 110 95 - 109 01/20/2019 [facility] CHEM PANEL Calcium Lvl 8.6 8.5 - 10.5 01/20/2019 [facility] CHEM PANEL CO2 25 24 - 32 01/20/2019 [facility] CHEM PANEL Potassium Lvl 5.0 3.5 - 5.1 01/20/2019 [facility] CHEM PANEL Creatinine Lvl 0.90 0.50 - 1.40 01/20/2019 [facility] CHEM PANEL BUN 48 7 - 22 01/20/2019 [facility] CHEM PANEL Sodium Lvl 140 135 - 145 01/20/2019 [facility] CHEM PANEL Glucose Lvl 125 70 - 99 01/20/2019 [facility] CHEM PANEL AGAP 10.0 10.0 - 20.0 01/20/2019 [facility] HEMATOLOGY Basophils 1.0 0.0 - 1.0 01/20/2019 [facility] HEMATOLOGY Monocytes 9.5 2.0 - 12.0 01/20/2019 [facility] HEMATOLOGY Segs 66.8 45.0 - 75.0 01/20/2019 [facility] HEMATOLOGY Eosinophils 6.2 0.0 - 4.0 01/20/2019 [facility] HEMATOLOGY Eosinophils # 0.4 0.0 - 0.5 01/20/2019 [facility] Basophils # 0.1 0.0 - 0.2 01/20/2019 [facility] Lymphocytes # 1.0 1.0 - 5.5 01/20/2019 [facility] HEMATOLOGY Monocytes # 0.6 0.0 - 0.8 01/20/2019 [facility] Neutrophils # 3.9 1.5 - 8.1 01/20/2019 [facility] RBC Morph Normal (01/20/19 7:03 AM) Normal 01/20/2019 [facility] Lymphocytes 16.5 20.0 - 40.0 01/20/2019 [facility] Plt Morph Normal (01/20/19 7:03 AM) Normal 01/20/2019 [facility] MCH 27.7 27.0 - 31.0 01/20/2019 [facility] RDW 14.3 11.5 - 14.5 01/20/2019 [facility] MCHC 33.8 32.0 - 36.0 01/20/2019 [facility] MCV 82.0 80.0 - 98.0 01/20/2019 [facility] Hct 27.3 36.0 - 48.0 01/20/2019 [facility] Hgb 9.2 12.0 - 16.0 01/20/2019 [facility] Platelet 284 133 - 450 01/20/2019 [facility] MPV 8.0 7.4 - 10.4 01/20/2019 [facility] RBC 3.33 4.20 - 5.40 01/20/2019 [facility] WBC 5.9 3.7 - 10.4 01/20/2019 [facility] Sed Rate >100 mm/hr 0 - 20 01/19/2019 [facility] IMMUNOLOGY C-REACTIVE PROTEIN 159.0 <=2.9 mg/L 01/19/2019 [facility] PENICILLIN:SUSC:PT:ISOLATE:ORDQN:FELICIA Gram Stain Report Rare WBC's Rare Gram Positive Cocci In Pairs 01/19/2019 [facility] PENICILLIN:SUSC:PT:ISOLATE:ORDQN:FELICIA Culture: Wound/Abscess w/Gram Stain Many Staphylococcus aureus 01/19/2019 [facility] PENICILLIN:SUSC:PT:ISOLATE:ORDQN:FELICIA Staphylococcus aureus Staphylococcus aureus 01/19/2019 [facility] ELECTROLYTES Sodium Lvl 136 135 - 145 01/19/2019 [facility] ELECTROLYTES BUN 55 7 - 22 01/19/2019 [facility] ELECTROLYTES Creatinine Lvl 1.12 0.50 - 1.40 01/19/2019 [facility] ELECTROLYTES Glucose Lvl 140 70 - 99 01/19/2019 [facility] ELECTROLYTES eGFR 52 01/19/2019 Result Comment: [...] should be multiplied by the estimated BMI. [facility] ELECTROLYTES Calcium Lvl 8.3 8.5 - 10.5 01/19/2019 [facility] ELECTROLYTES AGAP 13.2 10.0 - 20.0 01/19/2019 [facility] ELECTROLYTES Chloride Lvl 106 95 - 109 01/19/2019 [facility] ELECTROLYTES Potassium Lvl 4.2 3.5 - 5.1 01/19/2019 [facility] ELECTROLYTES CO2 21 24 - 32 01/19/2019 [facility] HEMATOLOGY MCV 84.2 80.0 - 98.0 01/19/2019 [facility] HEMATOLOGY MCH 27.0 27.0 - 31.0 01/19/2019 [facility] HEMATOLOGY RBC 3.40 4.20 - 5.40 01/19/2019 [facility] HEMATOLOGY Hgb 9.2 12.0 - 16.0 01/19/2019 [facility] HEMATOLOGY RDW 14.2 11.5 - 14.5 01/19/2019 [facility] HEMATOLOGY Hct 28.7 36.0 - 48.0 01/19/2019 [facility] HEMATOLOGY WBC 6.4 3.7 - 10.4 01/19/2019 [facility] HEMATOLOGY MCHC 32.1 32.0 - 36.0 01/19/2019 [facility] HEMATOLOGY Platelet 259 133 - 450 01/19/2019 [facility] HEMATOLOGY MPV 8.0 7.4 - 10.4 01/19/2019 [facility] HEMATOLOGY Monocytes # 0.6 0.0 - 0.8 01/19/2019 [facility] HEMATOLOGY Lymphocytes # 1.0 1.0 - 5.5 01/19/2019 [facility] HEMATOLOGY Eosinophils # 0.2 0.0 - 0.5 01/19/2019 [facility] HEMATOLOGY Basophils 0.5 0.0 - 1.0 01/19/2019 [facility] HEMATOLOGY Neutrophils # 4.6 1.5 - 8.1 01/19/2019 [facility] HEMATOLOGY Lymphocytes 15.4 20.0 - 40.0 01/19/2019 [facility] HEMATOLOGY Monocytes 9.1 2.0 - 12.0 01/19/2019 [facility] HEMATOLOGY Eosinophils 3.4 0.0 - 4.0 01/19/2019 [facility] HEMATOLOGY Segs 71.6 45.0 - 75.0 01/19/2019 [facility] HEMATOLOGY PTT 79.7 22.9 - 35.8 01/19/2019 [facility] HEMATOLOGY PTT 74.7 22.9 - 35.8 01/19/2019 [facility] HEMATOLOGY PTT 59.6 22.9 - 35.8 01/18/2019 [facility] CHEM PANEL Globulin 3.8 2.7 - 4.2 01/17/2019 [facility] CHEM PANEL B/C Ratio 32 6 - 25 01/17/2019 [facility] CHEM PANEL AST 14 0 - 37 01/17/2019 [facility] CHEM PANEL Albumin Lvl 2.1 3.5 - 5.0 01/17/2019 [facility] CHEM PANEL ALT 15 0 - 65 01/17/2019 [facility] CHEM PANEL A/G Ratio 0.6 0.7 - 1.6 01/17/2019 [facility] CHEM PANEL Bili Total 0.4 0.2 - 1.3 01/17/2019 [facility] CHEM PANEL Alk Phos 61 39 - 136 01/17/2019 [facility] CHEM PANEL Total Protein 5.9 6.4 - 8.4 01/17/2019 [facility] CHEM PANEL LDH 348 98 - 192 01/16/2019 [facility] HEMATOLOGY Sed Rate 74 0 - 20 01/16/2019 [facility] IMMUNOLOGY C-REACTIVE PROTEIN 157.0 <=2.9 mg/L 01/16/2019 [facility] BACTERIAL - SEROLOGY Strep pneumoniae Ag Negative (01/16/19 4:10 PM) Negative 01/16/2019 [facility] BACTERIAL - SEROLOGY Source Strep Urine *NA* (01/16/19 4:10 PM) 01/16/2019 [facility] CARDIAC ENZYMES Troponin-I 3.30 0.00 - 0.40 01/16/2019 Result Comment: Critical Result(s) called to Jayant Hou at 01/16/2019 04:55 mfb_ by_. Read back OK. [facility] HEMATOLOGY Basophils # 0.1 0.0 - 0.2 01/16/2019 [facility] HEMATOLOGY INR 1.21 0.85 - 1.17 01/16/2019 [facility] HEMATOLOGY PT 15.1 12.0 - 14.7 01/16/2019 [facility] CARDIAC ENZYMES Troponin-I 2.90 0.00 - 0.40 01/16/2019 Result Comment: Critical Result(s) called to Jayant Hou_ at 01/15/2019 23:42 mfb_ by_. Read back OK.

of for the nurse to release the result, she will reorder a new [facility]01/15/2019 23:46 [facility] URINE AND STOOL UA RBC 0-2 /HPF 0 - 2 01/16/2019 [facility] URINE AND STOOL UA Bacteria Moderate /HPF None Seen /HPF 01/16/2019 [facility] URINE AND STOOL UA Leuk Est Large *ABN* (01/15/19 7:38 PM) Negative 01/16/2019 [facility] URINE AND STOOL UA WBC 51-100 /HPF 0 - 5 01/16/2019 [facility] URINE AND STOOL UA Sq Epi Moderate /LPF Few /LPF 01/16/2019 [facility] URINE AND STOOL UA Glucose Negative (01/15/19 7:38 PM) Negative 01/16/2019 [facility] URINE AND STOOL UA Protein 100 mg/dL Negative mg/dL 01/16/2019 [facility] URINE AND STOOL UA pH 5.5 5.0 - 8.0 01/16/2019 [facility] URINE AND STOOL UA Urobilinogen 0.2 0.1 - 1.0 01/16/2019 [facility] URINE AND STOOL UA Blood Negative (01/15/19 7:38 PM) Negative 01/16/2019 [facility] URINE AND STOOL UA Nitrite Negative (01/15/19 7:38 PM) Negative 01/16/2019 [facility] URINE AND STOOL UA Ketones Trace *ABN* (01/15/19 7:38 PM) Negative 01/16/2019 [facility] URINE AND STOOL UA Bili Negative *NA* (01/15/19 7:38 PM) Negative 01/16/2019 [facility] URINE AND STOOL UA Turbidity Clear (01/15/19 7:38 PM) Clear 01/16/2019 [facility] URINE AND STOOL UA Spec Grav 1.025 <=1.030 01/16/2019 [facility] URINE AND STOOL UA Color Yellow *NA* (01/15/19 7:38 PM) Yellow 01/16/2019 [facility] CHEM PANEL Lactic Acid Lvl 1.6 0.5 - 2.2 01/15/2019 [facility] MOLECULAR DIAGNOSTIC RSV PCR Negative (01/15/19 6:28 PM) Negative 01/15/2019 [facility] MOLECULAR DIAGNOSTIC Influenza B PCR Negative (01/15/19 6:28 PM) Negative 01/15/2019 [facility] Source Respiratory Panel PCR Flocked RN CONCURRENT REVIEW Swab (01/15/19 6:28 PM) 01/15/2019 [facility] MOLECULAR DIAGNOSTIC Influenza A PCR Negative (01/15/19 6:28 PM) Negative 01/15/2019 [facility] RAPID Grp A Strep Scr Negative (01/15/19 6:28 PM) Negative 01/15/2019 [facility] VIRAL - SEROLOGY Influ A Negative (01/15/19 6:28 PM) Negative 01/15/2019 [facility] VIRAL - SEROLOGY Influ B Negative (01/15/19 6:28 PM) Negative 01/15/2019 [facility] CARDIAC ENZYMES BNP 152 <=100 pg/mL 01/15/2019 [facility] CARDIAC ENZYMES Troponin-I 0.05 0.00 - 0.40 01/15/2019 [facility] CARDIAC ENZYMES Total CK 99 12 - 191 01/15/2019 [facility] CHEM PANEL Lipase Lvl 173 73 - 393 01/15/2019 [facility] CHEM PANEL Lactic Acid Lvl 1.6 0.5 - 2.2 01/15/2019 [facility] CHEM PANEL Globulin 4.3 2.7 - 4.2 01/15/2019 [facility] CHEM PANEL A/G Ratio 0.7 0.7 - 1.6 01/15/2019 [facility] CHEM PANEL B/C Ratio 23 6 - 25 01/15/2019 [facility] CHEM PANEL Total Protein 7.1 6.4 - 8.4 01/15/2019 [facility] CHEM PANEL ALT 19 0 - 65 01/15/2019 [facility] CHEM PANEL AST 15 0 - 37 01/15/2019 [facility] CHEM PANEL Albumin Lvl 2.8 3.5 - 5.0 01/15/2019 [facility] CHEM PANEL Alk Phos 73 39 - 136 01/15/2019 [facility] CHEM PANEL Bili Total 0.4 0.2 - 1.3 01/15/2019 [facility] HEMATOLOGY PT 13.2 12.0 - 14.7 01/15/2019 [facility] HEMATOLOGY INR 1.02 0.85 - 1.17 01/15/2019 [facility] vanB Vancomycin Resistance Not Detected (01/15/19 6:19 PM) Not Detected 01/15/2019 [facility] DIAGNOSTIC Staphylococcus spp. Detected *ABN* (01/15/19 6:19 PM) Not Detected 01/15/2019 [facility] E. faecalis Not Detected (01/15/19 6:19 PM) Not Detected 01/15/2019 [facility] DIAGNOSTIC E. faecium Not Detected (01/15/19 6:19 PM) Not Detected 01/15/2019 [facility] Streptococcus spp. Not Detected (01/15/19 6:19 PM) Not Detected 01/15/2019 [facility] DIAGNOSTIC S. pyogenes Not Detected (01/15/19 6:19 PM) Not Detected 01/15/2019 [facility] S. pneumoniae Not Detected (01/15/19 6:19 PM) Not Detected 01/15/2019 [facility] DIAGNOSTIC Eyad Vancomycin Resistance Not Detected (01/15/19 6:19 PM) Not Detected 01/15/2019 [facility] DIAGNOSTIC Listeria spp. Not Detected (01/15/19 6:19 PM) Not Detected 01/15/2019 [facility] mecA Methicillin Resistance Not Detected (01/15/19 6:19 PM) Not Detected 01/15/2019 [facility] S. aureus Detected *ABN* (01/15/19 6:19 PM) Not Detected 01/15/2019 [facility] S. agalactiae Not Detected (01/15/19 6:19 PM) Not Detected 01/15/2019 [facility] S. anginosus grp Not Detected (01/15/19 6:19 PM) Not Detected 01/15/2019 [facility] S. lugdunensis Not Detected (01/15/19 6:19 PM) Not Detected 01/15/2019 [facility] S. epidermidis Not Detected (01/15/19 6:19 PM) Not Detected 01/15/2019 [facility] Capillary blood glucose measurement by glucometer (mass/volume) 147 70 - 120 09/17/[address] [facility] Blood leukocytes automated count (number/volume) 9.24 4.8 - 10.8 09/14/[address] [facility] Blood erythrocytes automated count (number/volume) 4.23 3.6 - 5.1 09/14/[address] [facility] Blood hemoglobin measurement (moles/volume) 11.9 12.0 - 16.0 09/14/[address] [facility] Automated blood hematocrit (volume fraction) 35.9 34.2 - 44.1 09/14/[address] [facility] Automated erythrocyte mean corpuscular volume 84.9 81 - 99 09/14/[address] [facility] Automated erythrocyte mean corpuscular hemoglobin (mass per erythrocyte) 28.1 28 - 32 09/14/[address] [facility] Automated erythrocyte mean corpuscular hemoglobin concentration measurement (mass/volume) 33.1 31 - 35 09/14/[address] [facility] RDW BldCo-Rto 13.7 11.7 - 14.4 09/14/[address] [facility] Automated blood platelet count (count/volume) 266 140 - 360 09/14/[address] [facility] Automated blood segmented neutrophil count as percentage of total leukocytes 67.8 38.7 - 80.0 09/14/[address] [facility] Automated blood lymphocyte count as percentage ot total leukocytes 20.3 18.0 - 39.1 09/14/[address] [facility] Automated blood monocyte count as percentage of total leukocytes 9.5 4.4 - 11.3 09/14/[address] [facility] Automated blood eosinophil count as percentage of total leukocytes 1.4 0.0 - 6.0 09/14/[address] [facility] Automated blood basophil count as percentage of total leukocytes 0.6 0.0 - 1.0 09/14/[address] [facility] IM GRANULOCYTES % 0.4 0.0 - 1.0 09/14/[address] [facility] Automated blood neutrophil count 6.3 2.1 - 6.9 09/14/[address] [facility] Blood lymphocytes count (number/volume) 1.9 1.0 - 3.2 09/14/[address] [facility] Blood monocytes automated count (number/volume) 0.9 0.2 - 0.8 09/14/[address] [facility] Automated blood eosinophil count 0.1 0.0 - 0.4 09/14/[address] [facility] Automated blood basophil count (count/volume) 0.1 0.0 - 0.1 09/14/[address] [facility] Absolute Immature Granulocyte (auto 0.04 0 - 0.1 09/14/[address] [facility] Serum or plasma sodium measurement (moles/volume) 135 136 - 145 09/14/[address] [facility] Serum or plasma potassium measurement (moles/volume) 5.0 3.5 - 5.1 09/14/[address] [facility] Serum or plasma chloride measurement (moles/volume) 105 98 - 107 09/14/[address] [facility] Serum or plasma carbon dioxide, total measurement (moles/volume) 22 22 - 29 09/14/[address] [facility] Serum or plasma anion gap 13.0 8 - 16 09/14/[address] [facility] Serum or plasma urea nitrogen measurement (mass/volume) 36 7 - 26 09/14/[address] [facility] Serum or plasma creatinine measurement (mass/volume) 0.96 0.57 - 1.11 09/14/[address] [facility] Serum or plasma urea nitrogen/creatinine mass ratio 38 6 - 25 09/14/[address] [facility] Estimated glomerular filtration rate (GFR) determination 59 60 09/14/[address] [facility] Glucose measurement 156 74 - 118 09/14/[address] [facility] Serum or plasma calcium measurement (mass/volume) 9.1 8.4 - 10.2 09/14/[address] [facility] Ammonia Ser-mCnc 39 31 - 123 09/14/[address] [facility] Serum or plasma magnesium measurement (mass/volume) 1.6 1.3 - 2.1 09/12/[address] [facility] Serum or plasma total bilirubin measurement (mass/volume) 0.8 0.2 - 1.2 09/12/[address] [facility] Aspartate Amino Transf (AST/SGOT) 17 5 - 34 09/12/[address] [facility] Serum or plasma alanine aminotransferase measurement (enzymatic activity/volume) 22 0 - 55 09/12/[address] [facility] Serum or plasma protein measurement (mass/volume) 7.1 6.5 - 8.1 09/12/[address] [facility] Serum or plasma albumin measurement (mass/volume) 3.3 3.5 - 5.0 09/12/[address] [facility] Plasma globulin measurement (mass/volume) 3.8 2.3 - 3.5 09/12/[address] [facility] Serum or plasma albumin/globulin mass ratio 0.9 0.8 - 2.0 09/12/[address] [facility] Serum or plasma alkaline phosphatase measurement (enzymatic activity/volume) 79 40 - 150 09/12/[address] [facility] Serum or plasma creatine kinase measurement (enzymatic activity/volume) 90 29 - 168 09/11/[address] [facility] Serum or plasma creatine kinase MB measurement (mass/volume) 2.90 0 - 5.0 09/11/[address] [facility] Troponin I measurement by highly sensitive enzyme immunoassay 0.064 0 - 0.300 09/11/[address] [facility] Prothrombin time (PT) in platelet poor plasma by coagulation assay 12.9 11.9 - 14.5 09/11/[address] [facility] INR in Platelet poor plasma by Coagulation assay 0.89 09/11/[address] [facility] Activated partial thromboplastin time (aPTT) in platelet poor plasma bycoagulation assay 24.3 23.8 - 35.5 09/11/[address] [facility] Hemoglobin A1c Percent 7.3 4.0 - 7.0 09/11/[address] [facility] Serum or plasma triglyceride measurement (mass/volume) 70 0 - 149 09/11/[address] [facility] Serum or plasma cholesterol measurement (mass/volume) 152 0 - 199 09/11/[address] [facility] Serum or plasma cholesterol in LDL measurement (mass/volume) 79 60 - 130 09/11/[address] [facility] Serum or plasma cholesterol in HDL measurement (mass/volume) 59 40 - 60 09/11/[address] [facility] Serum or plasma total cholesterol/cholesterol in HDL mass ratio 2.6 3.0 - 3.6 09/11/[address] [facility] Serum or plasma thyrotropin measurement by detection limit <=0.005 miu/l (units/volume) 0.394 0.350 - 4.940 09/11/[address] [facility] Urine color determination YELLOW YELLOW 09/10/[address] [facility] Urine clarity HAZY CLEAR 09/10/[address] [facility] Specific gravity of Urine by Test strip 1.030 1.010 - 1.025 09/10/[address] [facility] Urine pH measurement by automated test strip 5 5 - 7 09/10/[address] [facility] Urine leukocyte esterase detection by dipstick 1+ NEGATIVE 09/10/[address] [facility] Urine nitrite detection NEGATIVE NEGATIVE 09/10/[address] [facility] Urine protein measurement by test strip (mass/volume) 2+ NEGATIVE 09/10/[address] [facility] Urine glucose detection NEGATIVE NEGATIVE 09/10/[address] [facility] Urine ketones detection by automated test strip NEGATIVE NEGATIVE 09/10/[address] [facility] Urine urobilinogen measurement by test strip (mass/volume) 0.2 0.2 - 1 09/10/[address] [facility] Urine total bilirubin measurement (mass/volume) NEGATIVE NEGATIVE 09/10/[address] [facility] Urine erythrocytes detection TRACE NEGATIVE 09/10/[address] [facility] Automated urine sediment leukocyte count by microscopy (number/high power field) 11-20 0 - 5 09/10/[address] [facility] Erythrocytes detection in urine sediment by light microscopy 0-5 0 - 5 09/10/[address] [facility] Bacteria detection in urine sediment by light microscopy FEW NONE 09/10/[address] [facility] Epithelial cells detection in urine sediment by light microscopy FEW NONE 09/10/[address] [facility] Amorphous sediment detection in urine sediment by light microscopy FEW FEW 09/10/[address] [facility] Hyaline casts detection in urine sediment by light microscopy 0-1 0 - 1 09/10/[address] [facility] BLOOD BANK RESULTS Antibody Scrn Negative (01/14/18 3:59 AM) 01/14/2018 [facility] BLOOD BANK RESULTS ABO/Rh A NEG 01/14/2018 [facility] CHEM PANEL Lipase Lvl 76 73 - 393 01/14/2018 [facility] CHEM PANEL Alk Phos 73 39 - 136 01/14/2018 [facility] CHEM PANEL Bili Direct 0.1 0.0 - 0.3 01/14/2018 [facility] CHEM PANEL Bili Total 0.5 0.2 - 1.3 01/14/2018 [facility] CHEM PANEL ALT 24 0 - 65 01/14/2018 [facility] CHEM PANEL Bili Indirect 0.4 0.0 - 1.0 01/14/2018 [facility] CHEM PANEL AST 5 0 - 37 01/14/2018 [facility] CHEM PANEL Albumin Lvl 2.6 3.5 - 5.0 01/14/2018 [facility] CHEM PANEL Total Protein 7.5 6.4 - 8.4 01/14/2018 [facility] CHEM PANEL A/G Ratio 0.5 0.7 - 1.6 01/14/2018 [facility] CHEM PANEL Globulin 4.9 2.7 - 4.2 01/14/2018 [facility] CHEM PANEL Phosphorus 4.1 2.5 - 4.5 01/14/2018 [facility] CHEM PANEL Magnesium Lvl 1.6 1.8 - 2.4 01/14/2018 [facility] ELECTROLYTES AGAP 17.4 10.0 - 20.0 01/14/2018 [facility] ELECTROLYTES eGFR 46 01/14/2018 Result [...] should be multiplied by the estimated BMI. [facility] ELECTROLYTES Calcium Lvl 8.6 8.5 - 10.5 01/14/2018 [facility] ELECTROLYTES Potassium Lvl 5.4 3.5 - 5.1 01/14/2018 [facility] ELECTROLYTES Creatinine Lvl 1.25 0.50 - 1.40 01/14/2018 [facility] ELECTROLYTES CO2 19 24 - 32 01/14/2018 [facility] ELECTROLYTES Chloride Lvl 105 95 - 109 01/14/2018 [facility] ELECTROLYTES BUN 32 7 - 22 01/14/2018 [facility] ELECTROLYTES Glucose Lvl 140 70 - 99 01/14/2018 [facility] ELECTROLYTES Sodium Lvl 136 135 - 145 01/14/2018 [facility] HEMATOLOGY RDW 15.0 11.5 - 14.5 01/14/2018 [facility] HEMATOLOGY MCH 27.5 27.0 - 31.0 01/14/2018 [facility] HEMATOLOGY Platelet 177 133 - 450 01/14/2018 [facility] HEMATOLOGY MCHC 32.6 32.0 - 36.0 01/14/2018 [facility] HEMATOLOGY MPV 8.6 7.4 - 10.4 01/14/2018 [facility] HEMATOLOGY Hgb 11.4 12.0 - 16.0 01/14/2018 [facility] HEMATOLOGY Hct 35.0 36.0 - 48.0 01/14/2018 [facility] HEMATOLOGY RBC 4.15 4.20 - 5.40 01/14/2018 [facility] HEMATOLOGY MCV 84.3 80.0 - 98.0 01/14/2018 [facility] HEMATOLOGY WBC 12.5 3.7 - 10.4 01/14/2018 [facility] HEMATOLOGY Segs 83.2 45.0 - 75.0 01/14/2018 [facility] HEMATOLOGY Lymphocytes 11.4 20.0 - 40.0 01/14/2018 [facility] HEMATOLOGY Basophils 0.3 0.0 - 1.0 01/14/2018 [facility] HEMATOLOGY Monocytes 5.1 2.0 - 12.0 01/14/2018 [facility] HEMATOLOGY Lymphocytes # 1.4 1.0 - 5.5 01/14/2018 [facility] HEMATOLOGY Monocytes # 0.6 0.0 - 0.8 01/14/2018 [facility] HEMATOLOGY Segs-Bands # 10.4 1.5 - 8.1 01/14/2018 [facility] PARATHYROID PROFILE Ca Norm WB 1.00 1.05 - 1.25 01/14/2018 [facility] PARATHYROID PROFILE Ca Ion WB 1.02 1.05 - 1.25 01/14/2018 [facility] ELECTROLYTES AGAP 13.6 10.0 - 20.0 01/05/2018 [facility] ELECTROLYTES eGFR 93 01/05/2018 Result [...] should be multiplied by the estimated BMI. [facility] ELECTROLYTES BUN 22 7 - 22 01/05/2018 [facility] ELECTROLYTES Creatinine Lvl 0.69 0.50 - 1.40 01/05/2018 [facility] ELECTROLYTES CO2 27 24 - 32 01/05/2018 [facility] ELECTROLYTES Calcium Lvl 8.7 8.5 - 10.5 01/05/2018 [facility] ELECTROLYTES Potassium Lvl 5.6 3.5 - 5.1 01/05/2018 [facility] ELECTROLYTES Chloride Lvl 108 95 - 109 01/05/2018 [facility] ELECTROLYTES Sodium Lvl 143 135 - 145 01/05/2018 [facility] ELECTROLYTES Glucose Lvl 73 70 - 99 01/05/2018 [facility] HEMATOLOGY MPV 8.8 7.4 - 10.4 01/05/2018 [facility] HEMATOLOGY RDW 14.6 11.5 - 14.5 01/05/2018 [facility] HEMATOLOGY Platelet 222 133 - 450 01/05/2018 [facility] HEMATOLOGY Hct 38.4 36.0 - 48.0 01/05/2018 [facility] HEMATOLOGY Hgb 12.5 12.0 - 16.0 01/05/2018 [facility] HEMATOLOGY MCV 83.8 80.0 - 98.0 01/05/2018 [facility] HEMATOLOGY MCH 27.2 27.0 - 31.0 01/05/2018 [facility] HEMATOLOGY MCHC 32.5 32.0 - 36.0 01/05/2018 [facility] HEMATOLOGY RBC 4.58 4.20 - 5.40 01/05/2018 [facility] HEMATOLOGY WBC 11.9 3.7 - 10.4 01/05/2018 [facility] HEMATOLOGY Basophils # 0.1 0.0 - 0.2 01/05/2018 [facility] HEMATOLOGY Eosinophils # 0.2 0.0 - 0.5 01/05/2018 [facility] HEMATOLOGY Basophils 0.7 0.0 - 1.0 01/05/2018 [facility] HEMATOLOGY Segs-Bands # 8.6 1.5 - 8.1 01/05/2018 [facility] HEMATOLOGY Eosinophils 1.7 0.0 - 4.0 01/05/2018 [facility] HEMATOLOGY Lymphocytes 19.0 20.0 - 40.0 01/05/2018 [facility] HEMATOLOGY Monocytes 6.4 2.0 - 12.0 01/05/2018 [facility] HEMATOLOGY Segs 72.2 45.0 - 75.0 01/05/2018 [facility] HEMATOLOGY Lymphocytes # 2.3 1.0 - 5.5 01/05/2018 [facility] HEMATOLOGY Monocytes # 0.8 0.0 - 0.8 01/05/2018 [facility] SPECIAL CHEMISTRY Hgb A1C 7.1 <=5.6 % 01/05/2018 [facility] CHEM PANEL Vitamin D, 25-OH, Total 18 30 - 100 10/13/2014 <sup>3</sup>Interpretive Data: Reference range is based on recommendations in the Endocrine
Society Clinical Practice Guideline (J Clin Endocrinol Metab
2010;96:9976-3145) [facility] CHEM PANEL Magnesium Lvl 1.6 1.8 - 2.4 10/13/2014 [facility] CHEM PANEL Phosphorus 3.8 2.5 - 4.5 10/13/2014 [facility] CHEM PANEL Albumin Lvl 3.1 3.5 - 5.0 10/13/2014 [facility] CHEM PANEL eGFR 61 10/13/2014 <sup>1</sup>Result [...] should be multiplied by the estimated BMI. [facility] CHEM PANEL BUN 22 7 - 22 10/13/2014 [facility] CHEM PANEL Glucose Lvl 149 70 - 99 10/13/2014 <sup>2</sup>Interpretive Data: Adult reference range values reflect the clinical guidelines
of the [place] [employer]. [facility] CHEM PANEL CO2 24 24 - 32 10/13/2014 [facility] CHEM PANEL Creatinine Lvl 1.0 0.5 - 1.4 10/13/2014 [facility] CHEM PANEL Calcium Lvl 8.8 8.5 - 10.5 10/13/2014 [facility] CHEM PANEL Chloride Lvl 105 95 - 109 10/13/2014 [facility] CHEM PANEL Potassium Lvl 3.9 3.5 - 5.1 10/13/2014 [facility] CHEM PANEL Sodium Lvl 137 135 - 145 10/13/2014 [facility] CHEM PANEL AGAP 11.9 10.0 - 20.0 10/13/2014 [facility] HEMATOLOGY Monocytes # 0.8 0.0 - 0.8 10/13/2014 [facility] HEMATOLOGY Eosinophils # 0.1 0.0 - 0.5 10/13/2014 [facility] HEMATOLOGY Lymphocytes # 2.5 1.0 - 5.5 10/13/2014 [facility] HEMATOLOGY Segs 50.5 45.0 - 75.0 10/13/2014 [facility] HEMATOLOGY Segs-Bands # 3.5 1.5 - 8.1 10/13/2014 [facility] HEMATOLOGY Basophils 0.6 0.0 - 1.0 10/13/2014 [facility] HEMATOLOGY Eosinophils 2.1 0.0 - 4.0 10/13/2014 [facility] HEMATOLOGY Monocytes 11.2 2.0 - 12.0 10/13/2014 [facility] HEMATOLOGY Lymphocytes 35.6 20.0 - 40.0 10/13/2014 [facility] HEMATOLOGY PTT 25.7 22.9 - 35.8 10/13/2014 <sup>5</sup>Interpretive Data: Heparin Therapeutic Range: 57 - 92 [facility] PT 13.6 12.0 - 14.7 10/13/2014 [facility] INR 1.04 0.85 - 1.17 10/13/2014 <sup>4</sup>Interpretive Data: RECOMMENDED RANGES FOR PROTIME INR:
2.0-3.0 for most medical and surgical thromboembolic states.
2.5-3.5 for artificial heart valves and recurrent embolism.

INR SHOULD BE USED ONLY FOR PATIENTS ON STABLE ANTICOAGULANT THERAPY. [facility] HEMATOLOGY MCV 90.8 80.0 - 98.0 10/13/2014 [facility] RBC 4.59 4.20 - 5.40 10/13/2014 [facility] Hct 41.7 36.0 - 48.0 10/13/2014 [facility] WBC 7.0 3.7 - 10.4 10/13/2014 [facility] Hgb 14.6 12.0 - 16.0 10/13/2014 [facility] MCHC 34.9 32.0 - 36.0 10/13/2014 [facility] Platelet 210 133 - 450 10/13/2014 [facility] MPV 8.6 7.4 - 10.4 10/13/2014 [facility] MCH 31.7 27.0 - 31.0 10/13/2014 [facility] RDW 13.0 11.5 - 14.5 10/13/2014 [facility] IMMUNOLOGY Prealbumin 16.0 18.0 - 45.0 10/13/2014 [facility] SPECIAL CHEMISTRY Hgb A1C 10.9 <=5.6 % 10/13/2014 [facility] THYROID PANEL T4 Free 1.58 0.76 - 1.46 10/13/2014 [facility] THYROID PANEL TSH 0.981 0.360 - 3.740 10/13/2014 [facility] ELECTROLYTES Chloride Lvl 102 95 - 109 10/11/2014 [facility] ELECTROLYTES Sodium Lvl 137 135 - 145 10/11/2014 [facility] ELECTROLYTES Potassium Lvl 3.8 3.5 - 5.1 10/11/2014 [facility] ELECTROLYTES eGFR 70 10/11/2014 <sup>1</sup>Result Comment: [...] should be multiplied by the estimated BMI. [facility] ELECTROLYTES Glucose Lvl 144 70 - 99 10/11/2014 <sup>4</sup>Interpretive Data: Adult reference range values reflect the clinical guidelines
of the [place] [employer]. [facility] ELECTROLYTES Creatinine Lvl 0.9 0.5 - 1.4 10/11/2014 [facility] ELECTROLYTES BUN 19 7 - 22 10/11/2014 [facility] ELECTROLYTES Calcium Lvl 8.7 8.5 - 10.5 10/11/2014 [facility] ELECTROLYTES CO2 28 24 - 32 10/11/2014 [facility] ELECTROLYTES AGAP 10.8 10.0 - 20.0 10/11/2014 [facility] HEMATOLOGY WBC 6.8 3.7 - 10.4 10/11/2014 [facility] RBC 4.54 4.20 - 5.40 10/11/2014 [facility] Hgb 14.4 12.0 - 16.0 10/11/2014 [facility] Hct 41.6 36.0 - 48.0 10/11/2014 [facility] MCH 31.7 27.0 - 31.0 10/11/2014 [facility] MCHC 34.5 32.0 - 36.0 10/11/2014 [facility] RDW 13.1 11.5 - 14.5 10/11/2014 [facility] Platelet 188 133 - 450 10/11/2014 [facility] MPV 8.1 7.4 - 10.4 10/11/2014 [facility] MCV 91.7 80.0 - 98.0 10/11/2014 [facility] Segs-Bands # 3.9 1.5 - 8.1 10/11/2014 [facility] HEMATOLOGY Lymphocytes # 1.9 1.0 - 5.5 10/11/2014 [facility] HEMATOLOGY Lymphocytes 27.6 20.0 - 40.0 10/11/2014 [facility] HEMATOLOGY Eosinophils 2.1 0.0 - 4.0 10/11/2014 [facility] HEMATOLOGY Monocytes 11.4 2.0 - 12.0 10/11/2014 [facility] HEMATOLOGY Basophils 0.9 0.0 - 1.0 10/11/2014 [facility] HEMATOLOGY Segs 58.0 45.0 - 75.0 10/11/2014 [facility] HEMATOLOGY Monocytes # 0.8 0.0 - 0.8 10/11/2014 [facility] HEMATOLOGY Eosinophils # 0.1 0.0 - 0.5 10/11/2014 [facility] HEMATOLOGY Basophils # 0.1 0.0 - 0.2 10/11/2014 [facility] CHEM PANEL eGFR 80 10/10/2014 <sup>2</sup>Result [...] should be multiplied by the estimated BMI. [facility] CHEM PANEL Total Protein 6.5 6.4 - 8.4 10/10/2014 [facility] CHEM PANEL B/C Ratio 16 6 - 25 10/10/2014 [facility] CHEM PANEL Globulin 3.5 2.0 - 4.0 10/10/2014 [facility] CHEM PANEL Albumin Lvl 3.0 3.5 - 5.0 10/10/2014 [facility] CHEM PANEL Bili Total 1.1 0.2 - 1.3 10/10/2014 [facility] CHEM PANEL AST 41 0 - 37 10/10/2014 [facility] CHEM PANEL Alk Phos 63 39 - 136 10/10/2014 [facility] CHEM PANEL A/G Ratio 0.9 0.7 - 1.6 10/10/2014 [facility] CHEM PANEL ALT 41 0 - 65 10/10/2014 [facility] CHEM PANEL Calcium Lvl 8.4 8.5 - 10.5 10/10/2014 [facility] CHEM PANEL AGAP 14.9 10.0 - 20.0 10/10/2014 [facility] CHEM PANEL BUN 13 7 - 22 10/10/2014 [facility] CHEM PANEL Creatinine Lvl 0.8 0.5 - 1.4 10/10/2014 [facility] CHEM PANEL CO2 21 24 - 32 10/10/2014 [facility] CHEM PANEL Glucose Lvl 166 70 - 99 10/10/2014 <sup>5</sup>Interpretive Data: Adult reference range values reflect the clinical guidelines
of the [place] [employer]. [facility] CHEM PANEL Sodium Lvl 135 135 - 145 10/10/2014 [facility] CHEM PANEL Chloride Lvl 103 95 - 109 10/10/2014 [facility] CHEM PANEL Potassium Lvl 3.9 3.5 - 5.1 10/10/2014 [facility] HEMATOLOGY Platelet 176 133 - 450 10/10/2014 [facility] HEMATOLOGY MPV 8.3 7.4 - 10.4 10/10/2014 [facility] HEMATOLOGY Hgb 13.4 12.0 - 16.0 10/10/2014 [facility] HEMATOLOGY MCV 91.4 80.0 - 98.0 10/10/2014 [facility] HEMATOLOGY Hct 39.4 36.0 - 48.0 10/10/2014 [facility] MCH 31.2 27.0 - 31.0 10/10/2014 [facility] HEMATOLOGY MCHC 34.1 32.0 - 36.0 10/10/2014 [facility] HEMATOLOGY RDW 13.2 11.5 - 14.5 10/10/2014 [facility] HEMATOLOGY WBC 9.0 3.7 - 10.4 10/10/2014 [facility] HEMATOLOGY RBC 4.31 4.20 - 5.40 10/10/2014 [facility] HEMATOLOGY Lymphocytes 22.4 20.0 - 40.0 10/10/2014 [facility] HEMATOLOGY Segs 67.0 45.0 - 75.0 10/10/2014 [facility] HEMATOLOGY Lymphocytes # 2.0 1.0 - 5.5 10/10/2014 [facility] HEMATOLOGY Basophils 0.6 0.0 - 1.0 10/10/2014 [facility] HEMATOLOGY Segs-Bands # 6.1 1.5 - 8.1 10/10/2014 [facility] HEMATOLOGY Eosinophils 0.8 0.0 - 4.0 10/10/2014 [facility] HEMATOLOGY Monocytes 9.2 2.0 - 12.0 10/10/2014 [facility] HEMATOLOGY Basophils # 0.1 0.0 - 0.2 10/10/2014 [facility] HEMATOLOGY Eosinophils # 0.1 0.0 - 0.5 10/10/2014 [facility] HEMATOLOGY Monocytes # 0.8 0.0 - 0.8 10/10/2014 [facility] CHEM PANEL BUN 15 7 - 22 10/09/2014 [facility] CHEM PANEL eGFR 70 10/09/2014 <sup>3</sup>Result [...] should be multiplied by the estimated BMI. [facility] CHEM PANEL Potassium Lvl 3.9 3.5 - 5.1 10/09/2014 [facility] CHEM PANEL Sodium Lvl 136 135 - 145 10/09/2014 [facility] CHEM PANEL Creatinine Lvl 0.9 0.5 - 1.4 10/09/2014 [facility] CHEM PANEL CO2 23 24 - 32 10/09/2014 [facility] CHEM PANEL Chloride Lvl 105 95 - 109 10/09/2014 [facility] CHEM PANEL Calcium Lvl 8.8 8.5 - 10.5 10/09/2014 [facility] CHEM PANEL Glucose Lvl 242 70 - 99 10/09/2014 <sup>6</sup>Interpretive Data: Adult reference range values reflect the clinical guidelines
of the [place] [employer]. [facility] CHEM PANEL AGAP 11.9 10.0 - 20.0 10/09/2014 [facility] HEMATOLOGY Monocytes # 0.7 0.0 - 0.8 10/09/2014 [facility] HEMATOLOGY Basophils # 0.1 0.0 - 0.2 10/09/2014 [facility] HEMATOLOGY Basophils 0.9 0.0 - 1.0 10/09/2014 [facility] HEMATOLOGY Lymphocytes # 2.0 1.0 - 5.5 10/09/2014 [facility] HEMATOLOGY Segs-Bands # 4.7 1.5 - 8.1 10/09/2014 [facility] HEMATOLOGY Lymphocytes 26.1 20.0 - 40.0 10/09/2014 [facility] HEMATOLOGY Segs 63.1 45.0 - 75.0 10/09/2014 [facility] HEMATOLOGY Monocytes 9.3 2.0 - 12.0 10/09/2014 [facility] HEMATOLOGY Eosinophils 0.6 0.0 - 4.0 10/09/2014 [facility] HEMATOLOGY Platelet 198 133 - 450 10/09/2014 [facility] HEMATOLOGY MPV 8.3 7.4 - 10.4 10/09/2014 [facility] HEMATOLOGY RDW 13.1 11.5 - 14.5 10/09/2014 [facility] MCHC 34.1 32.0 - 36.0 10/09/2014 [facility] MCH 31.1 27.0 - 31.0 10/09/2014 [facility] HEMATOLOGY Hct 39.3 36.0 - 48.0 10/09/2014 [facility] HEMATOLOGY MCV 91.4 80.0 - 98.0 10/09/2014 [facility] HEMATOLOGY RBC 4.30 4.20 - 5.40 10/09/2014 [facility] HEMATOLOGY Hgb 13.4 12.0 - 16.0 10/09/2014 [facility] HEMATOLOGY WBC 7.5 3.7 - 10.4 10/09/2014 [facility] LIPIDS VLDL 24 10/09/2014 [facility] LIPIDS LDL (Calculated) 141 <=99 mg/dL 10/09/2014 [facility] LIPIDS Chol 209 <=199 mg/dL 10/09/2014 [facility] LIPIDS Trig 122 <=149 mg/dL 10/09/2014 [facility] LIPIDS HDL 44 >=61 mg/dL 10/09/2014 [facility] LIPIDS CHD Risk 4.75 3.90 - 5.80 10/09/2014 [facility] SPECIAL CHEMISTRY Hgb A1C 11.3 <=5.6 % 10/09/2014 [facility] BACTERIAL - SEROLOGY MRSA by PCR [...] by the [facility] within the [facility]. The [facility] is authorized under the Clinical Laboratory Improvement Amendment of 1988 (CLIA-88) to perform high complexity testing. [facility] URINE AND STOOL UA RBC 1 0 - 2 10/09/2014 [facility] URINE AND STOOL UA WBC 4 0 - 5 10/09/2014 [facility] URINE AND STOOL UA Sq Epi Occasional /LPF Few /LPF 10/09/2014 [facility] URINE AND STOOL UA Glucose 500 mg/dL Negative mg/dL 10/09/2014 [facility] URINE AND STOOL UA Blood Negative (10/09/14 4:39 AM) Negative 10/09/2014 [facility] URINE AND STOOL UA Ketones 15 *ABN* (10/09/14 4:39 AM) Negative 10/09/2014 [facility] URINE AND STOOL UA Protein Trace *ABN* (10/09/14 4:39 AM) Negative 10/09/2014 [facility] URINE AND STOOL UA Bili Negative *NA* (10/09/14 4:39 AM) Negative 10/09/2014 [facility] URINE AND STOOL UA pH 7.0 5.0 - 8.0 10/09/2014 [facility] URINE AND STOOL UA Leuk Est Negative (10/09/14 4:39 AM) Negative 10/09/2014 [facility] URINE AND STOOL UA Urobilinogen 1.0 0.1 - 1.0 10/09/2014 [facility] URINE AND STOOL UA Nitrite Negative (10/09/14 4:39 AM) Negative 10/09/2014 [facility] URINE AND STOOL UA Spec Grav 1.020 <=1.030 10/09/2014 [facility] URINE AND STOOL UA Turbidity Clear (10/09/14 4:39 AM) Clear 10/09/2014 [facility] URINE AND STOOL UA Color Yellow *NA* (10/09/14 4:39 AM) Yellow 10/09/2014 [facility] Pathology Reports No Data Provided for [...] There is no other significant change. SL [id number] 02/06/2019 [facility] 1 v for Placement DX Clinical Indication: [...] curvilinear densities possibly atelectasis. No pneumothorax. SL: [id number] 02/02/2019 [facility] Ext Artery Single Level Bilat US Please refer to heart lab report, located under Vascular in [facility]. 01/31/2019 [facility] Chest 1view DX Patient Name: LIBAN MARTINEZ : 1955; Age: 63 years Female MR: [id number] Study: Chest 1view DX Order Time: 01/29/2019 [...] effusion. There is no other significant change. [id number] 01/23/2019 [facility] wo contrast MRI MRI right foot [...] foreign body on radiographs. SL: ANALISA 01/20/2019 [facility] Foot series DX EXAM: XR FOOT [...] 2. Osseous demineralization and degenerative changes. SL: [id number] 01/19/2019 [facility] 1view DX EXAM: Chest radiograph HISTORY: Dyspnea, hypoxia COMPARISON: 01/15/2019 at 1827 hours TECHNIQUE: Frontal view FINDINGS: Perihilar interstitial opacities bilaterally are slightly progressed and may reflect pulmonary edema or pneumonia. No appreciable pleural effusion. Stable cardiomediastinal contour. 16 01/18/2019 [facility] Bone scan 3 phase NM EXAMINATION: [...] in the lumbar spine. SL: NEGROPC 01/17/2019 [facility] Pulmonary Embolism CTA CTA Chest: HISTORY: Short [...] of previous granulomatous exposure. SL: EG-M 01/15/2019 [facility] Chest 1view DX 1 view chest portable: HISTORY: Dyspnea. FINDINGS: Pulmonary vascular congestion with areas of linear scarring or atelectasis in each lung base appears similar to 01/14/2018. No infiltrate, pneumothorax or pleural fluid collection. The heart and mediastinal contours are unchanged. IMPRESSION: Stable chest SL: - 01/15/2019 [facility] 2 views DX EXAM: XR CHEST 2 [...] device. 4. No acute osseous abnormalities. 01/14/2018 [facility] Esophagram w Water Soluble Contrast [...] Bibasilar subsegmental atelectasis of the lung. 01/14/2018 [facility] Chest 1view DX EXAM: XR [...] atelectasis. Underlying consolidation cannot be excluded. 01/13/2018 [facility] Chest 1view DX EXAM: XR [...] the patient to the operating room. 01/13/2018 [facility] Consultation Notes No Data Provided for This Section Discharge Summaries No Data Provided for This Section History and Physicals No Data Provided for This Section Vital Signs Vital Sign Value Date Comments Source Temperature Oral (F) 97.5 F 02/09/2019 [facility] Systolic (mm Hg) 163 02/09/2019 [facility] Diastolic (mm Hg) 72 02/09/2019 [facility] Respitory Rate 20 02/09/2019 [facility] Systolic (mm Hg) 158 02/09/2019 [facility] Diastolic (mm Hg) 52 02/09/2019 [facility] Respitory Rate 11 02/09/2019 [facility] Systolic (mm Hg) 143 02/09/2019 [facility] Diastolic (mm Hg) 67 02/09/2019 [facility] Respitory Rate 17 02/09/2019 [facility] Temperature Oral (F) 97.9 F 02/09/2019 [facility] Temperature Oral (F) 98.0 F 02/09/2019 [facility] Weight 83.409 01/30/2019 [facility] BMI Calculated 37.14 01/30/2019 [facility] Height 149.86 cm 01/30/2019 [facility] Weight 90 01/30/2019 [facility] BMI Calculated 40.07 01/30/2019 [facility] Heart Rate 99 01/30/2019 [facility] Height 149.86 cm 01/30/2019 [facility] Systolic (mm Hg) 111 01/23/2019 [facility] Diastolic (mm Hg) 65 01/23/2019 [facility] Heart Rate 74 01/23/2019 [facility] Temperature Oral (F) 97.8 F 01/23/2019 [facility] Systolic (mm Hg) 129 01/23/2019 [facility] Diastolic (mm Hg) 74 01/23/2019 [facility] Heart Rate 78 01/23/2019 [facility] Temperature Oral (F) 97.6 F 01/23/2019 [facility] Systolic (mm Hg) 143 01/23/2019 [facility] Diastolic (mm Hg) 82 01/23/2019 [facility] Temperature Oral (F) 97.6 F 01/23/2019 [facility] Heart Rate 74 01/23/2019 [facility] Respitory Rate 18 01/23/2019 [facility] Respitory Rate 18 01/23/2019 [facility] Respitory Rate 18 01/23/2019 [facility] Weight 85.554 01/16/2019 [facility] BMI Calculated 47.4 01/15/2019 [facility] Weight 85.909 01/15/2019 [facility] Height 134.62 cm 01/15/2019 [facility] Systolic (mm Hg) 156 01/14/2018 [facility] Diastolic (mm Hg) 64 01/14/2018 [facility] Center Respitory Rate 20 01/14/2018 [facility] Heart Rate 54 01/14/2018 [facility] Temperature Oral (F) 98.2 F 01/14/2018 [facility] Systolic (mm Hg) 173 01/14/2018 [facility] Diastolic (mm Hg) 66 01/14/2018 [facility] Respitory Rate 20 01/14/2018 [facility] Heart Rate 50 01/14/2018 [facility] Temperature Oral (F) 97.8 F 01/14/2018 [facility] Heart Rate 59 01/14/2018 [facility] Temperature Oral (F) 97.8 F 01/14/2018 [facility] [facility] 20 01/14/2018 [facility] Systolic (mm Hg) 197 01/14/2018 [facility] Diastolic (mm Hg) 96 01/14/2018 [facility] BMI Calculated 39.47 01/13/2018 [facility] Weight 88.636 01/13/2018 [facility] Height 149.86 cm 01/13/2018 [facility] BMI Calculated 40.07 01/05/2018 [facility] Weight 90 01/05/2018 [facility] Height 149.86 cm 01/05/2018 [facility] Temperature Oral (F) 97.8 F 10/19/2014 [facility] Respitory Rate 16 10/19/2014 [facility] Diastolic (mm Hg) 74 10/19/2014 [facility] Systolic (mm Hg) 129 10/19/2014 [facility] Heart Rate 67 10/19/2014 [facility] Diastolic (mm Hg) 61 10/19/2014 [facility] Respitory Rate 18 10/19/2014 [facility] Systolic (mm Hg) 101 10/19/2014 [facility] Heart Rate 76 10/19/2014 [facility] Temperature Oral (F) 97.5 F 10/19/2014 [facility] Diastolic (mm Hg) 77 10/18/2014 [facility] Systolic (mm Hg) 123 10/18/2014 [facility] Respitory Rate 18 10/18/2014 [facility] Heart Rate 81 10/18/2014 [facility] Temperature Oral (F) 97.5 F 10/18/2014 [facility] Weight 95.318 10/12/2014 [facility] BMI Calculated 41.04 10/12/2014 [facility] Height 152.4 cm 10/12/2014 [facility] Height 152.4 cm 10/12/2014 [facility] BMI Calculated 41.04 10/12/2014 [facility] Weight 95.318 10/12/2014 [facility] Temperature Oral (F) 97.8 F 10/12/2014 [facility] Systolic (mm Hg) 123 10/12/2014 [facility] Respitory Rate 14 10/12/2014 [facility] Heart Rate 92 10/12/2014 [facility] Diastolic (mm Hg) 71 10/12/2014 [facility] Heart Rate 83 10/12/2014 [facility] Respitory Rate 16 10/12/2014 [facility] Temperature Oral (F) 97.6 F 10/12/2014 [facility] Systolic (mm Hg) 123 10/12/2014 [facility] Diastolic (mm Hg) 84 10/12/2014 [facility] Systolic (mm Hg) 128 10/12/2014 [facility] Diastolic (mm Hg) 75 10/12/2014 [facility] Respitory Rate 18 10/12/2014 [facility] Heart Rate 82 10/12/2014 [facility] Temperature Oral (F) 98.5 F 10/12/2014 [facility] Weight 95.318 10/09/2014 [facility] BMI Calculated 41.04 10/09/2014 [facility] Height 152.4 cm 10/09/2014 [facility] Encounters Location Location Details Encounter Type Encounter Number Reason For Visit Attending Provider ADM Date DC Date Status Source [facility] Inpatient [id number] Preston Sheikh 10/09/2014 10/12/2014 [facility] Inpatient Rehab [id number] Hollis Martel Jr 10/12/2014 10/19/2014 [facility] Bedded Outpatient [id number] Derrell Botello 11/17/2017 11/17/2017 [facility] Bedded Outpatient [id number] Derrell Botello 12/01/2017 12/01/2017 [facility] Observation [id number] Maria Del Rosario Linder 01/13/2018 01/14/2018 [facility] Discharged Inpatient [id number] MORGAN BRAGA MD 09/12/2018 09/17/[address] [facility] [id number] Chaz Mitchell 01/15/2019 01/23/2019 [facility] Inpatient [id number] Alok Galindo 01/30/2019 02/09/2019 [facility] Procedures Procedure Code Date Perfomer Comments Source Magnetic resonance imaging of brain without contrast [id number] 09/11/2018 [facility] Magnetic resonance angiography of head without contrast [id number] 09/11/2018 [facility] Magnetic resonance angiography of neck without contrast [id number] 09/11/2018 [facility] Computed tomography of brain without radiopaque contrast [id number] 09/10/2018 [facility] X-ray of chest, two views [id number] 09/10/2018 [facility] Myotomy<sup>1</sup> [id number] 01/13/2018 Laparoscopic Endoscopic Myotomy and EGD [facility] Total knee replacement [id number] [facility] Caesarean section [id number] [facility] Assessment and Plan Assessment and Plan [...] well [facility]. [facility] -D[facility] [...] seen and examined by me with the resident/RN CONCURRENT REVIEW/PA and I agree with the History/Exam documented. [...] chest pain, denies history of CAD or VT, and does not have a family history significant for VT. With no acute changes on EKG and [...] Physician | PGY-1 Department of Internal Medicine [facility] CARDIOLOGY STAFF I saw and examined the patient with cardiologyresident Dr. Baires, and I agree with findings, assessment and recommended plan of care. Thank you for the courtesy of this consult. Fortino Molina M.D. 01/14/2018 [facility] Extracted from:Title: Clinical Document Author: [...] done with multi-disciplinary involvement including PT, OT, FERMENTATION ENGINEER, nutrition, nursing, social work, and rehab MD. [...] other methods of pain and anxiety control. FERMENTATION ENGINEER: poor insight into her deficits. Reading is [...] tub bench and shower bench. F/U: Outpatient FERMENTATION ENGINEER, PT, and OT 36 minutes of clinical time was spent with the patient performing history, examination, interdisciplinary team rounds, pharmacy team rounds, coordination of care and education, with >50% spent on coordination of care and counseling. 10/19/2014 [facility] Extracted from:Title: Clinical Document Author: Baudilio Lomax MD Date: 10/12/14 Progress Note - Daily [facility] Completed: Oct, 09:35 by Baudilio Lomax [...] iodine topical HPI: 59yo F transferred from [facility] ER in [facility] for AMS r/o CVA. Hx from pt [...] performed at 19:08 NSR at 67, nml FL, incr QRS, nml QTc, L axis, LBBB (no old EKG available at this time) good tracing Independently viewed by me Interp contemporaneously by me Assessment and Plan: 59yo F with AMS, r/o acute CVA: 1. NEURO - neuro consult placed to neuro brick mason, daily ASA ordered, neuro checks. MRI brain and carotid U/S ordered. Form completed to obtain medical records from Patient's hospital 2. CARDIO - stable, check cardiac enzymes 3. PULM - stable 4. HEME - stable, DVT prophylaxis 5. GI - stable 6. RENAL - stable 7. ID - stable 8. ENDO - stable Above plan pending eval by primary attending physician. 10/12/2014 [facility] Plan of Care Plan of Care Date Source Discharge Date 09/17/18 4:16pm Disposition HOME, SELF-CARE Instructions/Education Provided TIA Prescriptions See Medication Section Additional Instructions/Education Monitor blood pressure. Follow up with Dr. Braga in a couple weeks. 09/17/[address] [facility] Social History Social History Date Source Social [...] Start Date Stop Date Never Smoker 09/17/[address] [facility] Social History TypeResponse Alcohol Never Smoking Status Never smoker; Ready to change: No; Concerns about tobacco use in household: No; Exposure to Tobacco Smoke None; Cigarette Smoking Last 365 Days Yes; Reg Smoking Cessation Counseling No entered on: 01/13/18 10/09/2014 [facility] Social History TypeResponse Alcohol Never Smoking Status Never smoker; Ready to change: No; Concerns about tobacco use in household: No; Exposure to Tobacco Smoke None; Cigarette Smoking Last 365 Days Yes; Reg Smoking Cessation Counseling No entered on: 01/30/19 10/09/2014 [facility] Family History No Data Provided for This Section Advance Directives Order Name Results Value Date Source Advance Directives Advance Directives Directive Response Recorded Date/Time Does the patient have an advance directive? Yes 09/10/18 11:30pm If yes, is advance directive on file with [facility]? No 09/10/18 11:30pm If not on file with [facility] will patient provide a copy? Yes 09/10/18 11:30pm Do you have a Directive to Physician? Yes 09/10/18 6:10pm Do you have a Medical Power of Wildlife Enforcement Major? Yes 09/10/18 6:10pm Do you have an [...] rights and responsibilities? Yes 09/10/18 6:10pm 09/17/[address] [facility] Functional Status No Data Provided for This Section
--- OUTSIDE RECORDS SUMMARY | 2019-05-04 11:52 | XMS REPORT | Summary of Care ---
Author Author [facility] - Health Organization [facility] - Health Address Unknown Phone Unavailable Care Team Providers Care Lead Ingot Molder Name Role Phone Bironna, Fernando Shah PCP Reason for Visit * Reason Comments Forms cardi clearance Encounter Details Care Team Description Date Type Department Gerri Ram, THEATER MANAGER [address] [place] [address] [phone] Forms (cardi clearance ) 05/03/2019 Telephone [facility] [address], [address] [place] [address] Allergies Comments Active Allergy Reactions Severity Noted Date Iodine Hives 09/08/2018 Seafood/Fish Anaphylaxis High 03/21/2019 [place] Hives High 11/01/2018 documented as of this encounter (statuses as of 05/04/2019) Medications End Date Status Medication Sig Dispensed [...] as of this encounter (statuses as of 05/04/2019) Active Problems Problem Noted Date S/P placement of cardiac pacemaker 03/21/2019 Overview: Dual chamber pacemaker insertion to left side by Dr. Yuen Other spondylosis with radiculopathy, lumbar region 12/14/2018 Overview: Added automatically from request for surgery [id number] Greater trochanteric bursitis of right hip 09/12/2018 Back pain, lumbosacral 09/12/2018 documented as of this encounter (statuses as of 05/04/2019) Social History Date Tobacco Use Types Packs/Day [...] Treatment Care Team Description Date Type Specialty TatianalesterGerri samuels, THEATER MANAGER [address] [place] [address] [phone] 05/11/2019 Office Visit Orthopedic Surgery Health Maintenance Due [...] MEBKLDMN 2017-P [employer] MEDICARE resent [id number] ADV ZACHERY SERRA [id number] documented as of this encounter
--- NOTE | 2019-05-04 12:20 | NUR ---
1220p c/o low back pain 7/10 scale reported to Almita Gómez Medicated with 2mg Morphine IVP Via left iv site. Site w/o s/s infiltration. 1245p observed pt resting states pain 5/10 for low back pain. 1250p Phoned report to Nola GÓMEZ. Transported via stretcher and tele room notified of pacemaker in place w/o spikes noted. Rt radial site dry and intact. Normal neuro vascular function. Rt groin site w/o s/s oozing or hematoma. PPx4 with Doppler. Tolerated po intake. Void qs Pt down till 230pm. Handoff completed with Nola GÓMEZ left pt with RN at bedside. Side rail up call light at bedside. Bed in low position. Denies any other c/o. Copies of stent card and diagram and prescription given to family. savannah/amy
[2019-05-04] MEDS ORDERED: MORPHINE SULFATE INJ 4 MG/ML INJ 1ML ONE (12:22)
[2019-05-04] MEDS ORDERED: METOPROLOL SUCCINATE 25 MG TAB XL PO ONE (14:15)
[2019-05-04] MEDS ORDERED: DEXTROSE 50% SYRINGE 50 ML IV PRN (14:15)
[2019-05-04] MEDS ORDERED: SODIUM CHLORIDE 0.9% 1000ML 1,000 ML IV ONE (14:15)
[2019-05-04] MEDS: CLOPIDOGREL BISULFATE 75 MG TAB PO SCH (16:41)
[2019-05-04] MEDS: INSULIN LISPRO 100 UNIT/1 ML 3ML VIAL SQ SCH ×2 (16:42→21:31)
[2019-05-04] MEDS: MORPHINE SULFATE 2 MG/ML SYR 1ML IV PRN ×2 (18:03→21:31)
[2019-05-04] MEDS ORDERED: ATORVASTATIN 20 MG TAB PO SCH (21:00)
[2019-05-04] MEDS: ATORVASTATIN 40 MG TAB PO SCH (21:30)
[2019-05-05] MEDS: MORPHINE SULFATE 2 MG/ML SYR 1ML IV PRN ×2 (03:00→08:37)
[2019-05-05 03:46] VITALS: BP 146/76
[2019-05-05 05:34] LABS: HEMATOCRIT 26.8 % (34.2-44.1); HEMOGLOBIN 8.4 g/dL (12.0-16.0); LYMPHOCYTES # (AUTO) 1.1 (1.0-3.2); LYMPHOCYTES % 17.3 % (18.0-39.1); MEAN CORPUSCULAR HEMOGLOBIN 26.7 pg (28-32); MEAN CORPUSCULAR HGB CONC 31.3 g/dL (31-35); MEAN CORPUSCULAR VOLUME 85.1 fL (81-99); MONOCYTES # (AUTO) 0.3 (0.2-0.8); MONOCYTES % 5.3 % (4.4-11.3); NEUTROPHILS # (AUTO) 4.7 (2.1-6.9); NEUTROPHILS % 76.9 % (38.7-80.0); PLATELET COUNT 244 x10e3/uL (140-360); RED BLOOD COUNT 3.15 x10e6/uL (3.6-5.1); RED CELL DISTRIBUTION WIDTH 15.9 % (11.7-14.4)
[2019-05-05 05:44] LABS: ANION GAP 16.1 mmol/L (8-16); CALCIUM 8.7 mg/dL (8.4-10.2); CREATININE, SERUM 1.31 mg/dL (0.57-1.11); POTASSIUM 5.1 mmol/L (3.5-5.1)
--- NOTE | 2019-05-05 07:06 | NUR ---
Report given to oncoming nurse,walking round done.
[2019-05-05 08:05] VITALS: BP 155/72
[2019-05-05] MEDS: CLOPIDOGREL BISULFATE 75 MG TAB PO SCH (08:14)
[2019-05-05] MEDS: ATORVASTATIN 40 MG TAB PO SCH (08:15)
[2019-05-05] MEDS: INSULIN LISPRO 100 UNIT/1 ML 3ML VIAL SQ SCH (08:19)
[2019-05-05] MEDS ORDERED: METOPROLOL SUCCINATE 25 MG TAB XL PO SCH (09:00)
[2019-05-05] MEDS ORDERED: ASPIRIN 81 MG CHEW TAB PO SCH (09:00)
--- NOTE | 2019-05-05 10:57 | NUR ---
Patient discharged home.
== END 2019-05-05 10:50 | disposition home or self-care (01) ==
LOC: CATH LAB 07:17 → CATH LAB V 11:31 → IMCU 13:07
PROVIDERS: ADMIT Internal Medicine Cardiovascular Disease; ATTEND Internal Medicine Cardiovascular Disease
DX: I25.10 Atherosclerotic heart disease of native coronary artery without angina pectoris (principal); I25.2 Old myocardial infarction; I38 Endocarditis, valve unspecified; I05.0 Rheumatic mitral stenosis; Z91.041 Radiographic dye allergy status; Z91.013 Allergy to seafood; Z91.018 Allergy to other foods; Z01.812 Encounter for preprocedural laboratory examination; Z79.02 Long term (current) use of antithrombotics/antiplatelets; Z79.82 Long term (current) use of aspirin; Z68.34 Body mass index [BMI] 34.0-34.9, adult; Z95.0 Presence of cardiac pacemaker; Z82.49 Family history of ischemic heart disease and other diseases of the circulatory system
CPT/HCPCS: 76937; 93458; C1874; C9600; 36415; 80048; 80053; 82948; 85025; 85610; 92928; C1725; C1760; C1769; C1887; G0378; J1644; J2001; J2250; J2270; J2930; J3010; J7030; Q9967

== ENCOUNTER → 2019-07-17 | Outpatient (CLI) | payer MEDICARE ==
[~2019-07-17] MED LIST changes: +IOPAMIDOL 370 MG/ML 200 ML INFUS..BTL INJ ONE; +SODIUM CHLORIDE 0.9% 100 ML ONE; +SODIUM CHLORIDE 0.9% 500ML 500 ML ONE; +SODIUM CHLORIDE 0.9% 50ML 50 ML ONE
[2019-07-17 12:54] LABS: CREATININE, SERUM 1.1 mg/dL (0.57-1.11)
--- NOTE | 2019-07-17 17:40 | Diagnostic Imaging Report ---
CT, CTA abdomen and pelvis with bilateral lower extremities, 07/17/2019. History: Peripheral vascular disease. Comparison: <None available>. Technique: Multidetector CT scanning of the abdomen and pelvis was performed from the level of the lung bases to the lower extremities after intravenous administration of contrast. Coronal and sagittal multiplanar, MIP, and 3-D volume-rendering reformations were obtained. RADIATION DOSE: Total DLP: 1096 mGy*cm Dose modulation, iterative reconstruction, and/or weight based adjustment of the mA/kV was utilized to reduce the radiation dose to as low as reasonably achievable. Discussion: LUNG BASES: There is bilateral atelectasis. ABDOMEN: A 3.3 x 3.0 cm solid heterogeneously enhancing mass is present arising from the lower pole of the left kidney medially, abutting the proximal left ureter as it descends. A 2.3 cm simple cyst is also noted in the interpolar region of the left kidney. A 1.2 cm nodule is present within the right adrenal gland. Calcified granulomata are scattered throughout the liver and spleen. The gallbladder, biliary tree, pancreas, left adrenal gland, and right kidney are normal. The hepatic vein, portal vein, and splenic vein are patent. Evaluation of bowel is limited without oral contrast. There is no bowel dilatation. The appendix is visualized and is normal. There is no evidence of adenopathy or free fluid. PELVIS: The bladder, uterus, and adnexa are normal in appearance. There is no evidence of free fluid or adenopathy. BONES AND SOFT TISSUES: Degenerative changes are present throughout the lumbar spine without evidence of lytic or sclerotic lesion. There is grade 1 spondylolisthesis of L5 on S1 with bilateral L5 spondylolysis. Calcified injection granulomata are present within bilateral buttocks. 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 Abdominal and pelvic vessels: The abdominal aorta is within normal limits for size. The SMA, celiac trunk, single bilateral renal arteries, and RICO are patent. Bilateral common, external, and internal iliac arteries are patent. Right lower extremity: There is diffuse atherosclerotic calcification of the profundus and superficial femoral arteries. The common femoral, profundus femoral, superficial femoral, and visualized popliteal arteries are patent. A portion of the popliteal artery is obscured by metallic streak artifact from knee prosthesis. There is a patent trifurcation with both anterior and posterior tibial arteries supplying the foot. Left lower extremity: There is diffuse atherosclerotic calcification of the profundus and superficial femoral arteries. The common femoral, profundus femoral, superficial femoral, and popliteal arteries are patent. A portion of the proximal artery is obscured by metallic streak artifact from knee prosthesis. There is a patent trifurcation with both anterior and posterior tibial arteries supply the foot. IMPRESSION: 1. Hypervascular 3.3 cm left renal mass consistent with renal cell carcinoma. Recommend urologic consultation. A message regarding the findings were left for Dr. Jorgensen with his answering service at 1730 on 07/17/2019. 2. Bilateral lower extremity atherosclerotic vascular calcification without evidence of significant stenosis. Signed by: Andrea Wang on 07/17/2019 5:37 PM
== END ==
LOC: CT 11:54
PROVIDERS: ATTEND Internal Medicine Cardiovascular Disease
DX: I70.211 Atherosclerosis of native arteries of extremities with intermittent claudication, right leg (principal)
CPT/HCPCS: 36415; 75635; 82565; 84520; J7040; J7050; Q9967